=== PATIENT | female | born 1960 | race Caucasian/White ===

== ENCOUNTER → 2018-03-10 12:27 | Outpatient (CLI) | payer OTHER, SELFPAY ==
--- NOTE | 2018-03-10 13:00 | RAD_ITS ---
STUDY: X-RAY - UNILATERAL RIBS ( LEFT ) WITH CHEST REASON FOR EXAM: Female, 57 years old. Contusion following a fall. TECHNIQUE - RIBS: 4 view(s) of the ribs. TECHNIQUE - CHEST: Single PA view of the chest. COMPARISON: Comparison is made with prior chest radiograph dated March 09, 2017. FINDINGS - RIBS: Normal visualized ribs without a demonstrated fracture. FINDINGS - CHEST: Mild degree of increased linear markings at the lung bases suggestive of scarring. No acute infiltrate is seen. There is no demonstrated pleural abnormality. Normal size heart. Normal mediastinum and chitra. Normal visualized pulmonary arteries. There is atherosclerotic tortuosity of the aortic arch and descending thoracic aorta. Normal visualized thoracic spine. Normal visualized ribs, clavicles, and shoulders. There is no demonstrated abnormality of the visualized soft tissue structures of the upper abdomen. RAD/Ribs Uni Min 3V w/PA Chest IMPRESSION: RIBS: Normal x-ray examination of the ribs. CHEST: Stable mild degree of increased linear markings at the lung bases suggestive of scarring. Electronically Signed: Wojciech Washburn MD at 13:57 EDT Tel [phone], Service support ,
== END ==
PROVIDERS: Visit Provider Family Medicine
DX: S20.212A Contusion of left front wall of thorax, initial encounter (principal); W19.XXXA Unspecified fall, initial encounter
CPT/HCPCS: 71101

== ENCOUNTER 2022-02-20 22:27 | Emergency (ER) | payer MEDICAID, SELFPAY ==
[2022-02-20 22:28] VITALS: BP 167/89; PULSE 94; RESP 16; TEMP 35.9; O2SAT 100; BMI 29.2
--- NOTE | 2022-02-20 22:36 | EDS_ITS ---
HPI History of Present Illness Chief Complaint: Flank Pain Narrative Narrative: 61-year-old female here with chief complaint of flank pain. Patient states that she had 2 days of left flank pain that is constant, nonradiating worse at night. Does note some urinary frequency but notes also decreased urination. Denies any fever. Denies any abdominal pain, diarrhea, change in bowel or bladder habits, vaginal bleeding. Patient denies any chest pain or shortness of breath. The pain is not pleuritic. Prior similar symptoms: No Recent Illness/Hospitalization: No PFSH PFSH Medical History (Updated 02/21/22 @ 00:[address] Kamari Rodriguez, DO) Abdominal pain Mid back pain on left side Urinary frequency Home Medications albuterol sulfate 90 mcg/actuation aerosol inhaler 1 - 2 puff inhalation Q4H PRN PRN Wheezing ##1 03/10/17 [Rx Last Taken Unknown] ibuprofen 600 mg tablet 600 mg PO TID PRN pain #30 tabs 02/20/22 [Rx Last Taken Unknown] Allergy/AdvReac Type Severity Reaction Status Date / Time Penicillins Allergy Rash Verified 02/20/22 22:28 Social History (Updated 10/06/18 @ 13:58 by Hunter RIVAS, PA) Smoking Status: Current every day smoker tobacco type: cigarettes alcohol intake: current alcohol intake frequency: holidays/special occasions only ROS ROS ED Constitutional Constitutional ED: Denies chills or fever(s) Eyes Eyes: Denies other visual disturbances ENT ENT ED: Denies ear pain Cardiovascular Cardiovascular: Denies chest pain Respiratory/Chest Respiratory/Chest: Denies dyspnea Gastrointestinal Gastrointestinal: Denies abdominal pain Genitourinary Genitourinary ED: Reports urinary frequency Musculoskeletal Musculoskeletal: Denies joint pain Integumentary Denies rash Neurologic Neurologic: Denies dizziness, focal weakness, numbness, syncope or weakness Psychiatric Psychiatric: Denies homicidal ideation or suicidal ideation EXAM Physical Exam Narrative Exam Narrative: Nursing triage notes reviewed, Vital signs reviewed Constitutional: please see mdm HENT: MMM Eyes: Pupils equal round and reactive to light, Extraocular muscles intact Neck: No stridor, no JVD, full neck ROM Lungs: Clear to auscultation, No wheezing or rales. No increased work of breathing, no conversational dyspnea, no accessory muscle use, no nasal flaring. No respiratory distress noted Heart: Regular rate and rhythm, No murmurs, No rubs and No gallops, 2+ distal pulses (radial, femoral, posterior tibial) in all extremities Abdomen: Soft, there is no tenderness, rigidity, rebound or guarding, no obvious peritoneal signs, no palpable pulsatile abdominal masses, no auscultated abdominal bruit : No CVAT Extremities: No edema Neuro: No focal neurological deficits, cranial nerves II through XII intact, 5/5 strength in all extremities. Intact sensation to light touch in all extremities, 2+ reflexes bilateral patella dens. Normal gait. No ataxia. Skin: No rash or lesions noted Const Vital Signs: 02/20/22 22:28 Temperature 96.6 F L Temperature Source Temporal Pulse Rate 94 Respiratory Rate 16 Blood Pressure 167/89 H Blood Pressure Mean 115 Pulse Ox 100 Oxygen Delivery Method Room Air MDM MDM MDM Narrative Medical decision making narrative: 61-year-old female here with 2 days of left flank pain and urinary frequency. Patient was hemodynamically stable, afebrile and nontoxic-appearing. There is no CVA tenderness on my exam. Concerned about pyelonephritis, UTI, nephrolithiasis. Obtained a broad lab and imaging work-up to further elucidate etiology of his complaints. I obtained a noncontrast CT scan to rule out nephrolithiasis, obtained a urinalysis to rule out signs of UTI or pyelonephritis. Patient had no pulsatile abdominal masses, no pulse deficits, low suspicion for other pathology at this time gave morphine, fluids with improvement in pain labs images were remarkable for\no evidence of systemic in flammation, UTI or kidney dysfunction. CT scan shows no evidence of acute intra-abdominal pathology including nephrolithiasis, AAA patient symptoms remain unexplained however she is hemodynamically stable afebrile with a negative lab and imaging work-up. She is appropriate for discharge home with close PCP follow-up and strict return precautions. Patient expressed understanding and agreed to return if her symptoms change or worsen. Shared decision making: I had a long discussion with the patient and or visitors regarding risk/benefits of further testing or admission. They decided to forego any further testing or admission. They are aware of of the risk/benefits inherent in this decision and have voiced understanding. Lab Data Attestation: I reviewed the patient's lab results. Lab results narrative: CBC without leukocytosis, severe anemia, no thrombocytopenia. BMP without evidence of significant electrolyte abnormalities, no anion gap, no acute kidney injury. Urinalysis shows no evidence of urinary inflammation suggestive of UTI Labs: Laboratory Results - last 24 hr 02/20/22 02/20/22 02/20/22 23:15 23:15 23:30 WBC 7.0 RBC 4.19 L Hgb 14.5 Hct 41.6 MCV 99.3 H MCH 34.6 H MCHC 34.9 RDW Std Deviation 46.4 H RDW Coeff of Pema 12.7 Plt Count 230 MPV 9.9 Immature Gran % (Auto) 0.700 Neut % (Auto) 44.9 L Lymph % (Auto) 40.7 Young % (Auto) 9.5 Eos % (Auto) 3.5 Baso % (Auto) 0.7 Absolute Neuts (auto) 3.1 Absolute Lymphs (auto) 2.83 Nucleated RBC % 0 Sodium 135 L Potassium 3.4 L Chloride 101 Carbon Dioxide 28.0 Anion Gap 6 BUN 9 Creatinine 0.68 Estim Creat Clear Calc 71.87 Est GFR (MDRD) Af Amer 114 Est GFR (MDRD) Non-Af 94 BUN/Creatinine Ratio 13.3 Glucose 119 H Calcium 9.5 Urine Color Straw Urine Clarity Clear Urine pH 6.0 Ur Specific [place] 1.010 Urine Protein Negative Urine Glucose (UA) Normal Urine Ketones Negative Urine Occult Blood 10 H Urine Nitrite Negative Urine Bilirubin Negative Urine Urobilinogen Normal Ur Leukocyte Esterase Negative Urine RBC 0-5 SEEN Urine WBC 0 SEEN Ur Squamous Epith Cells 0-5 SEEN Urine Bacteria 0 SEEN Urine Mucus 0 SEEN Radiography Diagnostic Testing: Clinical Impression(s) from Imaging Studies Abdomen/Pelvis CT 02/20/22 22:45 IMPRESSION: No evidence of acute intra-abdominal abnormality. Other nonurgent findings within body of report. Electronically Signed: Raffaele Marie MD at 0:34 EDT , Discharge Plan Triage Chief Complaint: Flank Pain ED Provider: Kamari Rodriguez Dx/Rx/DC Orders Clinical Impression: Acute flank pain Instructions: ED Pain, Acute, Uncertain Cause Prescriptions: No Action ibuprofen 600 mg tablet 600 mg PO TID PRN (Reason: pain) Qty: 30 0RF albuterol sulfate 1 INHALER inhaler 1 - 2 puff inhalation Q4H PRN PRN (Reason: Wheezing) Qty: 1 0RF Primary Care Provider: Care Physician,No Primary Referrals: Care Physician,No Primary [Primary Care Provider] - Activity Restrictions/Additional Instructions: Please return if your symptoms change or worsen. Please continue to drink plenty of fluids. Please take [id number] Tylenol and/or ibuprofen as needed for further pain control. Disposition Disposition: Home, Self Care
--- NOTE | 2022-02-20 22:45 | CT_ITS ---
INDICATION: Kidney Stone. Left flank pain for 2 days, urinary frequency. EXAMINATION: CT ABDOMEN AND PELVIS WITHOUT CONTRAST TECHNIQUE: Helically acquired images were obtained of the abdomen and pelvis without IV contrast. 2-D reconstructions reviewed. A radiation dose optimization technique was used for this scan. IV Contrast dosage and agent: None. Oral contrast: None. COMPARISON: None. FINDINGS: LOWER CHEST: Slightly hyperexpanded lungs with minimal basilar atelectatic changes. Heart size within normal limits. LIVER: Homogeneous. No discrete mass. GALLBLADDER AND BILIARY TREE: No calcified gallstones identified. No gallbladder wall edema demonstrated. No significant biliary ductal dilation. PANCREAS: No discrete mass or peripancreatic edema. SPLEEN: Normal size without discrete mass. ADRENAL GLANDS: Unremarkable. KIDNEYS AND URETERS: Normal renal size and position. No hydronephrosis. No discrete mass. No tract stones identified. PERITONEUM: No peritoneal free air or significant free fluid. No other fluid collection. RETROPERITONEUM: No retroperitoneal mass or pathologic fluid collection. BOWEL: Normal appendix posterior to cecum within right lower quadrant. No abnormal stomach or bowel distension. No focal inflammatory change. LYMPH NODES: No enlarged mesenteric or retroperitoneal lymph nodes. VESSELS: Atherosclerotic calcifications with no abdominal aortic aneurysm. URINARY BLADDER: Unremarkable as visualized. REPRODUCTIVE ORGANS: No discrete pelvic mass. ABDOMINAL WALL: No acute findings or significant hernia defect. BONES: Multilevel degenerative changes and mild scoliotic curvature along spine. CT/Abdomen/Pelvis without Cont IMPRESSION: No evidence of acute intra-abdominal abnormality. Other nonurgent findings within body of report. Electronically Signed: Raffaele Marie MD at 0:34 EDT ,
[2022-02-20] MEDS: Ondansetron 4 MG/2 ML Vial IV (23:21)
[2022-02-20] MEDS: 0.9% Normal Saline 1,000 ML 999 ML IV (23:21)
[2022-02-20] MEDS: Ketorolac 15 MG/ML Vial IV (23:22)
[2022-02-20] MEDS: Morphine 4 MG/ML Syringe IV (23:25)
[2022-02-20 23:30] LABS: Absolute Lymphocyte Count 2.83 X10^3/uL (0.83-4.51); Absolute Neutrophil Count 3.1 X10^3/uL (2.0-7.7); Basophil# 0.05 X10^3/uL; Basophil% 0.7 % (0-1); Eosinophil# 0.24 X10^3/uL; Eosinophils% 3.5 % (0-5); Hematocrit 41.6 % (37-47); Hemoglobin 14.5 g/dL (12.0-15.0); Lymphocyte # 2.83 X10^3/ul (0.83-4.51); Lymphocyte % 40.7 % (19-41); Mean Corp Hgb Conc 34.9 g/dL (32-36); Mean Corpuscular Hgb 34.6 pg (27.0-32.0); Mean Corpuscular Volume 99.3 fL (81-99); Mean Platelet Vol. 9.9 fl (6.2-12.0); Monocyte# 0.66 X10^3/uL; Monocyte% 9.5 % (0-10); NRBC Flagged by Analyzer 0 % (0-5); Neutrophil # 3.12 X10^3/uL (2.7-7.7); Neutrophil % 44.9 % (47-70); Platelet Count 230 K/mm3 (150-450); RBC Distribution Width CV 12.7 % (11.6-14.6); RBC Distribution Width SD 46.4 fl (35.1-43.9); Red Blood Count 4.19 M/mm3 (4.2-5.4)
[2022-02-20 23:34] LABS: Bacteria 0 SEEN /hpf (None Seen); Mucous, Urine 0 SEEN /hpf (<or=2+); White Blood Cells 0 SEEN /hpf (0-5)
[2022-02-20 23:35] LABS: Color, Urine Straw (Yellow); Glucose, Dipstick Normal (Normal); Ketone-Dipstick Negative (Negative); Leukocyte Esterase-Dipstick Negative /ul (Negative); Nitrite-Dipstick Negative (Negative); Occult Blood-Urine 10 /ul (Negative); Protein-Dipstick Negative (Negative); Urine Bilirubin Dipstick Negative (Negative); Urine Clarity Clear (Clear); Urine Urobilinogen Normal (Normal)
[2022-02-20 23:39] LABS: Anion Gap 6 (5-15); BUN 9 mg/dL (7-18); BUN/Creat Ratio 13.3 RATIO (10-20); Calcium,Total 9.5 mg/dL (8.5-10.1); Chloride 101 mmol/L (98-107); Creatinine, Serum 0.68 mg/dL (0.55-1.02); EST Glomerular Filtration Rate 94 mL/min (>60); Est Glom Filt Rate - Afr Amer 114 mL/min (>60); Estimated Creatinine Clearance 71.87 ml/min; Glucose 119 mg/dL (74-106); Potassium 3.4 mmol/L (3.5-5.1); Sodium Level 135 mmol/L (136-145)
[2022-02-20 23:52] LABS: Red Blood Cells-Urine 0-5 SEEN /hpf (0-5); Squamous Epithelial Cells - UA 0-5 SEEN /hpf (5-10)
[2022-02-21 01:01] VITALS: PULSE 78; RESP 18; O2SAT 97
== END 2022-02-21 01:02 | disposition home or self-care (01) ==
PROVIDERS: Emergency Provider Emergency Medicine; Visit Provider Emergency Medicine
DX: R10.9 Unspecified abdominal pain (principal); F17.210 Nicotine dependence, cigarettes, uncomplicated
CPT/HCPCS: 74176; 80048; 81001; 85025; 87086; 87088; 96361; 96374; 96375; 99283; J7030; A4216; J2405

== ENCOUNTER → 2022-02-20 | Outpatient (CLI) | payer MEDICAID, SELFPAY ==
[2022-02-20 10:05] LABS: Bacteria 0 SEEN /hpf (None Seen); Red Blood Cells-Urine 0 SEEN /hpf (0-5); Squamous Epithelial Cells - UA 0 SEEN /hpf (5-10); White Blood Cells 0 SEEN /hpf (0-5)
[2022-02-20 10:12] LABS: Color, Urine Yellow (Yellow); Glucose, Dipstick Normal (Normal); Ketone-Dipstick 5 mg/dl (Negative); Leukocyte Esterase-Dipstick Negative /ul (Negative); Nitrite-Dipstick Negative (Negative); Occult Blood-Urine Negative /ul (Negative); Protein-Dipstick Negative (Negative); Specific Gravity, Urine 1.005 (1.002-1.030); Urine Bilirubin Dipstick Negative (Negative); Urine Clarity Clear (Clear); Urine Urobilinogen Normal (Normal); Urine pH 6.5 (5.0 - 8.0)
[2022-02-20 10:26] LABS: Mucous, Urine 0 SEEN /hpf (<or=2+)
== END | disposition home or self-care (01) ==
LOC: LABSPEC 09:58
PROVIDERS: Visit Provider Physician Assistant
DX: R35.0 Frequency of micturition (principal)
CPT/HCPCS: 81001; 87086

== ENCOUNTER 2024-11-22 09:00 | Emergency (ER) | payer MEDICAID, SELFPAY ==
[2024-11-22 09:01] VITALS: BP 147/82; PULSE 100; RESP 16; TEMP 36.7; O2SAT 99
[2024-11-22 09:04] VITALS: BMI 29.6
--- NOTE | 2024-11-22 09:16 | EDS_ITS ---
HPI History of Present Illness HPI Narrative: 63-year-old female no [facility] past medical history. Believes she has arthritis in her knees. Complaining of atraumatic right knee pain and swelling since Friday. Denies any fall injury or trauma. No fever or chills. No redness or warmth. She has had knee pain before but not like this. Can walk but says it is uncomfortable. Chief Complaint: Lower Extremity Injury Informant: patient Occured/Mechanism Mechanism/Context: No injury and No blunt trauma Onset/Context/Timing Onset: Days Context: Gradual Onset Timing: Continuous Quality of Pain: Sharp Current Severity: Moderate Maximum Severity: Moderate Associated Symptoms Associated Symptoms: Negative for Parasthesia, Weakness or Loss of Funtion Narrative Narrative: 63-year-old female atraumatic right knee pain and swelling. History of arthritis. No history of gout. No fever or chills. No prior history. No fall or trauma. Been going on since Friday. Prior similar symptoms: No Recent Illness/Hospitalization: No PFSH PFSH Medical History Mid back pain on left side Urinary frequency Abdominal pain Home Medications ?Medication ?Instructions ?Recorded ?Last Taken ?Type azithromycin 250 mg tablet 250 mg PO .COMPLEX #12 tabs 09/27/24 Unknown Rx Allergy/AdvReac Type Severity Reaction Status Date / Time Penicillins Allergy Rash Verified 11/22/24 09:01 Social History Smoking Status: Current every day smoker tobacco type: cigarettes alcohol intake: current alcohol intake frequency: holidays/special occasions only ROS ROS ED ROS Narrative Denies recent illness. Constitutional Constitutional ED: Denies chills or fever(s) Eyes Eyes: Denies blurry vision ENT ENT ED: Denies ear pain Cardiovascular Cardiovascular: Denies chest pain Respiratory/Chest Respiratory/Chest: Denies cough or dyspnea Gastrointestinal Gastrointestinal: Denies abdominal pain Genitourinary Genitourinary ED: Denies dysuria or hematuria Musculoskeletal Musculoskeletal: Denies arthralgias or back pain Integumentary Denies abscess or Abrasions Neurologic Neurologic: Denies headache(s) Psychiatric Psychiatric: Denies anxiety Endocrine Endocrinology: Denies polydipsia Hematologic/Lymphatic Hematologic/Lymphatic: Denies easy bleeding, easy bruising or lymphadenopathy Allergic/Immunologic Allergic/Immunologic ED: Denies mouth swelling, tongue swelling or urticaria EXAM Physical Exam Narrative Exam Narrative: 63-year-old female sitting upright in bed. Vital signs are stable afebrile. No acute distress. H EENT exam pupils round reactive light. Moist mucous membranes. Neck nontender no lymphadenopathy. Lungs clear to auscultation bilaterally. Heart regular rhythm rate about 95 no murmur. Chest wall ribs nontender. Abdomen soft nontender. Back nontender. Moving all 4 extremities. Neurovascularly intact. Normal range of motion and strength. Right knee tender to palpation. Swollen. Effusion. No cellulitis. Not hot to the touch. She is able to do flexion extension. There is obvious crepitance to both knees. Normal dorsi plantarflexion. Normal strength in her right foot and ankle. Normal sensation. There is no inguinal lymphadenopathy. Exam is consistent with an arthritic knee effusion. This does not look like a septic joint. Neurologically she is awake and alert. Answer questions following commands. Const Vital Signs: 11/22/24 09:01 11/22/24 10:22 Temperature 98.1 F 98 F Temperature Source Oral Pulse Rate 100 79 Respiratory Rate 16 19 H Blood Pressure 147/82 H 140/77 H Blood Pressure Mean 103 98 Pulse Ox 99 97 Oxygen Delivery Method Room Air Positive well nourished and well developed; Negative for obese, cachectic, contractures or unkempt General Appearance ED: well developed; Negative for unkempt, cachectic or contractures Nutritional Appearance: Negative for cachectic or obese HEENT Reports moist mucous membranes normocephalic and atraumatic Eyes PERRL Neck full ROM and supple Chest Wall inspection of chest normal and palpation of chest normal Resp normal respiratory effort, no retractions and clear to auscultation bilaterally Cardio regular rate, regular rhythm, S1 normal heart sound, S2 normal heart sound and no murmurs GI non-tender, non-distended and no masses Auscultation: normoactive bowel sounds Palpation: soft; Negative for tender, guarding or rebound tenderness present Back/Spine no CVA tenderness General Back: Negative for CVA tenderness Cervical Spine: Negative for cervical spine tenderness Thoracic Spine / Upper Back: Negative for thoracic spinal tenderness Lumbar Spine / Lower Back: Negative for lumbar spinal tenderness Extremity full ROM; Negative for normal to inspection Extremity Narrative: Right knee swollen. Effusion. Flexion section intact. Crepitance. No cellulitis. No septic joint. No inguinal lymphadenopathy. Normal strength and sensation. General Extremety ED: Yes weight-bearing difficulty; Negative for cyanosis or edema General Extremity: weight-bearing difficulty; Negative for cyanosis or edema Neuro oriented x3, CN's II-XII intact bilaterally, moves all extremities and no sensory deficits noted Sensorium / Orientation: alert, oriented to person, oriented to place and oriented to time; Negative for orientation impaired Motor Exam: strength 5/5 throughout Psych mental status grossly normal Appearance: Negative for unkempt Skin no wounds Rashes: no rashes MDM MDM MDM Narrative Medical decision making narrative: Swollen tender right [id number] female with no history of trauma. Suspect arthritic effusion. She has no history of gout. She has no recent illness or fever. There is no cellulitis. I do not think this is infectious. X-ray will be obtained. She and I have discussed interarticular injection with Kenalog and lidocaine. History & Record Review Discussion w/independent historian: Patient and Family Lab Data Attestation: I reviewed the patient's lab results. Lab results narrative: Sent the joint fluid to the lab for uric acid, Gram stain and culture. White blood cell count was 28,000. 81% neutrophils. Gram stain was negative. No organisms. I spoke to the lab, pathologist has not reviewed yet they do not know about the crystals as of yet. And the culture is pending. Labs: Laboratory Results - last 24 hr 11/22/24 Unknown Fluid Crystals MONOSODIUM URATE Fluid Crystal Source SYNOVIAL Fl Crystal Path Review Will follow Synovial Source RIGHT KNEE Synovial Color Yellow Synovial Appearance Cloudy Synovial WBC 28.5600 H Synovial RBC 160 H Synovial Tot Cell Ct 28.6100 H Synov Polynuclear WBCs 28.904 Synov Mononuclear WBCs 1.161 Synovial Neutrophils 81 H Synovial Lymphocytes 1 Synovial Monocytes 18 Synovial Polynuclear % 96.1 Synovial Mononuclear % 3.[address] Comment May follow Radiography Diagnostic Testing: Clinical Impression(s) from Imaging Studies Knee X-Ray 11/22/24 09:20 IMPRESSION: Mild degenerative arthritic change involving the patellofemoral joint. Reading Location: [place] [id number] Right knee x-ray, 4 views, interpreted by myself shows no acute fracture. Chronic arthritic changes. Good joint space. I went over the x-ray with the patient. Procedures Other Procedures Procedure(s): Right knee joint arthrocentesis. Knee was prepped with cleaning it multiple times with alcohol swab. Then used ChloraPrep soap swab. Using a medial approach I drained several cc of the knee fluid. It was straw-colored. Then injected the knee using 10 cc of lidocaine and 40 mg of Kenalog. Patient tolerated well. It was then cleaned again with alcohol and a Band-Aid was applied. She did receive some relief. Patient was warned on any signs of infection or to return. Orthopedic follow-up. Discharge Plan Triage Chief Complaint: Lower Extremity Injury ED Provider: Orion Bell Dx/Rx/DC Orders Clinical Impression: Osteoarthritis, Effusion of knee joint right Instructions: ED Knee Effusion, ED Osteoarthritis Prescriptions: No Action azithromycin 250 mg tablet 250 mg PO .COMPLEX Qty: 12 0RF Rx Instructions: 2 tablets (500 mg) on day 1, then 1 tablet daily on days 2 through 11 Primary Care Provider: Care Physician,No Primary Referrals: Sundeep Perez DO [Med Staff - Active Staff] - As soon as possible Care Physician,No Primary [Primary Care Provider] - Activity Restrictions/Additional Instructions: Ice your knee to decrease pain and swelling. Take it easy on the next few days to start feeling better. The pain and swelling should start coming down over the next several days to week. Watch for any signs of infection redness, fever or feeling worse return. Follow-up with orthopedics for further evaluation. I suspect this is arthritis in your knee with the development of the fluid which is called an effusion. Motrin for pain and swelling and Tylenol for pain. Print Language: Hungarian Disposition Disposition: Home, Self Care Discharge Date/Time: 11/22/24 10:39
[2024-11-22] MEDS: Triamcinolone Acetonide 40 MG/ML Vial INTRAARTIC (09:18)
[2024-11-22] MEDS: Lidocaine 1% (20 ml mdv) 20 ML Vial 10 ML INFILT (09:18)
--- NOTE | 2024-11-22 09:20 | RAD_ITS ---
PROCEDURE: KNEE 4 OR MORE VIEWS 11/22/2024 REASON FOR EXAM: ATRAUMATIC PAIN AND SWELLING TECHNIQUE: 4 view(s) of the right knee COMPARISON: No relevant prior FINDINGS: Bones: No acute osseous findings. Joints: Narrowing of the lateral aspect of the patellofemoral joint. Effusion: Unremarkable.. Soft tissues: Unremarkable. Other: No other significant findings. RAD/Knee 4 or More Views IMPRESSION: Mild degenerative arthritic change involving the patellofemoral joint. Reading Location: [place] [id number]
[2024-11-22 10:22] VITALS: BP 140/77; PULSE 79; RESP 19; TEMP 36.6; O2SAT 97
[2024-11-22 10:35] LABS: Pathologist Comment May follow
[2024-11-22 10:57] LABS: Synovial Fld Mononuclear WBC # 1.161 10^3/ul; Synovial Fld Mononuclear WBC % 3.9 %; Synovial Fld Polynuclear WBC # 28.904 10^3/uL; Synovial Fld Polynuclear WBC % 96.1 %
[2024-11-22 11:41] LABS: AUTO B FLUID DILUENT BKGD CT WBC <0.1 RBC <0.01 (W<.1,R<.01); Source / Synovial Fluid RIGHT KNEE; Source- Body Fluid SYNOVIAL
[2024-11-22 11:42] LABS: Appearance /Synovial Fluid Cloudy (CLEAR); Color / Synovial Fluid Yellow (Pale Yellow)
[2024-11-22 12:14] LABS: RBC /Synovial Fluid 160 /mm3 (0)
[2024-11-22 12:47] LABS: CRYSTALS, BODY FLUID MONOSODIUM URATE
[2024-11-22 13:06] LABS: Lymph 1 %; Monocyte /Synovial Fluid 18 %; Neutrophil 81 % (0-25)
[2024-11-24 09:37] LABS: Pathologist Review Reviewed
== END 2024-11-22 10:39 | disposition home or self-care (01) ==
PROVIDERS: Emergency Provider Emergency Medicine; Visit Provider Emergency Medicine
DX: M17.11 Unilateral primary osteoarthritis, right knee (principal); M25.461 Effusion, right knee; F17.210 Nicotine dependence, cigarettes, uncomplicated
CPT/HCPCS: 73564; 87070; 87075; 87205; 89050; 89051; 89060; 96374; 99282

== ENCOUNTER 2024-12-03 12:49 | Emergency (ER) | payer MEDICAID, SELFPAY ==
[2024-12-03 12:49] VITALS: BP 134/70; PULSE 90; RESP 18; TEMP 36.8; O2SAT 97; BMI 28.3
--- NOTE | 2024-12-03 13:33 | ED.RN ---
PT CAME TO THE ED APROX 11 DAYS AGO FOR RIGHT KNEE PAIN AND SWELLING. PT HAD HER KNEE ASPIRATED AND WAS ADVISED TO FOLLOW UP WITH SPECIALTY. PT WAS SEEN THIS PAST FRIDAY (11/30/24) FOR FOLLOW UP. EXAMINED PTS KNEE AND ORDERED A MRI TELLING PT HE THOUGHT IT WAS A TEAR. IN THE PAST 3 DAYS PT HAS BEEN HAVING MORE PAIN AND SWELLING AND UNABLE TO BEAR WEIGHT.
--- NOTE | 2024-12-03 14:02 | EDS_ITS ---
HPI <EVELYN Engel - Last Filed: 12/03/24 16:40> History of Present Illness Chief Complaint: Lower Extremity Injury Narrative Narrative: Patient presenting today with atraumatic swelling of the right knee that has been ongoing over the past 2 weeks. She was seen here on 11/22/2024 for this, she had an x-ray obtained of her knee that showed arthritis, she did have a arthrocentesis performed and a Kenalog injection. She then followed up with orthopedics on Friday, she saw Dr. Perez, she reports that they suspect she could have a meniscal tear and she is scheduled to have an MRI next week. On Friday her knee started to swell more. She reports having a hard time bearing weight due to the pain and swelling. She denies any fevers or chills. PFSH <EVELYN Engel - Last Filed: 12/03/24 16:40> PFSH Medical History Mid back pain on left side Urinary frequency Abdominal pain Home Medications ?Medication ?Instructions ?Recorded ?Last Taken ?Type azithromycin 250 mg tablet 250 mg PO .COMPLEX #12 tabs 09/27/24 Unknown Rx hydrocodone-acetaminophen 5-325mg 1 tab PO Q6H PRN PRN Pain 3 days 12/03/24 Unknown Rx 5mg-325mg #10 TABLETS prednisone 20 mg tablet 40 mg (2 x 20 mg) PO DAILY 7 days 12/03/24 Unknown Rx #14 tabs Allergy/AdvReac Type Severity Reaction Status Date / Time Penicillins Allergy Rash Verified 12/03/24 12:51 Social History Smoking Status: Current every day smoker tobacco type: cigarettes alcohol intake: current alcohol intake frequency: holidays/special occasions only ROS <EVELYN Engel - Last Filed: 12/03/24 16:40> ROS ED Constitutional Constitutional ED: Denies chills or fever(s) Cardiovascular Cardiovascular: Denies chest pain Respiratory/Chest Respiratory/Chest: Denies dyspnea Gastrointestinal Gastrointestinal: Denies abdominal pain, nausea or vomiting Musculoskeletal Musculoskeletal: Reports arthralgias; Denies myalgias Integumentary Denies rash Neurologic Neurologic: Denies paresthesias EXAM <EVELYN Engel - Last Filed: 12/03/24 16:40> Physical Exam Const Vital Signs: 12/03/24 12:49 12/03/24 14:49 12/03/24 16:03 Temperature 98.2 F 98.0 F Temperature Source Oral Pulse Rate 90 72 75 Respiratory Rate 18 18 18 Blood Pressure 134/70 H 119/73 119/73 Blood Pressure Mean 91 88 88 Pulse Ox 97 97 100 Oxygen Delivery Method Room Air Room Air Positive well nourished, well developed and no apparent distress General Appearance ED: well developed HEENT Reports normocephalic and head/scalp atraumatic Mouth ED: Yes moist mucous membranes normal Eyes PERRL and EOMs intact bilaterally Neck full ROM and supple Chest Wall inspection of chest normal Resp normal respiratory effort and clear to auscultation bilaterally Cardio regular rate and regular rhythm Back/Spine normal ROM and normal to inspection Extremity normal to inspection and full ROM Extremity Narrative: Effusion to the right knee, tenderness to the medial aspect of the knee, intact flexion and extension but limited movement limited by pain and swelling. No warmth, no erythema, no signs of infection. Right DP pulse 2+, good cap refill, sensation intact. Neuro oriented x3, CN's II-XII intact bilaterally, moves all extremities, no focal motor deficits and no sensory deficits noted Sensorium / Orientation: awake and alert Psych mental status grossly normal and thought process normal Skin no rashes or lesions noted and no wounds <Dr. Davin Cole DO - Last Filed: 12/03/24 23:04> Physical Exam Const Vital Signs: 12/03/24 12:49 12/03/24 14:49 12/03/24 16:03 Temperature 98.2 F 98.0 F Temperature Source Oral Pulse Rate 90 72 75 Respiratory Rate 18 18 18 Blood Pressure 134/70 H 119/73 119/73 Blood Pressure Mean 91 88 88 Pulse Ox 97 97 100 Oxygen Delivery Method Room Air Room Air MDM <EVELYN Engel - Last Filed: 12/03/24 16:40> MDM MDM Narrative Medical decision making narrative: Patient presenting today with an atraumatic effusion to her right knee that has been ongoing for about 2 weeks. She was seen here on 11/22/2024 with this, she did have an arthrocentesis performed, there were no signs of infection at that time. She followed up with orthopedics Friday and is scheduled to have an MRI next week. Her swelling became worse on Friday. She is able to ambulate but it does cause her discomfort to bear weight. She is using a walker at home to get around. She does not want crutches. On exam she does not have any evidence of infection, no septic joint. There is no warmth or erythema to the knee. Given she has had no injury to the knee I do not feel any repeat imaging is indicated at this time. We did consult Dr. Perez, he recommends starting her on p.o. prednisone, he has started her on an NSAID, I will also give her a prescription for [place] for breakthrough pain. We did offer aspirating the knee again here, she does not want to do this at this time. RICE instructions discussed with her. Recommended she follow-up closely with orthopedics and she will be discharged home in stable condition. <Dr. Davin Cole, DO - Last Filed: 12/03/24 23:04> MDM Treatment and Re-Evaluation Narrative: Attending note: I have personally performed a face to face assessment of the patient and have reviewed the JASMYNE note. I personally made/approved the management plan and take responsibility for the patient management. I performed a substantive portion of the visit including all aspects of the following. My mcelroy findings include: Nontraumatic knee pain nearly last couple weeks. Swelling was seen in the ED 11 days ago. She had x-ray and knee aspiration that was negative. She was also given a Kenalog injection states no significant improvement. She followed up with orthopedics Dr. Perez 3 days ago MRI scheduled concern for meniscus injury. Increasing swelling since then. No fevers. No diabetes history. Exam swelling with more suprapatellar no redness no warmth. Pain with movement. No deformities. Reviewed records cell count negative cultures negative of her knee. I sent pictures through backline to her orthopedist Dr. Perez. We discussed treatment options. Does not feel the diagnostic arthrocentesis is necessary however at patient request therapeutic arthrocentesis can try to perform however she did not improve the first time. This was discussed with the patient and she declines this. Decision was for steroid treatment orally she was sent in for Celebrex earlier by her orthopedist. Will write short course of [place]. 1 dose given in ED. Valeriy wrap provided she will continue her crutches. She states her MRI was moved up to the 20th of her knee for which she will keep plan image studies. She will follow-up with her orthopedist. Discharge Plan Triage Chief Complaint: Lower Extremity Injury ED Midlevel Provider: Opal Juan ED Provider: Davin Cole Dx/Rx/DC Orders Clinical Impression: Effusion, right knee Instructions: ED Knee Effusion Prescriptions: New prednisone 20 mg tablet 40 mg PO DAILY 7 Days Qty: 14 0RF hydrocodone-acetaminophen 5-325 mg tablet 1 tab PO Q6H PRN PRN (Reason: Pain) 3 Days Qty: 10 0RF No Action azithromycin 250 mg tablet 250 mg PO .COMPLEX Qty: 12 0RF Rx Instructions: 2 tablets (500 mg) on day 1, then 1 tablet daily on days 2 through 11 Primary Care Provider: Care Physician,No Primary Referrals: Sundeep Perez DO [Med Staff - Active Staff] - 3-5 Days Care Physician,No Primary [Primary Care Provider] - Activity Restrictions/Additional Instructions: Follow-up with orthopedics, ice your knee, elevate the area, take NSAIDs as well for pain and swelling. Print Language: French Disposition Disposition: Home, Self Care Discharge Date/Time: 12/03/24 16:09
[2024-12-03] MEDS: HYDROcodone Bitartrate/Apap 5/325 Tablet PO (14:13)
[2024-12-03 14:49] VITALS: BP 119/73; PULSE 72; RESP 18; O2SAT 97
[2024-12-03 16:03] VITALS: BP 119/73; PULSE 75; RESP 18; TEMP 36.7; O2SAT 100
--- NOTE | 2024-12-03 18:02 | CM.ED ---
Social Work Reason for visit: No PCP Patient confirmed that she does not currently have a PCP. Patient also states that she does not have good enough insurance for physician offices and she feels like she can wait until she is on Medicare to find a PCP. SW offered information to [facility], patient states she is familiar with them and declined resources. No other needs identified at this time. Yanelis Bo, CARE TRAINER, LOAN ORIGINATOR
== END 2024-12-03 16:09 | disposition home or self-care (01) ==
PROVIDERS: Emergency Provider Emergency Medicine; Visit Provider Emergency Medicine
DX: M25.461 Effusion, right knee (principal); F17.210 Nicotine dependence, cigarettes, uncomplicated
CPT/HCPCS: 99282

== ENCOUNTER → 2024-12-09 | Outpatient (CLI) | payer MEDICAID, SELFPAY ==
--- NOTE | 2024-12-09 15:04 | VDLE_ITS ---
Reason For Study Reason For Study: Swelling RIGHT LEFT GSV is normal. CFV is compressible, spontaneous, phasic, competent, CFV is compressible, spontaneous, phasic, competent and demonstrates normal augmentation. and demonstrates normal augmentation. FV is compressible, spontaneous, phasic, competent and demonstrates normal augmentation. POP V is compressible, spontaneous, phasic, competent and demonstrates normal augmentation. T/P Trunk is compressible. Nonvascularized structure noted in the popliteal fossa measuring 6.24 x 3.78 x 6.14 cm. PTV is compressible. RT PerV is compressible. Procedure This is a venous duplex using B-mode, color flow and spectral Doppler. Exam performed in department. A preliminary report was called and/or faxed to Sundeep Wesley DO. VL/Venous Duplex US, Unilateral Interpretation Summary Deep veins of the right lower extremity are patent and compressible segmentally . There is no evidence of right lower extremity deep vein thrombosis. Valvular competence appears intact within the p roximal deep venous system on the right . The right great saphenous vein appears patent and compressible segmentally. A n on-vascular structure is noted in the right popliteal space, measuring 6.24 cm x 3.78 cm x 6.14 cm. This probably rep resents a popliteal cyst. Clinical correlation is advised. The left common femoral vein is patent and compressible . Ordering Physician: Sundeep Perez Performed By: Anahy Cheney RVT
[2024-12-09 16:20] LABS: Pathologist Comment May follow; Source / Synovial Fluid RIGHT KNEE; Source- Body Fluid SYNOVIAL
[2024-12-09 16:28] LABS: RBC /Synovial Fluid 0.072 10^6/uL (0); Synovial Fld Mononuclear WBC % 6.4 %; Synovial Fld Polynuclear WBC % 93.6 %
[2024-12-09 18:16] LABS: Lymph 2 %; Monocyte /Synovial Fluid 4 %; Neutrophil 94 % (0-25)
[2024-12-09 18:17] LABS: AUTO B FLUID DILUENT BKGD CT WBC <0.1 RBC <0.01 (W<.1,R<.01)
[2024-12-09 18:18] LABS: Appearance /Synovial Fluid Cloudy (CLEAR); Color / Synovial Fluid Red (Pale Yellow)
[2024-12-09 18:34] LABS: Body Fluid QC Type(s) BF2Q,BF3Q; CRYSTALS, BODY FLUID See PATH REV
[2024-12-13 16:30] LABS: Pathologist Review Reviewed
== END | disposition home or self-care (01) ==
LOC: CVS 14:56
PROVIDERS: Referring Provider Student in an Organized Health Care Education/Training Program; Visit Provider Student in an Organized Health Care Education/Training Program
DX: R22.41 Localized swelling, mass and lump, right lower limb (principal); M79.604 Pain in right leg; M25.561 Pain in right knee; S83.8X1D Sprain of other specified parts of right knee, subsequent encounter; M17.11 Unilateral primary osteoarthritis, right knee
CPT/HCPCS: 87070; 87075; 87077; 87186; 87205; 89050; 89051; 89060; 93971

== ENCOUNTER 2024-12-10 14:56 | Inpatient (IN) | payer MEDICAID, SELFPAY ==
[2024-12-10] VITALS (16 sets, daily range): BP systolic 107–174; BP diastolic 74–111; PULSE 92–112; RESP 16–24; TEMP 36.3–36.8; O2SAT 4–99; BMI 28.3
--- NOTE | 2024-12-10 11:54 | EKG12_ITS ---
Test Reason : PRE OP Blood Pressure : */* mmHG Vent. Rate : 95 BPM Atrial Rate : 95 BPM P-R Int : 128 ms QRS Dur : 82 ms QT Int : 340 ms P-R-T Axes : 68 73 67 degrees QTcB Int : 427 ms Normal sinus rhythm Normal ECG When compared with ECG of 09-Mar-2017 21:13, No significant change was found Confirmed by LESLI ALARCON, EMILY ([id number]), publications editor KANDICE SALAS ([id number]) on 12/14/2024 11:52:40 AM Referred By: Sundeep Perez Confirmed By: EMILY BALLESTEROS MD
[2024-12-10] MEDS: Lactated Ringers 1,000 ML 15 ML IV (12:00)
[2024-12-10 12:33] LABS: Hematocrit 38.4 % (37-47); Hemoglobin 13.4 g/dL (12.0-15.0); Mean Corp Hgb Conc 34.9 g/dL (32-36); Mean Corpuscular Hgb 32.8 pg (27.0-32.0); Mean Corpuscular Volume 94.1 fL (81-99); Mean Platelet Vol. 9.5 fl (6.2-12.0); Platelet Count 400 K/mm3 (150-450); RBC Distribution Width CV 12.5 % (11.6-14.6); RBC Distribution Width SD 43.2 fl (35.1-43.9); Red Blood Count 4.08 M/mm3 (4.2-5.4); White Blood Count 9.2 K/mm3 (4.4-11.0)
[2024-12-10 12:53] LABS: Anion Gap 14 (5-15); BUN 7 mg/dL (4-19); BUN/Creat Ratio 14.7 RATIO (10-20); Carbon Dioxide 24.1 mmol/L (21.0-32.0); Chloride 98 mmol/L (98-108); Creatinine, Serum 0.51 mg/dL (0.70-1.20); EST Glomerular Filtration Rate 104 (>60); Estimated Creatinine Clearance 106.38 ml/min (50-250); Glucose 103 mg/dL (70-99); Potassium 3.9 mmol/L (3.3-5.1); Sodium Level 136 mmol/L (133-145)
--- NOTE | 2024-12-10 13:13 | PCM.PRE.AN2 ---
ASA Classification* ASA Classification ASA Classification: 2 Assessment & Plan Anesthesia* Anesthesia Assessment Anesthesia Assessment: Discussed sedation and/or anesthesia options, risks, benefits, and alternatives with patient/parents/legal guardian/POA. Questions invited. The patient/parents/legal guardian/POA seems to understand and agrees to proceed with anesthesia plan. Reviewed the physical assessment, medical history, allergy history and patient home medications list prior to surgery/procedure/anesthetic and documented any changes. Performed airway and anesthesia risk assessments. Anesthesia Type Anesthesia Type: General History Source History Obtained from:: Patient and Chart Anesthesia Focused Assessment* Temperature: 98.0 F Pulse Rate: 96 Blood Pressure: 124/77 Respiratory Rate: 16 Pulse Ox: 99 Oxygen Delivery Method: Room Air Airway Assessment Mouth opens: >3 cm Mallampati Score: IV Teeth Condition: Intact Neck Range of motion (ROM): Full ROM Labs Anesthesia Preop lab: CBC WBC 9.2 K/mm3 (4.4-11.0) 12/10/24 12:12/10/24 RBC 4.08 M/mm3 (4.2-5.4) L 12/10/24 12:17 12/10/24 Hgb 13.4 g/dL (12.0-15.0) 12/10/24 12:12/10/24 Hct 38.4 % (37-47) 12/10/24 12:12/10/24 Plt Count 400 K/mm3 (150-450) 12/10/24 12:17 12/10/24 CHEMISTRY Potassium 3.9 mmol/L (3.3-5.1) 12/10/24 12:12/10/24 Sodium 136 mmol/L (133-145) 12/10/24 12:12/10/24 BUN 7 mg/dL (4-19) 12/10/24 12:12/10/24 Creatinine 0.51 mg/dL (0.70-1.20) L 12/10/24 12:12/10/24 Glucose 103 mg/dL (70-99) H 12/10/24 12:17 12/10/24 COAG Pre-Assessment Diagnosis/Proposed Procedure Planned Operative Procedure(s): RIGHT KNEE ARTHROSCOPIC IRRIGATION AND DEBRIDEMENT Anesthesia History 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 When Was Last Pacemaker Check QUESTION #4 FULL TEXT: You/Your Family Experience fever (hyperthermia) with Anesthesia Last Oral Intake Last Oral intake: Last Oral Intake NPO since 00:00 12/10/24 12:36 Meds taken in AM with sips of No 12/10/24 12:36 water? 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 Female Yes 12/10/24 12:23 HX of Motion Sickness No 12/10/24 12:23 HX of N/V After Surgery No 12/10/24 12:23 Non-Smoker No 12/10/24 12:23 Duration of Surgery greater Yes 12/10/24 12:23 than 60 minutes Number of Risk Factors 2 12/10/24 12:23 PONV Score Moderate Risk 12/10/24 12:23 Height & Weight Height & Weight: Anesthesia: Height & Weight Height 5 ft 3 in 12/10/24 12:36 Weight: 72.575 kg 12/10/24 12:36 Body Mass Index (BMI) 28.3 12/10/24 12:36 Respiratory Assessment Respiratory Assessment - alarm field technician: Respiratory Tract Infection Hx - alarm field technician Hx Respiratory Tract Infection No 12/10/24 12:23 STOP Sleep Apnea STOP Sleep Apnea - alarm field technician: STOP Sleep Apnea - alarm field technician Hx Hypertension No 12/10/24 12:23 Hx Sleep Apnea No 12/10/24 12:23 CPAP BIPAP Do you snore loudly (louder Yes 12/10/24 12:23 than talking or can be heard Do you often feel tired/ No 12/10/24 12:23 fatigued/ sleepy during daytime? Has anyone observed you stop No 12/10/24 12:23 breathing during sleep? STOP Results Negative 12/10/24 12:23 QUESTION #5 FULL TEXT : Do you snore loudly (louder than talking or can be heard through closed doors)? 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 - alarm field technician: Tobacco Use History - alarm field technician Tobacco Use Cigarettes 09/27/24 10:39 Smoking Status Current every day smoker 12/10/24 12:23 Hx Tobacco Use Yes 12/10/24 12:23 Years Smoking 35 12/10/24 12:23 Packs Smoked per Day 1 12/10/24 12:23 Smoking Cessation Date was No - quit smoking greater 12/10/24 12:23 within the last 15 years than 15 years ago Hx Smoking Cessation Date Hx Smoking Cessation Counseling Any additional information?: Yes Smoking Status: Current every day smoker (Patient smoked today.) Hematologic Medial History Hematologic Hx - alarm field 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 Specify any problems Hx of Preganancy in last 3 No 12/10/24 12:23 Months Nurse Filling Out Transfusion [facility] 12/10/24 12:23 & Questions: Date: 12/10/24 12/10/24 12:23 Time: 12:27 12/10/24 12:23 Patient unable to answer at this time (ie. confused, unrespo /Reproduction History /Reproductive History - alarm field technician: /Reproductive Hx- alarm field technician Hx Now No 12/10/24 12:23 Gestational Age (in weeks): EDC: Hx Hx Para Hx Section SAB Active Medications Active Medications: Current Medications Generic Name Dose Route Start Last Admin Trade Name Freq PRN Reason Stop Dose Admin Lactated Ringer's 1,000 mls @ 15 mls/hr 12/10/24 12:00 12/10/24 12:00 IV 15 mls/hr .Q48H SOTO Administration PFSH Medical History (Updated 12/10/24 @ 12:33 by Bruno Bustillos) Wears glasses Alcohol use Redness of skin History of steroid therapy Walker as ambulation aid Arthritis Fatty liver Shortness of breath on exertion Hoarseness Chronic cough Mid back pain on left side Urinary frequency Abdominal pain Home Medications ?Medication ?Instructions ?Recorded ?Last Taken ?Type acetaminophen 650 mg 650 mg PO Q8H PRN pain 12/10/24 12/10/24 History tablet,extended release (Tylenol Arthritis Pain) celecoxib 200 mg capsule 200 mg PO BID 12/10/24 12/09/24 History Allergy/AdvReac Type Severity Reaction Status Date / Time Penicillins Allergy Rash Verified 12/10/24 12:20 Family History (Updated 12/10/24 @ 12:35 by Bruno Bustillos) Mother Hypertension Father Atrial fibrillation Surgical History (Updated 12/10/24 @ 12:33 by Bruno Bustillos) H/O foot surgery Social History (Updated 12/10/24 @ 12:36 by Bruno Bustillos) household members: children housing: apartment financial difficulty paying for basics: not very hard service: No current occupational status: retired Smoking Status: Current every day smoker tobacco type: cigarettes alcohol intake: current alcohol intake frequency: holidays/special occasions only Review of Systems (Anesthesia) ROS Narrative System reviewed and no additional complaints, except as documented.
[2024-12-10] MEDS: HYDROmorphone 1 MG/ML Syringe 0.5 MG IV (13:36)
[2024-12-10] MEDS: Cefazolin 2 GM in 0.9% Normal Saline (100mL Bag) 100 ML IV (14:03)
[2024-12-10] MEDS: Bupiv/Epi 0.25% 30 ML Vial (14:20)
[2024-12-10] MEDS: Epinephrine (1 mg/ml) 1 MG/ML VIAL (14:20)
--- NOTE | 2024-12-10 15:03 | PCM.OPRPT ---
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: No Type of Anesthesia: General RN Documented Start/Stop Times: Operation Date: 12/10/24 14:00 Case Time Into Pre-Op 12/10/24 11:56 Out of Pre-Op 12/10/24 13:58 Anesthesia Start 12/10/24 14:03 Into Room 12/10/24 14:03 Procedure Start 12/10/24 14:20 Procedure End 12/10/24 14:53 Anesthesia End 12/10/24 14:59 Out of Room 12/10/24 14:59 Procedure Start Time: 14:20 Procedure Stop Time: 14:53 Select all DRAINS/GRAFTS/IMPLANTS that apply: None Estimated Blood Loss: 25 cc Specimen collected: No Description of surgery: Patient was greeted in the same-day surgery holding area and identified by name, medical record number, and date of . The operative extremity is marked. All questions were answered to the patient satisfaction. At time for procedure, patient will show and was brought to the operative suite positioned in supine on a standard operating table. General anesthesia was induced and LMA placed. All bony prominences were well-padded. Right lower extremity was placed in a circumferential arthroscopic leg shah. The foot of bed was dropped 90 degrees after a well leg shah was placed on the patient's left thigh. We prepped and draped the right lower extremity in a normal, sterile orthopedic fashion. We then performed a timeout confirming the side, site, and operation be performed. No concerns were voiced and we elected to proceed with surgery. 2 g Ancef was administered prior to incision by anesthesia staff. I then established a standard anterolateral portal. Blunt tipped trocar was used to enter the knee joint. Effusion was noted with purulent material. Arthroscope was introduced. The knee was filled with normal saline with epinephrine. A total of 10 L normal saline was lavaged through the knee throughout the entirety of the case. Synovitis was noted diffusely. I then established a standard anterior medial portal under direct visualization. Shaver was introduced to debride the synovitis and irrigated through the knee. I was able to then visualize the patellofemoral joint which was completely denuded of cartilage. I entered the medial compartment with a valgus stress. Minimal degenerative changes were noted. The meniscus was intact. Intercondylar notch was examined. Synovitis was noted and debrided. ACL and PCL appeared normal otherwise. Lateral compartment was entered with a figure for varus stress. Lateral compartment was also minimally degenerative. Meniscus was intact. I then used the shaver to complete our synovectomy diffusely about the knee. Fluid was allowed to wash through the knee. I used the arthroscopic cautery to control any bleeders. After the completion of 10 L, arthroscope was withdrawn. The knee was anesthetized with 20 cc total quarter percent bupivacaine with epinephrine. Portal sites were closed in interrupted [id number] fashion with 4-0 nylon suture. Bulky sterile compression dressing was applied. Patient was awakened from anesthesia and safely explained the operative suite. She tolerated the procedure well without apparent complication. She was transferred to her hospital bed and subsequent to PACU in stable condition. Postoperative plan: Patient will be admitted to observation overnight. Anticipate a stay through the weekend to allow for close monitoring, IV antibiotics and pending cultures. Will follow cultures closely. Currently growing Staphylococcus aureus. We will continue Ancef postoperatively. ID consult was placed and is unlikely to be completed until Friday given the limitations of coverage. Determine final antibiotic recommendations once ID consult is complete PICC line versus p.o.. Xarelto ordered for DVT prophylaxis starting postoperative day #1. Ice to the knee. Multimodal pain management with Tylenol, oxycodone and Toradol prior to Xarelto starting. Mobilize with PT and OT. Surgical Findings: Purulent effusion consistent with septic arthritis, diffuse synovitis. Grade IV chondromalacia patellofemoral. Complications Complications: No Admit VTE Documentation VTE Present on Admission: No VTE Mechan Device Prophylaxis: SCD's VTE Pharm Prophylaxis ordered?: Yes
--- NOTE | 2024-12-10 15:05 | PCM.POST.ANE ---
Anesthesia: Postop Eval I Current Vital Signs Temperature: 97.3 F Pulse Rate: 112 Blood Pressure: 161/111 Respiratory Rate: 24 Pulse Ox: 94 Assessment Airway patent: Yes Spontaneous unlabored respirations: Yes nausea: No Vomiting: No Anesthesia Complication: No Fluid Hydration Crystalloid volume administer (ml): 1,000 Total IV fluid infused: 1,000 Progress Note Anesthesia document: Postop Eval 1 completed: Yes
--- NOTE | 2024-12-10 15:41 | POSTOPAN2_ITS ---
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 Spontaneous unlabored Yes 12/10/24 15:05 CAREER DISCOVERY TEACHER.CSIR respirations Mental status nausea No 12/10/24 15:05 CAREER DISCOVERY TEACHER.CSIR Vomiting No 12/10/24 15:05 CAREER DISCOVERY TEACHER.CSIR Anesthesia Postop Eval I: Fluid Summary Crystalloid volume administer 1,000 12/10/24 15:05 CAREER DISCOVERY TEACHER.CSIR (ml) Colloids volume administered ( ml) Blood Product volume administered (ml) Total IV fluid infused 1,000 12/10/24 15:05 CAREER DISCOVERY TEACHER.CSIR Anesthesia Postop Eval I: Summary Notes Anesthesia Complication No 12/10/24 15:05 CAREER DISCOVERY TEACHER.CSIR Anesthesia Complication Comment: Post-operative progress note Anesthesia: Postop Eval II Evaluation Mental status: Awake Pain Level: 3 nausea: No Vomiting: No
--- NOTE | 2024-12-10 15:41 | PCM.POSTANE2 ---
Anesthesia Postop Eval I Sum Postop Eval Completion status Anesthesia document: Postop Eval 1 completed: Yes Anesthesia Postop Eval I Summary Anesthesia Postop Eval I Summary: Anesthesia Postop Eval I: Assessment Summary Airway patent Yes 12/10/24 15:05 [employer] Spontaneous unlabored Yes 12/10/24 15:05 [employer] respirations Mental status nausea No 12/10/24 15:05 [employer] Vomiting No 12/10/24 15:05 [employer] Anesthesia Postop Eval I: Fluid Summary Crystalloid volume administer 1,000 12/10/24 15:05 [employer]CS[employer] (ml) Colloids volume administered ( ml) Blood Product volume administered (ml) Total IV fluid infused 1,000 12/10/24 15:05 [employer] Anesthesia Postop Eval I: Summary Notes Anesthesia Complication No 12/10/24 15:05 [employer] Anesthesia Complication Comment: Post-operative progress note Anesthesia: Postop Eval II Evaluation Mental status: Awake Pain Level: 3 nausea: No Vomiting: No
[2024-12-10] MEDS: Ketorolac 15 MG/ML Vial IV (17:43)
--- OUTSIDE RECORDS SUMMARY | 2024-12-10 19:27 | XMS RPT_ITS | CCD ---
Author Organization [facility] BONDING SUPERVISOR [facility] Care Team Providers Care Editor School Photograph Name Role Phone Care Physician, No Primary Primary Care Provider Unavailable Care Physician, No Primary Referring Provider Un available EVELYN Berger Attending Provider Care Physician, No Primary Primary Care Provider Unavailable Care Physician, No Primary Referring Provider Un available Vivek Berger Attending Provider Ray ALARCON, Dr. Sears Emergency Provider Ray ALARCON, Dr. Sears Attending Provider Dr. Davin Cole DO Emergency Provider Vivek Berger Attending Unavailable Care Physician, No Primary Referring Unava ilable Care Physician, No Primary Primary Care Unava ilable Care Physician, No Primary Primary Care Unava ilable Orion Bell Attending Unavailable Care Physician, No Primary Primary Care Unava ilable Davin Cole Attending Unavailable BALSELWYN [employer] MECHANIC-FLYNN CAMPBELL Primary Care Unavailabl e KENYATTA MCCORMICK DO Attending Unavailable Allergies Allergy Classification Reported Allergen(s) Allergy Type Date of Onset Reaction(s) Facility (4 sources) Penicillins Allergy to substance 02-20-2022 Rash [facility] (1 source) Penicillins Drug allergy (disorder) 12-03-2024 [facility] Repository Medications Current Medications Medication Drug Class(es) Dates Sig (Normalized) Sig (Original) acetaminophen 325 mg / HYDROcodone bitartrate 5 mg oral tablet (1 source) Opioid Agonist Start: 12-03-2024 take 1 tablet by mouth every six hours as needed for pain Hydrocodone-Acetam inophen 5-325 mg tablet Active 1 {tbl} PO EVERY 6 HOURS NEEDED as needed for Pain 10 3 December 03, 2024 azithromycin 250 mg oral tablet (6 sources) Macrolide Antimicrobial Start: 09-27-2024 Azithromycin 250 mg tablet Active 250 mg PO .COMPLEX September 27, 2024 12:00am 2 tablets (500 mg) on day 1, then 1 tablet daily on days 2 through 11 Start: 03-10-2017 End: 07-03-2018 take 2 tablets by mouth once daily, then take 1 tablet by mouth once daily Azithromycin 250 MG tablet Discontinued 250 mg PO DIRECTED March 10, 2017 12:00am July 03, 2018 9:35am TAKE 2 TABLETS 1ST DAY THEN 1 TABLET DAILY FOR NEXT 4 DAYS. predniSONE 20 mg oral tablet (5 sources) Start: 12-03-2024 take 2 tablets by mouth once daily Prednisone 20 mg tablet Active 40 mg PO DAILY 14 December 03, 2024 12:00am Start: 03-10-2017 End: 07-03-2018 take 2 tablets by mouth once daily Prednisone 20 MG tablet Discontinued 40 mg PO DAILY@0800 March 10, 2017 12:00am July 03, 2018 9:35am Start: 03-10-2017 End: 07-03-2018 take 40 mg by mouth once daily Prednisone Discontinued 40 MG PO DAILY@0800 March 10, 2017 12:00am July 03, 2018 9:35am Completed/Discontinued Medications Medication Drug Class(es) Dates Sig (Normalized) Sig (Original) [id number] actuat albuterol 0.09 mg/actuat metered dose inhaler (4 sources) beta2-Adrenergic Agonist Start: 03-10-2017 End: 09-27-2024 Albuterol Sulfate 1 INHALER inhaler Discontinued 1 - 2 NMA INHALATION EVERY 4 HOURS NEEDED as needed for Wheezing March 10, 2017 12:00am September 27, 2024 11:38am Start: 03-10-2017 take 1 puff(s) by in halation every four hours as needed Albuterol Sulfate Active 1 - 2 PUFF INHALATION EVERY 4 HOURS NEEDED March 10, 2017 12:00am ibuprofen 600 mg oral tablet (4 sources) Nonsteroidal Anti-inflammatory Drug Start: 02-20-2022 End: 09-27-2024 take 1 tablet by mouth three times daily as needed for pain Ibuprofen 600 mg tablet Discontinued 600 mg PO THREE TIMES A DAY as needed for pain February 20, 2022 12:00am September 27, 2024 11:38am sulfamethoxazole 800 mg / trimethoprim 160 mg oral tablet (8 sources) Dihydrofolate Reductase Inhibitor Antibacterial, Sulfonamide Antimicrobial Start: 10-06-2018 End: 10-13-2018 Sulfamethoxazole -Trimethoprim (Bactrim Ds) 800-160 mg tablet Discontinued 1 {tbl} PO Q12H 14 7 October 06, 2018 12:00am October 12, 2018 12:00am October 13, 2018 12:11am Start: 07-03-2018 End: 07-10-2018 Sulfamethoxazole-Trimethopri m (Bactrim Ds) 800-160 mg tablet Discontinued 1 {tbl} PO Q12H 14 7 July 03, 2018 1:00am July 09, 2018 1:00am July 10, 2018 1:08am Problems Problem Classification Problem Date Documented Da te Episodic/Chronic Abdominal pain (10 sources) Flank pain; Translations: [Unspecified abdominal pain] Episodic Genitourinary symptoms and ill-defined conditions (6 sources) Increased frequency of urination; Translations: [Frequency of micturition] Episodic Osteoarthritis (2 sources) Osteoarthritis; Translations: [Unspecified osteoarthritis, unspecified site] 11-22-2024 Chronic Other non-traumatic joint disorders (3 sources) Effusion of right knee joint; Translations: [Effusion, right knee] 11-22-2024 Episodic Other non-traumatic joint disorders (1 source) Pain in right knee; Translations: [Pain in right knee] Onset: 11-25-2024 Episodic Other upper respiratory infections (4 sources) Acute sinusitis; Translations: [Acute sinusitis, unspecified] 07-03-2018 Episodic Residual codes; unclassified (1 source) Pain, unspecified; Translations: [Pain, unspecified] Onset: 12-03-2024 Episodic Spondylosis; intervertebral disc disorders; other back problems (6 sources) Thoracic back pain; Translations: [Dorsalgia, unspecified] Episodic Substance-related disorders (4 sources) Tobacco dependence syndrome; Translations: [Nicotine dependence, unspecified, uncomplicated] 07-12-2013 Chronic Results Test Name Value Interpretation Reference Range Facility Emergency Department Summary on 12-03-2024 Emergency Department Summary [facility] Medical Records Department [address] [place] [address] Emergency Department Summary 12/03/24 MR#: [id number] Acct: [id number] Name: SHARLENE DEVLIN I Rep #: [id number] : 1960 64 From: Opal RIVAS PCP: Care Physician,No Primary Status:DEP ER Location: ED HPI History of Present Illness Chief Complaint: Lower Extremity Injury Narrative Narrative: Patient presenting today with atraumatic swelling of the right knee that has been ongoing over the past 2 weeks. She was seen here on 11/22/2024 for this, she had an x-ray obtained of her knee that showed arthritis, she did have a arthrocentesis performed and a Kenalog injection. She then followed up with orthopedics on Friday, she saw Dr. Mccormick, she reports that they suspect she could have a meniscal tear and she is scheduled to have an MRI next week. On Friday her knee started to swell more. She reports having a hard time bearing weight due to the pain and swelling. She denies any fevers or chills. PFSH PFSH Medical History Mid back pain on left side Urinary frequency Abdominal pain Home Medications ???Medication ???Instructions ???Recorded ???Last Taken ???Type azithromycin 250 mg tablet 250 mg PO .COMPLEX #12 tabs Unknown Rx hydrocodone-acetamin ophen 5-325mg 1 tab PO Q6H PRN PRN Pain 3 days 12/03/24 Unknown Rx 5mg-325mg #10 TABLETS prednisone 20 mg tablet 40 mg (2 x 20 mg) PO DAILY 7 days 12/03/24 Unknown Rx #14 tabs Allergy/AdvReac Type Severity Reaction Status Date / Time Penicillins Allergy Rash Verified 12/03/24 12:51 Social History Smoking Status: Current every day smoker tobacco type: cigarettes alcohol intake: current alcohol intake frequency: holidays/special occasions only ROS ROS ED Constitutional Constitutional ED: Denies chills or fever(s) Cardiovascular Cardiovascular: Denies chest pain Respiratory/Chest Respiratory/Chest: Denies dyspnea Gastrointestinal Gastrointestinal: Denies abdominal pain, nausea or vomiting Musculoskeletal Musculoskeletal: Reports arthralgias; Denies myalgias Integumentary Denies rash Neurologic Neurologic: Denies paresthesias EXAM Physical Exam Const Vital Signs: 12/03/24 12:49 12/03/24 14:49 12/03/24 16:03 Temperature 98.2 F 98.0 F Temperature Source Oral Pulse Rate 90 72 75 Respiratory Rate 18 18 18 Blood Pressure 134/70 H 119/73 119/73 Blood Pressure Mean 91 88 88 Pulse Ox 97 97 100 Oxygen Delivery Method Room Air Room Air Positive well nourished, well developed and no apparent distress General Appearance ED: well developed HEENT Reports normocephalic and head/scalp atraumatic Mouth ED: Yes moist mucous membranes normal Eyes PERRL and EOMs intact bilaterally Neck full ROM and supple Chest Wall inspection of chest normal Resp normal respiratory effort and clear to auscultation bilaterally Cardio regular rate and regular rhythm Back/Spine normal ROM and normal to inspection Extremity normal to inspection and full ROM Extremity Narrative: Effusion to the right knee, tenderness to the medial aspect of the knee, intact flexion and extension but limited movement limited by pain and swelling. No warmth, no erythema, no signs of infection. Right DP pulse 2+, good cap refill, sensation intact. Neuro oriented x3, CN's II-XII intact bilaterally, moves all extremities, no focal motor deficits and no sensory deficits noted Sensorium / Orientation: awake and alert Psych mental status grossly normal and thought process normal Skin no rashes or lesions noted and no wounds Physical Exam Const Vital Signs: 12/03/24 12:49 12/03/24 14:49 12/03/24 16:03 Temperature 98.2 F 98.0 F Temperature Source Oral Pulse Rate 90 72 75 Respiratory Rate 18 18 18 Blood Pressure 134/70 H 119/73 119/73 Blood Pressure Mean 91 88 88 Pulse Ox 97 97 100 Oxygen Delivery Method Room Air Room Air MDM MDM MDM Narrative Medical decision making narrative: Patient presenting today with an atraumatic effusion to her right knee that has been ongoing for about 2 weeks. She was seen here on 11/22/2024 with this, she did have an arthrocentesis performed, there were no signs of infection at that time. She followed up with orthopedics Friday and is scheduled to have an MRI next week. Her swelling became worse on Friday. She is able to ambulate but it does cause her discomfort to bear weight. She is using a walker at home to get around. She does not want crutches. On exam she does not have any evidence of infection, no septic joint. There is no warmth or erythema to the knee. Given she (more content not included)... Normal [facility] Culture, Anaerobic Any Sourc rolo 11-28-2024 CUAN Rt Knee No growth in 5 days. Normal [facility] Comment on above: Performed By: #### M 100.2900, M100.2000, L200.0400, L200.4175, M100.4001 #### [facility] [address] [place], [address] Body Fluid Culton 11-27-2024 BFC Rt Knee No growth in 5 days. Normal [facility] Comment on above: Performed By: #### M 100.2900, M100.2000, L200.0400, L200.4175, M100.4001 #### [facility] [address] [place], [address] Crystals, Body Fluidon 11-24 PATH REV Reviewed Normal [facility] Comment on above: Order Comment: Comme nts: Rt Knee Result Comment: ACUT E INFLAMMATION. NON-URATE CRYSTALS PRESENT. Clarissa Ace MD 11/23/2024 AMENDED REPORT 11/24/24 0937 PATH REV previously reported as: Will follow Performed By: #### M 100.2900, M100.2000, L200.0400, L200.4175, M100.4001 #### [facility] [address] [place], [address] Anaerobic cultureOrdered By: Orion Bell on 11-22-2024 Bacteria identified Anaer cx Nom (Unsp spec) No growth in 5 days. [facility] Automated synovial fluid gilberto kocytes count (number/volume)Ordered By: Orion Bell on 11-22-2024 WBC Auto (Syn fld) [#/Vol] 28.5600 10^3/uL High 0.000-0.002 [facility] Automated synovial fluid mon onuclear cell count (number/volume)Ordered By: Orion Bell on 11-22-2024 Mononuclear cells Auto (Syn fld) [#/Vol] 1.161 10^3/ul [facility] Automated synovial fluid vini ymorphonuclear cell count (number/volume)Ordered By: Oiron Bell on 11-22-2024 Polymorphonuclear cells Auto (Syn fld) [#/Vol] 28.904 10^3/uL [facility] Automated synovial fluid vini ymorphonuclear cells as percentage of leukocytesOrdered By: Orion Bell on 11-22-2024 Polymorphonuclear cells/100 WBC Auto (Syn fld) 96.1 % [facility] Blood lymphocytes/100 leukoc ytesOrdered By: Orion Bell on 11-22-2024 Lymphocytes/100 WBC (Bld) 1 % [facility] Body fluid crystal identific ation by light microscopyOrdered By: Orion Bell on 11-22-2024 Crystals LM Nom (Body fld) MONOSODIUM URATE [facility] Comment on above: CRYSTAL RESULT IS PRELIMINARY. SEE PATH REVIEW FOR FINAL REPORT. Determination of appearance of synovial fluid (nominal result)Ordered By: Orion Bell on 11-22-2024 Appearance (Syn fld) Cloudy CLEAR [facility] Emergency Department Summary on 11-22-2024 Emergency Department Summary [facility] Medical Records Department [address] [place] [address] Emergency Department Summary 11/22/24 MR#: [id number] Acct: [id number] Name: SHARLENE DEVLIN I Rep #: [id number] : 1960 63 From: Orion Bell MD PCP: Care Physician,No Primary Status:DEP ER Location: ED HPI History of Present Illness HPI Narrative: 63-year-old female no CeeNU past medical history. Believes she has arthritis in her knees. Complaining of atraumatic right knee pain and swelling since Friday. Denies any fall injury or trauma. No fever or chills. No redness or warmth. She has had knee pain before but not like this. Can walk but says it is uncomfortable. Chief Complaint: Lower Extremity Injury Informant: patient Occured/Mechanism Mechanism/Context: No injury and No blunt trauma Onset/Context/Timing Onset: Days Context: Gradual Onset Timing: Continuous Quality of Pain: Sharp Current Severity: Moderate Maximum Severity: Moderate Associated Symptoms Associated Symptoms: Negative for Parasthesia, Weakness or Loss of Funtion Narrative Narrative: 63-year-old female atraumatic right knee pain and swelling. History of arthritis. No history of gout. No fever or chills. No prior history. No fall or trauma. Been going on since Friday. Prior similar symptoms: No Recent Illness/Hospitalizat ion: No PFSH PFS Medical History Mid back pain on left side Urinary frequency Abdominal pain Home Medications ???Medication ???Instructions ???Recorded ???Last Taken ???Type azithromycin 250 mg tablet 250 mg PO .COMPLEX #12 tabs Unknown Rx Allergy/AdvReac Type Severity Reaction Status Date / Time Penicillins Allergy Rash Verified 11/22/24 09:01 Social History Smoking Status: Current every day smoker tobacco type: cigarettes alcohol intake: current alcohol intake frequency: holidays/special occasions only ROS ROS ED ROS Narrative Denies recent illness. Constitutional Constitutional ED: Denies chills or fever(s) Eyes Eyes: Denies blurry vision ENT ENT ED: Denies ear pain Cardiovascular Cardiovascular: Denies chest pain Respiratory/Chest Respiratory/Chest: Denies cough or dyspnea Gastrointestinal Gastrointestinal: Denies abdominal pain Genitourinary Genitourinary ED: Denies dysuria or hematuria Musculoskeletal Musculoskeletal: Denies arthralgias or back pain Integumentary Denies abscess or Abrasions Neurologic Neurologic: Denies headache(s) Psychiatric Psychiatric: Denies anxiety Endocrine Endocrinology: Denies polydipsia Hematologic/Lymphati c Hematologic/Lymphati c: Denies easy bleeding, easy bruising or lymphadenopathy Allergic/Immunologic Allergic/Immunologic ED: Denies mouth swelling, tongue swelling or urticaria EXAM Physical Exam Narrative Exam Narrative: 63-year-old female sitting upright in bed. Vital signs are stable afebrile. No acute distress. H EENT exam pupils round reactive light. Moist mucous membranes. Neck nontender no lymphadenopathy. Lungs clear to auscultation bilaterally. Heart regular rhythm rate about 95 no murmur. Chest wall ribs nontender. Abdomen soft nontender. Back nontender. Moving all 4 extremities. Neurovascularly intact. Normal range of motion and strength. Right knee tender to palpation. Swollen. Effusion. No cellulitis. Not hot to the touch. She is able to do flexion extension. There is obvious crepitance to both knees. Normal dorsi plantarflexion. Normal strength in her right foot and ankle. Normal sensation. There is no inguinal lymphadenopathy. Exam is consistent with an arthritic knee effusion. This does not look like a septic joint. Neurologically she is awake and alert. Answer questions following commands. Const Vital Signs: 11/22/24 09:01 11/22/24 10:22 Temperature 98.1 F 98 F Temperature Source Oral Pulse Rate 100 79 Respiratory Rate 16 19 H Blood Pressure 147/82 H 140/77 H Blood Pressure Mean 103 98 Pulse Ox 99 97 Oxygen Delivery Method Room Air Positive well nourished and well developed; Negative for obese, cachectic, contractures or unkempt General Appearance ED: well developed; Negative for unkempt, cachectic or contractures Nutritional Appearance: Negative for cachectic or obese HEENT Reports moist mucous membranes normocephalic and atraumatic Eyes PERRL Neck full ROM and supple Chest Wall inspection of chest normal and palpation of chest normal Resp normal respiratory effort, no retractions and clear to auscultation bilaterally Cardio regular rate, regular rhythm, S1 normal heart sound, S2 normal heart sound and no murmurs GI non-tender, non-distended and no masses Auscultation: normoactive bowel sounds Palpation: soft (more content not included)... Normal [facility] Gram Stainon 11-22-2024 GS Rt Knee Centrifuged Specimen? Culture performed on centrifuged specimen Gram Stain No organisms seen No cells seen Normal [facility] Comment on above: Performed By: #### M 100.2900, M100.2000, L200.0400, L200.4175, M100.4001 #### [facility] [address] [place], [address] Gram stainOrdered By: Orion huynh on 11-22-2024 Microscopic observation Gram stain Nom (Unsp spec) [facility] Knee 4 or More Viewson 11-22 Knee 4 or More Views [facility] Imaging Services [address] [place], [place] [id number] Knee 4 or More Views MR#: [id number] Acct: [id number] Name: SHARLENE DEVLIN I Rep #: [id number] : 1960 F 63 From: Amaury Sanchez MD PCP: Care Physician,No Primary Status: REG ER Study: Knee 4 or More Views Date of Exam: 11/22/24 Exam# [id number] Ordering Dr: Orion Bell MD PROCEDURE: KNEE 4 OR MORE VIEWS 11/22/2024 REASON FOR EXAM: ATRAUMATIC PAIN AND SWELLING TECHNIQUE: 4 view(s) of the right knee COMPARISON: No relevant prior FINDINGS: Bones: No acute osseous findings. Joints: Narrowing of the lateral aspect of the patellofemoral joint. Effusion: Unremarkable.. Soft tissues: Unremarkable. Other: No other significant findings. RAD/Knee 4 or More Views IMPRESSION: Mild degenerative arthritic change involving the patellofemoral joint. Reading Location: [place] [address] CC: Dr. Orion Bell MD; No Primary Care Physician Manager Electrical: Signed Normal [facility] Pathologist review of result s (narrative result)Ordered By: Orion Bell on 11-22-2024 Pathologist review Sam (Unsp spec) [Interp] May follow [facility] Review by pathologistOrdered By: Orion Bell on 11-22-2024 Pathologist review Sam (Unsp spec) [Interp] Reviewed [facility] Comment on above: Previous reported re sult: Will follow Edited by: MAIK on 11/24/24:0937ACUTE INFLAMMATION.NON-URATE CRYSTALS PRESENT.Clarissa Ace MD 11/23/2024 AMENDED REPORT 11/24/24 0937 PATH REV previously reported as: Will follow Specimen source identificati on of body fluidOrdered By: Orion Bell on 11-22-2024 Specimen source Nom (Body fld) SYNOVIAL [facility] Specimen source Nom (Body fld) RIGHT KNEE [facility] Synovial Fluid RBC, WBC AND Diffon 11-22-2024 Lymphocytes (Bld) [#/Vol] 1 10*3/uL Normal [facility] Comment on above: Order Comment: Comme nts: Rt Knee Performed By: #### M 100.2900, M100.2000, L200.0400, L200.4175, M100.4001 #### [facility] [address] [place], [address] Monocytes (Bld) [#/Vol] 18 10*3/uL Normal [facility] Comment on above: Order Comment: Comme nts: Rt Knee Performed By: #### M 100.2900, M100.2000, L200.0400, L200.4175, M100.4001 #### [facility] [address] [place], [address] NEUTROPHIL 81 High 0-25 [facility] Comment on above: Order Comment: Comme nts: Rt Knee Performed By: #### M 100.2900, M100.2000, L200.0400, L200.4175, M100.4001 #### [facility] [address] [place], [address] Synovial fluid color determi nation (nominal result)Ordered By: Orion Bell on 11-22-2024 Color (Syn fld) Yellow Pale Yellow [facility] Synovial fluid erythrocytes count (number/volume)Ordered By: Orion Bell on 11-22-2024 RBC (Syn fld) [#/Vol] 160 /mm3 High 0-0 [facility] Synovial fluid monocyte perc entageOrdered By: Orion Bell on 11-22-2024 Monocytes/100 WBC (Syn fld) 18 % [facility] Synovial fluid mononuclear c ells/100 leukocytesOrdered By: Orion Bell on 11-22-2024 Mononuclear cells/100 WBC (Syn fld) 3.9 % [facility] Synovial fluid neutrophil pe rcentageOrdered By: Orion Bell on 11-22-2024 Neutrophils/100 WBC (Syn fld) 81 % High 0-25 [facility] Synovial fluid total cell co untOrdered By: Orion Bell on 11-22-2024 Cells Counted Total (Syn fld) [#] 28.6100 10^3/uL High 0.000-0.000 [facility] Comment on above: This is the Total Nu mber of Nucleated Cell Types in the Body Fluid. Urgent Care Visit Reporton 0 09-27-2024 Urgent Care Visit Report [facility] [address], [address] [place], [place] [address] OFFICE VISIT Date of Service: 09/27/24 MR#: [id number] Acct: [id number] Name: SHARLENE DEVLIN I Rep #: [id number] : 1960 Provider: EVELYN Parker Age/Sex: 63/F Location: [facility] Status: Signed Intake Vital Signs 02/20/22 22:28 09/27/24 10:39 09/27/24 11:38 Height 5 ft 3 in 5 ft 3 in BP 122/80 H Position Sitting Pulse 104 H Temp 98.4 F Temp Source Oral Pulse Oximetry (%) 96 Oxygen Delivery Method room air Intake Visit Reasons: SINUS COMPLAINTS Accompanied by: Self Allergies Penicillins Allergy (Verified 02/20/22 22:28) Rash Medications ???Medication ???Instructions ???Recorded ???Confirmed ???Type azithromycin 250 mg tablet 250 mg PO .COMPLEX #12 tabs 09/27/24 Rx Nurse's Note: Patient has sinus COOPER, and drainage. Patient states she has Nayan ear pressure and she has cough. Patient states she can't lay down. Patient states this has been going on for 8 days. [facility] Medical History (Updated 03/01/22 @ 00:01 by Mahin Daugherty) Mid back pain on left side Urinary frequency Abdominal pain Social History (Updated 10/06/18 @ 13:58 by Hunter RIVAS, PA) Smoking Status: Current every day smoker tobacco type: cigarettes alcohol intake: current alcohol intake frequency: holidays/special occasions only HPI HPI Details: SHARLENE DEVLIN, is a 63 F who presents to the office today for [facility] evaluation at the [facility] for approximately 8-day history of progressively worsening forehead pressure/congestion with purulent postnasal drip and intermittently moist productive purulent cough. No complaints of fever, chills, myalgias, fatigue, runny nose, or nausea/vomiting/diar franklin. No complaints of chest pain/shortness of breath/dyspnea on exertion. No close contacts with similar complaints. Admits to being a tobacco smoker. Declining all POC screening upon offering. No other associated symptoms and no other alleviating/aggravat ing factors. ROS Const Constitutional: No other (as above) Exam Const General: cooperative, healthy appearing and no acute distress Nutritional Appearance: average body habitus Orientation: alert, awake and oriented x3 [facility] Head: normal to inspection Ears: hearing grossly normal bilaterally, external ears normal, TM's normal bilaterally and EAC's normal Nose: external nose normal, nares normal, septum normal and no nasal discharge Face and sinus: normal facial exam, sinuses tender (bilateral frontal) and face symmetric Mouth: oral mucosae normal, lip normal, tongue normal and oropharynx normal Throat: posterior oropharynx normal, tonsils normal, uvula midline and postnasal drainage (Purulent) Eyes General: appearance normal, both eyes and all related structures Neck Neck: normal visual inspection, full ROM, no meningeal signs, supple and lymphadenopathy (Bilateral anterior cervical lymph node swelling/tender to palpation) Neck mass: No Thyroid: thyroid normal Chest Chest palpation inspection: normal inspection of the chest Resp Effort Inspection: normal respiratory effort and able to speak in complete sentences with moist nonproductive cough in office today Auscultation: Bilateral: Clear to Auscultation Cardio Palpation: normal PMI Rate: Tachycardic Rhythm: regular rhythm Heart Sounds: S1 normal, S2 normal, no gallops, no murmurs and no rubs Pulses: radial pulses present GI Inspection: normal to inspection Skin General: no rashes or lesions noted Neuro General: patient alert, patient awake and patient oriented x3 Cognition: normal cognition Speech: speech normal Psych Appearance: grossly normal Mental Status: mental status grossly normal Mood: congruent mood Affect: normal affect Speech and Movement: speech and movement normal Attitude: cooperative Diagnoses Acute frontal sinusitis, unspecified J01.10 Acute bronchitis, unspecified J20.9 Assessment and Plan Assessment and Plan (1) Acute frontal sinusitis, unspecified: Status: Acute (2) Acute bronchitis, unspecified: Status: Acute Plan: 11-day course of azithromycin as prescribed today. Supportive measures as instructed today. Work excuse offered. Stop smoking. Follow-up with PCP in 3 to 5 days should symptoms not improve, sooner should symptoms worsen or any other concerns develop. Patient states acknowledging understanding all the above. Coding Level of Care Code Off vis,est,level 3 Assessment and Plan Assessment and Plan Medications: New azithromycin 2 tablets (500 mg) on day 1, then 1 tablet daily on days 2 through 11 12 tabs 0RF 09/27/24 1217 Date Vivek RIVAS Cosigner Signature: Date (more content not included)... Normal [facility] Absolute lymphocyte counton 02-20-2022 Lymphocytes Auto (Unsp spec) [#/Vol] 2.83 10*3/uL 0.83-4.51 [facility] Work Phone: Basophil percentageon 2021 Basophil percentage 0 SEEN /hpf 0-5 [facility] Work Phone: Basophils/100 WBC (Bld) 0.7 % 0-1 [facility] Work Phone: Chloride [Moles/Vol] 101 mmol/L 98-107 [facility] Work Phone: Eosinophils/100 WBC (Bld) 3.5 % 0-5 [facility] Work Phone: Glucose [Mass/Vol] 119 mg/dL 74-106 [facility] Work Phone: Comment on above: Fasting Glucose resu lt from 100 to 125 mg/dL suggests IMPAIRED HOMEOSTASIS per A.D.A. criteria. Neutrophils (Bld) [#/Vol] 3.1 10*3/uL 2.0-7.7 [facility] Work Phone: Neutrophils/100 WBC (Bld) 44.9 % 47-70 [facility] Work Phone: Potassium [Moles/Vol] 3.4 mmol/L 3.5-5.1 [facility] Work Phone: [phone] Sodium [Moles/Vol] 135 mmol/L 136-145 [facility] Work Phone: WBC (Bld) [#/Vol] 7.0 10*3/uL 4.4-11.0 [facility] Work Phone: Basophil percentage 0 SEEN /hpf 0-5 [facility] Work Phone: Bilirubin Test strip Ql (U)o n 02-20-2022 Bilirubin Ql (U) Negative Negative [facility] Work Phone: Bilirubin Ql (U) Negative Negative [facility] Work Phone: Blood erythrocytes count (nu mber/volume)on 02-20-2022 RBC (Bld) [#/Vol] 4.19 10*6/uL 4.2-5.4 [facility] Work Phone: Blood hemoglobin measurement (mass/volume)on 02-20-2022 Hemoglobin (Bld) [Mass/Vol] 14.5 g/dL 12.0-15.0 [facility] Work Phone: Blood lymphocytes/100 leukoc yteson 02-20-2022 Lymphocytes/100 WBC (Bld) 40.7 % 19-41 [facility] Work Phone: Blood monocytes/100 leukocyt eson 02-20-2022 Monocytes/100 WBC (Bld) 9.5 % 0-10 [facility] Work Phone: Blood platelet mean volumeon 02-20-2022 Platelet mean volume (Bld) [Entitic vol] 9.9 fL 6.2-12.0 [facility] Work Phone: Determination of erythrocyte mean corpuscular volume (MCV)on 02-20-2022 MCV (RBC) [Entitic vol] 99.3 fL 81-99 [facility] Work Phone: Hematocrit Auto (Bld) [Volum e fraction]on 02-20-2022 Hematocrit (Bld) [Volume fraction] 41.6 % 37-47 [facility] Work Phone: Ketones Test strip Ql (U)on 02-20-2022 Ketones Ql (U) Negative Negative [facility] Work Phone: Ketones Ql (U) 5 mg/dl Negative [facility] Work Phone: Laboratory - Chemistry and C hemistry - challengeon 02-20-2022 CO2 [Moles/Vol] 28.0 mmol/L 21.0-32.0 [facility] Work Phone: Urea nitrogen/Creatinine [Mass ratio] 13.3 mg/mg 10-20 [facility] Work Phone: Bilirubin Ql (U) Negative [facility] Work Phone: [phone] Glucose Ql (U) Negative [facility] Work Phone: [phone] Ketones Ql (U) Small (15+) [facility] Work Phone: pH (U) 6.0 [pH] [facility] Work Phone: Specific gravity (U) [Rel density] 1.005 [facility] Work Phone: [phone] Urobilinogen (U) [Mass/Vol] Negative [facility] Work Phone: [phone] Laboratory - Hematology and Cell countson 02-20-2022 Erythrocyte distribution width (RBC) [Entitic vol] 46.4 fL 35.1-43.9 [facility] Work Phone: Erythrocyte distribution width (RBC) [Ratio] 12.7 % 11.6-14.6 [facility] Work Phone: [phone] Immature granulocytes/100 WBC (Bld) 0.700 % 0.0-0.9 [facility] Work Phone: [phone] Comment on above: IG% - Immature Granu locytes (promyelocytes, myelocytes and metamyelocytes) > 1% indicates that a LEFT SHIFT is Present. MCH (RBC) [Entitic mass] 34.6 pg 27.0-32.0 [facility] Work Phone: [phone] Nucleated RBC/100 WBC (Bld) [Ratio] 0 % 0-5 [facility] Work Phone: Hemoglobin Ql (U) Negative [facility] Work Phone: Laboratory - Specimen inform ationon 02-20-2022 Clarity (U) Clear [facility] Work Phone: Color (U) STRAW [facility] Work Phone: Laboratory - Urinalysison Nitrite Ql (U) Negative [facility] Work Phone: Protein Ql (U) Negative [facility] Work Phone: MCHC Auto (RBC) [Mass/Vol]on 02-20-2022 MCHC (RBC) [Mass/Vol] 34.9 g/dL [facility] Work Phone: Mucus LM Ql (Urine sed)on Mucus Ql (Urine sed) 0 SEEN /hpf [facility] Work Phone: Mucus Ql (Urine sed) 0 SEEN /hpf [facility] Work Phone: Nitrite Test strip Ql (U)on 02-20-2022 Nitrite Ql (U) Negative Negative [facility] Work Phone: Nitrite Ql (U) Negative Negative [facility] Work Phone: No Panel Informationon 02-20 Estimated Creatinine Clearance Calc 71.87 ml/min [facility] Work Phone: Estimated GFR (MDRD) Amer 114 mL/min >60 [facility] Work Phone: Comment on above: GFR Calc Estimated GFR (MDRD) Non-Af Amer 94 mL/min >60 [facility] Work Phone: Comment on above: Non- GFR Calc Urine Leukocytes Negatve [facility] Work Phone: Urine Non-Hemolyzed Blood Negative [facility] Work Phone: Platelets bldon 02-20-2022 Platelets (Bld) [#/Vol] 230 10*3/uL 150-450 [facility] Work Phone: Protein Test strip Ql (U)on 02-20-2022 Protein Ql (U) Negative Negative [facility] Work Phone: Protein Ql (U) Negative Negative [facility] Work Phone: Serum or plasma calcium anayeli urement (mass/volume)on 02-20-2022 Calcium [Mass/Vol] 9.5 mg/dL 8.5-10.1 [facility] Work Phone: Serum or plasma creatinine m easurement (mass/volume)on 02-20-2022 Creatinine [Mass/Vol] 0.68 mg/dL 0.55-1.02 [facility] Work Phone: Comment on above: The validity of the calculated GFR & GFRAA in patients over 70 years has not been determined. Clinical correlation is essential. Serum or plasma urea nitroge n measurement (mass/volume)on 02-20-2022 Urea nitrogen [Mass/Vol] 9 mg/dL 7-18 [facility] Work Phone: Squamous epithelial cells de tection in urine sediment by light microscopyon 02-20-2022 Epithelial cells.squamous LM Ql (Urine sed) 0-5 SEEN /hpf 5-10 [facility] Work Phone: Epithelial cells.squamous LM Ql (Urine sed) 0 SEEN /hpf 5-10 [facility] Work Phone: Thin prep Papanicolaou smear with manual screeningon 02-20-2022 Thin prep Papanicolaou smear with manual screening 6 5-15 [facility] Work Phone: Urine blood detectionon 01-23 RBC Ql (U) 10 /ul Negative [facility] Work Phone: RBC Ql (U) 0-5 SEEN /hpf 0-5 [facility] Work Phone: RBC Ql (U) Negative Negative [facility] Work Phone: RBC Ql (U) 0 SEEN /hpf 0-5 [facility] Work Phone: Urine clarityon 02-20-2022 Clarity (U) Clear Clear [facility] Work Phone: Clarity (U) Clear Clear [facility] Work Phone: Urine color determinationon 02-20-2022 Color (U) Straw Yellow [facility] Work Phone: Color (U) Yellow Yellow [facility] Work Phone: Urine glucose detectionon Glucose Ql (U) Normal mg/dl Normal [facility] Work Phone: Glucose Ql (U) Normal mg/dl Normal [facility] Work Phone: Urine leukocyte esterase det ection by dipstickon 02-20-2022 Leukocyte esterase Test strip Ql (U) Negative Negative [facility] Work Phone: Leukocyte esterase Test strip Ql (U) Negative Negative [facility] Work Phone: Urine pHon 02-20-2022 pH (U) 6.0 [pH] 5.0 - 8.0 [facility] Work Phone: pH (U) 6.5 [pH] 5.0 - 8.0 [facility] Work Phone: Urine sediment bacteria coun t by microscopy (number/high power field)on 02-20-2022 Bacteria LM.HPF (Urine sed) [#/Area] 0 /[HPF] None Seen [facility] Work Phone: Bacteria LM.HPF (Urine sed) [#/Area] 0 /[HPF] None Seen [facility] Work Phone: Urine specific gravity measu rementon 02-20-2022 Specific gravity (U) [Rel density] 1.010 1.002-1.030 [facility] Work Phone: Specific gravity (U) [Rel density] 1.005 1.002-1.030 [facility] Work Phone: Urobilinogen Auto test strip Ql (U)on 02-20-2022 Urobilinogen Ql (U) Normal mg/dl Normal [facility] Work Phone: Urobilinogen Ql (U) Normal mg/dl Normal [facility] Work Phone: CNCOon 09-01-2020 CNCO Letter Text Normal [facility] Culture, urine Bacteria identified Cx Nom (U) Positive [facility] Work Phone: Vital Signs Date Time Vital Sign Value Performing Clinician Nik ann 12-03-2024 16:03-0400 Body temperature 98 [degF] No Primary Care Physician [facility] 12-03-2024 16:03-0400 Diastolic blood pressure 73 mm[Hg] No Primary Care Physician [facility] 12-03-2024 16:03-0400 Heart rate 75 /min No Primary Care Physician [facility] 12-03-2024 16:03-0400 Respiratory rate 18 /min No Primary Care Physician [facility] 12-03-2024 16:03-0400 SaO2% (BldA) [Mass fraction] 100 % No Primary Care Physician [facility] 12-03-2024 16:03-0400 Systolic blood pressure 119 mm[Hg] No Primary Care Physician [facility] 12-03-2024 12:49-0400 Body height 160.02 cm No Primary Care Physician [facility] 12-03-2024 12:49-0400 Body mass index (BMI) [Ratio] 28.3 kg/m2 No Primary Care Physician [facility] 12-03-2024 12:49-0400 Body weight 72.57 kg No Primary Care Physician [facility] 11-22-2024 10:22-0400 Body temperature 98 [degF] No Primary Care Physician [facility] 11-22-2024 10:22-0400 Diastolic blood pressure 77 mm[Hg] No Primary Care Physician [facility] 11-22-2024 10:22-0400 Heart rate 79 /min No Primary Care Physician [facility] 11-22-2024 10:22-0400 Respiratory rate 19 /min No Primary Care Physician [facility] 11-22-2024 10:22-0400 SaO2% (BldA) [Mass fraction] 97 % No Primary Care Physician [facility] 11-22-2024 10:22-0400 Systolic blood pressure 140 mm[Hg] No Primary Care Physician [facility] 11-22-2024 09:04-0400 Body mass index (BMI) [Ratio] 29.6 kg/m2 No Primary Care Physician [facility] 11-22-2024 09:04-0400 Body weight 75.8 kg No Primary Care Physician [facility] 11-22-2024 09:01-0400 Body height 160.02 cm No Primary Care Physician [facility] 09-27-2024 11:38-0400 Body temperature 98.4 [degF] No Primary Care Physician [facility] 09-27-2024 11:38-0400 Diastolic blood pressure 80 mm[Hg] No Primary Care Physician [facility] 09-27-2024 11:38-0400 Heart rate 104 /min No Primary Care Physician [facility] 09-27-2024 11:38-0400 SaO2% (BldA) [Mass fraction] 96 % No Primary Care Physician [facility] 09-27-2024 11:38-0400 Systolic blood pressure 122 mm[Hg] No Primary Care Physician [facility] 02-21-2022 01:01-0400 Heart rate 78 /min No Primary Care Physician [facility] Work Phone: 02-21-2022 01:01-0400 Respiratory rate 18 /min No Primary Care Physician [facility] Work Phone: 02-21-2022 01:01-0400 SaO2% (BldA) [Mass fraction] 97 % No Primary Care Physician [facility] Work Phone: 02-20-2022 22:28-0400 Body height 160.02 cm No Primary Care Physician [facility] Work Phone: 02-20-2022 22:28-0400 Body mass index (BMI) [Ratio] 29.2 kg/m2 No Primary Care Physician [facility] Work Phone: 02-20-2022 22:28-0400 Body temperature 96.6 [degF] No Primary Care Physician [facility] Work Phone: 02-20-2022 22:28-0400 Body weight 74.9 kg No Primary Care Physician [facility] Work Phone: 02-20-2022 22:28-0400 Diastolic blood pressure 89 mm[Hg] No Primary Care Physician [facility] Work Phone: 02-20-2022 22:28-0400 Systolic blood pressure 167 mm[Hg] No Primary Care Physician [facility] Work Phone: 02-20-2022 08:48-0400 Body temperature 98.4 [degF] No Primary Care Physician [facility] Work Phone: 02-20-2022 08:48-0400 Diastolic blood pressure 74 mm[Hg] No Primary Care Physician [facility] Work Phone: 02-20-2022 08:48-0400 Heart rate 98 /min No Primary Care Physician [facility] Work Phone: 02-20-2022 08:48-0400 Respiratory rate 14 /min No Primary Care Physician [facility] Work Phone: 02-20-2022 08:48-0400 SaO2% (BldA) [Mass fraction] 98 % No Primary Care Physician [facility] Work Phone: 02-20-2022 08:48-0400 Systolic blood pressure 122 mm[Hg] No Primary Care Physician [facility] Work Phone: Encounters Encounter Date Encounter Type Care Provider Facility Start: 12-07-2024 ambulatory FLYNN NOGUERA APRN-SHANNAN Fa cility:[facility] Start: 12-03-2024 End: 12-03-2024 Emergency department patient visit No Primary Care Physician -Emergency Department Work Phone: Start: 11-22-2024 End: 11-22-2024 Emergency department patient visit No Primary Care Physician -Emergency Department Work Phone: Start: 09-27-2024 End: 09-27-2024 Patient encounter procedure Vivek RIVAS [facility] Work Phone: Start: 09-27-2024 End: 09-27-2024 ambulatory Vivek RIVAS Facility:[facility] [place] Start: 02-20-2022 End: 02-21-2022 Emergency department patient visit No Primary Care Physician [facility]-Emergency Department Start: 02-20-2022 End: 02-20-2022 ambulatory No Primary Care Physician [facility] Work Phone: Start: 02-20-2022 End: 02-20-2022 Patient encounter procedure No Primary Care Physician [facility]-Laboratory, Specimen Start: 02-20-2022 End: 02-20-2022 Patient encounter procedure No Primary Care Physician [facility] Procedures Date Procedure Procedure Detail Performing Clinician Start: 11-22-2024 Anaerobic microbial culture No Primary Care Physician Start: 11-22-2024 Gram stain microscopy N o Primary Care Physician Start: 11-22-2024 End: 11-22-2024 Microbial culture, body fluid No Primary Care Physician Start: 11-22-2024 X-ray of knee, four or more views No Primary Care Physician Start: 02-20-2022 CT of abdomen and pe lvis without contrast No Primary Care Physician Urine culture No Primary Car e Physician Plan of Treatment Date Care Activity Detail Author Start: 12-03-2024 [facility] Start: 11-22-2024 Anaerobic Culture Anaerobic Culture [facility] Start: 11-22-2024 Body Fluid Culture Body Fluid Cultur e [facility] Start: 11-22-2024 Microscopic observat ion [Identifier] in Unspecified specimen by Gram stain Gram Stain [facility] Start: 11-22-2024 [facility] Start: 11-22-2024 Microbial culture, b miguelito fluid [facility] Start: 02-20-2022 Culture bacterial quanttative colony count urine URINE CULTURE/COLONY COUNT [facility] Work Phone: Start: 02-20-2022 Urnls dip stick/tabl et reagent auto microscopy URINALYSIS AUTO W/SCOPE [facility] Work Phone: Start: 02-20-2022 [facility] Work Phone: Bacteria identified in Body fluid by Culture [facility] Bacteria identified in Unspecified specimen by Anaerobe culture [facility] Bacteria identified in Urine by Culture Urine Culture [facility] Work Phone: Cell count of synovi al fluid [facility] Crystals [type] in B miguelito fluid by Light microscopy [facility] Microscopic observat ion [Identifier] in Unspecified specimen by Gram stain [facility] Pathologist review o f results [facility] Patient Education [facility] Work Phone: Patient referral [facility] Work Phone: Red blood cell count [facility] Specimen processing [facility] Synovial fluid examination [facility] White blood cell count [facility] Payers Date Payer Category Payer Self-pay [id number] 2007 Unknown [id number] 1960 Unknown [id number] Self-pay SELF PAY INSURANCE [id number] Unknown [facility] [id number] Unknown [id number] Unknown [id number] Social History Date Type Detail Facility [facility]: [facility] Work Phone: Start: 02-20-2022 Occasional [facility] Start: 02-20-2022 None [facility] Start: 02-20-2022 Cigarettes [facility] Start: 1960 Sex Assigned At Female [facility] Start: 11-22-2024 End: 12-03-2024 Tobacco smoking status NHIS Smokes tobacco daily (finding) [facility] Clinical Notes 08-15-2020 to 11-22-2024 Note Date & Type Note Facility 11-22-2024 Radiology Diagnostic study note [facility] Imaging Services [address] [place] [address] Knee 4 or More Views MR#: [id number] Acct: [id number] Name: SHARLENE DEVLIN I Rep #: [id number] : 1960 F 63 From: Shirley Sanchez MD PCP: Care Physician,No Primary Status: REG ER Study:Knee 4 or More Views Date of Exam: 11/22/24 Exam# [id number] Ordering Dr: Ed Bell MD PROCEDURE: KNEE 4 OR MORE VIEWS 11/22/2024 REASON FOR EXAM: ATRAUMATIC PAIN AND SWELLING TECHNIQUE: 4 view(s) of the right knee COMPARISON: No relevant prior FINDINGS: Bones: No acute osseous findings. Joints: Narrowing of the lateral aspect of the patellofemoral joint. Effusion: Unremarkable.. Soft tissues: Unremarkable. Other: No other significant findings. RAD/Knee 4 or More Views IMPRESSION: Mild degenerative arthritic change involving the patellofemoral joint. Reading Location: [place] [address] CC: Dr. Orion Bell MD; No Primary Care Physician ~ Manager Electrical: Signed [facility] 07-25-2021 Note Patient Outreach (IN TMMN) SHARLENE DEVLIN I ([id number]) 1960 F Date Time Provider Department 07/25/21 ANDRE CLARK During your visit today, we recorded the following information about you: Allergies As of Date: 07/25/2021 Noted Allergy Reaction PENICILLINS 02/25/2019 4 - Hives Date Reviewed: 02/25/2019 Reviewed by: Andre Clark - Fully Assessed Visit Diagnosis:Encounter for screening mammogram for breast cancer [Z12.31] Order(s):APARNA SCREENING [7459173] Order #: [id number] FUTURE Problem List As Of Date 07/25/2021 Noted Resolved Ganglion cyst of left foot [M67.472] 02/25/2019 Tobacco use disorder [F17.200] 02/25/2019 Encounter Status:Closed by [employer] on 07/30/21 [facility] 02-22-2021 Note HNO ID: [id number] Author: Vivien Faith LPN Service: ? Author Type: ? Type: Progress Notes Filed: 02/22/2021 9:26 AM Note Text: LEFT MESSAGE FOR PATIENT TO CALL OFFICE. [facility] 01-18-2021 Note HNO ID: [id number] Author: Sarah Oviedo RN Service: ? Author Type: Registered Nurse Type: Progress Notes Filed: 02/19/2021 3:00 AM Note Text: Pt overdue for screening colonoscopy. Pt needs office visit prior due to patient has not been seen in office since 2018. Please call pt and schedule with Imani Martinez or Charles Kendrick. Sarah Oviedo, [place] [facility] 01-18-2021 Note Patient Outreach (IN TMWS) SHARLENE DEVLIN I ([id number]) 1960 F Date Time Provider Department 01/18/21 SARAH OVIEDO During your visit today, we recorded the following information about you: Sarah Oviedo RN 02/19/2021 3:00 AM Signed Pt overdue for screening colonoscopy. Pt needs office visit prior due to patient has not been seen in office since 2019. Please call pt and schedule with Imani Martinez or Charles Kendrick. LOUIS Pinto LPN 02/22/2021 9:26 AM Signed LEFT MESSAGE FOR PATIENT TO CALL OFFICE. Allergies As of Date: 01/18/2021 Noted Allergy Reaction PENICILLINS 02/25/2019 4 - Hives Date Reviewed: 02/25/2019 Reviewed by: Andre Clark - Fully Assessed Reason for Visit: Outpatient Colonoscopy [482] Problem List As Of Date 01/18/2021 Noted Resolved Ganglion cyst of left foot [M67.472] 02/25/2019 Tobacco use disorder [F17.200] 02/25/2019 Encounter Status:Closed by [employer] on 02/19/21 [facility] 08-27-2020 Note HNO ID: [id number] Author: Jewell Bell Pss Service: ? Author Type: ? Type: Progress Notes Filed: 09/05/2020 4:22 PM Note Text: 3 rd attempt left message for patient to return call.please arrange appt with pcp and mammogram. Unable to reach letter also mailed. [facility] 08-24-2020 Note HNO ID: [id number] Author: Gloria Mehta Pss Service: ? Author Type: ? Type: Progress Notes Filed: 08/24/2020 1:31 PM Note Text: 1st attempt lm for patient to call the office to schedule her mammogram and Annual exam. Gloria Mehta Pss [facility] 08-17-2020 Note HNO ID: [id number] Author: Lilly Brown LPN Service: ? Author Type: ? Type: Progress Notes Filed: 09/05/2020 4:22 PM Note Text: please call pt to arrange for appt with pcp and mammogram. [facility] 08-16-2020 Note HNO ID: [id number] Author: Andre Clark Service: ? Author Type: Physician Type: Progress Notes Filed: 09/05/2020 4:22 PM Note Text: Ordered. [facility] 08-15-2020 Note Patient Outreach (IN TMWS) SHARLENE DEVLIN I ([id number]) 1960 F Date Time Provider Department 08/15/20 ANDRE CLARK INTWS During your visit today, we recorded the following information about you: Tyshawn Jack LPN 09/05/2020 4:22 PM Signed Message left for pt to contact the office to schedule her yearly exam and mammogram. Please see pended order below. Tyshawn Clark MD 09/05/2020 4:22 PM Signed Ordered. Lilly Brown FAMILY RESOURCE SPECIALIST 09/05/2020 4:22 PM Signed please call pt to arrange for appt with pcp and mammogram. Gloria Mehta Pss 08/24/2020 1:31 PM Signed 1st attempt lm for patient to call the office to schedule her mammogram and Annual exam. Gloria Mehta Pss Jewell Bell Pss 09/05/2020 4:22 PM Signed 3 rd attempt left message for patient to return call.please arrange appt with pcp and mammogram. Unable to reach letter also mailed. Allergies As of Date: 08/15/2020 Noted Allergy Reaction PENICILLINS 02/25/2019 4 - Hives Date Reviewed: 02/25/2019 Reviewed by: Andre Clark - Fully Assessed Reason for Visit: Yearly Exam With Mammogram [188] Primary Visit Diagnosis:Screening breast examination [Z12.39] Order(s):APARNA SCREENING [8685745] Order #: [id number] FUTURE Problem List As Of Date 08/15/2020 Noted Resolved Ganglion cyst of left foot [M67.472] 02/25/2019 More... Tobacco use disorder [F17.200] 02/25/2019 Encounter Status:Closed by TYSHAWN JACK LPN on 09/05/20 [facility] 08-15-2020 Note HNO ID: [id number] Author: Tyshawn Jack LPN Service: ? Author Type: ? Type: Progress Notes Filed: 09/05/2020 4:22 PM Note Text: Message left for pt to contact the office to schedule her yearly exam and mammogram. Please see pended order below. Tyshawn Jack LPN [facility] Evaluation note Diagnosis Onset Date Abdominal pain acute Mid back pain on left side a cute Urinary frequency acute [facility] Work Phone: Evaluation noteNo assessment information available [facility] Work Phone: Hospital Discharge instructions Additional Instructions Please return if your symptoms change or worsen. Please continue to drink plenty of fluids. Please take [id number] Tylenol and/or ibuprofen as needed for further pain control.[facility] Work Phone: Hospital Discharge instructions Additional Instructions Ice your knee to decrease pain and swelling. Take it easy on the next few days to start feeling better. The pain and swelling should start coming down over the next several days to week. Watch for any signs of infection redness, fever or feeling worse return. Follow-up with orthopedics for further evaluation. I suspect this is arthritis in your knee with the development of the fluid which is called an effusion. Motrin for pain and swelling and Tylenol for pain.[facility] Work Phone: Hospital Discharge instructions Additional Instructions Follow-up with orthopedics, ice your knee, elevate the area, take NSAIDs as well for pain and swelling.[facility] Work Phone: Reason for referral (narrative)No reason for referral [facility] Work Phone: Summary Purpose Family History No Family History Records FoundNo Family History Records FoundNo Family History Records Found Advance Directives No Advanced Directives Records Found Advance Directive Response Recorded Date/ Time Living Will No February 20 2 10:43pm Power of Mold Repair Technician No February 20 022 10:43pm Advance Directive Response Recorded Date/ Time Do you have a Healthcare Power of Mold Repair Technician? No November 22, 2024 9:07am Advance Directive Response Recorded Date/ Time Do you have a Healthcare Power of Mold Repair Technician? No November 22, 2024 9:07am Do you have a Healthcare Power of Mold Repair Technician? No December 03, 2024 1:29pm Chief Complaint and Reason for Visit Chief Complaint CONCERN FOR UTI flank pain Reason for Visit Abdominal pain Mid back pain on left side Urinary frequency Chief Complaint Admit Date SINUS COMPLAINTS September 27, 2024 10:4 2am right knee pain November 22, 2024 9:00a m Chief Complaint Admit Date SINUS COMPLAINTS September 27, 2024 10:4 2am right knee pain November 22, 2024 9:00a m Knee pain December 03, 2024 12:4 9pm Additional Source Comments INFORMATION SOURCE (unrecogn ized section and content) DATE CREATED AUTHOR 08/02/2021 [facility] DATE CREATED AUTHOR AUTHOR'S ORGANIZ ATION 12/06/2024 [facility] DATE CREATED AUTHOR AUTHOR'S ORGANIZ ATION 12/09/2024 [facility] Goals (unrecognized section and content) Goals may be documented in a n alternate sectionGoals may be documented in an alternate sectionGoals may be documented in an alternate sectionGoals may be documented in an alternate section Care Teams (unrecognized sec tion and content) Team Status: Active Member Role Status Dates No Primary Care Physician Primary Care Provider Active Team Status: Inactive Member Role Status Dates No Primary Care Physician Primary Care Provider Active Start: September 27, 2024 End: September 27, 2024 No Primary Care Physician Referring Provider Active Start: September 27, 2024 End: September 27, 2024 Vivek RIVAS, PA Attending Provider Active Start: September 27, 2024 End: September 27, 2024 Team Status: Inactive Member Role Status Dates No Primary Care Physician Primary Care Provider Active Start: November 22, 2024 End: November 22, 2024 Dr. Orion Bell MD Emergency Provider Active S tart: November 22, 2024 End: November 22, 2024 Team Status: Inactive Member Role Status Dates No Primary Care Physician Primary Care Provider Active Start: November 22, 2024 End: November 22, 2024 Dr. Orion Bell MD Attending Provider Active S tart: November 22, 2024 End: November 22, 2024 Dr. Orion Bell MD Emergency Provider Active S tart: November 22, 2024 End: November 22, 2024 Team Status: Inactive Member Role Status Dates No Primary Care Physician Primary Care Provider Active Start: December 03, 2024 End: December 03, 2024 Dr. Davin Cole DO Emergency Provider Active Start : December 03, 2024 End: December 03, 2024 FOR RECORDS PERTAINING TO PATIENTS WHO ARE OR HAVE BEEN ENROLLED IN A CHEMICAL DEPENDENCY/SUBSTANCEABUSE PROGRAM, SOME INFORMATION MAY BE OMITTED. This clinical summary was aggregated from multiple sources. Caution should be exercised in using it in the provision of clinical care. This summary normalizes information from multiple sources, and as a consequence, information in this document may materially change the coding, format and clinical context of patient data. In addition, data may be omitted in some cases. CLINICAL DECISIONS SHOULD BE BASED ON THE PRIMARY CLINICAL RECORDS. [facility]. provides no warranty or guarantee of the accuracy or completeness of information in this document.
[2024-12-10] MEDS: Cefazolin 1 GM/50 ML BAG IV (21:00)
[2024-12-10] MEDS: Acetaminophen 500 MG Tablet 1000 MG PO (21:01)
[2024-12-10] MEDS: Lactated Ringers 1,000 ML 75 ML IV (21:01)
[2024-12-10] MEDS: Senna/Docusate Sodium 1 Tablet PO (21:01)
[2024-12-11 01:04] VITALS: BP 139/85; PULSE 81; RESP 16; TEMP 36.5; O2SAT 100
[2024-12-11] MEDS: Ketorolac 15 MG/ML Vial IV (01:12)
[2024-12-11 04:57] VITALS: BP 120/71; PULSE 76; RESP 16; TEMP 36.4; O2SAT 96
[2024-12-11] MEDS: Rivaroxaban 10 MG Tablet PO (05:02)
[2024-12-11] MEDS: Acetaminophen 500 MG Tablet 1000 MG PO ×3 (05:02→20:59)
[2024-12-11] MEDS: Cefazolin 1 GM/50 ML BAG IV ×3 (05:02→21:00)
[2024-12-11 06:06] VITALS: O2SAT 94
[2024-12-11 06:56] LABS: Hematocrit 33.2 % (37-47); Hemoglobin 11.2 g/dL (12.0-15.0); Mean Corp Hgb Conc 33.7 g/dL (32-36); Mean Corpuscular Hgb 33.1 pg (27.0-32.0); Mean Corpuscular Volume 98.2 fL (81-99); Mean Platelet Vol. 9.6 fl (6.2-12.0); Platelet Count 332 K/mm3 (150-450); RBC Distribution Width CV 12.5 % (11.6-14.6); RBC Distribution Width SD 45.2 fl (35.1-43.9); Red Blood Count 3.38 M/mm3 (4.2-5.4); White Blood Count 7.8 K/mm3 (4.4-11.0)
[2024-12-11 07:45] LABS: Anion Gap 9 (5-15); BUN 7 mg/dL (4-19); BUN/Creat Ratio 12.9 RATIO (10-20); Calcium,Total 8.7 mg/dL (7.6-11.0); Carbon Dioxide 27.9 mmol/L (21.0-32.0); Chloride 96 mmol/L (98-108); Creatinine, Serum 0.54 mg/dL (0.70-1.20); EST Glomerular Filtration Rate 103 (>60); Estimated Creatinine Clearance 100.47 ml/min (50-250); Glucose 146 mg/dL (70-99); Potassium 3.9 mmol/L (3.3-5.1); Sodium Level 133 mmol/L (133-145)
[2024-12-11 08:08] VITALS: BP 121/74; PULSE 74; RESP 16; TEMP 36.6; O2SAT 97
[2024-12-11] MEDS: Senna/Docusate Sodium 1 Tablet PO ×2 (08:14→20:59)
--- NOTE | 2024-12-11 11:13 | PCM.PN.ORT ---
Subjective Subjective Patient seen and examined. Reports pain is better than it has been in the last few weeks. Still reporting some muscle spasm in her lower leg as well as hamstring area. Up to chair this morning. Denies fevers, chills, nausea vomiting, chest pain or shortness of breath. Objective Data Objective Data Vital Signs: Vital Signs Temp Pulse Resp BP Pulse Ox O2 Del Method O2 Flow Rate 97.8 F 74 16 121/74 H 97 Room Air 2 12/11/24 08:08 12/11/24 08:08 12/11/24 08:08 12/11/24 08:08 12/11/24 08:08 12/11/24 08:08 12/11/24 04:57 Oxygen Flow Rate (L/min) 2 Oxygen Delivery Method Room Air Weight: 160 lb Body Mass Index (BMI) 28.3 Intake & Output: Intake and Output for Last 24 Hours 12/09/24 12/10/24 12/11/24 23:59 23:59 23:59 Intake Total 1727.25 / 1727.25 1128.75 / 1128.75 Output Total Balance 1702.25 / 1702.25 1128.75 / 1128.75 Lab / Micro Data 12/11/24 06:32 12/11/24 06:32 Labs: Laboratory Results - last 24 hr 12/10/24 12:17: WBC 9.2, RBC 4.08 L, Hgb 13.4, Hct 38.4, MCV 94.1, MCH 32.8 H, MCHC 34.9, RDW Std Deviation 43.2, RDW Coeff of Pema 12.5, Plt Count 400, MPV 9.5, Sodium 136, Potassium 3.9, Chloride 98, Carbon Dioxide 24.1, Anion Gap 14, BUN 7, Creatinine 0.51 L, Estim Creat Clear Calc 106.38, Est GFR (MDRD) Non-Af 104, BUN/Creatinine Ratio 14.7, Glucose 103 H, Calcium 9.0 12/11/24 06:32: WBC 7.8, RBC 3.38 L, Hgb 11.2 L, Hct 33.2 L, MCV 98.2, MCH 33.1 H, MCHC 33.7, RDW Std Deviation 45.2 H, RDW Coeff of Pema 12.5, Plt Count 332, MPV 9.6, Sodium 133, Potassium 3.9, Chloride 96 L, Carbon Dioxide 27.9, Anion Gap 9, BUN 7, Creatinine 0.54 L, Estim Creat Clear Calc 100.47, Est GFR (MDRD) Non-Af 103, BUN/Creatinine Ratio 12.9, Glucose 146 H, Calcium 8.7 Physical Exam Narrative General - A&Ox3, NAD. VSS/AF Right lower extremity -incisional dressing C/D/I. Expected postoperative effusion. SILT Sural, Saphenous, SPN, DPN, Tibial N. distributions. DP, PT 2+. BCR. DF, PF, EHL 5/5. No calf TTP. Assessment & Plan Assessment/Plan (1) Septic arthritis of knee, right: QUALIFIERS: Septic arthritis organism: staphylococcal Qualified Code(s): M00.061 - Staphylococcal arthritis, right knee PLAN: POD# 1 s/p right knee arthroscopic I&D -Patient doing well this morning. Pain controlled minus occasional muscle spasm. Growing MSSA from synovial cultures. Will continue with scheduled Ancef. ID consult pending. Home-going antibiotic recommendations pending ID. Possible PICC line versus p.o.. Anticipate keeping the patient at least till 12/13/2024 to allow for ID recommendations and continued pain control in the inpatient setting. - Pain control -tizanidine added for muscle spasm. Continue scheduled Tylenol and as needed oxycodone. - PT/OT-range of motion, weightbearing as tolerated right lower extremity. I encouraged the patient to perform some quadriceps activation in bed. - DVT PPX -Xarelto, SCDs, early mobilization - Case management -consult placed. May need assistance with PICC line if ordered by ID.
[2024-12-11] MEDS: tiZANidine HCl 2 MG Tablet 4 MG PO ×2 (11:29→20:37)
--- NOTE | 2024-12-11 11:35 | CASEMGMT ---
LOUIS CONNOLLY Assessment: Face to Face with pt for initial transition planning/care coordination assessment. LOUIS CONNOLLY introduced self and role at [facility], pt voices understanding and consents to assessment. Pt is A&O x4 and answers all questions appropriately at this time. Pt sitting up in chair in no distress. Pt states she has not yet worked with therapy today. Care providers, pharmacy, and demographics verified/updated. Admitting Dx: septic arthritis PCP:None, pt denies needing a list of local healthcare providers. Pt wants to wait until she switches insurances to obtain one. Discussed importance of this. Specialists:vivi Perez Pharmacy: [facility] Retail Insurance: [employer] Prescription Benefit: yes LNOK: Billie Yousif, dtr Living Arrangements: Pt lives with 26 y/o dtr who is autstic in a single story home with 1 step to enter. Pt reports typically she is I in ADL/IADLs and denies concerns at home. Transportation: Pt drives self and denies concerns with transportation. Pt dtr Billie can transport pt until she can drive again. DME:[facility] HHC/SNF:Denies hx of Pt states no concerns with going home at time of dc. ID to consult. Briefly discussed potential IV's at dc. Pt does not have PCP therefore HH may not be an option should she need home IV's. Discussed the infusion center and how this may be a possibility. Pt still denies need for healthcare provider directory. Pt states no further concerns/needs. CM to follow. Advised pt to ask CM if any further questions/concerns/needs arise, voices understanding. Pt Goal: Home Plan: Home, pending ID c/s and therapy evals. Follow for anticoag. Kyung MYERS CM
[2024-12-11] MEDS: oxyCODONE 5 MG Tablet 10 MG PO ×3 (12:48→22:18)
[2024-12-11 14:17] VITALS: BP 114/65; PULSE 81; RESP 16; TEMP 36.3; O2SAT 98
[2024-12-11] MEDS: HYDROmorphone 1 MG/ML Syringe IV (14:20)
[2024-12-11] MEDS: 0.9% Saline Lock 10 ML Syringe IV ×2 (14:20→15:20)
[2024-12-11] MEDS: 0.9% Normal Saline (250mL Bag) 250 ML IV (14:20)
--- OUTSIDE RECORDS SUMMARY | 2024-12-11 15:36 | XMS RPT_ITS | CCD ---
Author Organization [facility] Care Team Providers Care Supervisor Scrap Preparation Name Role Phone Care Physician, No Primary Primary Care Provider Unavailable Care Physician, No Primary Referring Provider Un available EVELNY Berger Attending Provider Care Physician, No Primary [...] Unava ilable Davin Cole Attending Unavailable [facility]-FLYNN CAMPBELL Primary Care Unavailabl e KENYATTA MCCORMICK DO Attending Unavailable Allergies Allergy Classification Reported Allergen(s) Allergy Type Date of Onset Reaction(s) Facility (4 sources) Penicillins Allergy to substance 02-20-2022 Rash [facility] (1 source) Penicillins Drug allergy (disorder) 12-03-2024 [facility] Repository Medications Current Medications Medication Drug Class(es) [...] Drug Class(es) Dates Sig (Normalized) Sig (Original) [id number] actuat albuterol 0.09 mg/actuat metered dose [...] Department Summary on 12-03-2024 Emergency Department Summary [facility] Medical Records Department [address] [place] [address] Emergency Department Summary 12/03/24 MR#: [id number] Acct: [id number] Name: SHARLENE DEVLIN I Rep #: [id number] : 1960 64 From: Opal RIVAS PCP: [...] Given she (more content not included)... Normal [facility] Culture, Anaerobic Any Sourc rolo 11-28-2024 CUAN Rt Knee No growth in 5 days. Normal [facility] Comment on above: Performed By: #### M 100.2900, M100.2000, L200.0400, L200.4175, M100.4001 #### [facility] Laboratory [address] [place], [address] Body Fluid Culton 11-27-2024 BFC Rt Knee No growth in 5 days. Normal [facility] Comment on above: Performed By: #### M 100.2900, M100.2000, L200.0400, L200.4175, M100.4001 #### [facility] [address] [place], [address] Crystals, Body Fluidon 11-24 PATH REV Reviewed Normal [facility] Comment on above: Order Comment: Comme nts: Rt Knee Result Comment: ACUT E INFLAMMATION. NON-URATE CRYSTALS PRESENT. Clarissa Ace MD 11/23/2024 AMENDED REPORT 11/24/24 0937 PATH REV previously reported as: Will follow Performed By: #### M 100.2900, M100.2000, L200.0400, L200.4175, M100.4001 #### [facility] [address] [place], [address] Anaerobic cultureOrdered By: Orion Bell on 11-22-2024 Bacteria identified Anaer cx Nom (Unsp spec) No growth in 5 days. [facility] Automated synovial fluid gilberto kocytes count (number/volume)Ordered By: Orion Bell on 11-22-2024 WBC Auto (Syn fld) [#/Vol] 28.5600 10^3/uL High 0.000-0.002 [facility] Automated synovial fluid mon onuclear cell count (number/volume)Ordered By: Orion Bell on 11-22-2024 Mononuclear cells Auto (Syn fld) [#/Vol] 1.161 10^3/ul [facility] Automated synovial fluid vini ymorphonuclear cell count (number/volume)Ordered By: Orion Bell on 11-22-2024 Polymorphonuclear cells Auto (Syn fld) [#/Vol] 28.904 10^3/uL [facility] Automated synovial fluid vini ymorphonuclear cells as percentage of leukocytesOrdered By: Orion Bell on 11-22-2024 Polymorphonuclear cells/100 WBC Auto (Syn fld) 96.1 % [facility] Blood lymphocytes/100 leukoc ytesOrdered By: Orion Bell on 11-22-2024 Lymphocytes/100 WBC (Bld) 1 % [facility] Body fluid crystal identific ation by light microscopyOrdered By: Orion Bell on 11-22-2024 Crystals LM Nom (Body fld) MONOSODIUM URATE [facility] Comment on above: CRYSTAL RESULT IS PRELIMINARY. SEE PATH REVIEW FOR FINAL REPORT. Determination of appearance of synovial fluid (nominal result)Ordered By: Orion Bell on 11-22-2024 Appearance (Syn fld) Cloudy CLEAR [facility] Emergency Department Summary on 11-22-2024 Emergency Department Summary [facility] Medical Records Department [address] [place] [address] Emergency Department Summary 11/22/24 MR#: [id number] Acct: [id number] Name: SHARLENE DEVLIN I Rep #: [id number] : 1960 63 From: Orion Bell MD [...] Palpation: soft (more content not included)... Normal [facility] Gram Stainon 11-22-2024 GS Rt Knee Centrifuged Specimen? Culture performed on centrifuged specimen Gram Stain No organisms seen No cells seen Normal [facility] Comment on above: Performed By: #### M 100.2900, M100.2000, L200.0400, L200.4175, M100.4001 #### [facility] [address] [place], [address] Gram stainOrdered By: Orion huynh on 11-22-2024 Microscopic observation Gram stain Nom (Unsp spec) [facility] Knee 4 or More Viewson 11-22 Knee 4 or More Views [facility] [address] [place], [place] [id number] Knee 4 or More Views MR#: [id number] Acct: [id number] Name: SHARLENE DEVLIN I Rep #: [id number] : 1960 F 63 From: Amaury Sanchez MD PCP: Care Physician,No Primary Status: REG ER Study: Knee 4 or More Views Date of Exam: 11/22/24 Exam# [id number] Ordering Dr: Orion Bell MD PROCEDURE: KNEE [...] change involving the patellofemoral joint. Reading Location: [place] [address] CC: Dr. Orion Bell MD; No Primary Care Physician Intensive Care Medicine Specialist: Signed Normal [facility] Pathologist review of result s (narrative result)Ordered By: Orion Bell on 11-22-2024 Pathologist review Sam (Unsp spec) [Interp] May follow [facility] Review by pathologistOrdered By: Orion Bell on 11-22-2024 Pathologist review Sam (Unsp spec) [Interp] Reviewed [facility] Comment on above: Previous reported re sult: Will follow Edited by: MAIK on 11/24/24:0937ACUTE INFLAMMATION.NON-URATE CRYSTALS PRESENT.Clarissa Ace MD 11/23/2024 AMENDED REPORT 11/24/24 0937 PATH REV previously reported as: Will follow Specimen source identificati on of body fluidOrdered By: Orion Bell on 11-22-2024 Specimen source Nom (Body fld) SYNOVIAL [facility] Specimen source Nom (Body fld) RIGHT KNEE [facility] Synovial Fluid RBC, WBC AND Diffon 11-22-2024 Lymphocytes (Bld) [#/Vol] 1 10*3/uL Normal [facility] Comment on above: Order Comment: Comme nts: Rt Knee Performed By: #### M 100.2900, M100.2000, L200.0400, L200.4175, M100.4001 #### [facility] [address] [place], [address] Monocytes (Bld) [#/Vol] 18 10*3/uL Normal [facility] Comment on above: Order Comment: Comme nts: Rt Knee Performed By: #### M 100.2900, M100.2000, L200.0400, L200.4175, M100.4001 #### [facility] [address] [place], [address] NEUTROPHIL 81 High 0-25 [facility] Comment on above: Order Comment: Comme nts: Rt Knee Performed By: #### M 100.2900, M100.2000, L200.0400, L200.4175, M100.4001 #### [facility] [address] [place], [address] Synovial fluid color determi nation (nominal result)Ordered By: Orion Bell on 11-22-2024 Color (Syn fld) Yellow Pale Yellow [facility] Synovial fluid erythrocytes count (number/volume)Ordered By: Orion Bell on 11-22-2024 RBC (Syn fld) [#/Vol] 160 /mm3 High 0-0 [facility] Synovial fluid monocyte perc entageOrdered By: Orion Bell on 11-22-2024 Monocytes/100 WBC (Syn fld) 18 % [facility] Synovial fluid mononuclear c ells/100 leukocytesOrdered By: Orion Bell on 11-22-2024 Mononuclear cells/100 WBC (Syn fld) 3.9 % [facility] Synovial fluid neutrophil pe rcentageOrdered By: Orion Bell on 11-22-2024 Neutrophils/100 WBC (Syn fld) 81 % High 0-25 [facility] Synovial fluid total cell co untOrdered By: Orion Bell on 11-22-2024 Cells Counted Total (Syn fld) [#] 28.6100 10^3/uL High 0.000-0.000 [facility] Comment on above: This is the Total Nu mber of Nucleated Cell Types in the Body Fluid. Urgent Care Visit Reporton 0 09-27-2024 Urgent Care Visit Report [facility] [address], [address] [place], [place] [address] OFFICE VISIT Date of Service: 09/27/24 MR#: [id number] Acct: [id number] Name: SHARLENE DEVLIN I Rep #: [id number] : 1960 Provider: EVELYN Parker Age/Sex: 63/F Location: [facility] Status: Signed Intake Vital Signs 02/20/22 22:28 [...] going on for 8 days. [facility] Medical History (Updated 03/01/22 @ 00:01 by [...] habitus Orientation: alert, awake and oriented x3 [facility] Head: normal to inspection Ears: hearing [...] Signature: Date (more content not included)... Normal [facility] Absolute lymphocyte counton 02-20-2022 Lymphocytes Auto (Unsp spec) [#/Vol] 2.83 10*3/uL 0.83-4.51 [facility] Work Phone: Basophil percentageon 2021 Basophil percentage 0 SEEN /hpf 0-5 [facility] Work Phone: Basophils/100 WBC (Bld) 0.7 % 0-1 [facility] Work Phone: Chloride [Moles/Vol] 101 mmol/L 98-107 [facility] Work Phone: Eosinophils/100 WBC (Bld) 3.5 % 0-5 [facility] Work Phone: Glucose [Mass/Vol] 119 mg/dL 74-106 [facility] Work Phone: Comment on above: Fasting Glucose resu lt from 100 to 125 mg/dL suggests IMPAIRED HOMEOSTASIS per A.D.A. criteria. Neutrophils (Bld) [#/Vol] 3.1 10*3/uL 2.0-7.7 [facility] Work Phone: Neutrophils/100 WBC (Bld) 44.9 % 47-70 [facility] Work Phone: Potassium [Moles/Vol] 3.4 mmol/L 3.5-5.1 [facility] Work Phone: [phone] Sodium [Moles/Vol] 135 mmol/L 136-145 [facility] Work Phone: WBC (Bld) [#/Vol] 7.0 10*3/uL 4.4-11.0 [facility] Work Phone: Basophil percentage 0 SEEN /hpf 0-5 [facility] Work Phone: Bilirubin Test strip Ql (U)o n 02-20-2022 Bilirubin Ql (U) Negative Negative [facility] Work Phone: Bilirubin Ql (U) Negative Negative [facility] Work Phone: Blood erythrocytes count (nu mber/volume)on 02-20-2022 RBC (Bld) [#/Vol] 4.19 10*6/uL 4.2-5.4 [facility] Work Phone: Blood hemoglobin measurement (mass/volume)on 02-20-2022 Hemoglobin (Bld) [Mass/Vol] 14.5 g/dL 12.0-15.0 [facility] Work Phone: Blood lymphocytes/100 leukoc yteson 02-20-2022 Lymphocytes/100 WBC (Bld) 40.7 % 19-41 [facility] Work Phone: Blood monocytes/100 leukocyt eson 02-20-2022 Monocytes/100 WBC (Bld) 9.5 % 0-10 [facility] Work Phone: Blood platelet mean volumeon 02-20-2022 Platelet mean volume (Bld) [Entitic vol] 9.9 fL 6.2-12.0 [facility] Work Phone: Determination of erythrocyte mean corpuscular volume (MCV)on 02-20-2022 MCV (RBC) [Entitic vol] 99.3 fL 81-99 [facility] Work Phone: Hematocrit Auto (Bld) [Volum e fraction]on 02-20-2022 Hematocrit (Bld) [Volume fraction] 41.6 % 37-47 [facility] Work Phone: Ketones Test strip Ql (U)on 02-20-2022 Ketones Ql (U) Negative Negative [facility] Work Phone: Ketones Ql (U) 5 mg/dl Negative [facility] Work Phone: Laboratory - Chemistry and C hemistry - challengeon 02-20-2022 CO2 [Moles/Vol] 28.0 mmol/L 21.0-32.0 [facility] Work Phone: Urea nitrogen/Creatinine [Mass ratio] 13.3 mg/mg 10-20 [facility] Work Phone: Bilirubin Ql (U) Negative [facility] Work Phone: [phone] Glucose Ql (U) Negative [facility] Work Phone: [phone] Ketones Ql (U) Small (15+) [facility] Work Phone: pH (U) 6.0 [pH] [facility] Work Phone: Specific gravity (U) [Rel density] 1.005 [facility] Work Phone: [phone] Urobilinogen (U) [Mass/Vol] Negative [facility] Work Phone: [phone] Laboratory - Hematology and Cell countson 02-20-2022 Erythrocyte distribution width (RBC) [Entitic vol] 46.4 fL 35.1-43.9 [facility] Work Phone: Erythrocyte distribution width (RBC) [Ratio] 12.7 % 11.6-14.6 [facility] Work Phone: [phone] Immature granulocytes/100 WBC (Bld) 0.700 % 0.0-0.9 [facility] Work Phone: [phone] Comment on above: IG% - Immature Granu locytes (promyelocytes, myelocytes and metamyelocytes) > 1% indicates that a LEFT SHIFT is Present. MCH (RBC) [Entitic mass] 34.6 pg 27.0-32.0 [facility] Work Phone: [phone] Nucleated RBC/100 WBC (Bld) [Ratio] 0 % 0-5 [facility] Work Phone: Hemoglobin Ql (U) Negative [facility] Work Phone: Laboratory - Specimen inform ationon 02-20-2022 Clarity (U) Clear [facility] Work Phone: Color (U) STRAW [facility] Work Phone: Laboratory - Urinalysison Nitrite Ql (U) Negative [facility] Work Phone: Protein Ql (U) Negative [facility] Work Phone: MCHC Auto (RBC) [Mass/Vol]on 02-20-2022 MCHC (RBC) [Mass/Vol] 34.9 g/dL [facility] Work Phone: Mucus LM Ql (Urine sed)on Mucus Ql (Urine sed) 0 SEEN /hpf [facility] Work Phone: Mucus Ql (Urine sed) 0 SEEN /hpf [facility] Work Phone: Nitrite Test strip Ql (U)on 02-20-2022 Nitrite Ql (U) Negative Negative [facility] Work Phone: Nitrite Ql (U) Negative Negative [facility] Work Phone: No Panel Informationon 02-20 Estimated Creatinine Clearance Calc 71.87 ml/min [facility] Work Phone: Estimated GFR (MDRD) Amer 114 mL/min >60 [facility] Work Phone: Comment on above: GFR Calc Estimated GFR (MDRD) Non-Af Amer 94 mL/min >60 [facility] Work Phone: Comment on above: Non- GFR Calc Urine Leukocytes Negatve [facility] Work Phone: Urine Non-Hemolyzed Blood Negative [facility] Work Phone: Platelets bldon 02-20-2022 Platelets (Bld) [#/Vol] 230 10*3/uL 150-450 [facility] Work Phone: Protein Test strip Ql (U)on 02-20-2022 Protein Ql (U) Negative Negative [facility] Work Phone: Protein Ql (U) Negative Negative [facility] Work Phone: Serum or plasma calcium anayeli urement (mass/volume)on 02-20-2022 Calcium [Mass/Vol] 9.5 mg/dL 8.5-10.1 [facility] Work Phone: Serum or plasma creatinine m easurement (mass/volume)on 02-20-2022 Creatinine [Mass/Vol] 0.68 mg/dL 0.55-1.02 [facility] Work Phone: Comment on above: The validity of the calculated GFR & GFRAA in patients over 70 years has not been determined. Clinical correlation is essential. Serum or plasma urea nitroge n measurement (mass/volume)on 02-20-2022 Urea nitrogen [Mass/Vol] 9 mg/dL 7-18 [facility] Work Phone: Squamous epithelial cells de tection in urine sediment by light microscopyon 02-20-2022 Epithelial cells.squamous LM Ql (Urine sed) 0-5 SEEN /hpf 5-10 [facility] Work Phone: Epithelial cells.squamous LM Ql (Urine sed) 0 SEEN /hpf 5-10 [facility] Work Phone: Thin prep Papanicolaou smear with manual screeningon 02-20-2022 Thin prep Papanicolaou smear with manual screening 6 5-15 [facility] Work Phone: Urine blood detectionon 01-23 RBC Ql (U) 10 /ul Negative [facility] Work Phone: RBC Ql (U) 0-5 SEEN /hpf 0-5 [facility] Work Phone: RBC Ql (U) Negative Negative [facility] Work Phone: RBC Ql (U) 0 SEEN /hpf 0-5 [facility] Work Phone: Urine clarityon 02-20-2022 Clarity (U) Clear Clear [facility] Work Phone: Clarity (U) Clear Clear [facility] Work Phone: Urine color determinationon 02-20-2022 Color (U) Straw Yellow [facility] Work Phone: Color (U) Yellow Yellow [facility] Work Phone: Urine glucose detectionon Glucose Ql (U) Normal mg/dl Normal [facility] Work Phone: Glucose Ql (U) Normal mg/dl Normal [facility] Work Phone: Urine leukocyte esterase det ection by dipstickon 02-20-2022 Leukocyte esterase Test strip Ql (U) Negative Negative [facility] Work Phone: Leukocyte esterase Test strip Ql (U) Negative Negative [facility] Work Phone: Urine pHon 02-20-2022 pH (U) 6.0 [pH] 5.0 - 8.0 [facility] Work Phone: pH (U) 6.5 [pH] 5.0 - 8.0 [facility] Work Phone: Urine sediment bacteria coun t by microscopy (number/high power field)on 02-20-2022 Bacteria LM.HPF (Urine sed) [#/Area] 0 /[HPF] None Seen [facility] Work Phone: Bacteria LM.HPF (Urine sed) [#/Area] 0 /[HPF] None Seen [facility] Work Phone: Urine specific gravity measu rementon 02-20-2022 Specific gravity (U) [Rel density] 1.010 1.002-1.030 [facility] Work Phone: Specific gravity (U) [Rel density] 1.005 1.002-1.030 [facility] Work Phone: Urobilinogen Auto test strip Ql (U)on 02-20-2022 Urobilinogen Ql (U) Normal mg/dl Normal [facility] Work Phone: Urobilinogen Ql (U) Normal mg/dl Normal [facility] Work Phone: CNCOon 09-01-2020 CNCO Letter Text Normal [facility] Culture, urine Bacteria identified Cx Nom (U) Positive [facility] Work Phone: Vital Signs Date Time Vital Sign Value Performing Clinician Nik ann 12-03-2024 16:03-0400 Body temperature 98 [degF] No Primary Care Physician [facility] 12-03-2024 16:03-0400 Diastolic blood pressure 73 mm[Hg] No Primary Care Physician [facility] 12-03-2024 16:03-0400 Heart rate 75 /min No Primary Care Physician [facility] 12-03-2024 16:03-0400 Respiratory rate 18 /min No Primary Care Physician [facility] 12-03-2024 16:03-0400 SaO2% (BldA) [Mass fraction] 100 % No Primary Care Physician [facility] 12-03-2024 16:03-0400 Systolic blood pressure 119 mm[Hg] No Primary Care Physician [facility] 12-03-2024 12:49-0400 Body height 160.02 cm No Primary Care Physician [facility] 12-03-2024 12:49-0400 Body mass index (BMI) [Ratio] 28.3 kg/m2 No Primary Care Physician [facility] 12-03-2024 12:49-0400 Body weight 72.57 kg No Primary Care Physician [facility] 11-22-2024 10:22-0400 Body temperature 98 [degF] No Primary Care Physician [facility] 11-22-2024 10:22-0400 Diastolic blood pressure 77 mm[Hg] No Primary Care Physician [facility] 11-22-2024 10:22-0400 Heart rate 79 /min No Primary Care Physician [facility] 11-22-2024 10:22-0400 Respiratory rate 19 /min No Primary Care Physician [facility] 11-22-2024 10:22-0400 SaO2% (BldA) [Mass fraction] 97 % No Primary Care Physician [facility] 11-22-2024 10:22-0400 Systolic blood pressure 140 mm[Hg] No Primary Care Physician [facility] 11-22-2024 09:04-0400 Body mass index (BMI) [Ratio] 29.6 kg/m2 No Primary Care Physician [facility] 11-22-2024 09:04-0400 Body weight 75.8 kg No Primary Care Physician [facility] 11-22-2024 09:01-0400 Body height 160.02 cm No Primary Care Physician [facility] 09-27-2024 11:38-0400 Body temperature 98.4 [degF] No Primary Care Physician [facility] 09-27-2024 11:38-0400 Diastolic blood pressure 80 mm[Hg] No Primary Care Physician [facility] 09-27-2024 11:38-0400 Heart rate 104 /min No Primary Care Physician [facility] 09-27-2024 11:38-0400 SaO2% (BldA) [Mass fraction] 96 % No Primary Care Physician [facility] 09-27-2024 11:38-0400 Systolic blood pressure 122 mm[Hg] No Primary Care Physician [facility] 02-21-2022 01:01-0400 Heart rate 78 /min No Primary Care Physician [facility] Work Phone: 02-21-2022 01:01-0400 Respiratory rate 18 /min No Primary Care Physician [facility] Work Phone: 02-21-2022 01:01-0400 SaO2% (BldA) [Mass fraction] 97 % No Primary Care Physician [facility] Work Phone: 02-20-2022 22:28-0400 Body height 160.02 cm No Primary Care Physician [facility] Work Phone: 02-20-2022 22:28-0400 Body mass index (BMI) [Ratio] 29.2 kg/m2 No Primary Care Physician [facility] Work Phone: 02-20-2022 22:28-0400 Body temperature 96.6 [degF] No Primary Care Physician [facility] Work Phone: 02-20-2022 22:28-0400 Body weight 74.9 kg No Primary Care Physician [facility] Work Phone: 02-20-2022 22:28-0400 Diastolic blood pressure 89 mm[Hg] No Primary Care Physician [facility] Work Phone: 02-20-2022 22:28-0400 Systolic blood pressure 167 mm[Hg] No Primary Care Physician [facility] Work Phone: 02-20-2022 08:48-0400 Body temperature 98.4 [degF] No Primary Care Physician [facility] Work Phone: 02-20-2022 08:48-0400 Diastolic blood pressure 74 mm[Hg] No Primary Care Physician [facility] Work Phone: 02-20-2022 08:48-0400 Heart rate 98 /min No Primary Care Physician [facility] Work Phone: 02-20-2022 08:48-0400 Respiratory rate 14 /min No Primary Care Physician [facility] Work Phone: 02-20-2022 08:48-0400 SaO2% (BldA) [Mass fraction] 98 % No Primary Care Physician [facility] Work Phone: 02-20-2022 08:48-0400 Systolic blood pressure 122 mm[Hg] No Primary Care Physician [facility] Work Phone: Encounters Encounter Date Encounter Type [...] Start: 09-27-2024 End: 09-27-2024 ambulatory Vivek RIVAS Facility:[facility] Start: 02-20-2022 End: 02-21-2022 Emergency department patient visit No Primary Care Physician [facility] Start: 02-20-2022 End: 02-20-2022 ambulatory No Primary Care Physician [facility] Work Phone: Start: 02-20-2022 End: 02-20-2022 Patient encounter procedure No Primary Care Physician [facility]Laboratory, Specimen Start: 02-20-2022 End: 02-20-2022 Patient encounter procedure No Primary Care Physician [facility] Procedures Date Procedure Procedure Detail Performing [...] Date Care Activity Detail Author Start: 12-03-2024 [facility] Start: 11-22-2024 Anaerobic Culture Anaerobic Culture [facility] Start: 11-22-2024 Body Fluid Culture Body Fluid Cultur e [facility] Start: 11-22-2024 Microscopic observat ion [Identifier] in Unspecified specimen by Gram stain Gram Stain [facility] Start: 11-22-2024 [facility] Start: 11-22-2024 Microbial culture, b miguelito fluid [facility] Start: 02-20-2022 Culture bacterial quanttative colony count urine URINE CULTURE/COLONY COUNT [facility] Work Phone: Start: 02-20-2022 Urnls dip stick/tabl et reagent auto microscopy URINALYSIS AUTO W/SCOPE [facility] Work Phone: Start: 02-20-2022 [facility] Work Phone: Bacteria identified in Body fluid by Culture [facility] Bacteria identified in Unspecified specimen by Anaerobe culture [facility] Bacteria identified in Urine by Culture Urine Culture [facility] Work Phone: Cell count of synovi al fluid [facility] [facility] Crystals [type] in B mgiuelito fluid by Light microscopy [facility] Microscopic observat ion [Identifier] in Unspecified specimen by Gram stain [facility] Pathologist review o f results [facility] Patient Education [facility] Work Phone: Patient referral [facility] Work Phone: Red blood cell count [facility] Specimen processing [facility] Synovial fluid examination [facility] White blood cell count [facility] Payers Date Payer Category Payer Self-pay [id number] 2007 Unknown [id number] 1960 Unknown [id number] Self-pay SELF PAY INSURANCE [id number] Unknown [facility] [id number] Unknown [id number] Unknown [id number] Unknown [id number] Social History Date Type Detail Facility [facility]: [facility] Work Phone: Start: 02-20-2022 Occasional [facility] Start: 02-20-2022 None [facility] Start: 02-20-2022 Cigarettes [facility] Start: 1960 Sex Assigned At Female [facility] Start: 11-22-2024 End: 12-03-2024 Tobacco smoking status NHIS Smokes tobacco daily (finding) [facility] Clinical Notes 08-15-2020 to 11-22-2024 Note Date & Type Note Facility 11-22-2024 Radiology Diagnostic study note [facility] Services [address] [place] [address] Knee 4 or More Views MR#: [id number] Acct: [id number] Name: SHARLENE DEVLIN I Rep #: [id number] : 1960 F 63 From: Shirley Sanchez MD PCP: Care Physician,No Primary Status: REG ER Study:Knee 4 or More Views Date of Exam: 11/22/24 Exam# [id number] Ordering Dr: Ed Bell MD PROCEDURE: KNEE [...] change involving the patellofemoral joint. Reading Location: [place] [address] CC: Dr. Orion Bell MD; No Primary Care Physician ~ Intensive Care Medicine Specialist: Signed [facility] 07-25-2021 Note Patient Outreach (IN TMMN) SHARLENE DEVLIN I ([id number]) 1960 F Date Time Provider Department 07/25/21 ANDRE CLARK During your visit today, we recorded the following information about you: Allergies As of Date: 07/25/2021 Noted Allergy Reaction PENICILLINS 02/25/2019 4 - Hives Date Reviewed: 02/25/2019 Reviewed by: Andre Clark - Fully Assessed Visit Diagnosis:Encounter for screening mammogram for breast cancer [Z12.31] Order(s):APARNA SCREENING [[id number]] Order #: [id number] FUTURE Problem List As Of Date 07/25/2021 Noted Resolved Ganglion cyst of left foot [M67.472] 02/25/2019 Tobacco use disorder [F17.200] 02/25/2019 Encounter Status:Closed by Signiant on 07/30/21 [facility] 02-22-2021 Note HNO ID: [id number] Author: Vivien Faith LPN Service: ? Author Type: ? Type: Progress Notes Filed: 02/22/2021 9:26 AM Note Text: LEFT MESSAGE FOR PATIENT TO CALL OFFICE. [facility] 01-18-2021 Note HNO ID: [id number] Author: Sarah Oviedo RN Service: ? Author Type: Registered Nurse Type: Progress Notes Filed: 02/19/2021 3:00 AM Note Text: Pt overdue for screening colonoscopy. Pt needs office visit prior due to patient has not been seen in office since 2018. Please call pt and schedule with Imani Martinez or Charles Kendrick. Sarah Oviedo, LOUIS [facility] 01-18-2021 Note Patient Outreach (IN TMWS) SHARLENE DEVLIN I ([id number]) 1960 F Date Time Provider Department 01/18/21 [...] use disorder [F17.200] 02/25/2019 Encounter Status:Closed by Kalyan [employer] Book[employer]IN on 02/19/21 [facility] 08-27-2020 Note HNO ID: [id number] Author: Jewell Bell Pss Service: ? Author Type: ? Type: Progress Notes Filed: 09/05/2020 4:22 PM Note Text: 3 rd attempt left message for patient to return call.please arrange appt with pcp and mammogram. Unable to reach letter also mailed. [facility] 08-24-2020 Note HNO ID: [id number] Author: Gloria Mehta Pss Service: ? Author Type: ? Type: Progress Notes Filed: 08/24/2020 1:31 PM Note Text: 1st attempt lm for patient to call the office to schedule her mammogram and Annual exam. Gloria Mehta Pss [facility] 08-17-2020 Note HNO ID: [id number] Author: Lilly Brown LPN Service: ? Author Type: ? Type: Progress Notes Filed: 09/05/2020 4:22 PM Note Text: please call pt to arrange for appt with pcp and mammogram. [facility] 08-16-2020 Note HNO ID: [id number] Author: Andre Clark Service: ? Author Type: Physician Type: Progress Notes Filed: 09/05/2020 4:22 PM Note Text: Ordered. [facility] 08-15-2020 Note Patient Outreach (IN TMWS) SHARLENE DEVLIN I ([id number]) 1960 F Date Time Provider Department 08/15/20 ANDRE CLARK INTWS During your visit today, we recorded the following information about you: Tyshawn Jack LPN 09/05/2020 4:22 PM Signed Message left for pt to contact the office to schedule her yearly exam and mammogram. Please see pended order below. Tyshawn Clark MD 09/05/2020 4:22 PM Signed Ordered. Lilly Brown ELECTRICAL ENGINEER 09/05/2020 4:22 PM Signed please call pt [...] Visit Diagnosis:Screening breast examination [Z12.39] Order(s):APARNA SCREENING [[id number]] Order #: [id number] FUTURE Problem List As Of Date 08/15/2020 Noted Resolved Ganglion cyst of left foot [M67.472] 02/25/2019 More... Tobacco use disorder [F17.200] 02/25/2019 Encounter Status:Closed by TYSHAWN JACK LPN on 09/05/20 [facility] 08-15-2020 Note HNO ID: [id number] Author: Tyshawn Jack LPN Service: ? Author Type: ? Type: Progress Notes Filed: 09/05/2020 4:22 PM Note Text: Message left for pt to contact the office to schedule her yearly exam and mammogram. Please see pended order below. Tyshawn Jack LPN [facility] Evaluation note Diagnosis Onset Date Abdominal pain acute Mid back pain on left side a cute Urinary frequency acute [facility] Work Phone: Evaluation noteNo assessment information available [facility] Work Phone: Hospital Discharge instructions Additional Instructions Please return if your symptoms change or worsen. Please continue to drink plenty of fluids. Please take [id number] Tylenol and/or ibuprofen as needed for further pain control.[facility] Work Phone: Hospital Discharge instructions Additional Instructions [...] for pain and swelling and Tylenol for pain.[facility] Work Phone: Hospital Discharge instructions Additional Instructions Follow-up with orthopedics, ice your knee, elevate the area, take NSAIDs as well for pain and swelling.[facility] Work Phone: Reason for referral (narrative)No reason for [facility] Work Phone: Summary Purpose Family History No Family History Records FoundNo Family History Records FoundNo Family History Records Found Advance Directives No Advanced Directives Records Found Advance Directive Response Recorded Date/ Time Living Will No February 20 2 10:43pm Power of Machine Tool Rebuilder No February 20 022 10:43pm Advance Directive Response Recorded Date/ Time Do you have a Healthcare Power of Machine Tool Rebuilder? No November 22, 2024 9:07am Advance Directive Response Recorded Date/ Time Do you have a Healthcare Power of Machine Tool Rebuilder? No November 22, 2024 9:07am Do you have a Healthcare Power of Machine Tool Rebuilder? No December 03, 2024 1:29pm Chief Complaint [...] and content) DATE CREATED AUTHOR 08/02/2021 [facility] DATE CREATED AUTHOR AUTHOR'S ORGANIZ ATION 12/06/2024 [facility] DATE CREATED AUTHOR AUTHOR'S ORGANIZ ATION 12/09/2024 [facility] Goals (unrecognized section and content) [...] BE BASED ON THE PRIMARY CLINICAL RECORDS. [facility] [employer] [facility]. provides no warranty or guarantee of the accuracy or completeness of information in this document.
[2024-12-11] MEDS: Gabapentin 300 MG Capsule PO (18:03)
[2024-12-11 20:39] VITALS: BP 118/70; PULSE 86; RESP 16; TEMP 36.5; O2SAT 93
[2024-12-11] MEDS: MELATONIN 3 MG TABLET PO (21:07)
--- NOTE | 2024-12-11 22:10 | CPS ---
Patient does not wear home CPAP
[2024-12-12] MEDS: oxyCODONE 5 MG Tablet 10 MG PO ×4 (02:20→20:00)
[2024-12-12 02:24] VITALS: BP 122/70; PULSE 89; RESP 16; TEMP 36.6; O2SAT 92
[2024-12-12] MEDS: tiZANidine HCl 2 MG Tablet 4 MG PO ×2 (05:02→21:35)
[2024-12-12] MEDS: Rivaroxaban 10 MG Tablet PO (05:02)
[2024-12-12] MEDS: Acetaminophen 500 MG Tablet 1000 MG PO ×3 (05:02→21:35)
[2024-12-12] MEDS: Cefazolin 1 GM/50 ML BAG IV ×3 (05:04→21:36)
[2024-12-12] MEDS: Gabapentin 300 MG Capsule PO ×3 (05:09→16:31)
[2024-12-12 06:07] LABS: Hematocrit 34.6 % (37-47); Hemoglobin 11.6 g/dL (12.0-15.0); Mean Corp Hgb Conc 33.5 g/dL (32-36); Mean Corpuscular Hgb 32.7 pg (27.0-32.0); Mean Corpuscular Volume 97.5 fL (81-99); Mean Platelet Vol. 9.4 fl (6.2-12.0); Platelet Count 347 K/mm3 (150-450); RBC Distribution Width CV 12.5 % (11.6-14.6); RBC Distribution Width SD 45.1 fl (35.1-43.9); Red Blood Count 3.55 M/mm3 (4.2-5.4); White Blood Count 7.2 K/mm3 (4.4-11.0)
[2024-12-12 07:26] LABS: Anion Gap 11 (5-15); BUN 6 mg/dL (4-19); BUN/Creat Ratio 10.9 RATIO (10-20); Calcium,Total 8.7 mg/dL (7.6-11.0); Chloride 99 mmol/L (98-108); Creatinine, Serum 0.56 mg/dL (0.70-1.20); EST Glomerular Filtration Rate 102 (>60); Estimated Creatinine Clearance 96.88 ml/min (50-250); Glucose 98 mg/dL (70-99); Potassium 3.6 mmol/L (3.3-5.1); Sodium Level 137 mmol/L (133-145)
[2024-12-12 09:02] VITALS: BP 124/74; PULSE 103; RESP 18; TEMP 36.5; O2SAT 95
[2024-12-12 09:04] VITALS: PULSE 120
[2024-12-12] MEDS: Senna/Docusate Sodium 1 Tablet PO ×2 (09:13→21:35)
--- NOTE | 2024-12-12 12:09 | PN.ORTHO_ITS ---
Subjective Subjective Patient seen and examined. Pain slightly better controlled but still experiencing some paresthesias throughout the posterior right thigh and muscle spasm. Denies fevers, chills, nausea vomiting, chest pain or shortness of breath. Objective Data Objective Data Vital Signs: Vital Signs Temp Pulse Resp BP Pulse Ox O2 Del Method O2 Flow Rate 97.7 F L 120 H 18 124/74 H 95 Room Air 2 12/12/24 09:02 12/12/24 09:04 12/12/24 09:02 12/12/24 09:02 12/12/24 09:02 12/12/24 09:02 12/11/24 04:57 Oxygen Flow Rate (L/min) 2 Oxygen Delivery Method Room Air Weight: 160 lb Body Mass Index (BMI) 28.3 Intake & Output: Intake and Output for Last 24 Hours 12/10/24 12/11/24 12/12/24 23:59 23:59 23:59 Intake Total 1727.25 / 1727.25 1236.50 / 1236.50 850 / 850 Output Total Balance 1702.25 / 1702.25 1236.50 / 1236.50 850 / 850 Lab / Micro Data 12/12/24 05:28 12/12/24 05:28 Labs: Laboratory Results - last 24 hr 12/12/24 05:28: WBC 7.2, RBC 3.55 L, Hgb 11.6 L, Hct 34.6 L, MCV 97.5, MCH 32.7 H, MCHC 33.5, RDW Std Deviation 45.1 H, RDW Coeff of Pema 12.5, Plt Count 347, MPV 9.4, Sodium 137, Potassium 3.6, Chloride 99, Carbon Dioxide 27.0, Anion Gap 11, BUN 6, Creatinine 0.56 L, Estim Creat Clear Calc 96.88, Est GFR (MDRD) Non- Af 102, BUN/Creatinine Ratio 10.9, Glucose 98, Calcium 8.7 Physical Exam Narrative General - A&Ox3, NAD. VSS/AF Right lower extremity -incisional dressing C/D/I. Expected postoperative effusion. SILT Sural, Saphenous, SPN, DPN, Tibial N. distributions. DP, PT 2+. BCR. DF, PF, EHL 5/5. No calf TTP. Assessment & Plan Assessment/Plan (1) Septic arthritis of knee, right: QUALIFIERS: Septic arthritis organism: staphylococcal Qualified Code(s): M00.061 - Staphylococcal arthritis, right knee PLAN: POD# 1 s/p right knee arthroscopic I&D - Patient doing fine. I will add Celebrex to assist with pain control. Growing MSSA from synovial cultures. Will continue with scheduled Ancef. ID consult pending. Home-going antibiotic recommendations pending ID. Possible PICC line versus p.o.. Anticipate keeping the patient at least till 12/13/2024 to allow for ID recommendations and continued pain control in the inpatient setting. - PT/OT-range of motion, weightbearing as tolerated right lower extremity. I encouraged the patient to perform some quadriceps activation in bed. Also encouraged her to walk as tolerated due to suspected sciatica. - DVT PPX -Xarelto, SCDs, early mobilization - Case management -consult placed. May need assistance with PICC line if ordered by ID.
[2024-12-12] MEDS: 0.9% Saline Lock 10 ML Syringe IV ×2 (13:03→21:38)
[2024-12-12] MEDS: Celecoxib 100 MG Capsule PO ×2 (14:59→21:35)
[2024-12-12 16:24] VITALS: BP 124/68; PULSE 87; RESP 18; TEMP 36.5; O2SAT 95
[2024-12-12 16:26] VITALS: PULSE 90
[2024-12-12 20:00] VITALS: BP 130/80; PULSE 92; RESP 16; TEMP 36.7; O2SAT 96
[2024-12-12] MEDS: MELATONIN 3 MG TABLET PO (21:35)
[2024-12-13 02:26] VITALS: BP 134/72; PULSE 80; RESP 16; TEMP 36.7; O2SAT 96
[2024-12-13 04:21] LABS: Hematocrit 32.5 % (37-47); Mean Corp Hgb Conc 33.8 g/dL (32-36); Mean Corpuscular Volume 97.6 fL (81-99); Mean Platelet Vol. 9.4 fl (6.2-12.0); Platelet Count 306 K/mm3 (150-450); RBC Distribution Width CV 12.7 % (11.6-14.6); RBC Distribution Width SD 45.4 fl (35.1-43.9); Red Blood Count 3.33 M/mm3 (4.2-5.4); White Blood Count 5.5 K/mm3 (4.4-11.0)
[2024-12-13 04:40] LABS: Anion Gap 9 (5-15); BUN 4 mg/dL (4-19); BUN/Creat Ratio 8.8 RATIO (10-20); Calcium,Total 9.1 mg/dL (7.6-11.0); Carbon Dioxide 29.9 mmol/L (21.0-32.0); Chloride 99 mmol/L (98-108); Creatinine, Serum 0.49 mg/dL (0.70-1.20); EST Glomerular Filtration Rate 105 (>60); Estimated Creatinine Clearance 110.72 ml/min (50-250); Glucose 112 mg/dL (70-99); Potassium 3.5 mmol/L (3.3-5.1); Sodium Level 138 mmol/L (133-145)
[2024-12-13] MEDS: Cefazolin 1 GM/50 ML BAG IV (06:44)
[2024-12-13] MEDS: Rivaroxaban 10 MG Tablet PO (06:45)
[2024-12-13] MEDS: Acetaminophen 500 MG Tablet 1000 MG PO ×3 (06:46→22:37)
[2024-12-13] MEDS: oxyCODONE 5 MG Tablet 10 MG PO ×2 (06:48→20:12)
[2024-12-13 07:27] VITALS: BP 117/79; PULSE 85; RESP 16; TEMP 36.4; O2SAT 94
[2024-12-13] MEDS: Gabapentin 300 MG Capsule PO ×3 (07:40→17:01)
[2024-12-13] MEDS: Celecoxib 100 MG Capsule PO ×2 (10:17→22:38)
[2024-12-13] MEDS: Senna/Docusate Sodium 1 Tablet PO ×2 (10:17→22:36)
--- NOTE | 2024-12-13 11:54 | PN.ORTHO_ITS ---
Subjective Subjective Patient appears to be comfortable in bed upon examination. Patient states that she has worked with physical therapy and is going well. Patient states that she feels best when she is walking. Patient states that she has been working on range of motion and has been weightbearing as tolerated with the right leg. Patient states that she is ready to go home. Patient states that her pain is adequately controlled. Patient denies any new numbness or tingling. Patient denies any nausea, vomiting, dizziness, lightheadedness today. Patient denies any shortness of breath, chest pain, calf pain. Objective Data Objective Data Vital Signs: Vital Signs Temp Pulse Resp BP Pulse Ox O2 Del Method O2 Flow Rate 97.5 F L 85 16 117/79 94 Room Air 2 12/13/24 07:27 12/13/24 07:27 12/13/24 07:27 12/13/24 07:27 12/13/24 07:27 12/13/24 07:27 12/11/24 04:57 Oxygen Flow Rate (L/min) 2 Oxygen Delivery Method Room Air Weight: 72.575 kg Body Mass Index (BMI) 28.3 Intake & Output: Intake and Output for Last 24 Hours 12/11/24 12/12/24 12/13/24 23:59 23:59 23:59 Intake Total 1236.50 / 1236.50 950 / 1350 450 / 450 Balance 1236.50 / 1236.50 950 / 1350 450 / 450 Lab / Micro Data 12/13/24 03:42 12/13/24 03:42 Labs: Laboratory Results - last 24 hr 12/13/24 03:42: WBC 5.5, RBC 3.33 L, Hgb 11.0 L, Hct 32.5 L, MCV 97.6, MCH 33.0 H, MCHC 33.8, RDW Std Deviation 45.4 H, RDW Coeff of Pema 12.7, Plt Count 306, MPV 9.4, Sodium 138, Potassium 3.5, Chloride 99, Carbon Dioxide 29.9, Anion Gap 9, BUN 4, Creatinine 0.49 L, Estim Creat Clear Calc 110.72, Est GFR (MDRD) Non- Af 105, BUN/Creatinine Ratio 8.8 L, Glucose 112 H, Calcium 9.1 Physical Exam Narrative Vital signs stable and afebrile SCDs in place bilaterally Incisions are clean, dry, intact Dorsiflexion and plantarflexion are performed actively without pain or restriction. Sensation intact to light touch. Neurovascularly intact overall. Negative Homans bilaterally. Const alert, oriented x3 and no apparent distress Assessment & Plan Assessment/Plan (1) Septic arthritis of knee, right: QUALIFIERS: Septic arthritis organism: staphylococcal Qualified Code(s): M00.061 - Staphylococcal arthritis, right knee PLAN: Status post right knee arthroscopic I&D day 3. Pain medications: Patient is on Tylenol 1000 mg every 8 hours, Celebrex, oxycodone as needed. Patient was educated not to take any other anti- inflammatory medications while taking Celebrex. DVT prophylaxis: Patient will be on Xarelto, GUILLERMINA hose, SCDs, early mobilization. Patient was educated to wear GUILLERMINA hose for 2 weeks postoperatively being able to remove at night. PT/OT: Patient will be working on range of motion and being weightbearing as tolerated with her right leg. Patient will have outpatient physical therapy scheduled upon discharge. Infectious disease consult: Still waiting on infectious disease consult. Currently growing MSSA from cultures. Does look like order has been placed for PICC line but patient has not yet been seen by infectious disease. Allow for infectious disease recommendation and note prior to discharge. Appreciate recommendations from case management for safe and proper discharge. Appreciate recommendations from infectious disease for safe and proper discharge. Constipation: Patient was instructed to take senna as instructed until her first bowel movement to decrease risk of impaction following surgery. Patient was instructed if they have not had a bowel movement in 3 days to call our office for reevaluation. H&H: 11.0/32.5. Vital signs stable and patient is afebrile. Hemoglobin is above the threshold of 10.0. Incentive spirometry: Patient was encouraged to use incentive spirometer every hour they are awake for the first week to decrease risk of postoperative lung infection. Dressings: Patient should be able to remove dressings tomorrow. Due to patient's edema is recommended by Dr. Perez that patient continue to wrap leg with Valeriy bandage. Patient can change dressings as needed under Valeriy wrap. Patient can remove Valeriy bandage for showering. Patient will follow-up per postoperative instructions. Patient does have outpatient appointment in 2 weeks postoperatively to remove sutures. Appreciate recommendations from hospitalist. Disposition: Currently still awaiting recommendations from infectious disease prior to discharge. Patient states at this time she is ready to go home. Patient is aware that there is an order placed for a PICC line so that may affect her plans of going home. Patient states that she still wants to go home due to her autistic daughter being at home however she is not sure how a PICC line will go at home. Patient is currently doing well. Patient states that her pain is adequately controlled at this point. Patient states that physical therapy has gone well and that she really enjoys moving and getting to walk. Patient will continue to be weightbearing as tolerated on right leg. Appreciate recommendations from case management, medicine, infectious disease for safe and proper discharge planning.
--- NOTE | 2024-12-13 12:17 | CASEMGMT ---
Discharge Planning A list of?SNF providers including quality and resource use data and consistent with the patient's preferred geographic region, medical needs, and insurance network was created in [employer] Guide.? This list was provided to the RN CATHLEEN. Gloria Whitt, Discharge Planning Asst.
--- NOTE | 2024-12-13 12:45 | CASEMGMT ---
Addendum entered by Elvira Toledo 12/13/24 16:18: Received tc back from Davin at [facility], Alfred the nurse educator will be at the hospital in the morning to provide education to pt. RN CM into pt room, pt made aware with dtr present. (Different dtr than earlier). Pt made aware that she was not accepted by [facility] and that the nurse educator can provide education tomorrow if she would like to do on her own. Pt states she would like to do on her own. Discussed therapy and the hospital having transportation, pt does not think she can get into the van. Pt would like to go to [facility] and prefers a 10oclock appt. Pt dtr would be able to take her. [facility] for Friday at 10:45. Added to DC instructions. Addendum entered by Elvira Toledo 12/13/24 14:34: [facility] has declined pt. All [employer] have declined pt. Message sent to [facility] to see if nurse educator can provide teaching to pt to administer on her own with weekly lab draws and picc dressing change at the infusion center. Addendum entered by Elvira Toledo 12/13/24 14:29: [facility] has also declined pt. Addendum entered by Elvira Toledo 12/13/24 14:28: [facility] is not able to accept pt for care. [facility] have also declined pt. Addendum entered by Elvira Toledo 12/13/24 13:28: TC to [facility], referral made, will await decision to accept. TC from Davin at [facility], he will check with nurse educator to see availability for teaching prior to dc. Original Note: Received IV atb from [place]. Dr. Gabriel is agreeable to following the [facility] for pt as she does not have a PCP. 1245- RN CM into pt room, pt sitting up in bed with dtr present. Provided pt with a HH list created by dc medical office assistant instructor. Pt reviewed list and states she has no preference of HHC. She is aware RN CM can send to all agencies and notify her of who accepts. Pt would like this option. Pt wants to dc this date. Pt is aware of the need for picc, HH to be set up as well as the IV med getting delivered to her home this date. Provided pt with a local in network list of infusion companies, pt chose [facility]. Referral sent to [facility] via [facility] as well as all [employer] listed in network. [place] CM to follow.
--- NOTE | 2024-12-13 12:53 | PCM.CONS.GEN ---
Assessment & Plan Assessment/Plan (1) Septic arthritis of knee, right: QUALIFIERS: Septic arthritis organism: staphylococcal Qualified Code(s): M00.061 - Staphylococcal arthritis, right knee PLAN: Initial aspiration showed (+) crystals on 11/22/24. Repeat 12/09/24 with MSSA. On cefazolin. Taken to OR 12/10/[address] Perez for washout. Will order picc and 3 weeks iv cefazolin with weekly labs, ID followup in 2 weeks. Will follow, thank you, d/w ortho team HPI Consult Data Date of Consult: 12/13/24 HPI Narrative Reason for Consultation: septic arthritis HPI Narrative: SHARLENE DEVLIN, is a 64 F who presented with 3-4 weeks R knee progressive pain, swelling, warmth. No fever or chills. No known inciting event. Had tap done 11/22/24 which showed crystals. Characteristics of pain did not improve, repeat tap 12/09 was worse and cx (+) MSSA. Admitted here 12/10 and taken to OR by Dr. Perez for washout. Feeling better, pain improved, no n/v/d. Full ROS performed and neg except as noted above. [facility] Medical History Wears glasses Alcohol use Redness of skin History of steroid therapy Walker as ambulation aid Arthritis Fatty liver Shortness of breath on exertion Hoarseness Chronic cough Mid back pain on left side Urinary frequency Abdominal pain Home Medications ?Medication ?Instructions ?Recorded ?Last Taken ?Type acetaminophen 650 mg 650 mg PO Q8H PRN pain 12/10/24 12/10/24 History tablet,extended release (Tylenol Arthritis Pain) celecoxib 200 mg capsule 200 mg PO BID 12/10/24 12/09/24 History cefazolin 2 gram intravenous 2 g IV Q8H 21 days 12/13/24 Unknown Rx solution Allergy/AdvReac Type Severity Reaction Status Date / Time Penicillins Allergy Rash Verified 12/10/24 12:20 Family History (Updated 12/10/24 @ 12:35 by Bruno Bustillos) Mother Hypertension Father Atrial fibrillation Surgical History (Updated 12/10/24 @ 12:33 by Bruno Bustillos) H/O foot surgery Social History (Updated 12/10/24 @ 12:36 by Bruno R Bustillos) household members: children housing: apartment financial difficulty paying for basics: not very hard service: No current occupational status: retired Smoking Status: Current every day smoker tobacco type: cigarettes alcohol intake: current alcohol intake frequency: holidays/special occasions only Physical Exam Const alert, oriented x3 and no apparent distress General Appearance: cooperative HEENT normocephalic and head/scalp atraumatic Eyes PERRL and EOMs intact bilaterally Neck supple and No nodes Resp normal air movement and clear to auscultation bilaterally Cardio regular rate and regular rhythm GI soft to palpation, non-tender and non-distended Extremity General Extremity: Negative for edema Skin no rashes or lesions noted Skin Narrative: RLE wrapped Neuro CN's II-XII intact bilaterally Lab / Micro Data Attestation: I reviewed the patient's lab results. 12/13/24 03:42 12/13/24 03:42 Labs: Laboratory Results - last 24 hr 12/13/24 03:42: WBC 5.5, RBC 3.33 L, Hgb 11.0 L, Hct 32.5 L, MCV 97.6, MCH 33.0 H, MCHC 33.8, RDW Std Deviation 45.4 H, RDW Coeff of Pema 12.7, Plt Count 306, MPV 9.4, Sodium 138, Potassium 3.5, Chloride 99, Carbon Dioxide 29.9, Anion Gap 9, BUN 4, Creatinine 0.49 L, Estim Creat Clear Calc 110.72, Est GFR (MDRD) Non-Af 105, BUN/Creatinine Ratio 8.8 L, Glucose 112 H, Calcium 9.1
[2024-12-13 13:32] VITALS: BP 142/68; PULSE 100; RESP 16; TEMP 36.8; O2SAT 94
[2024-12-13] MEDS: Cefazolin 2 GM in 0.9% Normal Saline (100mL Bag) 100 ML IV ×2 (13:38→22:36)
[2024-12-13 20:09] VITALS: BP 129/77; PULSE 92; RESP 16; TEMP 36.9; O2SAT 96
[2024-12-13] MEDS: MELATONIN 3 MG TABLET PO (22:38)
[2024-12-13] MEDS: tiZANidine HCl 2 MG Tablet 4 MG PO (22:40)
[2024-12-14 02:41] VITALS: BP 122/72; PULSE 90; RESP 16; TEMP 36.9; O2SAT 98
[2024-12-14] MEDS: Cefazolin 2 GM in 0.9% Normal Saline (100mL Bag) 100 ML IV ×2 (06:41→12:52)
[2024-12-14] MEDS: Acetaminophen 500 MG Tablet 1000 MG PO ×2 (06:43→13:28)
[2024-12-14] MEDS: Rivaroxaban 10 MG Tablet PO (06:44)
[2024-12-14] MEDS: oxyCODONE 5 MG Tablet 10 MG PO ×2 (06:45→13:28)
[2024-12-14] MEDS: Gabapentin 300 MG Capsule PO ×2 (08:00→12:53)
[2024-12-14] MEDS: Celecoxib 100 MG Capsule PO (08:01)
[2024-12-14] MEDS: Senna/Docusate Sodium 1 Tablet PO (08:01)
[2024-12-14 08:31] VITALS: BP 125/80; PULSE 83; RESP 16; TEMP 37.2; O2SAT 96
[2024-12-14 08:34] VITALS: O2SAT 96
--- NOTE | 2024-12-14 08:49 | CASEMGMT ---
Addendum entered by Elvira Toledo 12/14/24 08:57: LOUIS CONNOLLY into pt room, pt aware of her infusion center appt. Pt states the nurse educator called her and will be in this morning. Reviewed all of the information regarding IV, pt denies any questions and is anxious to dc. Original Note: TC to [facility] Infusion, spoke with Nieves, pt is set up for 12/20/24 at 1145 for picc dressing change and lab draw. Added to dc flowsheet. Faxed order to [facility] infusion.
--- NOTE | 2024-12-14 11:54 | PCM.DC.SUM ---
Providers Date of Admission: 12/10/24 Date of Discharge: 12/14/24 Primary Care Physician: Prachi Primary Care Phys Consultations 12/10/24 15:01 Consult: Infectious Disease Routine Consulting Provider: Raghav Gabriel Reason for Consult: Right knee septic arthritis EMERGENT Consult: No MD Notified: Yes Date Notified: 12/10/24 Time Notified: 15:01 Method of Notification: Text Diagnosis Discharge Diagnosis (1) Septic arthritis of knee, right: Status: Acute Code(s): M00.9 - Pyogenic arthritis, unspecified Qualifiers: Septic arthritis organism: staphylococcal Qualified Code(s): M00.061 - Staphylococcal arthritis, right knee Plan Status post irrigation debridement with right knee arthroscopy for concern for septic knee with Dr. Perez 12/10/2024 1. Will continue PT today range of motion weightbearing as tolerated 2. plan for discharge this afternoon following PT 3. Patient will follow up in 2 weeks with post orthopedics. This will need to be arranged. 4. Patient will need to schedule for outpatient PT upon discharge to begin in the next few days. 5. WBC 5.5 6. H/H 11.0/32.5: Stable from yesterday's labs. 7. DVT prophylaxis : Xarelto 10 mg once daily x 2 weeks followed by aspirin 81 mg twice daily x 2 weeks 8. Pain control: patient instructed to take tylenol 500mg 2 tablets TID. and oxycodone 1-2 tablets every 4-6 hours only as needed for pain control. Patient also given a prescription 1 month of gabapentin 300 mg 3 times a day as well as tizanidine every 8 hours on as-needed basis. Patient has Celebrex at home. She is to continue this as needed after xarelto is completed. 9. Patient also given a prescription of senna for constipation 10. ok to remove post op dressing. post op day 5 11. PICC line was placed . Infectious disease consulted. Per recommendations : initial aspiration showed (+) crystals on 11/22/24. Repeat 12/09/24 with [facility]. Will order picc and 3 weeks iv cefazolin with weekly labs, ID followup in 2 weeks. 12. Patient currently has a follow-up with the infusion center as well as she will follow-up with infectious disease as recommended. 13. Patient cleared from infectious disease standpoint for discharge home. Patient is stable orthopedically cleared for discharge home. Medications at Discharge Home Medications celecoxib 200 mg capsule 200 mg PO BID 12/10/24 cefazolin 2 gram intravenous solution 2 g IV Q8H 21 days 12/13/24 acetaminophen 500 mg tablet 1,000 mg (2 x 500 mg) PO Q8 #180 tabs 12/14/24 gabapentin 300 mg capsule 300 mg PO TIDCM #90 caps 12/14/24 oxycodone 5 mg tablet 10 mg (2 x 5 mg) PO .q4-6hrs prn PRN Pain Score 6-10 7 days #30 tabs 12/14/24 rivaroxaban 10 mg tablet (Xarelto) 10 mg PO DAILY@0600 #14 tabs 12/14/24 sennosides 8.6 mg-docusate sodium 50 mg tablet (Stimulant Laxative Plus) 1 tab PO BID #30 tabs 12/14/24 tizanidine 2 mg tablet 4 mg (2 x 2 mg) PO Q8H PRN PRN spasm #20 tabs 12/14/24 Hospital Course Operations - (Irrigation debridement right knee arthroscopy for concern for septic arthritis.) Summary of Care Provided Hospital Course: Patient is 4 days s/p right knee arthroscopic irrigation debridement with Dr. Perez 12/10/2024. Concern for septic knee. Initial aspiration was concern for crystals and then had a positive staph culture which prompted irrigation debridement. Patient is being followed by infectious disease who is recommending a PICC line and cefazolin x 3 weeks. Patient resting comfortable in bed has been up with physical therapy working on range of motion. She is currently weightbearing as tolerated. She did get a PICC line placed 12/13/2024. Patient will follow-up with infusion center as well as infectious disease. Orthopedically stable for today. Pain has been well-controlled. Physical Exam Narrative Patient resting comfortably in bed No signs of acute distress Satting well on room air Limb is warm to touch, moderate edema. valeriy wrap in place. Sensation intact throughout entire lower extremity, including saphenous, sural, superficial and deep peroneal, and tibial distribution. DP/PT pulses bounding. Dorsiflexion plantarflexion strength 5/[address] Incision clear dry intact. Calf nontender to palpation, no erythema, no edema. Negative Homans Weight / BMI Weight Weight: 72.575 kg Body Mass Index (BMI) 28.3 ABG / Lab / Microbiology Data 12/13/24 03:42 12/13/24 03:42 D/C Instructions Discharge Diet: No restrictions Discharge Activity: May Shower (only in 2 days) Weight Bearing Status: Weight bearing as tolerated and Full weight bearing Call your doctor if your incision/area has: Continuous Slow Oozing, Sudden Increased Bleeding, Increased Pain/ Swelling, Increased Redness, Foul Smelling Discharge and Swelling at the incision site Call your doctor if you observe: Fever of 101 or Higher, Inability to urinate, Inability to have a bowel movement, Using more than 1 pad per hour, Shortness of breath, Dizziness, Swelling in the ankles, Chest pain, Increased palpitations (irregular heartbeat), Calf discomfort and Uncontrolled pain Remove Dressing in: 5 days Cleanse incision/area with: Soap & Water and Keep Dressing Clean & Dry DC O2, CPAP, BIPAP Needs Home O2 Discharge instructions: No DC home with Oxygen: No When: [facility] in 2 weeks. this will need to be arranged. Meaningful Use Info Meaningful Use Meaningful Use Diagnoses (Choose all that apply): None applicable Ischemic Stroke Statin Dosing Therapy Reference: STATIN DOSE THERAPY REFERENCE: * Patients > 75 years receive moderate or high dose statin therapy. * Patients 75 years or YOUNGER should receive HIGH intensity statin dose unless contraindicated. You will be required to document reason for non-treatment if statin daily dose does not meet guidelines. HIGH DOSE STATIN THERAPY DAILY Atorvastatin > than or = to 40 mg Rosuvastatin > than or = to 20 mg Amlodipine + Atorvastatin > than or = to 2.5/40 mg Ezetimibe + Simvastatin 10/80 mg Simvastatin 80mg Discharge Plan Admission Admit Date/Time: 12/10/24 14:56 Attending Provider: Sundeep Perez Primary Care Provider: Care Physician,No Primary Consulting Providers: Raghav Gabriel Discharge Orders/Prescriptions Prescriptions: New cefazolin 2 gram recon soln 2 g IV Q8H 21 Days Rx Instructions: stop date 01/03/25. Dx: mSSA septic arthritis. Weekly bmp, cbc, and esr. Fax to [phone]. Routine picc care per protocol. acetaminophen 500 mg Tablet 1,000 mg PO Q8 Qty: 180 0RF gabapentin 300 mg Capsule 300 mg PO TIDCM Qty: 90 0RF Xarelto 10 mg Tablet 10 mg PO DAILY@0600 Qty: 14 0RF sennosides-docusate sodium [Stimulant Laxative Plus] 8.6-50 mg Tablet 1 tab PO BID Qty: 30 0RF tizanidine 2 mg Tablet 4 mg PO Q8H PRN PRN (Reason: spasm) Qty: 20 0RF oxycodone 5 mg Tablet 10 mg PO .q4-6hrs prn PRN (Reason: Pain Score 6-10) 7 Days Qty: 30 0RF Continued celecoxib 200 mg capsule 200 mg PO BID Discontinued acetaminophen [Tylenol Arthritis Pain] 650 mg tablet extended release 650 mg PO Q8H PRN (Reason: pain) Referrals / Follow Up: Care Physician,No Primary [Primary Care Provider] - Disposition Disposition (needs filled in before D/C Order can be placed): Home, Self Care
[2024-12-14 12:22] VITALS: BP 129/78; PULSE 83; RESP 18; TEMP 36.7; O2SAT 96
--- NOTE | 2024-12-14 12:45 | CASEMGMT ---
TC to [facility] at this time. [facility] states that the pt has a 0$ copay and that they are preparing the meds for [facility] and that they will call the pt once the medications are ready today. [facility] Care Management team notified.
--- NOTE | 2024-12-14 15:20 | PHA.DC.MR.R ---
Pharmacy [place] Med Reconciliation Pharmacy Service has performed discharge medication reconciliation for this patient. Medication education papers prepared, patient discharged when counseling was attempted. Medications reviewed. The patient's discharge medication list was reviewed for discrepancies and discrepancies were resolved. Medications at Discharge Home Medications celecoxib 200 mg capsule 200 mg PO BID 12/10/24 cefazolin 2 gram intravenous solution 2 g IV Q8H 21 days 12/13/24 acetaminophen 500 mg tablet 1,000 mg (2 x 500 mg) PO Q8 #180 tabs 12/14/24 gabapentin 300 mg capsule 300 mg PO TIDCM #90 caps 12/14/24 oxycodone 5 mg tablet 10 mg (2 x 5 mg) PO .q4-6hrs prn PRN Pain Score 6-10 7 days #30 tabs 12/14/24 rivaroxaban 10 mg tablet (Xarelto) 10 mg PO DAILY@0600 #14 tabs 12/14/24 sennosides 8.6 mg-docusate sodium 50 mg tablet (Stimulant Laxative Plus) 1 tab PO BID #30 tabs 12/14/24 tizanidine 2 mg tablet 4 mg (2 x 2 mg) PO Q8H PRN PRN spasm #20 tabs 12/14/24
== END 2024-12-14 14:04 | disposition home or self-care (01) | DRG 313 ==
LOC: SDC 15:11 → MS3 12-11 15:33
PROVIDERS: Admitting Provider Student in an Organized Health Care Education/Training Program; Referring Provider Student in an Organized Health Care Education/Training Program; Visit Provider Student in an Organized Health Care Education/Training Program
PROC: 0S9C0ZZ Drainage of Right Knee Joint, Open Approach (ICD-10-PCS; CPT 29870; principal; 2024-12-10 13:40)
DX: M00.061 Staphylococcal arthritis, right knee (principal); F17.210 Nicotine dependence, cigarettes, uncomplicated; M65.969 Unspecified synovitis and tenosynovitis, unspecified lower leg; M00.861 Arthritis due to other bacteria, right knee; Z79.2 Long term (current) use of antibiotics; Z79.1 Long term (current) use of non-steroidal anti-inflammatories (NSAID)
CPT/HCPCS: 36415; 36569; 80048; 85027; 87040; 87070; 87075; 87077; 87186; 87205; 89050; 89051; 89060; 93005; 93971; 94668; 97110; 97116; 97162; 97165; 97530; 97535; A4216; J2405

== ENCOUNTER 2024-12-20 11:27 | Outpatient (CLI) | payer MEDICAID, SELFPAY ==
[2024-12-20 12:24] LABS: Erythrocyte Sedimentation Rate 60 mm/hr (0-30)
[2024-12-20 12:27] LABS: Absolute Lymphocyte Count 1.57 X10^3/uL (0.83-4.51); Basophil# 0.03 X10^3/uL; Basophil% 0.3 % (0-1); Eosinophils% 1.2 % (0-5); Hematocrit 31.8 % (37-47); Hemoglobin 10.7 g/dL (12.0-15.0); Lymphocyte # 1.57 X10^3/ul (0.83-4.51); Lymphocyte % 18.2 % (19-41); Mean Corp Hgb Conc 33.6 g/dL (32-36); Mean Corpuscular Hgb 32.4 pg (27.0-32.0); Mean Corpuscular Volume 96.4 fL (81-99); Mean Platelet Vol. 9.9 fl (6.2-12.0); Monocyte# 0.83 X10^3/uL; Monocyte% 9.6 % (0-10); NRBC Flagged by Analyzer 0 % (0-5); Neutrophil # 6.02 X10^3/uL (2.7-7.7); Neutrophil % 69.8 % (47-70); Platelet Count 371 K/mm3 (150-450); RBC Distribution Width CV 12.5 % (11.6-14.6); RBC Distribution Width SD 44.5 fl (35.1-43.9); White Blood Count 8.6 K/mm3 (4.4-11.0)
[2024-12-20 12:40] LABS: Anion Gap 11 (5-15); BUN 5 mg/dL (4-19); Calcium,Total 8.7 mg/dL (7.6-11.0); Carbon Dioxide 24.8 mmol/L (21.0-32.0); Chloride 98 mmol/L (98-108); Creatinine, Serum 0.46 mg/dL (0.70-1.20); EST Glomerular Filtration Rate 107 (>60); Glucose 104 mg/dL (70-99); Potassium 3.6 mmol/L (3.3-5.1); Sodium Level 134 mmol/L (133-145)
[2024-12-20 20:01] LABS: Xtra Tube EP Lab EXTRA TUBE
--- OUTSIDE RECORDS SUMMARY | 2024-12-20 23:07 | XMS RPT_ITS | CCD ---
Author Organization [facility] Care Team Providers Care Machinist Wood Name Role Phone Care Physician, No Primary Primary Care Provider Unavailable Care Physician, No Primary Referring Provider Un available EVELYN Berger Attending Provider Care Physician, No Primary Primary Care Provider Unavailable Care Physician, No Primary Referring Provider Un available Vivek Berger Attending Provider Ray ALARCON, Dr. Sears Emergency Provider Dr. Orion Bell MD Attending Provider Dr. Davin Manrique DO Emergency Provider BALSELWYN CLINICAL STAFF PHARMACIST-PIPE FITTER GAS PIPE, FLYNN Primary Care Unavailabl e SUNDEEP MCCORMICK DO Attending Unavailable SPITTSUNDEEP MANRQIUE DO Admitting Unavailable SUNDEEP MCCORMICK DO Attending Unavailable BALTES CLINICAL STAFF PHARMACISTHarshilPIPE FITTER GAS PIPE, FLYNN Primary Care Unavailabl e Dr. Davin Manrique DO Attending Provider [phone] Chris LOPEZ, Dr. Urbano Attending Provider Dr. Sundeep Mccormick DO Referring Provider [phone] Dr. Sundeep Mccormick DO Admit Provider [phone] Dr. Raghav Gabriel MD Other Provider Vivek Berger Attending Unavailable Care Physician, No Primary Primary Care Unava ilable Care Physician, No Primary Referring Unava ilable Sundeep Mccormick Admitting Unavailable Sundeep Mccormick Attending Unavailable Sundeep Mccormick Referring Unavailable Care Physician, No Primary Primary Care Unava ilable Raghav Gabriel Consulting Unavailable Sundeep Mccormick Attending Unavailable Sundeep Mccormick Referring Unavailable Care Physician, No Primary Primary Care Unava ilable Orion Bell Attending Unavailable Care Physician, No Primary Primary Care Unava ilable Davin Manrique Attending Unavailable Care Physician, No Primary Primary Care Unava ilable Care Physician, No Primary Primary Care Unava ilable Raghav Gabriel Attending Unavailable Raghav Gabriel Referring Unavailable Allergies Allergy Classification Reported Allergen(s) Allergy Type Date of Onset Reaction(s) Facility (6 sources) Penicillins Allergy to substance 02-20-2022 Rash [facility] (1 source) Penicillins Drug allergy (disorder) 12-10-2024 [facility] Repository Medications Current Medications Medication Drug Class(es) Dates Sig (Normalized) Sig (Original) acetaminophen 500 mg oral tablet (3 sources) Start: 12-14-2024 take 2 tablets by mouth every eight hours Acetaminophen 500 mg Tablet Active 1000 mg PO EVERY 8 HOURS 180 December 14, 2024 12:00am Start: 12-10-2024 End: 12-14-2024 take 1 tablet by mouth every eight hours as needed for pain Acetaminophen (Tylenol Arthritis Pain) 650 mg tablet extended release Discontinued 650 mg PO Q8H as needed for pain December 10, 2024 12:00am December 14, 2024 12:02pm Cefazolin 2 gram recon soln (2 sources) Start: 12-13-2024 Cefazolin 2 gram recon soln Active 2 g IV Q8H December 13, 2024 12:00am stop date 01/03/25. Dx: mSSA septic arthritis. Weekly bmp, cbc, and esr. Fax to [phone]. Routine picc care per protocol. celecoxib 200 mg oral capsule (2 sources) Nonsteroidal Anti-inflammatory Drug Start: 12-10-2024 take 1 capsule by mouth twice daily Celecoxib 200 mg capsule Active 200 mg PO TWICE A DAY December 10, 2024 12:00am docusate sodium 50 mg / sennosides, custodial 8.6 mg oral tablet (1 source) Start: 12-14-2024 Sennosides-Docusat e Sodium (Stimulant Laxative Plus) 8.6-50 mg Tablet Active 1 {tbl} PO TWICE A DAY December 14, 2024 12:00am gabapentin 300 mg oral capsule (1 source) Anti-epileptic Agent Start: 12-14-2024 take 1 capsule by mouth three times daily at mealtime Gabapentin 300 mg Capsule Active 300 mg PO 3 TIMES DAILY WITH MEALS 90 December 14, 2024 12:00am oxyCODONE hydrochloride 5 mg oral tablet (1 source) Opioid Agonist Start: 12-14-2024 take 2 tablets by mouth every four to six hours as needed for pain Oxycodone 5 mg Tablet Active 10 mg PO .q4-6hrs prn as needed for Pain Score 6-10 30 7 December 14, 2024 rivaroxaban 10 mg oral tablet (1 source) Factor Xa Inhibitor Start: 12-14-2024 take 1 tablet by mouth once daily Rivaroxaban (Xarelto) 10 mg Tablet Active 10 mg PO DAILY@0600 14 December 14, 2024 12:00am tiZANidine 2 mg oral tablet (1 source) Central alpha-2 Adrenergic Agonist Start: 12-14-2024 take 2 tablets by mouth every eight hours as needed for muscle spasms Tizanidine 2 mg Tablet Active 4 mg PO EVERY 8 HOURS NEEDED as needed for spasm December 14, 2024 12:00am Completed/Discontinued Medications Medication Drug Class(es) Dates Sig (Normalized) Sig (Original) acetaminophen 325 mg / HYDROcodone bitartrate 5 mg oral tablet (3 sources) Opioid Agonist Start: 12-03-2024 End: 12-10-2024 Hydrocodone-Acetami nophen 5-325 mg tablet Discontinued 1 {tbl} PO EVERY 6 HOURS NEEDED as needed for Pain 10 3 December 03, 2024 December 10, 2024 12:21pm [id number] actuat albuterol 0.09 mg/actuat metered dose inhaler (6 sources) beta2-Adrenergic Agonist Start: 03-10-2017 End: 09-27-2024 Albuterol Sulfate 1 INHALER inhaler Discontinued 1 - 2 NMA INHALATION EVERY 4 HOURS NEEDED as needed for Wheezing March 10, 2017 12:00am September 27, 2024 11:38am Start: 03-10-2017 take 1 puff(s) by in halation every four hours as needed Albuterol Sulfate Active 1 - 2 PUFF INHALATION EVERY 4 HOURS NEEDED March 10, 2017 12:00am azithromycin 250 mg oral tablet (10 sources) Macrolide Antimicrobial Start: 09-27-2024 End: 12-10-2024 Azithromycin 250 mg tablet Discontinued 250 mg PO .COMPLEX September 27, 2024 12:00am December 10, 2024 12:21pm 2 tablets (500 mg) on day 1, [...] 1 TABLET DAILY FOR NEXT 4 DAYS. ibuprofen 600 mg oral tablet (6 sources) Nonsteroidal Anti-inflammatory Drug Start: 02-20-2022 End: 09-27-2024 take 1 tablet by mouth three times daily as needed for pain Ibuprofen 600 mg tablet Discontinued 600 mg PO THREE TIMES A DAY as needed for pain February 20, 2022 12:00am September 27, 2024 11:38am predniSONE 20 mg oral tablet (9 sources) Start: 12-03-2024 End: 12-10-2024 take 2 tablets by mouth once daily Prednisone 20 mg tablet Discontinued 40 mg PO DAILY 14 December 03, 2024 12:00am December 10, 2024 12:21pm Start: 03-10-2017 End: 07-03-2018 take 2 tablets by mouth once daily Prednisone 20 MG tablet Discontinued 40 mg PO DAILY@0800 March 10, 2017 12:00am July 03, 2018 9:35am Start: 03-10-2017 End: 07-03-2018 take 40 mg by mouth once daily Prednisone Discontinued 40 MG PO DAILY@0800 7 March 10, 2017 12:00am July 03, 2018 9:35am sulfamethoxazole 800 mg / trimethoprim 160 mg oral tablet (12 sources) Dihydrofolate Reductase Inhibitor Antibacterial, Sulfonamide Antimicrobial Start: 10-06-2018 End: 10-13-2018 Sulfamethoxazole-Trimethopri m (Bactrim Ds) 800-160 mg tablet Discontinued 1 {tbl} PO Q12H 14 October 06, 2018 12:00am October 12, 2018 12:00am October 13, 2018 12:11am Start: 07-03-2018 End: 07-10-2018 Sulfamethoxazole-Trimethopri m (Bactrim Ds) 800-160 mg tablet Discontinued 1 {tbl} PO Q12H 14 July 03, 2018 1:00am July 09, 2018 1:00am July 10, 2018 1:08am Problems Problem Classification Problem Date Documented Da te Episodic/Chronic Abdominal pain (14 sources) Flank pain; Translations: [Unspecified abdominal pain] Episodic Genitourinary symptoms and ill-defined conditions (8 sources) Increased frequency of urination; Translations: [Frequency of micturition] Episodic Infective arthritis and osteomyelitis (except that caused by tuberculosis or sexually transmitted disease) (5 sources) Knee pyogenic arthritis; Translations: [Pyogenic arthritis, unspecified] Onset: 12-14-2024 12-11-2024 Episodic Osteoarthritis (4 sources) Osteoarthritis; Translations: [Unspecified osteoarthritis, unspecified site] 11-22-2024 Chronic Other non-traumatic joint disorders (7 sources) Effusion of right knee joint; Translations: [Effusion, right knee] 11-22-2024 Episodic Other non-traumatic joint disorders (1 source) Effusion, right knee; Translations: [Effusion, right knee] Onset: 12-09-2024 Episodic Other non-traumatic joint disorders (1 source) Pain in right knee; Translations: [Pain in right knee] Onset: 11-25-2024 Episodic Other skin disorders (1 source) Localized swelling, mass and lump, right lower limb; Translations: [Localized swelling, mass and lump, right lower limb] Onset: 12-13-2024 Episodic Other upper respiratory infections (6 sources) Acute sinusitis; Translations: [Acute sinusitis, unspecified] 07-03-2018 Episodic Spondylosis; intervertebral disc disorders; other back problems (8 sources) Thoracic back pain; Translations: [Dorsalgia, unspecified] Episodic Substance-related disorders (6 sources) Tobacco dependence syndrome; Translations: [Nicotine dependence, unspecified, uncomplicated] 07-12-2013 Chronic Results Test Name Value Interpretation Reference Range Facility Culture, Blood (WB)on 2024 CUB No growth in 5 days. Normal [facility] Comment on above: Performed By: #### M 200.1000 #### [facility] [address] [place], [place], [address] Performed By: #### M 200.1000 ####[facility] [address] [place], [address] Synovial Fluid RBC, WBC AND Diffon 12-17-2024 PATH COM/SYFL Reviewed Normal [facility] Comment on above: Result Comment: AMENDED REPORT 12/17/24 1049 PATH COM/SYFL previously reported as: May follow Performed By: #### M 100.2000, M100.4001, L200.4175, L200.0400, M100.2900 ####[facility] [address] [place], [address] Electrocardiogram reportOrde red By: Edward Quezada on 12-14-2024 EKG study [facility] [address] [place] [address] 12 Lead EKG 12/10/24 1206 MR#: [id number] Acct: [id number] Name: SHARLENE DEVLIN Rep #:[id number] : 1960 64 From: Edward Quezada MD Attending Dr: Dr. Sundeep Mccormick DO Status: ADM IN Ordering Dr: Gregory Sparks MD Date: 12/10/24 Location: [facility] Sex: F C Admitted: 12/10/24 Test Reason : PRE OP Blood Pressure : */* mmHG Vent. Rate : 95 BPM Atrial Rate : 95 BPM P-R Int : 128 ms QRS Dur : 82 ms QT Int : 340 ms P-R-T Axes : 68 73 67 degrees QTcB Int : 427 ms Normal sinus rhythm Normal ECG When compared with ECG of 09-Mar-2017 21:13, No significant change was found Confirmed by EDWARD QUEZADA MD ([id number]), legal editor KANDICE SALAS ([id number]) on 511:52:40 AM Referred By: Sundeep Mccormick Confirmed By: EDWARD QUEZADA MD 12/14/24 1152 Date _ Edward Quezada MD CC: Dr. Gregory Sparks MD; Dr. Sundeep Mccormick DO; No Primary Care Physician ~ Signed [facility] Other Anion gap in Serum or Plasma Ordered By: Sundeep Mccormick on 12-13-2024 Anion gap [Moles/Vol] 9 mmol/L 5-15 [facility] BUN/creatinine ratioOrdered By: Sundeep Mccormick on 12-13-2024 Urea nitrogen/Creatinine [Mass ratio] 8.8 mg/mg Low 10-20 [facility] Basic Metabolic Profile (BMP )on 12-13-2024 BUN/CRE 8.8 RATIO Low 10-20 [facility] Comment on above: Performed By: #### L 100.0500, L500.2500 ####[facility] [address] [place], [address] Calcium [Mass/Vol] 9.1 mg/dL Normal 7.6-11.0 [facility] Comment on above: Performed By: #### L 100.0500, L500.2500 ####[facility] [address] [place], [address] Chloride [Moles/Vol] 99 mmol/L Normal 98-108 [facility] Comment on above: Performed By: #### L 100.0500, L500.2500 ####[facility] [address] [place], [address] CO2 [Moles/Vol] 29.9 mmol/L Normal 21.0-32.0 [facility] Comment on above: Performed By: #### L 100.0500, L500.2500 ####[facility] [address] [place], [address] Creatinine [Mass/Vol] 0.49 mg/dL Low 0.70-1.20 [facility] Comment on above: Performed By: #### L 100.0500, L500.2500 ####[facility] [address] [place], [address] ECRCL 110.72 ml/min Normal 50-250 [facility] Comment on above: Performed By: #### L 100.0500, L500.2500 ####[facility] [address] [place], [address] GAP 9 Normal 5-15 [facility] Comment on above: Performed By: #### L 100.0500, L500.2500 ####[facility] [address] [place], [address] GFR/1.73 sq M.predicted among non-blacks MDRD (S/P/Bld) [Vol rate/Area] 105 mL/min/{1.73_m2} Normal >60 [facility] Comment on above: Result Comment: mL/m in/1.73m2 CKD-EPI Creatinine Equation (2020) Performed By: #### L 100.0500, L500.2500 ####[facility] [address] [place], [address] Glucose [Mass/Vol] 112 mg/dL High 70-99 [facility] Comment on above: Performed By: #### L 100.0500, L500.2500 ####[facility] [address] [place], [address] Potassium [Moles/Vol] 3.5 mmol/L Normal 3.3-5.1 [facility] Comment on above: Performed By: #### L 100.0500, L500.2500 ####[facility] [address] [place], [address] Sodium [Moles/Vol] 138 mmol/L Normal 133-145 [facility] Comment on above: Performed By: #### L 100.0500, L500.2500 ####[facility] [address] [place], [address] Urea nitrogen [Mass/Vol] 4 mg/dL Normal 4-19 [facility] Comment on above: Performed By: #### L 100.0500, L500.2500 ####[facility] [address] [place], [address] CBC-Complete Blood Cnt No Di ffon 12-13-2024 Erythrocyte distribution width (RBC) [Ratio] 12.7 % Normal 11.6-14.6 [facility] Comment on above: Performed By: #### L 100.0500, L500.2500 ####[facility] [address] [place], [address] Hematocrit (Bld) [Volume fraction] 32.5 % Low 37-47 [facility] Comment on above: Performed By: #### L 100.0500, L500.2500 ####[facility] [address] [place], [address] Hemoglobin (Bld) [Mass/Vol] 11.0 g/dL Low 12.0-15.0 [facility] Comment on above: Performed By: #### L 100.0500, L500.2500 ####[facility] [address] [place], [address] MCH (RBC) [Entitic mass] 33.0 pg High 27.0-32.0 [facility] Comment on above: Performed By: #### L 100.0500, L500.2500 ####[facility] [address] [place], [address] MCHC (RBC) [Mass/Vol] 33.8 g/dL Normal 32-36 [facility] Comment on above: Performed By: #### L 100.0500, L500.2500 ####[facility] [address] [place], [address] MCV (RBC) [Entitic vol] 97.6 fL Normal 81-99 [facility] Comment on above: Performed By: #### L 100.0500, L500.2500 ####[facility] [address] [place], [address] Platelet mean volume (Bld) [Entitic vol] 9.4 fL Normal 6.2-12.0 [facility] Comment on above: Performed By: #### L 100.0500, L500.2500 ####[facility] [address] [place], [address] Platelets (Bld) [#/Vol] 306 10*3/uL Normal 150-450 [facility] Comment on above: Performed By: #### L 100.0500, L500.2500 ####[facility] [address] [place], [address] RBC (Bld) [#/Vol] 3.33 10*6/uL Low 4.2-5.4 [facility] Comment on above: Performed By: #### L 100.0500, L500.2500 ####[facility] [address] [place], [address] RDW SD 45.4 fl High 35.1-43.9 [facility] Comment on above: Performed By: #### L 100.0500, L500.2500 ####[facility] [address] [place], [address] WBC (Bld) [#/Vol] 5.5 10*3/uL Normal 4.4-11.0 [facility] Comment on above: Performed By: #### L 100.0500, L500.2500 ####[facility] [address] [place], [address] Carbon dioxide, total [Moles /volume] in Central venous bloodOrdered By: Sundeep Mccormick on 12-13-2024 CO2 [Moles/Vol] 29.9 mmol/L 21.0-32.0 [facility] Chloride assayOrdered By: Ashtyn Mccormick on 12-13-2024 Chloride [Moles/Vol] 99 mmol/L 98-108 [facility] Consultation - Infectious Dx on 06-23-2025 Consultation - Infectious Dx [facility] Medical Records Department [address] [place] [address] Consultation - Infectious Dx 12/13/24 1253 MR#: [id number] Acct: [id number] Name: SHARLENE DEVLIN Rep #: [id number] : 1960 64 From: Raghav Gabriel MD PCP: Care Physician,No Primary Status:ADM IN Location: [place] [address]-1 Assessment Plan Assessment/Plan (1) Septic arthritis of knee, right: QUALIFIERS: Septic arthritis organism: staphylococcal Qualified Code(s): M00.061 - Staphylococcal arthritis, right knee PLAN: Initial aspiration showed (+) crystals on 11/22/24. Repeat 12/09/24 with MSSA. On cefazolin. Taken to OR 12/10/[address] Mccormick for washout. Will order picc and 3 weeks iv cefazolin with weekly labs, ID followup in 2 weeks. Will follow, thank you, d/w ortho team HPI Consult Data Date of Consult: 12/13/24 HPI Narrative Reason for Consultation: septic arthritis HPI Narrative: SHARLENE DEVLIN, is a 64 F who presented with 3-4 weeks R knee progressive pain, swelling, warmth. No fever or chills. No known inciting event. Had tap done 11/22/24 which showed crystals. Characteristics of pain did not improve, repeat tap 12/09 was worse and cx (+) MSSA. Admitted here 12/10 and taken to OR by Dr. Mccormick for washout. Feeling better, pain improved, no n/v/d. Full ROS performed and neg except as noted above. COUNTS INCLUDE 234 BEDS AT THE [facility] Medical History Wears glasses Alcohol use Redness of skin History of steroid therapy Walker as ambulation aid Arthritis Fatty liver Shortness of breath on exertion Hoarseness Chronic cough Mid back pain on left side Urinary frequency Abdominal pain Home Medications ???Medication ???Instructions ???Recorded ???Last Taken ???Type acetaminophen 650 mg 650 mg PO Q8H PRN pain 12/10/24 History tablet,extended release (Tylenol Arthritis Pain) celecoxib 200 mg capsule 200 mg PO BID 12/10/24 12/09/24 Hi story cefazolin 2 gram intravenous 2 g IV Q8H 21 days 12/13/24 Unknow n Rx solution Allergy/AdvReac Type Severity Reaction Status Date / Time Penicillins Allergy Rash Verified 12/10/24 12:20 Family History (Updated 12/10/24 @ 12:35 by Bruno Bustillos) Mother Hypertension Father Atrial fibrillation Surgical History (Updated 12/10/24 @ 12:33 by Bruno Bustillos) H/O foot surgery Social History (Updated 12/10/24 @ 12:36 by Bruno Bustillos) household members: children housing: apartment financial difficulty paying for basics: not very hard service: No current occupational status: retired Smoking Status: Current every day smoker tobacco type: cigarettes alcohol intake: current alcohol intake frequency: holidays/special occasions only Physical Exam Const alert, oriented x3 and no apparent distress General Appearance: cooperative HEENT normocephalic and head/scalp atraumatic Eyes PERRL and EOMs intact bilaterally Neck supple and No nodes Resp normal air movement and clear to auscultation bilaterally Cardio regular rate and regular rhythm GI soft to palpation, non-tender and non-distended Extremity General Extremity: Negative for edema Skin no rashes or lesions noted Skin Narrative: RLE wrapped Neuro CN's II-XII intact bilaterally Lab / Micro Data Attestation: I reviewed the patient's lab results. 12/13/24 03:42 12/13/24 03:42 Labs: Laboratory Results - last 24 hr 12/13/24 03:42: WBC 5.5, RBC 3.33 L, Hgb 11.0 L, Hct 32.5 L, MCV 97.6, MCH 33.0 H, MCHC 33.8, RDW Std Deviation 45.4 H, RDW Coeff of Pema 12.7, Plt Count 306, MPV 9.4, Sodium 138, Potassium 3.5, Chloride 99, Carbon Dioxide 29.9, Anion Gap 9, BUN 4, Creatinine 0.49 L, Estim Creat Clear Calc 110.72, Est GFR (MDRD) Non-Af 105, BUN/Creatinine Ratio 8.8 L, Glucose 112 H, Calcium 9.1 12/13/24 1257 Cosigner Signature (if applicable): CC: Dr. Sundeep Mccormick, DO; No Primary Care Physician Signed Normal [facility] Crystals, Body Fluidon 12-13 PATH REV Reviewed Normal [facility] Comment on above: Result Comment: ACUT E INFLAMMATION, BLOODY FLUID. RARE NON-URATE CRYSTALS. Clarissa Ace MD 12/13/2024 AMENDED REPORT 12/13/24 4939 PATH REV previously reported as: Will follow Performed By: #### M 100.2000, M100.4001, L200.4175, L200.0400, M100.2900 ####[facility] [address] [place], [address] Culture, Anaerobic Any Sourc rolo 12-13-2024 CUAN UNK UNK RIGHT KNEE NEED GRAM STAIN No anaerobic bacteria isolated. Normal [facility] Comment on above: Performed By: #### M 100.2000, M100.4001, L200.4175, L200.0400, M100.2900 ####[facility] [address] [place], [address] Erythrocyte distribution wid th ratioOrdered By: Sundeep Mccormick on 12-13-2024 Erythrocyte distribution width (RBC) [Ratio] 12.7 % 11.6-14.6 [facility] Erythrocyte distribution wid th standard deviationOrdered By: Sundeep Mccormick on 12-13-2024 Erythrocyte distribution width (RBC) [Ratio] 45.4 fl High 35.1-43.9 [facility] Glomerular filtration rate ( GFR) estimation/1.73 sq m using serum, plasma, or whole bOrdered By: Sundeep Mccormick on 12-13-2024 GFR/1.73 sq M.predicted among non-blacks MDRD (S/P/Bld) [Vol rate/Area] 105 mL/min/{1.73_m2} >60 [facility] Comment on above: mL/min/1.73m2 CKD-EP I Creatinine Equation (2020) Hematocrit Auto (Bld) [Volum e fraction]Ordered By: Sundeep Mccormick on 12-13-2024 Hematocrit (Bld) [Volume fraction] 32.5 % Low 37-47 [facility] Hemoglobin measurementOrdere d By: Sundeep Mccormick on 12-13-2024 Hemoglobin (Bld) [Mass/Vol] 11.0 g/dL Low 12.0-15.0 [facility] MCV (mean corpuscular volume ) determinationOrdered By: Sundeep Mccormick on 12-13-2024 MCV (RBC) [Entitic vol] 97.6 fL 81-99 [facility] Mean corpuscular hemoglobin (MCH) determinationOrdered By: Sundeep Mccormick on 12-13-2024 MCH (RBC) [Entitic mass] 33.0 pg High 27.0-32.0 [facility] Mean corpuscular hemoglobin concentration (MCHC) determinationOrdered By: Sundeep Mccormick on 12-13-2024 MCHC (RBC) [Mass/Vol] 33.8 g/dL 32-36 [facility] Mean platelet volume determi nationOrdered By: Sundeep Mccormick on 12-13-2024 Platelet mean volume (Bld) [Entitic vol] 9.4 fL 6.2-12.0 [facility] Platelet countOrdered By: Ashtyn Mccormick on 12-13-2024 Platelets (Bld) [#/Vol] 306 10*3/uL 150-450 [facility] Potassium measurement (mass/ volume)Ordered By: Sundeep Mccormick on 12-13-2024 Potassium (Unsp spec) [Mass/Vol] 3.5 mmol/L 3.3-5.1 [facility] RBC Auto (Bld) [#/Vol]Ordere d By: Sundeep Mccormick on 12-13-2024 RBC (Bld) [#/Vol] 3.33 10*6/uL Low 4.2-5.4 [facility] Serum creatinine measurement (mass/volume)Ordered By: Sundeep Mccormick on 12-13-2024 Creatinine [Mass/Vol] 0.49 mg/dL Low 0.70-1.20 [facility] Serum glucose measurement (m ass/volume)Ordered By: Sundeep Mccormick on 12-13-2024 Glucose [Mass/Vol] 112 mg/dL High 70-99 [facility] Serum or plasma calcium anayeli urement (mass/volume)Ordered By: Sundeep Mccormick on 12-13-2024 Calcium [Mass/Vol] 9.1 mg/dL 7.6-11.0 [facility] Serum or plasma urea nitroge n measurement (mass/volume)Ordered By: Sundeep Mccormick on 12-13-2024 Urea nitrogen [Mass/Vol] 4 mg/dL 4-19 [facility] Sodium levelOrdered By: Nilesh Mccormick on 12-13-2024 Sodium [Moles/Vol] 138 mmol/L 133-145 [facility] White blood cell (WBC) count Ordered By: Sundeep Mccormick on 12-13-2024 WBC (Bld) [#/Vol] 5.5 10*3/uL 4.4-11.0 [facility] Basic Metabolic Profile (BMP )on 12-12-2024 BUN/CRE 10.9 RATIO Normal 10-20 [facility] Comment on above: Performed By: #### L 100.0500, L500.2500 ####[facility] [address] [place], [address] Calcium [Mass/Vol] 8.7 mg/dL Normal 7.6-11.0 [facility] Comment on above: Performed By: #### L 100.0500, L500.2500 ####[facility] [address] [place], [address] Chloride [Moles/Vol] 99 mmol/L Normal 98-108 [facility] Comment on above: Performed By: #### L 100.0500, L500.2500 ####[facility] [facility] [address] [place], [address] CO2 [Moles/Vol] 27.0 mmol/L Normal 21.0-32.0 [facility] Comment on above: Performed By: #### L 100.0500, L500.2500 ####[facility] [address] [place], [address] Creatinine [Mass/Vol] 0.56 mg/dL Low 0.70-1.20 [facility] Comment on above: Performed By: #### L 100.0500, L500.2500 ####[facility] [address] [place], [address] ECRCL 96.88 ml/min Normal 50-250 [facility] Comment on above: Performed By: #### L 100.0500, L500.2500 ####[facility] [address] [place], [address] GAP 11 Normal 5-15 [facility] Comment on above: Performed By: #### L 100.0500, L500.2500 ####[facility] [address] [place], [address] GFR/1.73 sq M.predicted among non-blacks MDRD (S/P/Bld) [Vol rate/Area] 102 mL/min/{1.73_m2} Normal >60 [facility] Comment on above: Result Comment: mL/m in/1.73m2 CKD-EPI Creatinine Equation (2020) Performed By: #### L 100.0500, L500.2500 ####[facility] [address] [place], [address] Glucose [Mass/Vol] 98 mg/dL Normal 70-99 [facility] Comment on above: Performed By: #### L 100.0500, L500.2500 ####[facility] [address] [place], [address] Potassium [Moles/Vol] 3.6 mmol/L Normal 3.3-5.1 [facility] Comment on above: Performed By: #### L 100.0500, L500.2500 ####[facility] [address] [place], [address] Sodium [Moles/Vol] 137 mmol/L Normal 133-145 [facility] Comment on above: Performed By: #### L 100.0500, L500.2500 ####[facility] [address] [place], [address] Urea nitrogen [Mass/Vol] 6 mg/dL Normal 4-19 [facility] Comment on above: Performed By: #### L 100.0500, L500.2500 ####[facility] [address] [place], [address] CBC-Complete Blood Cnt No Di ffon 12-12-2024 Erythrocyte distribution width (RBC) [Ratio] 12.5 % Normal 11.6-14.6 [facility] Comment on above: Performed By: #### L 100.0500, L500.2500 ####[facility] [address] [place], [address] Hematocrit (Bld) [Volume fraction] 34.6 % Low 37-47 [facility] Comment on above: Performed By: #### L 100.0500, L500.2500 ####[facility] [address] [place], [address] Hemoglobin (Bld) [Mass/Vol] 11.6 g/dL Low 12.0-15.0 [facility] Comment on above: Performed By: #### L 100.0500, L500.2500 ####[facility] [address] [place], [address] MCH (RBC) [Entitic mass] 32.7 pg High 27.0-32.0 [facility] Comment on above: Performed By: #### L 100.0500, L500.2500 ####[facility] [address] [place], [address] MCHC (RBC) [Mass/Vol] 33.5 g/dL Normal 32-36 [facility] Comment on above: Performed By: #### L 100.0500, L500.2500 ####[facility] [address] [place], [address] MCV (RBC) [Entitic vol] 97.5 fL Normal 81-99 [facility] Comment on above: Performed By: #### L 100.0500, L500.2500 ####[facility] [address] [place], [address] Platelet mean volume (Bld) [Entitic vol] 9.4 fL Normal 6.2-12.0 [facility] Comment on above: Performed By: #### L 100.0500, L500.2500 ####[facility] [address] [place], [address] Platelets (Bld) [#/Vol] 347 10*3/uL Normal 150-450 [facility] Comment on above: Performed By: #### L 100.0500, L500.2500 ####[facility] [address] [place], [address] RBC (Bld) [#/Vol] 3.55 10*6/uL Low 4.2-5.4 [facility] Comment on above: Performed By: #### L 100.0500, L500.2500 ####[facility] [address] [place], [address] RDW SD 45.1 fl High 35.1-43.9 [facility] Comment on above: Performed By: #### L 100.0500, L500.2500 ####[facility] [address] [place], [address] WBC (Bld) [#/Vol] 7.2 10*3/uL Normal 4.4-11.0 [facility] Comment on above: Performed By: #### L 100.0500, L500.2500 ####[facility] [address] [place], [address] Basic Metabolic Profile (BMP )on 12-11-2024 BUN/CRE 12.9 RATIO Normal 10-20 [facility] Comment on above: Performed By: #### L 500.2500, L100.0500 ####[facility] [address] [place], [address] Calcium [Mass/Vol] 8.7 mg/dL Normal 7.6-11.0 [facility] Comment on above: Performed By: #### L 500.2500, L100.0500 ####[facility] [address] [place], [address] Chloride [Moles/Vol] 96 mmol/L Low 98-108 [facility] Comment on above: Performed By: #### L 500.2500, L100.0500 ####[facility] [address] [place], [address] CO2 [Moles/Vol] 27.9 mmol/L Normal 21.0-32.0 [facility] Comment on above: Performed By: #### L 500.2500, L100.0500 ####[facility] [address] [place], [address] Creatinine [Mass/Vol] 0.54 mg/dL Low 0.70-1.20 [facility] Comment on above: Performed By: #### L 500.2500, L100.0500 ####[facility] [address] [place], [address] ECRCL 100.47 ml/min Normal 50-250 [facility] Comment on above: Performed By: #### L 500.2500, L100.0500 ####[facility] [address] [place], [address] GAP 9 Normal 5-15 [facility] Comment on above: Performed By: #### L 500.2500, L100.0500 ####[facility] [address] [place], [address] GFR/1.73 sq M.predicted among non-blacks MDRD (S/P/Bld) [Vol rate/Area] 103 mL/min/{1.73_m2} Normal >60 [facility] Comment on above: Result Comment: mL/m in/1.73m2 CKD-EPI Creatinine Equation (2020) Performed By: #### L 500.2500, L100.0500 ####[facility] [address] [place], [address] Glucose [Mass/Vol] 146 mg/dL High 70-99 [facility] Comment on above: Performed By: #### L 500.2500, L100.0500 ####[facility] [address] [place], [address] Potassium [Moles/Vol] 3.9 mmol/L Normal 3.3-5.1 [facility] Comment on above: Performed By: #### L 500.2500, L100.0500 ####[facility] [address] [place], [address] Sodium [Moles/Vol] 133 mmol/L Normal 133-145 [facility] Comment on above: Performed By: #### L 500.2500, L100.0500 ####[facility] [address] [place], [address] Urea nitrogen [Mass/Vol] 7 mg/dL Normal 4-19 [facility] Comment on above: Performed By: #### L 500.2500, L100.0500 ####[facility] [address] [place], [address] Body Fluid Culton 12-11-2024 BFC UNK UNK RIGHT KNEE NEED GRAM STAIN Body Fluid Cult Body Fluid Cult RESULTS CALLED LEFT MESSAGE TO RETURN CALL 12/10/24 Flynn Jyotidontae Bishop. Staphylococcus aureus Amount Growth 3+ Staphylococcus aureus: REACTION cefOXitin Susc Islt Doxycycline Islt PRASHANT <=0.5 S Clindamycin Islt PRASHANT R Clindamycin.induced Susc Islt POS Erythromycin Islt PRASHANT R Gentamicin Islt PRASHANT <=0.5 S Linezolid Islt PRASHANT 2 S Moxifloxacin Islt PRASHANT <=0.25 S Oxacillin Susc Islt <=0.25 S Tetracycline Islt PRASHANT <=1 S TMP SMX Islt PRASHANT <=10 S Vancomycin Islt PRASHANT <=0.5 S Normal [facility] Comment on above: Performed By: #### M 100.2000, M100.4001, L200.4175, L200.0400, M100.2900 ####[facility] [address] [place], [address] CBC-Complete Blood Cnt No Di ffon 12-11-2024 Erythrocyte distribution width (RBC) [Ratio] 12.5 % Normal 11.6-14.6 [facility] Comment on above: Performed By: #### L 500.2500, L100.0500 ####[facility] [address] [place], [address] Hematocrit (Bld) [Volume fraction] 33.2 % Low 37-47 [facility] Comment on above: Performed By: #### L 500.2500, L100.0500 ####[facility] [address] [place], [address] Hemoglobin (Bld) [Mass/Vol] 11.2 g/dL Low 12.0-15.0 [facility] Comment on above: Performed By: #### L 500.2500, L100.0500 ####[facility] [address] [place], [address] MCH (RBC) [Entitic mass] 33.1 pg High 27.0-32.0 [facility] Comment on above: Performed By: #### L 500.2500, L100.0500 ####[facility] [address] [place], [address] MCHC (RBC) [Mass/Vol] 33.7 g/dL Normal 32-36 [facility] Comment on above: Performed By: #### L 500.2500, L100.0500 ####[facility] [address] [place], [address] MCV (RBC) [Entitic vol] 98.2 fL Normal 81-99 [facility] Comment on above: Performed By: #### L 500.2500, L100.0500 ####[facility] [address] [place], [address] Platelet mean volume (Bld) [Entitic vol] 9.6 fL Normal 6.2-12.0 [facility] Comment on above: Performed By: #### L 500.2500, L100.0500 ####[facility] [address] [place], [address] Platelets (Bld) [#/Vol] 332 10*3/uL Normal 150-450 [facility] Comment on above: Performed By: #### L 500.2500, L100.0500 ####[facility] [address] [place], [address] RBC (Bld) [#/Vol] 3.38 10*6/uL Low 4.2-5.4 [facility] Comment on above: Performed By: #### L 500.2500, L100.0500 ####[facility] [address] [place], [address] RDW SD 45.2 fl High 35.1-43.9 [facility] Comment on above: Performed By: #### L 500.2500, L100.0500 ####[facility] [address] [place], [address] WBC (Bld) [#/Vol] 7.8 10*3/uL Normal 4.4-11.0 [facility] Comment on above: Performed By: #### L 500.2500, L100.0500 ####[facility] [address] [place], [place], [address] 12 Lead EKGon 12-10-2024 12 Lead EKG [facility] Cardiovascular Services [address] [place] [address] 12 Lead EKG 12/10/24 1206 MR#: [id number] Acct: [id number] Name: SHARLENE DEVLIN Rep #: [id number] : 1960 64 From: Edward Quezada MD Attending Dr: Dr. Sundeep Mccormick, Status: ADM IN Ordering Dr: Gregory Sparks MD Date: 12/10/24 Location: [facility] Sex: F C Admitted: 12/10/24 Test Reason : PRE OP Blood Pressure : */* mmHG Vent. Rate : 95 BPM Atrial Rate : 95 BPM P-R Int : 128 ms QRS Dur : 82 ms QT Int : 340 ms P-R-T Axes : 68 73 67 degrees QTcB Int : 427 ms Normal sinus rhythm Normal ECG When compared with ECG of 09-Mar-2017 21:13, No significant change was found Confirmed by LESLI ALARCON, EDWARD ([id number]), legal editor KANDICE SALAS ([id number]) on 12/14/2024 11:52:40 AM Referred By: Sundeep Mccormick Confirmed By: EDWARD QUEZADA MD 12/14/24 1152 Date Edward Quezada MD CC: Dr. Gregory Sparks MD; Dr. Sundeep Mccormick DO; No Primary Care Physician Signed Normal [facility] Basic Metabolic Profile (BMP )on 12-10-2024 BUN/CRE 14.7 RATIO Normal 04-11 [facility] Comment on above: Performed By: #### L 500.2500, L100.0500 ####[facility] [address] [place], [place], [address] Calcium [Mass/Vol] 9.0 mg/dL Normal 7.6-11.0 [facility] Comment on above: Performed By: #### L 500.2500, L100.0500 ####[facility] [address] [place], [address] Chloride [Moles/Vol] 98 mmol/L Normal 98-108 [facility] Comment on above: Performed By: #### L 500.2500, L100.0500 ####[facility] [address] [place], [address] CO2 [Moles/Vol] 24.1 mmol/L Normal 21.0-32.0 [facility] Comment on above: Performed By: #### L 500.2500, L100.0500 ####[facility] [address] [place], [address] Creatinine [Mass/Vol] 0.51 mg/dL Low 0.70-1.20 [facility] Comment on above: Performed By: #### L 500.2500, L100.0500 ####[facility] [address] [place], [address] ECRCL 106.38 ml/min Normal 50-250 [facility] Comment on above: Performed By: #### L 500.2500, L100.0500 ####[facility] [address] [place], [address] GAP 14 Normal 5-15 [facility] Comment on above: Performed By: #### L 500.2500, L100.0500 ####[facility] [address] [place], [address] GFR/1.73 sq M.predicted among non-blacks MDRD (S/P/Bld) [Vol rate/Area] 104 mL/min/{1.73_m2} Normal >60 [facility] Comment on above: Result Comment: mL/m in/1.73m2 CKD-EPI Creatinine Equation (2020) Performed By: #### L 500.2500, L100.0500 ####[facility] [address] [place], [address] Glucose [Mass/Vol] 103 mg/dL High 70-99 [facility] Comment on above: Performed By: #### L 500.2500, L100.0500 ####[facility] [address] [place], [address] Potassium [Moles/Vol] 3.9 mmol/L Normal 3.3-5.1 [facility] Comment on above: Performed By: #### L 500.2500, L100.0500 ####[facility] [address] [place], [address] Sodium [Moles/Vol] 136 mmol/L Normal 133-145 [facility] Comment on above: Performed By: #### L 500.2500, L100.0500 ####[facility] [address] [place], [address] Urea nitrogen [Mass/Vol] 7 mg/dL Normal 4-19 [facility] Comment on above: Performed By: #### L 500.2500, L100.0500 ####[facility] [address] [place], [address] CBC-Complete Blood Cnt No Di ffon 12-10-2024 Erythrocyte distribution width (RBC) [Ratio] 12.5 % Normal 11.6-14.6 [facility] Comment on above: Performed By: #### L 500.2500, L100.0500 ####[facility] [address] [place], [address] Hematocrit (Bld) [Volume fraction] 38.4 % Normal 37-47 [facility] Comment on above: Performed By: #### L 500.2500, L100.0500 ####[facility] [address] [place], [address] Hemoglobin (Bld) [Mass/Vol] 13.4 g/dL Normal 12.0-15.0 [facility] Comment on above: Performed By: #### L 500.2500, L100.0500 ####[facility] [address] [place], [address] MCH (RBC) [Entitic mass] 32.8 pg High 27.0-32.0 [facility] Comment on above: Performed By: #### L 500.2500, L100.0500 ####[facility] [address] [place], [address] MCHC (RBC) [Mass/Vol] 34.9 g/dL Normal 32-36 [facility] Comment on above: Performed By: #### L 500.2500, L100.0500 ####[facility] [address] [place], [address] MCV (RBC) [Entitic vol] 94.1 fL Normal 81-99 [facility] Comment on above: Performed By: #### L 500.2500, L100.0500 ####[facility] [address] [place], [address] Platelet mean volume (Bld) [Entitic vol] 9.5 fL Normal 6.2-12.0 [facility] Comment on above: Performed By: #### L 500.2500, L100.0500 ####[facility] [address] [place], [address] Platelets (Bld) [#/Vol] 400 10*3/uL Normal 150-450 [facility] Comment on above: Performed By: #### L 500.2500, L100.0500 ####[facility] [address] [place], [address] RBC (Bld) [#/Vol] 4.08 10*6/uL Low 4.2-5.4 [facility] Comment on above: Performed By: #### L 500.2500, L100.0500 ####[facility] [address] [place], [address] RDW SD 43.2 fl Normal 35.1-43.9 [facility] Comment on above: Performed By: #### L 500.2500, L100.0500 ####[facility] [address] [place], [address] WBC (Bld) [#/Vol] 9.2 10*3/uL Normal 4.4-11.0 [facility] Comment on above: Performed By: #### L 500.2500, L100.0500 ####[facility] [address] [place], [address] Gram Stainon 12-10-2024 GS UNK UNK RIGHT KNEE NEED GRAM STAIN Centrifuged Specimen? Culture performed on centrifuged specimen Gram Stain No organisms seen Rare White Blood Cells Normal [facility] Comment on above: Performed By: #### M 100.2000, M100.4001, L200.4175, L200.0400, M100.2900 ####[facility] [address] [place], [address] MR/POSTOP.ANEon 12-10-2024 MR/POSTOP.[facility] Medical Records Department [address] [place] [address] Anesthesia Postop Eval I 12/10/24 1505 MR#: [id number] Acct: [id number] Name: SHARLENE DEVLIN Rep #: [id number] : 1960 64 From: Sarita Key CRNA PCP: Care Physician,No Primary Status:REG SDC Y Race: C Location: [place] [address] Anesthesia: Postop Eval I Current Vital Signs Temperature: 97.3 F Pulse Rate: 112 Blood Pressure: 161/111 Respiratory Rate: 24 Pulse Ox: 94 Assessment Airway patent: Yes Spontaneous unlabored respirations: Yes nausea: No Vomiting: No Anesthesia Complication: No Fluid Hydration Crystalloid volume administer (ml): 1,000 Total IV fluid infused: 1,000 Progress Note Anesthesia document: Postop Eval 1 completed: Yes 12/10/24 1506 Date Sarita Key CRNA Cosigner Signature: Date CC: Signed Normal [facility] MR/WXMOGFIT4ow 12-10-2024 MR/POSTOPAN2 [facility] Medical Records Department [address] [place] [address] Anesthesia Postop Eval II 12/10/24 1541 MR#: [id number] Acct: [id number] Name: SHARLENE DEVLIN Rep #: [id number] : 1960 64 From: Sarita Key CRNA PCP: Care Physician,No Primary Status:ADM JEANCARLOS Y Race: C [facility] Postop Eval I Sum Postop Eval Completion status Anesthesia document: Postop Eval 1 completed: Yes Anesthesia Postop Eval I Summary Anesthesia Postop Eval I Summary: Anesthesia Postop Eval I: Assessment Summary Airway patent Yes 12/10/24 15:05 DIE ATTACHER.CSIR Spontaneous unlabored Yes 12/10/24 15:05 DIE ATTACHER.CSIR respirations Mental status nausea No 12/10/24 15:05 DIE ATTACHER.CSIR Vomiting No 12/10/24 15:05 DIE ATTACHER.CSIR Anesthesia Postop Eval I: Fluid Summary Crystalloid volume administer 1,000 12/10/24 15:05 DIE ATTACHER.CSIR (ml) Colloids volume administered ( ml) Blood Product volume administered (ml) Total IV fluid infused 1,000 12/10/24 15:05 DIE ATTACHER.CSIR Anesthesia Postop Eval I: Summary Notes Anesthesia Complication No 12/10/24 15:05 DIE ATTACHER.CSIR Anesthesia Complication Comment: Post-operative progress note Anesthesia: Postop Eval II Evaluation Mental status: Awake Pain Level: 3 nausea: No Vomiting: No 12/10/24 1541 Date Sarita Alcantaraigner Signature: Date CC: Signed Normal [facility] Operative Reporton 5 Operative Report [facility] Medical Records Department [address] [place] [address] Operative Report 12/10/24 1503 MR#: [id number] Acct: [id number] Name: SHARLENE DEVLIN Rep #: [id number] : 1960 64 From: Sundeep Mccormick DO PCP: Care Physician,No Primary Status:[facility] Location: [place] [address] Operative Report (Standard) Operative Information Date of Procedure: 12/10/24 Pre-Operative Diagnosis: Right knee septic arthritis Post-Operative Diagnosis: Right knee septic arthritis Surgery/Procedure Performed: Right knee arthroscopic irrigation and debridement dry janitor: No Type of Anesthesia: General RN Documented Start/Stop Times: Operation Date: 12/10/24 14:00 Case Time Into Pre-Op 12/10/24 11:56 Out of Pre-Op 12/10/24 13:58 Anesthesia Start 12/10/24 14:03 Into Room 12/10/24 14:03 Procedure Start 12/10/24 14:20 Procedure End 12/10/24 14:53 Anesthesia End 12/10/24 14:59 Out of Room 12/10/24 14:59 Procedure Start Time: 14:20 Procedure Stop Time: 14:53 Select all DRAINS/GRAFTS/IMPLA NTS that apply: None Estimated Blood Loss: 25 cc Specimen collected: No Description of surgery: Patient was greeted in the same-day surgery holding area and identified by name, medical record number, and date of . The operative extremity is marked. All questions were answered to the patient satisfaction. At time for procedure, patient will show and was brought to the operative suite positioned in supine on a standard operating table. General anesthesia was induced and LMA placed. All bony prominences were well-padded. Right lower extremity was placed in a circumferential arthroscopic leg shah. The foot of bed was dropped 90 degrees after a well leg shah was placed on the patient's left thigh. We prepped and draped the right lower extremity in a normal, sterile orthopedic fashion. We then performed a timeout confirming the side, site, and operation be performed. No concerns were voiced and we elected to proceed with surgery. 2 g Ancef was administered prior to incision by anesthesia staff. I then established a standard anterolateral portal. Blunt tipped trocar was used to enter the knee joint. Effusion was noted with purulent material. Arthroscope was introduced. The knee was filled with normal saline with epinephrine. A total of 10 L normal saline was lavaged through the knee throughout the entirety of the case. Synovitis was noted diffusely. I then established a standard anterior medial portal under direct visualization. Shaver was introduced to debride the synovitis and irrigated through the knee. I was able to then visualize the patellofemoral joint which was completely denuded of cartilage. I entered the medial compartment with a valgus stress. Minimal degenerative changes were noted. The meniscus was intact. Intercondylar notch was examined. Synovitis was noted and debrided. ACL and PCL appeared normal otherwise. Lateral compartment was entered with a figure for varus stress. Lateral compartment was also minimally degenerative. Meniscus was intact. I then used the shaver to complete our synovectomy diffusely about the knee. Fluid was allowed to wash through the knee. I used the arthroscopic cautery to control any bleeders. After the completion of 10 L, arthroscope was withdrawn. The knee was anesthetized with 20 cc total quarter percent bupivacaine with epinephrine. Portal sites were closed in interrupted lcvjjg-zv-rxafe fashion with 4-0 nylon suture. Bulky sterile compression dressing was applied. Patient was awakened from anesthesia and safely explained the operative suite. She tolerated the procedure well without apparent complication. She was transferred to her hospital bed and subsequent to PACU in stable condition. Postoperative plan: Patient will be admitted to observation overnight. Anticipate a stay through the weekend to allow for close monitoring, IV antibiotics and pending cultures. Will follow cultures closely. Currently growing Staphylococcus aureus. We will continue Ancef postoperatively. ID consult was placed and is unlikely to be completed until Friday given the limitations of coverage. Determine final antibiotic recommendations once ID consult is complete PICC line versus p.o.. Xarelto ordered for DVT prophylaxis starting postoperative day #1. Ice to the knee. Multimodal pain management with Tylenol, oxycodone and Toradol prior to Xarelto starting. Mobilize with PT and OT. Surgical Findings: Purulent effusion consistent with septic arthritis, diffuse synovitis. Grade IV chondromalacia patellofemoral. Complications Complications: No Admit VTE Documentation VTE Present on Admission: No VTE Mechan Device Prophylaxis: SCD's VTE Pharm Prophylaxis ordered?: Yes 12/10/24 1508 Cosigner Signature (if applicable): CC: Dr. Sundeep Mccormick, DO; No Primary Car (more content not included)... Normal [facility] Anaerobic cultureOrdered By: Sundeep Mccormick on 12-09-2024 Bacteria identified Anaer cx Nom (Unsp spec) No anaerobic bacteria isolated. [facility] Automated synovial fluid gilberto kocytes count (number/volume)Ordered By: Sundeep Mccormick on 12-09-2024 WBC Auto (Syn fld) [#/Vol] 75.6250 10^3/uL High 0.000-0.002 [facility] Automated synovial fluid mon onuclear cell count (number/volume)Ordered By: Sundeep Mccormick on 12-09-2024 Mononuclear cells Auto (Syn fld) [#/Vol] 5.100 10^3/ul [facility] Automated synovial fluid vini ymorphonuclear cell count (number/volume)Ordered By: Sundeep Mccormick on 12-09-2024 Polymorphonuclear cells Auto (Syn fld) [#/Vol] 73.980 10^3/uL [facility] Automated synovial fluid vini ymorphonuclear cells as percentage of leukocytesOrdered By: Sundeep Mccormick on 12-09-2024 Polymorphonuclear cells/100 WBC Auto (Syn fld) 93.6 % [facility] Blood lymphocytes/100 leukoc ytesOrdered By: Sundeep Mccormick on 12-09-2024 Lymphocytes/100 WBC (Bld) 2 % [facility] Body fluid crystal identific ation by light microscopyOrdered By: Sundeep Mccormick on 12-09-2024 Crystals LM Nom (Body fld) See PATH REV [facility] Comment on above: CRYSTAL RESULT IS PRELIMINARY. SEE PATH REVIEW FOR FINAL REPORT. Determination of appearance of synovial fluid (nominal result)Ordered By: Sundeep Mccormick on 12-09-2024 Appearance (Syn fld) Cloudy CLEAR [facility] Gram stainOrdered By: Jackie Mccormick on 12-09-2024 Microscopic observation Gram stain Nom (Unsp spec) [facility] Pathologist review of result s (narrative result)Ordered By: Sundeep Mccormick on 12-09-2024 Pathologist review Sam (Unsp spec) [Interp] May follow [facility] Review by pathologistOrdered By: Sundeep Mccormick on 12-09-2024 Pathologist review Sam (Unsp spec) [Interp] Will follow [facility] Pathologist review Sam (Unsp spec) [Interp] Reviewed [facility] Comment on above: Previous reported re sult: Will follow Edited by: MAIK on 12/13/24:1629ACUTE INFLAMMATION, BLOODY FLUID.RARE NON-URATE CRYSTALS.Clarissa Ace MD 12/13/2024 AMENDED REPORT 12/13/24 1629 PATH REV previously reported as: Will follow Specimen source identificati on of body fluidOrdered By: Sundeep Mccormick on 12-09-2024 Specimen source Nom (Body fld) SYNOVIAL [facility] Specimen source Nom (Body fld) RIGHT KNEE [facility] Synovial fluid color determi nation (nominal result)Ordered By: Sundeep Mccormick on 12-09-2024 Color (Syn fld) Red Pale Yellow [facility] Synovial fluid erythrocytes count (number/volume)Ordered By: Sundeep Mccormick on 12-09-2024 RBC (Syn fld) [#/Vol] 0.072 10^6/uL High 0-0 [facility] Synovial fluid monocyte perc entageOrdered By: Sundeep Mccormick on 12-09-2024 Monocytes/100 WBC (Syn fld) 4 % [facility] Synovial fluid mononuclear c ells/100 leukocytesOrdered By: Sundeep Mccormick on 12-09-2024 Mononuclear cells/100 WBC (Syn fld) 6.4 % [facility] Synovial fluid neutrophil pe rcentageOrdered By: Sundeep Mccormick on 12-09-2024 Neutrophils/100 WBC (Syn fld) 94 % High 0-25 [facility] Synovial fluid total cell co untOrdered By: Sundeep Mccormick on 12-09-2024 Cells Counted Total (Syn fld) [#] 76.0250 10^3/uL High 0.000-0.000 [facility] Comment on above: This is the Total Nu mber of Nucleated Cell Types in the Body Fluid. Venous Duplex US, Unilateral on 12-09-2024 Venous Duplex US, Unilateral [facility] [address] [place] [address] Venous Duplex US, Unilateral 12/09/24 1516 MR#: [id number] Acct: [id number] Name: SHARLENE DEVLIN I Rep #: [id number] : 1960 64 From: Kamran Pate MD Attending Dr: Dr. Sundeep Mccormick DO Status: REG CLI Ordering Dr: Sundeep Mccormick DO Date: 12/09/24 Location: [facility]S Sex: F C Admitted: Reason For Study Reason For Study: Swelling RIGHT LEFT GSV is normal. CFV is compressible, spontaneous, phasic, competent, CFV is compressible, spontaneous, phasic, competent and demonstrates normal augmentation. and demonstrates normal augmentation. FV is compressible, spontaneous, phasic, competent and demonstrates normal augmentation. POP V is compressible, spontaneous, phasic, competent and demonstrates normal augmentation. T/P Trunk is compressible. Nonvascularized structure noted in the popliteal fossa measuring 6.24 x 3.78 x 6.14 cm. PTV is compressible. RT PerV is compressible. Procedure This is a venous duplex using B-mode, color flow and spectral Doppler. Exam performed in department. A preliminary report was called and/or faxed to Sundeep Wesley DO. VL/Venous Duplex US, Unilateral Interpretation Summary Deep veins of the right lower extremity are patent and compressible segmentally. There is no evidence of right lower extremity deep vein thrombosis. Valvular competence appears intact within the proximal deep venous system on the right . The right great saphenous vein appears patent and compressible segmentally. A non-vascular structure is noted in the right popliteal space, measuring 6.24 cm x 3.78 cm x 6.14 cm. This probably represents a popliteal cyst. Clinical correlation is advised. The left common femoral vein is patent and compressible . __ Ordering Physician: Sundeep Mccormick Performed By: Anahy Cheney RVLizbet 12/09/242056 Date Kamran Pate MD CC: Dr. Sundeep Mccormick DO; No Primary Care Physician Date Dictated: 12/09/241515 Date Transcribed: 12/09/242056 Supervisor Malted Milk: Signed Normal [facility] Venous duplex ultrasound rep ortOrdered By: Kamran Pate on 12-09-2024 US Vein [facility] [address] [place] [address] Venous Duplex US, Unilateral 12/09/241515 MR#: [id number] Acct: [id number] Name: SHARLENE DEVLIN I Rep #:[id number] : 1960 64 From: Kamran Pate MD Attending Dr: Dr. Sundeep Mccormick DO Status: REG CLI Ordering Dr: Sundeep Mccormick DO Date: 12/09/24 Location: CVS Sex: F C Admitted: Reason For Study Reason For Study: Swelling RIGHT LEFT GSV is normal. CFV is compressible, spontaneous, phasic, competent, CFV is compressible, spontaneous, phasic, competent and demonstrates normal augmentation. and demonstrates normal augmentation. FV is compressible, spontaneous, phasic, competent and demonstrates normal augmentation. POP V is compressible, spontaneous, phasic, competent and demonstrates normal augmentation. T/P Trunk is compressible. Nonvascularized structure noted in the popliteal fossa measuring 6.24 x 3.78 x 6.14 cm. PTV is compressible. RT PerV is compressible. Procedure This is a venous duplex using B-mode, color flow and spectral Doppler. Exam performed in department. A preliminary report was called and/or faxed to Sundeep Wesley DO. VL/Venous Duplex US, Unilateral Interpretation Summary Deep veins of the right lower extremity are patent and compressible segmentally.There is no evidence of right lower extremity deep vein thrombosis. Valvular competence appears intact within the proximal deep venous system on the right . The right great saphenous vein appears patent and compressible segmentally. A non-vascular structure is noted in the right popliteal space, measuring 6.24 cm x 3.78 cm x 6.14 cm. This probably represents a popliteal cyst. Clinical correlation is advised. The left common femoral vein is patent and compressible . __ Ordering Physician: Sundeep Mccormick Performed By: Anahy Cheney, RVLizbet 12/09/242056 Date _ Kamran Pate MD CC: Dr. Sundeep Mccormick DO; No Primary Care Physician ~ Date Dictated: 12/09/24 1516 Date Transcribed: 12/09/242056 Supervisor Malted Milk: Signed [facility] Other Emergency Department Summary on 12-03-2024 Emergency Department Summary [facility] Medical Records Department [address] [place] [address] Emergency Department Summary 12/03/24 MR#: [id number] Acct: [id number] Name: SHARLENE DEVLIN I Rep #: [id number] : 1960 64 From: Opal RIVAS PCP: [...] mg PO .COMPLEX #12 tabs Unknown Rx hydrocodone-acetami nophen 5-325mg 1 tab PO Q6H PRN PRN [...] Given she (more content not included)... Normal [facility] Culture, Anaerobic Any Sourc rolo 11-28-2024 CUAN Rt Knee No growth in 5 days. Normal [facility] Comment on above: Performed By: #### M 100.2000, L200.0400, L200.4175, M100.4001, M100.2900 #### [facility] [address] [place], [address] Body Fluid Culton 11-27-2024 BFC Rt Knee No growth in 5 days. Normal [facility] Comment on above: Performed By: #### M 100.2000, L200.0400, L200.4175, M100.4001, M100.2900 #### [facility] [address] [place], [address] Crystals, Body Fluidon 11-24 PATH REV Reviewed Normal [facility] Comment on above: Order Comment: Comme nts: Rt Knee Result Comment: ACUT E INFLAMMATION. NON-URATE CRYSTALS PRESENT. Clarissa Ace MD 11/23/2024 AMENDED REPORT 11/24/24 0937 PATH REV previously reported as: Will follow Performed By: #### M 100.2000, L200.0400, L200.4175, M100.4001, M100.2900 #### [facility] [address] [place], [address] Anaerobic cultureOrdered By: Orion Bell on 11-22-2024 Bacteria identified Anaer cx Nom (Unsp spec) No growth in 5 days. [facility] Automated synovial fluid gilberto kocytes count (number/volume)Ordered By: Orion Bell on 11-22-2024 WBC Auto (Syn fld) [#/Vol] 28.5600 10^3/uL High 0.000-0.002 [facility] Automated synovial fluid mon onuclear cell count (number/volume)Ordered By: Orion Bell on 11-22-2024 Mononuclear cells Auto (Syn fld) [#/Vol] 1.161 10^3/ul [facility] Automated synovial fluid vini ymorphonuclear cell count (number/volume)Ordered By: Orion Bell on 11-22-2024 Polymorphonuclear cells Auto (Syn fld) [#/Vol] 28.904 10^3/uL [facility] Automated synovial fluid vnii ymorphonuclear cells as percentage of leukocytesOrdered By: Orion Bell on 11-22-2024 Polymorphonuclear cells/100 WBC Auto (Syn fld) 96.1 % [facility] Blood lymphocytes/100 leukoc ytesOrdered By: Orion Bell on 11-22-2024 Lymphocytes/100 WBC (Bld) 1 % [facility] Body fluid crystal identific ation by light microscopyOrdered By: Orion Bell on 11-22-2024 Crystals LM Nom (Body fld) MONOSODIUM URATE [facility] Comment on above: CRYSTAL RESULT IS PRELIMINARY. SEE PATH REVIEW FOR FINAL REPORT. Determination of appearance of synovial fluid (nominal result)Ordered By: Orion Bell on 11-22-2024 Appearance (Syn fld) Cloudy CLEAR [facility] Emergency Department Summary on 11-22-2024 Emergency Department Summary [facility] Medical Records Department [address] [place] [address] Emergency Department Summary 11/22/24 MR#: [id number] Acct: [id number] Name: SHARLENE DEVLIN I Rep #: [id number] : 1960 63 From: Orion Bell MD [...] Mechanism/Context: No injury and No blunt trauma Onset/Context/Timin g Onset: Days Context: Gradual Onset Timing: Continuous [...] since Friday. Prior similar symptoms: No Recent Illness/Hospitaliza tion: No PFSH PFSH Medical History Mid back pain [...] Psychiatric: Denies anxiety Endocrine Endocrinology: Denies polydipsia Hematologic/Lymphat ic Hematologic/Lymphat ic: Denies easy bleeding, easy bruising or lymphadenopathy Allergic/Immunologi c Allergic/Immunologi c ED: Denies mouth swelling, tongue swelling or [...] Palpation: soft (more content not included)... Normal [facility] Gram Stainon 11-22-2024 GS Rt Knee Centrifuged Specimen? Culture performed on centrifuged specimen Gram Stain No organisms seen No cells seen Normal [facility] Comment on above: Performed By: #### M 100.2000, L200.0400, L200.4175, M100.4001, M100.2900 #### [facility] [address] [place], [address] Gram stainOrdered By: Orion huynh on 11-22-2024 Microscopic observation Gram stain Nom (Unsp spec) [facility] Knee 4 or More Viewson 11-22 Knee 4 or More Views [facility] Imaging Services [address] [place] [address] Knee 4 or More Views MR#: [id number] Acct: [id number] Name: SHARLENE DEVLIN I Rep #: [id number] : 1960 F 63 From: Amaury Sanchez MD PCP: Care Physician,No Primary Status: REG ER Study: Knee 4 or More Views Date of Exam: 11/22/24 Exam# [id number] Ordering Dr: Orion Bell MD PROCEDURE: KNEE [...] change involving the patellofemoral joint. Reading Location: [place] [address] CC: Dr. Orion Bell MD; No Primary Care Physician Supervisor Malted Milk: Signed Normal [facility] Pathologist review of result s (narrative result)Ordered By: Orion Bell on 11-22-2024 Pathologist review Sam (Unsp spec) [Interp] May follow [facility] Review by pathologistOrdered By: Orion Bell on 11-22-2024 Pathologist review Sam (Unsp spec) [Interp] Reviewed [facility] Comment on above: Previous reported re sult: Will follow Edited by: MAIK on 11/24/24:0937ACUTE INFLAMMATION.NON-URATE CRYSTALS PRESENT.Clarissa Ace MD 11/23/2024 AMENDED REPORT 11/24/24 0937 PATH REV previously reported as: Will follow Specimen source identificati on of body fluidOrdered By: Orion Bell on 11-22-2024 Specimen source Nom (Body fld) SYNOVIAL [facility] Specimen source Nom (Body fld) RIGHT KNEE [facility] Synovial Fluid RBC, WBC AND Diffon 11-22-2024 Lymphocytes (Bld) [#/Vol] 1 10*3/uL Normal [facility] Comment on above: Order Comment: Comme nts: Rt Knee Performed By: #### M 100.1999, L200.0400, L200.4175, M100.4001, M100.2900 #### [facility] [address] [place], [address] Monocytes (Bld) [#/Vol] 18 10*3/uL Normal [facility] Comment on above: Order Comment: Comme nts: Rt Knee Performed By: #### M 100.1999, L200.0400, L200.4175, M100.4001, M100.2900 #### [facility] [address] [place], [address] NEUTROPHIL 81 High 0-25 [facility] Comment on above: Order Comment: Comme nts: Rt Knee Performed By: #### M 100.1999, L200.0400, L200.4175, M100.4001, M100.2900 #### [facility] [address] [place], [address] Synovial fluid color determi nation (nominal result)Ordered By: Orion Bell on 11-22-2024 Color (Syn fld) Yellow Pale Yellow [facility] Synovial fluid erythrocytes count (number/volume)Ordered By: Orion Bell on 11-22-2024 RBC (Syn fld) [#/Vol] 160 /mm3 High 0-0 [facility] Synovial fluid monocyte perc entageOrdered By: Orion Bell on 11-22-2024 Monocytes/100 WBC (Syn fld) 18 % [facility] Synovial fluid mononuclear c ells/100 leukocytesOrdered By: Orion Bell on 11-22-2024 Mononuclear cells/100 WBC (Syn fld) 3.9 % [facility] Synovial fluid neutrophil pe rcentageOrdered By: Orion Bell on 11-22-2024 Neutrophils/100 WBC (Syn fld) 81 % High 0-25 [facility] Synovial fluid total cell co untOrdered By: Orion Bell on 11-22-2024 Cells Counted Total (Syn fld) [#] 28.6100 10^3/uL High 0.000-0.000 [facility] Comment on above: This is the Total Nu mber of Nucleated Cell Types in the Body Fluid. Urgent Care Visit Reporton 0 09-27-2024 Urgent Care Visit Report [facility] [address], [address] [place] [address] OFFICE VISIT Date of Service: 09/27/24 MR#: [id number] Acct: [id number] Name: SHARLENE DEVLIN I Rep #: [id number] : 1960 Provider: EVELYN Parker Age/Sex: 63/F Location: [facility] Status: Signed Intake Vital Signs 02/20/22 22:28 [...] has been going on for 8 days. COUNTS INCLUDE 234 BEDS AT THE [facility] Medical History (Updated 03/01/22 @ 00:01 by Mahin Daugherty) Mid back pain on left side Urinary frequency Abdominal pain Social History (Updated 10/06/18 @ 13:58 by EVELYN Abbott) Smoking Status: Current every day smoker tobacco [...] fever, chills, myalgias, fatigue, runny nose, or nausea/vomiting/elida rrhea. No complaints of chest pain/shortness of breath/dyspnea on exertion. No close contacts with similar complaints. Admits to being a tobacco smoker. Declining all POC screening upon offering. No other associated symptoms and no other alleviating/aggrava ting factors. ROS Const Constitutional: No other (as above) Exam Const General: cooperative, healthy appearing and no acute distress Nutritional Appearance: average body habitus Orientation: alert, awake and oriented x3 HENMT Head: normal to inspection Ears: hearing grossly [...] 12 tabs 0RF 09/27/24 1217 Date Vivek Molina Signature: Date (more content not included)... Normal [facility] Absolute lymphocyte counton 02-20-2022 Lymphocytes Auto (Unsp spec) [#/Vol] 2.83 10*3/uL 0.83-4.51 [facility] Work Phone: Basophil percentageon 2021 Basophil percentage 0 SEEN /hpf 0-5 [facility] Work Phone: [phone] Basophils/100 WBC (Bld) 0.7 % 0-1 [facility] Work Phone: Chloride [Moles/Vol] 101 mmol/L 98-107 [facility] Work Phone: Eosinophils/100 WBC (Bld) 3.5 % 0-5 [facility] Work Phone: Glucose [Mass/Vol] 119 mg/dL 74-106 [facility] Work Phone: Comment on above: Fasting Glucose resu lt from 100 to 125 mg/dL suggests IMPAIRED HOMEOSTASIS per A.D.A. criteria. Neutrophils (Bld) [#/Vol] 3.1 10*3/uL 2.0-7.7 [facility] Work Phone: Neutrophils/100 WBC (Bld) 44.9 % 47-70 [facility] Work Phone: Potassium [Moles/Vol] 3.4 mmol/L 3.5-5.1 [facility] Work Phone: [phone] Sodium [Moles/Vol] 135 mmol/L 136-145 [facility] Work Phone: WBC (Bld) [#/Vol] 7.0 10*3/uL 4.4-11.0 [facility] Work Phone: Basophil percentage 0 SEEN /hpf 0-5 [facility] Work Phone: Bilirubin Test strip Ql (U)o n 02-20-2022 Bilirubin Ql (U) Negative Negative [facility] Work Phone: Bilirubin Ql (U) Negative Negative [facility] Work Phone: Blood erythrocytes count (nu mber/volume)on 02-20-2022 RBC (Bld) [#/Vol] 4.19 10*6/uL 4.2-5.4 [facility] Work Phone: Blood hemoglobin measurement (mass/volume)on 02-20-2022 Hemoglobin (Bld) [Mass/Vol] 14.5 g/dL 12.0-15.0 [facility] Work Phone: Blood lymphocytes/100 leukoc yteson 02-20-2022 Lymphocytes/100 WBC (Bld) 40.7 % 19-41 [facility] Work Phone: Blood monocytes/100 leukocyt eson 02-20-2022 Monocytes/100 WBC (Bld) 9.5 % 0-10 [facility] Work Phone: Blood platelet mean volumeon 02-20-2022 Platelet mean volume (Bld) [Entitic vol] 9.9 fL 6.2-12.0 [facility] Work Phone: Determination of erythrocyte mean corpuscular volume (MCV)on 02-20-2022 MCV (RBC) [Entitic vol] 99.3 fL 81-99 [facility] Work Phone: Hematocrit Auto (Bld) [Volum e fraction]on 02-20-2022 Hematocrit (Bld) [Volume fraction] 41.6 % 37-47 [facility] Work Phone: Ketones Test strip Ql (U)on 02-20-2022 Ketones Ql (U) Negative Negative [facility] Work Phone: Ketones Ql (U) 5 mg/dl Negative [facility] Work Phone: Laboratory - Chemistry and C hemistry - challengeon 02-20-2022 CO2 [Moles/Vol] 28.0 mmol/L 21.0-32.0 [facility] Work Phone: Urea nitrogen/Creatinine [Mass ratio] 13.3 mg/mg 10-20 [facility] Work Phone: Bilirubin Ql (U) Negative [facility] Work Phone: Glucose Ql (U) Negative [facility] Work Phone: [phone] Ketones Ql (U) Small (15+) [facility] Work Phone: pH (U) 6.0 [pH] [facility] Work Phone: Specific gravity (U) [Rel density] 1.005 [facility] Work Phone: Urobilinogen (U) [Mass/Vol] Negative [facility] Work Phone: Laboratory - Hematology and Cell countson 02-20-2022 Erythrocyte distribution width (RBC) [Entitic vol] 46.4 fL 35.1-43.9 [facility] Work Phone: Erythrocyte distribution width (RBC) [Ratio] 12.7 % 11.6-14.6 [facility] Work Phone: Immature granulocytes/100 WBC (Bld) 0.700 % 0.0-0.9 [facility] Work Phone: [phone] Comment on above: IG% - Immature Granu locytes (promyelocytes, myelocytes and metamyelocytes) > 1% indicates that a LEFT SHIFT is Present. MCH (RBC) [Entitic mass] 34.6 pg 27.0-32.0 [facility] Work Phone: Nucleated RBC/100 WBC (Bld) [Ratio] 0 % 0-5 [facility] Work Phone: Hemoglobin Ql (U) Negative [facility] Work Phone: Laboratory - Specimen inform ationon 02-20-2022 Clarity (U) Clear [facility] Work Phone: Color (U) STRAW [facility] Work Phone: Laboratory - Urinalysison Nitrite Ql (U) Negative [facility] Work Phone: Protein Ql (U) Negative [facility] Work Phone: MCHC Auto (RBC) [Mass/Vol]on 02-20-2022 MCHC (RBC) [Mass/Vol] 34.9 g/dL 32-36 [facility] Work Phone: Mucus LM Ql (Urine sed)on Mucus Ql (Urine sed) 0 SEEN /hpf [facility] Work Phone: Mucus Ql (Urine sed) 0 SEEN /hpf [facility] Work Phone: Nitrite Test strip Ql (U)on 02-20-2022 Nitrite Ql (U) Negative Negative [facility] Work Phone: Nitrite Ql (U) Negative Negative [facility] Work Phone: No Panel Informationon 02-20 Estimated Creatinine Clearance Calc 71.87 ml/min [facility] Work Phone: Estimated GFR (MDRD) Amer 114 mL/min >60 [facility] Work Phone: Comment on above: GFR Calc Estimated GFR (MDRD) Non-Af Amer 94 mL/min >60 [facility] Work Phone: Comment on above: Non- GFR Calc Urine Leukocytes Negatve [facility] Work Phone: Urine Non-Hemolyzed Blood Negative [facility] Work Phone: Platelets bldon 02-20-2022 Platelets (Bld) [#/Vol] 230 10*3/uL 150-450 [facility] Work Phone: Protein Test strip Ql (U)on 02-20-2022 Protein Ql (U) Negative Negative [facility] Work Phone: Protein Ql (U) Negative Negative [facility] Work Phone: Serum or plasma calcium anayeli urement (mass/volume)on 02-20-2022 Calcium [Mass/Vol] 9.5 mg/dL 8.5-10.1 [facility] Work Phone: Serum or plasma creatinine m easurement (mass/volume)on 02-20-2022 Creatinine [Mass/Vol] 0.68 mg/dL 0.55-1.02 [facility] Work Phone: Comment on above: The validity of the calculated GFR & GFRAA in patients over 70 years has not been determined. Clinical correlation is essential. Serum or plasma urea nitroge n measurement (mass/volume)on 02-20-2022 Urea nitrogen [Mass/Vol] 9 mg/dL 7-18 [facility] Work Phone: Squamous epithelial cells de tection in urine sediment by light microscopyon 02-20-2022 Epithelial cells.squamous LM Ql (Urine sed) 0-5 SEEN /hpf 5-10 [facility] Work Phone: Epithelial cells.squamous LM Ql (Urine sed) 0 SEEN /hpf 5-10 [facility] Work Phone: Thin prep Papanicolaou smear with manual screeningon 02-20-2022 Thin prep Papanicolaou smear with manual screening 6 5-15 [facility] Work Phone: Urine blood detectionon 01-23 RBC Ql (U) 10 /ul Negative [facility] Work Phone: RBC Ql (U) 0-5 SEEN /hpf 0-5 [facility] Work Phone: RBC Ql (U) Negative Negative [facility] Work Phone: RBC Ql (U) 0 SEEN /hpf 0-5 [facility] Work Phone: Urine clarityon 02-20-2022 Clarity (U) Clear Clear [facility] Work Phone: Clarity (U) Clear Clear [facility] Work Phone: Urine color determinationon 02-20-2022 Color (U) Straw Yellow [facility] Work Phone: Color (U) Yellow Yellow [facility] Work Phone: Urine glucose detectionon Glucose Ql (U) Normal mg/dl Normal [facility] Work Phone: Glucose Ql (U) Normal mg/dl Normal [facility] Work Phone: Urine leukocyte esterase det ection by dipstickon 02-20-2022 Leukocyte esterase Test strip Ql (U) Negative Negative [facility] Work Phone: Leukocyte esterase Test strip Ql (U) Negative Negative [facility] Work Phone: Urine pHon 02-20-2022 pH (U) 6.0 [pH] 5.0 - 8.0 [facility] Work Phone: pH (U) 6.5 [pH] 5.0 - 8.0 [facility] Work Phone: Urine sediment bacteria coun t by microscopy (number/high power field)on 02-20-2022 Bacteria LM.HPF (Urine sed) [#/Area] 0 /[HPF] None Seen [facility] Work Phone: Bacteria LM.HPF (Urine sed) [#/Area] 0 /[HPF] None Seen [facility] Work Phone: Urine specific gravity measu rementon 02-20-2022 Specific gravity (U) [Rel density] 1.010 1.002-1.030 [facility] Work Phone: Specific gravity (U) [Rel density] 1.005 1.002-1.030 [facility] [facility] Work Phone: Urobilinogen Auto test strip Ql (U)on 02-20-2022 Urobilinogen Ql (U) Normal mg/dl Normal [facility] Work Phone: Urobilinogen Ql (U) Normal mg/dl Normal [facility] Work Phone: CNCOon 09-01-2020 CNCO Letter Text Normal [facility] Culture, urine Bacteria identified Cx Nom (U) Positive [facility] Work Phone: Vital Signs Date Time Vital Sign Value Performing Clinician Nik ann 12-14-2024 12:22-0400 Body temperature 98.1 [degF] No Primary Care Physician [facility] 12-14-2024 12:22-0400 Diastolic blood pressure 78 mm[Hg] No Primary Care Physician [facility] 12-14-2024 12:22-0400 Heart rate 83 /min No Primary Care Physician [facility] 12-14-2024 12:22-0400 Respiratory rate 18 /min No Primary Care Physician [facility] 12-14-2024 12:22-0400 SaO2% (BldA) [Mass fraction] 96 % No Primary Care Physician [facility] 12-14-2024 12:22-0400 Systolic blood pressure 129 mm[Hg] No Primary Care Physician [facility] 12-13-2024 07:27-0400 Body temperature 97.5 [degF] No Primary Care Physician [facility] 12-13-2024 07:27-0400 Diastolic blood pressure 79 mm[Hg] No Primary Care Physician [facility] 12-13-2024 07:27-0400 Heart rate 85 /min No Primary Care Physician [facility] 12-13-2024 07:27-0400 Respiratory rate 16 /min No Primary Care Physician [facility] 12-13-2024 07:27-0400 SaO2% (BldA) [Mass fraction] 94 % No Primary Care Physician [facility] 12-13-2024 07:27-0400 Systolic blood pressure 117 mm[Hg] No Primary Care Physician [facility] 12-11-2024 04:57-0400 Inhaled oxygen flow rate 2 L/min No Primary Care Physician [facility] 12-10-2024 16:49-0400 Body height 160.02 cm No Primary Care Physician [facility] 12-10-2024 16:49-0400 Body mass index (BMI) [Ratio] 28.3 kg/m2 No Primary Care Physician [facility] 12-10-2024 16:49-0400 Body weight 72.57 kg No Primary Care Physician [facility] 12-03-2024 16:03-0400 Body temperature 98 [degF] No Primary Care Physician [facility] 12-03-2024 16:03-0400 Diastolic blood pressure 73 mm[Hg] No Primary Care Physician [facility] 12-03-2024 16:03-0400 Heart rate 75 /min No Primary Care Physician [facility] 12-03-2024 16:03-0400 Respiratory rate 18 /min No Primary Care Physician [facility] 12-03-2024 16:03-0400 SaO2% (BldA) [Mass fraction] 100 % No Primary Care Physician [facility] 12-03-2024 16:03-0400 Systolic blood pressure 119 mm[Hg] No Primary Care Physician [facility] 12-03-2024 12:49-0400 Body height 160.02 cm No Primary Care Physician [facility] 12-03-2024 12:49-0400 Body mass index (BMI) [Ratio] 28.3 kg/m2 No Primary Care Physician [facility] 12-03-2024 12:49-0400 Body weight 72.57 kg No Primary Care Physician [facility] 11-22-2024 10:22-0400 Body temperature 98 [degF] No Primary Care Physician [facility] 11-22-2024 10:22-0400 Diastolic blood pressure 77 mm[Hg] No Primary Care Physician [facility] 11-22-2024 10:22-0400 Heart rate 79 /min No Primary Care Physician [facility] 11-22-2024 10:22-0400 Respiratory rate 19 /min No Primary Care Physician [facility] 11-22-2024 10:22-0400 SaO2% (BldA) [Mass fraction] 97 % No Primary Care Physician [facility] 11-22-2024 10:22-0400 Systolic blood pressure 140 mm[Hg] No Primary Care Physician [facility] 11-22-2024 09:04-0400 Body mass index (BMI) [Ratio] 29.6 kg/m2 No Primary Care Physician [facility] 11-22-2024 09:04-0400 Body weight 75.8 kg No Primary Care Physician [facility] 11-22-2024 09:01-0400 Body height 160.02 cm No Primary Care Physician [facility] 09-27-2024 11:38-0400 Body temperature 98.4 [degF] No Primary Care Physician [facility] 09-27-2024 11:38-0400 Diastolic blood pressure 80 mm[Hg] No Primary Care Physician [facility] 09-27-2024 11:38-0400 Heart rate 104 /min No Primary Care Physician [facility] 09-27-2024 11:38-0400 SaO2% (BldA) [Mass fraction] 96 % No Primary Care Physician [facility] 09-27-2024 11:38-0400 Systolic blood pressure 122 mm[Hg] No Primary Care Physician [facility] 02-21-2022 01:01-0400 Heart rate 78 /min No Primary Care Physician [facility] Work Phone: 02-21-2022 01:01-0400 Respiratory rate 18 /min No Primary Care Physician [facility] Work Phone: 02-21-2022 01:01-0400 SaO2% (BldA) [Mass fraction] 97 % No Primary Care Physician [facility] Work Phone: 02-20-2022 22:28-0400 Body height 160.02 cm No Primary Care Physician [facility] Work Phone: 02-20-2022 22:28-0400 Body mass index (BMI) [Ratio] 29.2 kg/m2 No Primary Care Physician [facility] Work Phone: 02-20-2022 22:28-0400 Body temperature 96.6 [degF] No Primary Care Physician [facility] Work Phone: 02-20-2022 22:28-0400 Body weight 74.9 kg No Primary Care Physician [facility] Work Phone: 02-20-2022 22:28-0400 Diastolic blood pressure 89 mm[Hg] No Primary Care Physician [facility] Work Phone: 02-20-2022 22:28-0400 Systolic blood pressure 167 mm[Hg] No Primary Care Physician [facility] Work Phone: 02-20-2022 08:48-0400 Body temperature 98.4 [degF] No Primary Care Physician [facility] Work Phone: 02-20-2022 08:48-0400 Diastolic blood pressure 74 mm[Hg] No Primary Care Physician [facility] Work Phone: 02-20-2022 08:48-0400 Heart rate 98 /min No Primary Care Physician [facility] Work Phone: 02-20-2022 08:48-0400 Respiratory rate 14 /min No Primary Care Physician [facility] Work Phone: 02-20-2022 08:48-0400 SaO2% (BldA) [Mass fraction] 98 % No Primary Care Physician [facility] Work Phone: 02-20-2022 08:48-0400 Systolic blood pressure 122 mm[Hg] No Primary Care Physician [facility] Work Phone: Encounters Encounter Date Encounter Type Care Provider Facility Start: 12-20-2024 ambulatory No Primary Car e Physician Facility:[facility] Start: 12-10-2024 End: 12-14-2024 Evaluation and management of inpatient Dr. Sundeep Mccormick DO -Medical Surgical 3 Work Phone: Start: 12-10-2024 ambulatory SUNDEEP MCCORMICK DO Fac ility:[facility] Start: 12-09-2024 End: 12-09-2024 ambulatory No Primary Care Physician [facility] Work Phone: Start: 12-09-2024 End: 12-09-[address] 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 [employer] Fa cility:[facility] Start: 12-03-2024 End: 12-03-2024 Emergency department patient visit No Primary Care Physician -Emergency Department Work Phone: Start: 11-22-2024 End: 11-22-2024 Emergency department patient visit No Primary Care Physician -Emergency Department Work Phone: Start: 09-27-2024 End: 09-27-2024 Patient encounter procedure Vivek RIVAS [facility] Work Phone: Start: 09-27-2024 End: 09-27-2024 ambulatory Vivek RIVAS Facility:[facility] Start: 02-20-2022 End: 02-21-2022 Emergency department patient visit No Primary Care Physician [facility]-Emergency Department Start: 02-20-2022 End: 02-20-2022 ambulatory No Primary Care Physician [facility] Work Phone: Start: 02-20-2022 End: 02-20-2022 Patient encounter procedure No Primary Care Physician [facility]-Laboratory, Specimen Start: 02-20-2022 End: 02-20-2022 Patient encounter procedure No Primary Care Physician [facility] Procedures Date Procedure Procedure Detail Performing Clinician Start: 12-13-2024 Estimated creatinine clearance No Primary Care Physician Start: 12-10-2024 Arthroscopy of knee No Primary Care Physician Start: 12-09-2024 Anaerobic microbial culture No Primary Care Physician Start: 12-09-2024 Gram stain microscopy N o Primary Care Physician Start: 12-09-2024 End: 12-09-2024 Microbial culture, body fluid No Primary Care Physician Start: 11-22-2024 Anaerobic microbial culture No Primary [...] Treatment Date Care Activity Detail Author Start: 12-14-2024 Patient discharge [facility] Start: 12-13-2024 Bacteria identified in Blood by Culture Blood Culture [facility] Start: 12-13-2024 [facility] Start: 12-13-2024 End: 12-13-2024 [facility] Start: 12-12-2024 [facility] Start: 12-10-2024 Oxygen therapy [facility] Start: 12-10-2024 Application of intermittent pneumatic compression device [facility] Start: 12-10-2024 Following clinical pathway protocol [facility] Start: 12-10-2024 Consultation [facility] Start: 12-10-2024 Referral to occupational therapist [facility] Start: 12-10-2024 [facility] Start: 12-10-2024 Admission procedure [facility] Start: 12-10-2024 Application of ice collar, cap or bag [facility] Start: 12-10-2024 Assessment of risk of venous thromboembolism [facility] Start: 12-10-2024 Catheterization of vein [facility] Start: 12-10-2024 Elevation of affected extremity [facility] Start: 12-10-2024 Following clinical pathway protocol [facility] Start: 12-10-2024 Introduction of urinary catheter [facility] Start: 12-10-2024 Provision of activity privileges [facility] Start: 12-10-2024 Vital signs measurements [facility] Start: 12-10-2024 [facility] Start: 12-10-2024 Verification routine [facility] Start: 12-09-2024 Cell count misc body fluids w/differential count BODY FLUID CELL COUNT [facility] Start: 12-09-2024 Cell count miscellaneous body fluids BODY FLUID CELL COUNT [facility] Start: 12-09-2024 Crystal id light microscopy michelle tiss/any fluid EXAM SYNOVIAL FLUID CRYSTALS [facility] Start: 12-09-2024 Cul bact aerobic addl meths definitive ea isol CULTURE AEROBIC IDENTIFY [facility] Start: 12-09-2024 Cul bact xcpt urine blood/stool aerobic isol CULTURE OTHR SPECIMN AEROBIC [facility] Start: 12-09-2024 Culture bacterial any source anaerobic iso&id CULTR BACTERIA EXCEPT BLOOD [facility] Start: 12-09-2024 Dup-scan xtr veins unilateral/limited study EXTREMITY STUDY [facility] Start: 12-09-2024 Smr prim src gram/giemsa stain bct fungi/cell SMEAR GRAM STAIN [facility] Start: 12-09-2024 Susceptiblty stdy antimicrbial micro/agar dilutj MICROBE SUSCEPTIBLE PRASHANT [facility] Start: 12-03-2024 [facility] Start: 11-22-2024 Anaerobic Culture Anaerobic Culture [facility] Start: 11-22-2024 Body Fluid Culture Body Fluid Culture [facility] Start: 11-22-2024 Microscopic observation [Identifier] in Unspecified specimen by Gram stain Gram Stain [facility] Start: 11-22-2024 [facility] Start: 11-22-2024 Microbial culture, body fluid [facility] Start: 02-20-2022 Culture bacterial quanttative colony count urine URINE CULTURE/COLONY COUNT [facility] Work Phone: Start: 02-20-2022 Urnls dip stick/tablet reagent auto microscopy URINALYSIS AUTO W/SCOPE [facility] Work Phone: Start: 02-20-2022 [facility] Work Phone: Bacteria identified in Body fluid by Culture [facility] Bacteria identified in Unspecified specimen by Anaerobe culture [facility] Bacteria identified in Urine by Culture Urine Culture [facility] Work Phone: Cell count of synovi al fluid [facility] Crystals [type] in B miguelito fluid by Light microscopy [facility] Microscopic observat ion [Identifier] in Unspecified specimen by Gram stain [facility] Pathologist review o f results [facility] Patient Education [facility] Work Phone: Patient referral [facility] Work Phone: Red blood cell count [facility] Specimen processing [facility] Synovial fluid examination [facility] White blood cell count [facility] Payers Date Payer Category Payer Self-pay [id number] 2007 Unknown [id number] 1960 Unknown [id number] [id number] 1960 Unknown [id number] 2.16. [id number] Self-pay SELF PAY INSURANCE [id number] Unknown [facility] [id number] Unknown [id number] 2.16.8 [id number] Unknown [id number] 2.16.8 [id number] Unknown [id number] 2.16.8 [id number] Unknown [id number] 2.16.8 [id number] Unknown [id number] 2.16.8 [id number] Unknown [id number] 2.16.8 [id number] Social History Date Type Detail Facility Start: 02-20-2022 Tobacco smoking status NHIS Unknown if ever smoked [facility] Work Phone: Start: 02-20-2022 Occasional [facility] Start: 02-20-2022 None [facility] Start: 02-20-2022 Cigarettes [facility] Start: 1960 Sex Assigned At Female [facility] Start: 11-22-2024 End: 12-10-2024 Tobacco smoking status NHIS Smokes tobacco daily (finding) [facility] NEGATED: Highlighted row Not [facility] Goals Date Patient Goal Desired Activity /State Functional Status Date Assessment Result Facility 12-14-2024 Functional status Ambulates;Stephen r;Bathroom Privilege [facility] Work Phone: 12-13-2024 Functional status Ambulates [facility] Work Phone: Mental Status Date Assessment Result Facility 12-14-2024 Cognitive function Voice/Name [facility] Work Phone: 12-13-2024 Cognitive function Voice/Name [facility] Work Phone: 12-12-2024 Cognitive function Appropriate;Cooperativ e [facility] Work Phone: Clinical Notes 08-15-2020 to 12-14-2024 Note Date & Type Note Facility 12-14-2024 Hospital Discharg e instructions Additional Instructions Date of Discharge: 12/14/24 [facility] Work Phone: 12-14-2024 Discharge summary Note Date/Time December 14, 2024 12:23pm [facility] Medical Records Department [address] [place] [address] Discharge Summary 12/14/24 1154 MR#: [id number] Acct: [id number] Name: SHARLENE DEVLIN Rep #:[id number] : 1960 64 From: Sandhya RIVAS PCP: Care Physician,No Primary Status :[id number] Prov[facility] Date of Admission: 12/10/24 Date of Discharge: 12/14/24 Primary Care Physician: No Primary Care Phys Consultations 12/10/24 15:01 Consult: Infectious Disease Routine Consulting Provider: Raghav Gabriel Reason for Consult: Right knee septic arthritis EMERGENT Consult: No MD Notified: Yes Date Notified: 12/10/24 Time Notified: 15:01 Method of Notification: Text Diagnosis Discharge Diagnosis (1) Septic arthritis of knee, right: Status: Acute Code(s): M00.9 - Pyogenic arthritis, unspecified Qualifiers: Septic arthritis organism: staphylococcal Qualified Code(s): M00.061 - Staphylococcal arthritis, right knee Plan Status post irrigation debridement with right knee arthroscopy for concern for septic knee with Dr. Mccormick 12/10/2024 1. Will continue PT today range of motion weightbearing as tolerated 2. plan for discharge this afternoon following PT 3. Patient will follow up in 2 weeks with post orthopedics. This will need to be arranged. 4. Patient will need to schedule for outpatient PT upon discharge to begin in the next few days. 5. WBC 5.5 6. H/H 11.0/32.5: Stable from yesterday's labs. 7. DVT prophylaxis : Xarelto 10 mg once daily x 2 weeks followed by aspirin 81 mg twice daily x 2 weeks 8. Pain control: patient instructed to take tylenol 500mg 2 tablets TID. and oxycodone 1-2 tablets every 4-6 hours only as needed for pain control. Patient also given a prescription 1 month of gabapentin 300 mg 3 times a day as well as tizanidine every 8 hours on as-needed basis. Patient has Celebrex at home. Sheis to continue this as needed after xarelto is completed. 9. Patient also given a prescription of senna for constipation 10. ok to remove post op dressing. post op day 5 11. PICC line was placed . Infectious disease consulted. Per recommendations : initial aspiration showed (+) crystals on 11/22/24. Repeat 12/09/24 with MSSA. Will order picc and 3 weeks iv cefazolin with weekly labs, ID followup in 2 weeks. 12. Patient currently has a follow-up with the infusion center as well as she will follow-up with infectious disease as recommended. 13. Patient cleared from infectious disease standpoint for discharge home. Patient is stable orthopedically cleared for discharge home. Medications at Discharge Home Medications celecoxib 200 mg capsule 200 mg PO BID 12/10/24 cefazolin 2 gram intravenous solution 2 g IV Q8H 21 days 12/13/24 acetaminophen 500 mg tablet 1,000 mg (2 x 500 mg) PO Q8 #180 tabs 12/14/24 gabapentin 300 mg capsule 300 mg PO TIDCM #90 caps 12/14/24 oxycodone 5 mg tablet 10 mg (2 x 5 mg) PO .q4-6hrs prn PRN Pain Score 6-10 7 days #30 tabs 12/14/24 rivaroxaban 10 mg tablet (Xarelto) 10 mg PO DAILY@0600 #14 tabs 12/14/24 sennosides 8.6 mg-docusate sodium 50 mg tablet (Stimulant Laxative Plus) 1 tab PO BID #30 tabs 12/14/24 tizanidine 2 mg tablet 4 mg (2 x 2 mg) PO Q8H PRN PRN spasm #20 tabs 12/14/24 Hospital Course Operations - (Irrigation debridement right knee arthroscopy for concern for septic arthritis.) Summary of Care Provided Hospital Course: Patient is 4 days s/p right knee arthroscopic irrigation debridement with Dr. Mccormick 12/10/2024. Concern for septic knee. Initial aspiration was concern forcrystals and then had a positive staph culture which prompted irrigation debridement. Patient is being followed by infectious disease who is recommending a PICC line and cefazolin x 3 weeks. Patient resting comfortable in bed has been up with physical therapy working on range of motion. She is currently weightbearing as tolerated. She did get a PICC line placed 12/13/2024. Patient will follow-up with infusion center as well as infectious disease. Orthopedically stable for today. Pain has been well-controlled. Physical Exam Narrative Patient resting comfortably in bed No signs of acute distress Satting well on room air Limb is warm to touch, moderate edema. mnoico wrap in place. Sensation intact throughout entire lower extremity, including saphenous, sural, superficial and deep peroneal, and tibial distribution. DP/PT pulses bounding. Dorsiflexion plantarflexion strength 5/[address]. Incision clear dry intact. Calf nontender to palpation, no erythema, no edema. Negative Homans Weight / BMI Weight Weight: 72.575 kg Body Mass Index (BMI) 28.3 ABG / Lab / Microbiology Data 12/13/24 03:42 12/13/24 03:42 D/C Instructions Discharge Diet: No restrictions Discharge Activity: May Shower (only in 2 days) Weight Bearing Status: Weight bearing as tolerated and Full weight bearing Call your doctor if your incision/area has: Continuous Slow Oozing, Sudden Increased Bleeding, Increased Pain/ Swelling, Increased Redness, Foul Smelling Discharge and Swelling at the incision site Call your doctor if you observe: Fever of 101 or Higher, Inability to urinate, Inability to have a bowel movement, Using more than 1 pad per hour, Shortness ofbreath, Dizziness, Swelling in the ankles, Chest pain, Increased palpitations (irregular heartbeat), Calf discomfort and Uncontrolled pain Remove Dressing in: 5 days Cleanse incision/area with: Soap & Water and Keep Dressing Clean & Dry DC O2, CPAP, BIPAP Needs Home O2 Discharge instructions: No DC home with Oxygen: No When: [facility] in 2 weeks. this will need to be arranged. Meaningful Use Info Meaningful Use Meaningful Use Diagnoses (Choose all that apply): None applicable Ischemic Stroke Statin Dosing Therapy Reference: STATIN DOSE THERAPY REFERENCE: * Patients > 75 years receive moderate or high dose statin therapy. * Patients 75 years or YOUNGER should receive HIGH intensity statin dose unless contraindicated. You will be required to document reason for non-treatment if statin daily dose does not meet guidelines. HIGH DOSE STATIN THERAPY DAILY Atorvastatin > than or = to 40 mg Rosuvastatin > than or = to 20 mg Amlodipine + Atorvastatin > than or = to 2.5/40 mg Ezetimibe + Simvastatin 10/80 mg Simvastatin 80mg Discharge Plan Admission Admit Date/Time: 12/10/24 14:56 Attending Provider: Sundeep Mccormick Primary Care Provider: Care Physician,No Primary Consulting Providers: Raghav Gabriel Discharge Orders/Prescriptions Prescriptions: New cefazolin 2 gram recon soln 2 g IV Q8H 21 Days Rx Instructions: stop date 01/03/25. Dx: mSSA septic arthritis. Weekly bmp, cbc, and esr. Fax to [phone]. Routine picc care per protocol. acetaminophen 500 mg Tablet 1,000 mg PO Q8 Qty: 180 0RF gabapentin 300 mg Capsule 300 mg PO TIDCM Qty: 90 0RF Xarelto 10 mg Tablet 10 mg PO DAILY@0600 Qty: 14 0RF sennosides-docusate sodium [Stimulant Laxative Plus] 8.6-50 mg Tablet 1 tab PO BID Qty: 30 0RF tizanidine 2 mg Tablet 4 mg PO Q8H PRN PRN (Reason: spasm) Qty: 20 0RF oxycodone 5 mg Tablet 10 mg PO .q4-6hrs prn PRN (Reason: Pain Score 6-10) 7 Days Qty: 30 0RF Continued celecoxib 200 mg capsule 200 mg PO BID Discontinued acetaminophen [Tylenol Arthritis Pain] 650 mg tablet extended release 650 mg PO Q8H PRN (Reason: pain) Referrals / Follow Up: Care Physician,No Primary [Primary Care Provider] - Disposition Disposition (needs filled in before D/C Order can be placed): Home, Self Care 12/14/24 1223 <Electronically signed by Sandhya RIVAS> Cosigner Signature (if applicable): CC: EVELYN Jefferson; No Primary Care Physician~ Signed [facility] Work Phone: [phone]) 474-188506-24-2025 Discharge summary [facility] Medical Records Department [address] [place] [address] Discharge Summary 12/14/24 1154 MR#: [id number] Acct: [id number] Name: SHARLENE DEVLIN Rep #:[id number] : 1960 64 From: Sandhya RIVAS PCP: Care Physician,No Primary Status :ADM IN [id number] Prov[facility] Date of Admission: 12/10/24 Date of Discharge: 12/14/24 Primary Care Physician: No Primary Care Phys Consultations 12/10/24 15:01 Consult: Infectious Disease Routine Consulting Provider: Raghav Gabriel Reason for Consult: Right knee septic arthritis EMERGENT Consult: No MD Notified: Yes Date Notified: 12/10/24 Time Notified: 15:01 Method of Notification: Text Diagnosis Discharge Diagnosis (1) Septic arthritis of knee, right: Status: Acute Code(s): M00.9 - Pyogenic arthritis, unspecified Qualifiers: Septic arthritis organism: staphylococcal Qualified Code(s): M00.061 - Staphylococcal arthritis, right knee Plan Status post irrigation debridement with right knee arthroscopy for concern for septic knee with 12/10/2024 1. Will continue PT today range of motion weightbearing as tolerated 2. plan for discharge this afternoon following PT 3. Patient will follow up in 2 weeks with post orthopedics. This will need to be arranged. 4. Patient will need to schedule for outpatient PT upon discharge to begin in the next few days. 5. WBC 5.5 6. H/H 11.0/32.5: Stable from yesterday's labs. 7. DVT prophylaxis : Xarelto 10 mg once daily x 2 weeks followed by aspirin 81 mg twice daily x 2 weeks 8. Pain control: patient instructed to take tylenol 500mg 2 tablets TID. and oxycodone 1-2 tablets every 4-6 hours only as needed for pain control. Patient also given a prescription 1 month of gabapentin 300 mg 3 times a day as well as tizanidine every 8 hours on as-needed basis. Patient has Celebrex at home. Sheis to continue this as needed after xarelto is completed. 9. Patient also given a prescription of senna for constipation 10. ok to remove post op dressing. post op day 5 11. PICC line was placed . Infectious disease consulted. Per recommendations : initial aspiration showed (+) crystals on 11/22/24. Repeat 12/09/24 with MSSA. Will order picc and 3 weeks iv cefazolin with weekly labs, ID followup in 2 weeks. 12. Patient currently has a follow-up with the infusion center as well as she will follow-up with infectious disease as recommended. 13. Patient cleared from infectious disease standpoint for discharge home. Patient is stable orthopedically cleared for discharge home. Medications at Discharge Home Medications celecoxib 200 mg capsule 200 mg PO BID 12/10/24 cefazolin 2 gram intravenous solution 2 g IV Q8H 21 days 12/13/24 acetaminophen 500 mg tablet 1,000 mg (2 x 500 mg) PO Q8 #180 tabs 12/14/24 gabapentin 300 mg capsule 300 mg PO TIDCM #90 caps 12/14/24 oxycodone 5 mg tablet 10 mg (2 x 5 mg) PO .q4-6hrs prn PRN Pain Score 6-10 7 days #30 tabs 12/14/24 rivaroxaban 10 mg tablet (Xarelto) 10 mg PO DAILY@0600 #14 tabs 12/14/24 sennosides 8.6 mg-docusate sodium 50 mg tablet (Stimulant Laxative Plus) 1 tab PO BID #30 tabs 12/14/24 tizanidine 2 mg tablet 4 mg (2 x 2 mg) PO Q8H PRN PRN spasm #20 tabs 12/14/24 Hospital Course Operations - (Irrigation debridement right knee arthroscopy for concern for septic arthritis.) Summary of Care Provided Hospital Course: Patient is 4 days s/p right knee arthroscopic irrigation debridement with Dr. Mccormick 12/10/2024. Concern for septic knee. Initial aspiration was concern forcrystals and then had a positive staph culture which prompted irrigation debridement. Patient is being followed by infectious disease who is recommending a PICC line and cefazolin x 3 weeks. Patient resting comfortable in bed has been up with physical therapy working on range of motion. She is currently weightbearing as tolerated. She did get a PICC line placed 12/13/2024. Patient will follow-up with infusion center as well as infectious disease. Orthopedically stable for today. Pain has been well-controlled. Physical Exam Narrative Patient resting comfortably in bed No signs of acute distress Satting well on room air Limb is warm to touch, moderate edema. monico wrap in place. Sensation intact throughout entire lower extremity, including saphenous, sural, superficial and deep peroneal, and tibial distribution. DP/PT pulses bounding. Dorsiflexion plantarflexion strength 5/[address] Incision clear dry intact. Calf nontender to palpation, no erythema, no edema. Negative Homans Weight / BMI Weight Weight: 72.575 kg Body Mass Index (BMI) 28.3 ABG / Lab / Microbiology Data 12/13/24 03:42 12/13/24 03:42 D/C Instructions Discharge Diet: No restrictions Discharge Activity: May Shower (only in 2 days) Weight Bearing Status: Weight bearing as tolerated and Full weight bearing Call your doctor if your incision/area has: Continuous Slow Oozing, Sudden Increased Bleeding, Increased Pain/ Swelling, Increased Redness, Foul Smelling Discharge and Swelling at the incision site Call your doctor if you observe: Fever of 101 or Higher, Inability to urinate, Inability to have a bowel movement, Using more than 1 pad per hour, Shortness ofbreath, Dizziness, Swelling in the ankles, Chest pain, Increased palpitations (irregular heartbeat), Calf discomfort and Uncontrolled pain Remove Dressing in: 5 days Cleanse incision/area with: Soap & Water and Keep Dressing Clean & Dry DC O2, CPAP, BIPAP Needs Home O2 Discharge instructions: No DC home with Oxygen: No When: [facility] in 2 weeks. this will need to be arranged. Meaningful Use Info Meaningful Use Meaningful Use Diagnoses (Choose all that apply): None applicable Ischemic Stroke Statin Dosing Therapy Reference: STATIN DOSE THERAPY REFERENCE: * Patients > 75 years receive moderate or high dose statin therapy. * Patients 75 years or YOUNGER should receive HIGH intensity statin dose unless contraindicated. You will be required to document reason for non-treatment if statin daily dose does not meet guidelines. HIGH DOSE STATIN THERAPY DAILY Atorvastatin > than or = to 40 mg Rosuvastatin > than or = to 20 mg Amlodipine + Atorvastatin > than or = to 2.5/40 mg Ezetimibe + Simvastatin 10/80 mg Simvastatin 80mg Discharge Plan Admission Admit Date/Time: 12/10/24 14:56 Attending Provider: Sundeep Mccormick Primary Care Provider: Care Physician,No Primary Consulting Providers: Raghav Gabriel Discharge Orders/Prescriptions Prescriptions: New cefazolin 2 gram recon soln 2 g IV Q8H 21 Days Rx Instructions: stop date 01/03/25. Dx: mSSA septic arthritis. Weekly bmp, cbc, and esr. Fax to [phone]. Routine picc care per protocol. acetaminophen 500 mg Tablet 1,000 mg PO Q8 Qty: 180 0RF gabapentin 300 mg Capsule 300 mg PO TIDCM Qty: 90 0RF Xarelto 10 mg Tablet 10 mg PO DAILY@0600 Qty: 14 0RF sennosides-docusate sodium [Stimulant Laxative Plus] 8.6-50 mg Tablet 1 tab PO BID Qty: 30 0RF tizanidine 2 mg Tablet 4 mg PO Q8H PRN PRN (Reason: spasm) Qty: 20 0RF oxycodone 5 mg Tablet 10 mg PO .q4-6hrs prn PRN (Reason: Pain Score 6-10) 7 Days Qty: 30 0RF Continued celecoxib 200 mg capsule 200 mg PO BID Discontinued acetaminophen [Tylenol Arthritis Pain] 650 mg tablet extended release 650 mg PO Q8H PRN (Reason: pain) Referrals / Follow Up: Care Physician,No Primary [Primary Care Provider] - Disposition Disposition (needs filled in before D/C Order can be placed): Home, Self Care 12/14/24 1223 Cosigner Signature (if applicable): CC: EVELYN Jefferson; No Primary Care Physician~ Signed [facility]06-24-2025 [facility] Medical Records Department [address] [place] [id number] Discharge Summary 12/14/24 1154 MR#: [id number] Acct: [id number] Name: SHARLENE DEVLIN Rep #: [id number] : 1960 64 From: Sandhya RIVAS PCP: Care Physician,No Primary Status:ADM IN Location: [place] [address] Providers Date of Admission: 12/10/24 Date of Discharge: 12/14/24 Primary Care Physician: No Primary Care Phys Consultations 12/10/24 15:01 Consult: Infectious Disease Routine Consulting Provider: Raghav Gabriel Reason for Consult: Right knee septic arthritis EMERGENT Consult: No MD Notified: Yes Date Notified: 12/10/24 Time Notified: 15:01 Method of Notification: Text Diagnosis Discharge Diagnosis (1) Septic arthritis of knee, right: Status: Acute Code(s): M00.9 - Pyogenic arthritis, unspecified Qualifiers: Septic arthritis organism: staphylococcal Qualified Code(s): M00.061 - Staphylococcal arthritis, right knee Plan Status post irrigation debridement with right knee arthroscopy for concern for septic knee with Dr. Mccormick 12/10/2024 1. Will continue PT today range of motion weightbearing as tolerated 2. plan for discharge this afternoon following PT 3. Patient will follow up in 2 weeks with post orthopedics. This will need to be arranged. 4. Patient will need to schedule for outpatient PT upon discharge to begin in the next few days. 5. WBC 5.5 6. H/H 11.0/32.5: Stable from yesterday's labs. 7. DVT prophylaxis : Xarelto 10 mg once daily x 2 weeks followed by aspirin 81 mg twice daily x 2 weeks 8. Pain control: patient instructed to take tylenol 500mg 2 tablets TID. and oxycodone 1-2 tablets every 4-6 hours only as needed for pain control. Patient also given a prescription 1 month of gabapentin 300 mg 3 times a day as well as tizanidine every 8 hours on as-needed basis. Patient has Celebrex at home. She is to continue this as needed after xarelto is completed. 9. Patient also given a prescription of senna for constipation 10. ok to remove post op dressing. post op day 5 11. PICC line was placed . Infectious disease consulted. Per recommendations : initial aspiration showed (+) crystals on 11/22/24. Repeat 12/09/24 with MSSA. Will order picc and 3 weeks iv cefazolin with weekly labs, ID followup in 2 weeks. 12. Patient currently has a follow-up with the infusion center as well as she will follow-up with infectious disease as recommended. 13. Patient cleared from infectious disease standpoint for discharge home. Patient is stable orthopedically cleared for discharge home. Medications at Discharge Home Medications celecoxib 200 mg capsule 200 mg PO BID 12/10/24 cefazolin 2 gram intravenous solution 2 g IV Q8H 21 days 12/13/24 acetaminophen 500 mg tablet 1,000 mg (2 x 500 mg) PO Q8 #180 tabs 12/14/24 gabapentin 300 mg capsule 300 mg PO TIDCM #90 caps 12/14/24 oxycodone 5 mg tablet 10 mg (2 x 5 mg) PO .q4-6hrs prn PRN Pain Score 6-10 7 days #30 tabs 12/14/24 rivaroxaban 10 mg tablet (Xarelto) 10 mg PO DAILY@0600 #14 tabs 12/14/24 sennosides 8.6 mg-docusate sodium 50 mg tablet (Stimulant Laxative Plus) 1 tab PO BID #30 tabs 12/14/24 tizanidine 2 mg tablet 4 mg (2 x 2 mg) PO Q8H PRN PRN spasm #20 tabs 12/14/24 Hospital Course Operations - (Irrigation debridement right knee arthroscopy for concern for septic arthritis.) Summary of Care Provided Hospital Course: Patient is 4 days s/p right knee arthroscopic irrigation debridement with Dr. Mccormick 12/10/2024. Concern for septic knee. Initial aspiration was concern for crystals and then had a positive staph culture which prompted irrigation debridement. Patient is being followed by infectious disease who is recommending a PICC line and cefazolin x 3 weeks. Patient resting comfortable in bed has been up with physical therapy working on range of motion. She is currently weightbearing as tolerated. She did get a PICC line placed 12/13/2024. Patient will follow-up with infusion center as well as infectious disease. Orthopedically stable for today. Pain has been well-controlled. Physical Exam Narrative Patient resting comfortably in bed No signs of acute distress Satting well on room air Limb is warm to touch, moderate edema. monico wrap in place. Sensation intact throughout entire lower extremity, including saphenous, sural, superficial and deep peroneal, and tibial distribution. DP/PT pulses bounding. Dorsiflexion plantarflexion strength 5/[address] Incision clear dry intact. Calf nontender to palpation, no erythema, no edema. Negative Homans Weight / BMI Weight Weight: 72.575 kg Body Mass Index (BMI) 28.3 ABG / Lab / Microbiology Data 12/13/24 03:42 12/13/24 03:42 D/C Instructions Discharge Diet: No restrictions Discharge Activity: May Shower (only in 2 days) Weight B (more content not included)...[facility]06-23-2025 Consult note Author Raghav Gabriel [facility] Note Date/Time December 13, 2024 12:5 7pm [facility] Medical Records Department [address] [place] [address] Consultation - Infectious Dx 12/13/24 1253 MR#: [id number] Acct: [id number] Name: SHARLENE DEVLIN Rep #:[id number] : 1960 64 From: Raghav medina MD PCP: Care Physician,No Primary Status :ADM IN Location: [address] Assessment & Plan Assessment/Plan (1) Septic arthritis of knee, right: QUALIFIERS: Septic arthritis organism: staphylococcal Qualified Code(s): M00.061 - Staphylococcal arthritis, right knee PLAN: Initial aspiration showed (+) crystals on 11/22/24. Repeat 12/09/24 with MSSA. On cefazolin. Taken to OR 12/10/[address] Mccormick for washout. Will orderpicc and 3 weeks iv cefazolin with weekly labs, ID followup in 2 weeks. Will follow, thank you, d/w ortho team HPI Consult Data Date of Consult: 12/13/24 HPI Narrative Reason for Consultation: septic arthritis HPI Narrative: SHARLENE DEVLIN, is a 64 F who presented with 3-4 weeks R knee progressive pain, swelling, warmth. No fever or chills. No known inciting event. Had tap done 11/22/24 which showed crystals. Characteristics of pain did not improve, repeat tap 12/09 was worse and cx (+) MSSA. Admitted here 12/10 and taken to OR by Dr. Mccormick for washout. Feeling better, pain improved, no n/v/d. Full ROS performed and neg except as noted above. COUNTS INCLUDE 234 BEDS AT THE [facility] Medical History Wears glasses Alcohol use Redness of skin History of steroid therapy Walker as ambulation aid Arthritis Fatty liver Shortness of breath on exertion Hoarseness Chronic cough Mid back pain on left side Urinary frequency Abdominal pain Home Medications ?Medication ?Instructions ?Recorded ?Last Taken ?Type acetaminophen 650 mg 650 mg PO Q8H PRN pain 12/1012/10/24 History tablet,extended release (Tylenol Arthritis Pain) celecoxib 200 mg capsule 200 mg PO BID 12/10/2412/09 History cefazolin 2 gram intravenous 2 g IV Q8H 21 days Unknown Rx solution Allergy/AdvReac Type Severity Reaction Status Date / Time Penicillins Allergy Rash Verified 12/10/24 12:20 Family History (Updated 12/10/24 @ 12:35 by Bruno Bustillos) Mother Hypertension Father Atrial fibrillation Surgical History (Updated 12/10/24 @ 12:33 by Bruno Bustillos) H/O foot surgery Social History (Updated 12/10/24 @ 12:36 by Bruno Bustillos) household members: children housing: apartment financial difficulty paying for basics: not very hard service: No current occupational status: retired Smoking Status: Current every day smoker tobacco type: cigarettes alcohol intake: current alcohol intake frequency: holidays/special occasions only Physical Exam Const alert, oriented x3 and no apparent distress General Appearance: cooperative HEENT normocephalic and head/scalp atraumatic Eyes PERRL and EOMs intact bilaterally Neck supple and No nodes Resp normal air movement and clear to auscultation bilaterally Cardio regular rate and regular rhythm GI soft to palpation, non-tender and non-distended Extremity General Extremity: Negative for edema Skin no rashes or lesions noted Skin Narrative: RLE wrapped Neuro CN's II-XII intact bilaterally Lab / Micro Data Attestation: I reviewed the patient's lab results. 12/13/24 03:42 12/13/24 03:42 Labs: Laboratory Results - last 24 hr 12/13/24 03:42: WBC 5.5, RBC 3.33 L, Hgb 11.0 L, Hct 32.5 L, MCV 97.6, MCH 33.0 H, MCHC 33.8, RDW Std Deviation 45.4 H, RDW Coeff of Pema 12.7, Plt Count 306, MPV 9.4, Sodium 138, Potassium 3.5, Chloride 99, Carbon Dioxide 29.9, Anion Gap 9, BUN 4, Creatinine 0.49 L, Estim Creat Clear Calc 110.72, Est GFR (MDRD) Non-Af 105, BUN/Creatinine Ratio 8.8 L, Glucose 112 H, Calcium 9.1 12/13/24 1257 <Electronically signed by Raghav Gabriel MD> Cosigner Signature (if applicable): CC: Dr. Sundeep Mccormick, DO; No Primary Care Physician~ Signed [facility] Work Phone: 1(451) 740-127606-23-2025 Progress note Author Terese Levy [facility] Note Date/Time December 13, 2024 12:1 0pm [facility] Medical Records Department [address] [place] [address] Progress Note - Orthopedic 12/13/24 1154 MR#: [id number] Acct: [id number] Name: SHARLENE DEVLIN Rep #:[id number] : 1960 64 From: Terese RIVAS PCP: Care Physician,No Primary Status :ADM IN Location: [place] [address] Subjective Subjective Patient appears to be comfortable in bed upon examination. Patient states that she has worked with physical therapy and is going well. Patient states that shefeels best when she is walking. Patient states that she has been working on range of motion and has been weightbearing as tolerated with the right leg. Patient states that she is ready to go home. Patient states that her pain is adequately controlled. Patient denies any new numbness or tingling. Patient denies any nausea, vomiting, dizziness, lightheadedness today. Patient denies any shortness of breath, chest pain, calf pain. Objective Data Objective Data Vital Signs: Vital Signs Temp Pulse Resp BP Pulse Ox O2 Del Method O2 Flow Rate 97.5 F L 85 16 117/79 94 Room Air 2 12/13/24 07:27 12/13/24 07:27 12/13/24 07:27 12/13/24 07:27 12/13/24 07:27 12/13/24 07:27 12/11/24 04:57 Oxygen Flow Rate (L/min) 2 Oxygen Delivery Method Room Air Weight: 72.575 kg Body Mass Index (BMI) 28.3 Intake & Output: Intake and Output for Last 24 Hours 12/11/24 12/12/24 12/13/24 23:59 23:59 23:59 Intake Total 1236.50 / 1236.50 950 / 1350 450 / 450 Balance 1236.50 / 1236.50 950 / 1350 450 / 450 Lab / Micro Data 12/13/24 03:42 12/13/24 03:42 Labs: Laboratory Results - last 24 hr 12/13/24 03:42: WBC 5.5, RBC 3.33 L, Hgb 11.0 L, Hct 32.5 L, MCV 97.6, MCH 33.0 H, MCHC 33.8, RDW Std Deviation 45.4 H, RDW Coeff of Pema 12.7, Plt Count 306, MPV 9.4, Sodium 138, Potassium 3.5, Chloride 99, Carbon Dioxide 29.9, Anion Gap 9, BUN 4, Creatinine 0.49 L, Estim Creat Clear Calc 110.72, Est GFR (MDRD) Non-Af 105, BUN/Creatinine Ratio 8.8 L, Glucose 112 H, Calcium 9.1 Physical Exam Narrative Vital signs stable and afebrile SCDs in place bilaterally Incisions are clean, dry, intact Dorsiflexion and plantarflexion are performed actively without pain or restriction. Sensation intact to light touch. Neurovascularly intact overall. Negative Homans bilaterally. Const alert, oriented x3 and no apparent distress Assessment & Plan Assessment/Plan (1) Septic arthritis of knee, right: QUALIFIERS: Septic arthritis organism: staphylococcal Qualified Code(s): M00.061 - Staphylococcal arthritis, right knee PLAN: Status post right knee arthroscopic I&D day 3. Pain medications: Patient is on Tylenol 1000 mg every 8 hours, Celebrex, oxycodone as needed. Patient was educated not to take any other anti-inflammatory medications while taking Celebrex. DVT prophylaxis: Patient will be on Xarelto, GUILLERMINA hose, SCDs, early mobilization. Patient was educated to wear GUILLERMINA hose for 2 weeks postoperatively being able toremove at night. PT/OT: Patient will be working on range of motion and being weightbearing as tolerated with her right leg. Patient will have outpatient physical therapy scheduled upon discharge. Infectious disease consult: Still waiting on infectious disease consult. Currently growing MSSA from cultures. Does look like order has been placed for PICC line but patient has not yet been seen by infectious disease. Allow for infectious disease recommendation and note prior to discharge. Appreciate recommendations from case management for safe and proper discharge. Appreciate recommendations from infectious disease for safe and proper discharge. Constipation: Patient was instructed to take senna as instructed until her firstbowel movement to decrease risk of impaction following surgery. Patient was instructed if they have not had a bowel movement in 3 days to call our office for reevaluation. H&H: 11.0/32.5. Vital signs stable and patient is afebrile. Hemoglobin is above the threshold of 10.0. Incentive spirometry: Patient was encouraged to use incentive spirometer every hour they are awake for the first week to decrease risk of postoperative lung infection. Dressings: Patient should be able to remove dressings tomorrow. Due to patient's edema is recommended by Dr. Mccormick that patient continue to wrap leg with Monico bandage. Patient can change dressings as needed under Monico wrap. Patient can remove Monico bandage for showering. Patient will follow-up per postoperative instructions. Patient does have outpatient appointment in 2 weeks postoperatively to remove sutures. Appreciate recommendations from hospitalist. Disposition: Currently still awaiting recommendations from infectious disease prior to discharge. Patient states at this time she is ready to go home. Patient is aware that there is an order placed for a PICC line so that may affect her plans of going home. Patient states that she still wants to go home due to her autistic daughter being at home however she is not sure how a PICC line will go at home. Patient is currently doing well. Patient states that herpain is adequately controlled at this point. Patient states that physical therapy has gone well and that she really enjoys moving and getting to walk. Patient will continue to be weightbearing as tolerated on right leg. Appreciaterecommendations from case management, medicine, infectious disease for safe and proper discharge planning. 12/13/24 1210 <Electronically signed by Terese RIVAS> Cosigner Signature (if applicable): CC: ~ Signed [facility] Work Phone: [phone]) 984-331506-23-2025 Consult note [facility] Medical Records Department [address] [place] [address] Consultation - Infectious Dx 12/13/24 1253 MR#: [id number] Acct: [id number] Name: SHARLENE DEVLIN Rep #:[id number] : 1960 64 From: Raghav medina MD PCP: Care Physician,No Primary Status :ADM IN Location: [place] [address] Assessment & Plan Assessment/Plan (1) Septic arthritis of knee, right: QUALIFIERS: Septic arthritis organism: staphylococcal Qualified Code(s): M00.061 - Staphylococcal arthritis, right knee PLAN: Initial aspiration showed (+) crystals on 11/22/24. Repeat 12/09/24 with MSSA. On cefazolin. Taken to OR 12/10/[address] Mccormick for washout. Will orderpicc and 3 weeks iv cefazolin with weekly labs, ID followup in 2 weeks. Will follow, thank you, d/w ortho team HPI Consult Data Date of Consult: 12/13/24 HPI Narrative Reason for Consultation: septic arthritis HPI Narrative: SHARLENE DEVLIN, is a 64 F who presented with 3-4 weeks R knee progressive pain, swelling, warmth. No fever or chills. No known inciting event. Had tap done 11/22/24 which showed crystals. Characteristicsof pain did not improve, repeat tap 12/09 was worse and cx (+) MSSA. Admitted here 12/10 and taken Master by Dr. Mccormick for washout. Feeling better, pain improved, no n/v/d. Full ROS performed and neg except as noted above. COUNTS INCLUDE 234 BEDS AT THE [facility] Medical History Wears glasses Alcohol use Redness of skin History of steroid therapy Walker as ambulation aid Arthritis Fatty liver Shortness of breath on exertion Hoarseness Chronic cough Mid back pain on left side Urinary frequency Abdominal pain Home Medications ?Medication ?Instructions ?Recorded ?Last Taken ?Type acetaminophen 650 mg 650 mg PO Q8H PRN pain 12/1012/10/24 History tablet,extended release (Tylenol Arthritis Pain) celecoxib 200 mg capsule 200 mg PO BID 12/10/2412/09 History cefazolin 2 gram intravenous 2 g IV Q8H 21 days Unknown Rx solution Allergy/AdvReac Type Severity Reaction Status Date / Time Penicillins Allergy Rash Verified 12/10/24 12:20 Family History (Updated 12/10/24 @ 12:35 by Bruno Bustillos) Mother Hypertension Father Atrial fibrillation Surgical History (Updated 12/10/24 @ 12:33 by Bruno Bustillos) H/O foot surgery Social History (Updated 12/10/24 @ 12:36 by Bruno Bustillos) household members: children housing: apartment financial difficulty paying for basics: not very hard service: No current occupational status: retired Smoking Status: Current every day smoker tobacco type: cigarettes alcohol intake: current alcohol intake frequency: holidays/special occasions only Physical Exam Const alert, oriented x3 and no apparent distress General Appearance: cooperative HEENT normocephalic and head/scalp atraumatic Eyes PERRL and EOMs intact bilaterally Neck supple and No nodes Resp normal air movement and clear to auscultation bilaterally Cardio regular rate and regular rhythm GI soft to palpation, non-tender and non-distended Extremity General Extremity: Negative for edema Skin no rashes or lesions noted Skin Narrative: RLE wrapped Neuro CN's II-XII intact bilaterally Lab / Micro Data Attestation: I reviewed the patient's lab results. 12/13/24 03:42 12/13/24 03:42 Labs: Laboratory Results - last 24 hr 12/13/24 03:42: WBC 5.5, RBC 3.33 L, Hgb 11.0 L, Hct 32.5 L, MCV 97.6, MCH 33.0 H, MCHC 33.8, RDW Std Deviation 45.4 H, RDW Coeff of Pema 12.7, Plt Count 306, MPV 9.4, Sodium 138, Potassium 3.5, Chloride 99, Carbon Dioxide 29.9, Anion Gap 9, BUN 4, Creatinine 0.49 L, Estim Creat Clear Calc 110.72, Est GFR (MDRD) Non- Af 105, BUN/Creatinine Ratio 8.8 L, Glucose 112 H, Calcium 9.1 12/13/24 1257 Cosigner Signature (if applicable): CC: Dr. Sundeep Mccormick, DO; No Primary Care Physician~ Signed [facility]06-23-2025 Progress note [facility] Medical Records Department [address] [place] [address] Progress Note - Orthopedic 12/13/24 1154 MR#: [id number] Acct: [id number] Name: SHARLENE DEVLIN Rep #:[id number] : 1960 64 From: Terese RIVAS PCP: Care Physician,No Primary Status :ADM IN Location: MS3 GS182-9 Subjective Subjective Patient appears to be comfortable in bed upon examination. Patient states that she has worked with physical therapy and is going well. Patient states that shefeels best when she is walking. Patient states that she has been working on range of motion and has been weightbearing as tolerated with the right leg. Patient states that she is ready to go home. Patient states that her pain is adequately controlled. Patient denies any new numbness or tingling. Patient denies any nausea, vomiting, dizziness, lightheadedness today. Patient denies any shortness of breath, chest pain, calf pain. Objective Data Objective Data Vital Signs: Vital Signs Temp Pulse Resp BP Pulse Ox O2 Del Method O2 Flow Rate 97.5 F L 85 16 117/79 94 Room Air 2 12/13/24 07:27 12/13/24 07:27 12/13/24 07:27 12/13/24 07:27 12/13/24 07:27 12/13/24 07:27 12/11/24 04:57 Oxygen Flow Rate (L/min) 2 Oxygen Delivery Method Room Air Weight: 72.575 kg Body Mass Index (BMI) 28.3 Intake & Output: Intake and Output for Last 24 Hours 12/11/24 12/12/24 12/13/24 23:59 23:59 23:59 Intake Total 1236.50 / 1236.50 950 / 1350 450 / 450 Balance 1236.50 / 1236.50 950 / 1350 450 / 450 Lab / Micro Data 12/13/24 03:42 12/13/24 03:42 Labs: Laboratory Results - last 24 hr 12/13/24 03:42: WBC 5.5, RBC 3.33 L, Hgb 11.0 L, Hct 32.5 L, MCV 97.6, MCH 33.0 H, MCHC 33.8, RDW Std Deviation 45.4 H, RDW Coeff of Pema 12.7, Plt Count 306, MPV 9.4, Sodium 138, Potassium 3.5, Chloride 99, Carbon Dioxide 29.9, Anion Gap 9, BUN 4, Creatinine 0.49 L, Estim Creat Clear Calc 110.72, Est GFR (MDRD) Non- Af 105, BUN/Creatinine Ratio 8.8 L, Glucose 112 H, Calcium 9.1 Physical Exam Narrative Vital signs stable and afebrile SCDs in place bilaterally Incisions are clean, dry, intact Dorsiflexion and plantarflexion are performed actively without pain or restriction. Sensation intact to light touch. Neurovascularly intact overall. Negative Homans bilaterally. Const alert, oriented x3 and no apparent distress Assessment & Plan Assessment/Plan (1) Septic arthritis of knee, right: QUALIFIERS: Septic arthritis organism: staphylococcal Qualified Code(s): M00.061 - Staphylococcal arthritis, right knee PLAN: Status post right knee arthroscopic I&D day 3. Pain medications: Patient is on Tylenol 1000 mg every 8 hours, Celebrex, oxycodone as needed. Patient was educated not to take any other anti- inflammatory medications while taking Celebrex. DVT prophylaxis: Patient will be on Xarelto, GUILLERMINA hose, SCDs, early mobilization. Patient was educated to wear GUILLERMINA hose for 2 weeks postoperatively being able toremove at night. PT/OT: Patient will be working on range of motion and being weightbearing as tolerated with her right leg. Patient will have outpatient physical therapy scheduled upon discharge. Infectious disease consult: Still waiting on infectious disease consult. Currently growing MSSA from cultures. Does look like order has been placed for PICC line but patient has not yet been seen by infectious disease. Allow for infectious disease recommendation and note prior to discharge. Appreciate recommendations from case management for safe and proper discharge. Appreciate recommendations from infectious disease for safe and proper discharge. Constipation: Patient was instructed to take senna as instructed until her firstbowel movement to decrease risk of impaction following surgery. Patient was instructed if they have not had a bowel movement in 3 days to call our office for reevaluation. H&H: 11.0/32.5. Vital signs stable and patient is afebrile. Hemoglobin is above the threshold of 10.0. Incentive spirometry: Patient was encouraged to use incentive spirometer every hour they are awake for the first week to decrease risk of postoperative lung infection. Dressings: Patient should be able to remove dressings tomorrow. Due to patient's edema is recommended by Dr. Mccormick that patient continue to wrap leg with Monico bandage. Patient can change dressings as needed under Monico wrap. Patient can remove Monico bandage for showering. Patient will follow-up per postoperative instructions. Patient does have outpatient appointment in 2 weeks postoperatively to remove sutures. Appreciate recommendations from hospitalist. Disposition: Currently still awaiting recommendations from infectious disease prior to discharge. Patient states at this time she is ready to go home. Patient is aware that there is an order placed for a PICC line so that may affect her plans of going home. Patient states that she still wants to gohome due to her autistic daughter being at home however she is not sure how a PICC line will go at home. Patient is currently doing well. Patient states that herpain is adequately controlled at this point. Patient states that physical therapy has gone well and that she really enjoys moving and getting to walk. Patient will continue to be weightbearing as tolerated on right leg. Appreciaterecommend ations from case management, medicine, infectious disease for safe and proper discharge planning. 12/13/24 1210 Cosigner Signature (if applicable): CC: ~ Signed [facility]06-22-2025 Progress note Author Sundeep Mccormick [facility] Note Date/Time December 12, 2024 12:1 1pm [facility] Medical Records Department [address] [place] [address] Progress Note - Orthopedic 12/12/24 1209 MR#: [id number] Acct: [id number] Name: SHARLENE DEVLIN Rep #:[id number] : 1960 64 From: Sundeep khoury DO PCP: Care Physician,No Primary Status :ADM IN Location: PA3 PT228-9 Subjective Subjective Patient seen and examined. Pain slightly better controlled but still experiencing some paresthesias throughout the posterior right thigh and muscle spasm. Denies fevers, chills, nausea vomiting, chest pain or shortness of breath. Objective Data Objective Data Vital Signs: Vital Signs Temp Pulse Resp BP Pulse Ox O2 Del Method O2 Flow Rate 97.7 F L 120 H 18 124/74 H 95 Room Air 2 12/12/24 09:02 12/12/24 09:04 12/12/24 09:02 12/12/24 09:02 12/12/24 09:02 12/12/24 09:02 12/11/24 04:57 Oxygen Flow Rate (L/min) 2 Oxygen Delivery Method Room Air Weight: 160 lb Body Mass Index (BMI) 28.3 Intake & Output: Intake and Output for Last 24 Hours 12/10/24 12/11/24 12/12/24 23:59 23:59 23:59 Intake Total 1727.25 / 1727.25 1236.50 / 1236.50 850 / 850 Output Total Balance 1702.25 / 1702.25 1236.50 / 1236.50 850 / 850 Lab / Micro Data 12/12/24 05:28 12/12/24 05:28 Labs: Laboratory Results - last 24 hr 12/12/24 05:28: WBC 7.2, RBC 3.55 L, Hgb 11.6 L, Hct 34.6 L, MCV 97.5, MCH 32.7 H, MCHC 33.5, RDW Std Deviation 45.1 H, RDW Coeff of Pema 12.5, Plt Count 347, MPV 9.4, Sodium 137, Potassium 3.6, Chloride 99, Carbon Dioxide 27.0, Anion Gap 11, BUN 6, Creatinine 0.56 L, Estim Creat Clear Calc 96.88, Est GFR (MDRD) Non-Af 102, BUN/Creatinine Ratio 10.9, Glucose 98, Calcium 8.7 Physical Exam Narrative General - A&Ox3, NAD. VSS/AF Right lower extremity -incisional dressing C/D/I. Expected postoperative effusion. SILT Sural, Saphenous, SPN, DPN, Tibial N. distributions. DP, PT 2+. BCR. DF, PF, EHL 5/5. No calf TTP. Assessment & Plan Assessment/Plan (1) Septic arthritis of knee, right: QUALIFIERS: Septic arthritis organism: staphylococcal Qualified Code(s): M00.061 - Staphylococcal arthritis, right knee PLAN: POD# 1 s/p right knee arthroscopic I&D - Patient doing fine. I will add Celebrex to assist with pain control. GrowingMSSA from synovial cultures. Will continue with scheduled Ancef. ID consult pending. Home-going antibiotic recommendations pending ID. Possible PICC line versus p.o.. Anticipate keeping the patient at least till 12/13/2024 to allow for ID recommendations and continued pain control in the inpatient setting. - PT/OT-range of motion, weightbearing as tolerated right lower extremity. I encouraged the patient to perform some quadriceps activation in bed. Also encouraged her to walk as tolerated due to suspected sciatica. - DVT PPX -Xarelto, SCDs, early mobilization - Case management -consult placed. May need assistance with PICC line if ordered by ID. 12/12/24 1211 <Electronically signed by Sundeep Mccormick DO> Cosigner Signature (if applicable): CC: ~ Signed ADDENDUM by Dr. Sundeep Mccormick DO on 12/12/24 at 1211 Addendum Addendum: Correction from above patient is postoperative day #2 status post right knee arthroscopic I&D. 12/12/24 1211<Electronically signed by Sundeep Mccormick DO> Cosigner Signature (if applicable): cc: ~* Signed [facility] Work Phone: [phone]) 314-390806-22-2025 Progress note [facility] Medical Records Department [address] [place] [address] Progress Note - Orthopedic 12/12/24 1209 MR#: [id number] Acct: [id number] Name: SHARLENE DEVLIN Rep #:[id number] : 1960 64 From: Sundeep khoury DO PCP: Care Physician,No Primary Status :ADM IN Location: PA3 EI520-0 Subjective Subjective Patient seen and examined. Pain slightly better controlled but still experiencing some paresthesiasthroughout the posterior right thigh and muscle spasm. Denies fevers, chills, nausea vomiting, chest pain or shortness of breath. Objective Data Objective Data Vital Signs: Vital Signs Temp Pulse Resp BP Pulse Ox O2 Del Method O2 Flow Rate 97.7 F L 120 H 18 124/74 H 95 Room Air 2 12/12/24 09:02 12/12/24 09:04 12/12/24 09:02 12/12/24 09:02 12/12/24 09:02 12/12/24 09:02 12/11/24 04:57 Oxygen Flow Rate (L/min) 2 Oxygen Delivery Method Room Air Weight: 160 lb Body Mass Index (BMI) 28.3 Intake & Output: Intake and Output for Last 24 Hours 12/10/24 12/11/24 12/12/24 23:59 23:59 23:59 Intake Total 1727.25 / 1727.25 1236.50 / 1236.50 850 / 850 Output Total Balance 1702.25 / 1702.25 1236.50 / 1236.50 850 / 850 Lab / Micro Data 12/12/24 05:28 12/12/24 05:28 Labs: Laboratory Results - last 24 hr 12/12/24 05:28: WBC 7.2, RBC 3.55 L, Hgb 11.6 L, Hct 34.6 L, MCV 97.5, MCH 32.7 H, MCHC 33.5, RDW Std Deviation 45.1 H, RDW Coeff of Pema 12.5, Plt Count 347, MPV 9.4, Sodium 137, Potassium 3.6, Chloride 99, Carbon Dioxide 27.0, Anion Gap 11, BUN 6, Creatinine 0.56 L, Estim Creat Clear Calc 96.88, Est GFR (MDRD) Non- Af 102, BUN/Creatinine Ratio 10.9, Glucose 98, Calcium 8.7 Physical Exam Narrative General - A&Ox3, NAD. VSS/AF Right lower extremity -incisional dressing C/D/I. Expected postoperative effusion. SILT Sural, Saphenous, SPN, DPN, Tibial N. distributions. DP, PT 2+. BCR. DF, PF, EHL 5/5. No calf TTP. Assessment & Plan Assessment/Plan (1) Septic arthritis of knee, right: QUALIFIERS: Septic arthritis organism: staphylococcal Qualified Code(s): M00.061 - Staphylococcal arthritis, right knee PLAN: POD# 1 s/p right knee arthroscopic I&D - Patient doing fine. I will add Celebrex to assist with pain control. GrowingMSSA from synovial cultures. Will continue with scheduled Ancef. ID consult pending. Home-going antibiotic recommendations pending ID. Possible PICC line versus p.o.. Anticipate keeping the patient at least till 12/13/2024to allow for ID recommendations and continued pain control in the inpatient setting. - PT/OT-range of motion, weightbearing as tolerated right lower extremity. I encouraged the patientto perform some quadriceps activation in bed. Also encouraged her to walk as tolerated due to suspected sciatica. - DVT PPX -Xarelto, SCDs, early mobilization - Case management -consult placed. May need assistance with PICC line if ordered by ID. 12/12/24 1211 Cosigner Signature (if applicable): CC: ~ Signed ADDENDUM by Dr. Sundeep Mccormick DO on 12/12/24 at 1211 Addendum Addendum: Correction from above patient is postoperative day #2 status post right knee arthroscopicI&D. 12/12/24 1211 Cosigner Signature (if applicable): cc: ~* Signed [facility]06-21-2025 Progress note Author Sundeep Mccormick [facility] Note Date/Time December 11, 2024 11:1 8am [facility] Medical Records Department [address] [place] [address] Progress Note - Orthopedic 12/11/24 1113 MR#: [id number] Acct: [id number] Name: SHARLENE DEVLIN Rep #:[id number] : 1960 64 From: Sundeep khoury DO PCP: Care Physician,No Primary Status :ADM JEANCARLOS Location: MS3 UT078-2 Subjective Subjective Patient seen and examined. Reports pain is better than it has been in the last few weeks. Still reporting some muscle spasm in her lower leg as well as hamstring area. Up to chair this morning. Denies fevers, chills, nausea vomiting, chest pain or shortness of breath. Objective Data Objective Data Vital Signs: Vital Signs Temp Pulse Resp BP Pulse Ox O2 Del Method O2 Flow Rate 97.8 F 74 16 121/74 H 97 Room Air 2 12/11/24 08:08 12/11/24 08:08 12/11/24 08:08 12/11/24 08:08 12/11/24 08:08 12/11/24 08:08 12/11/24 04:57 Oxygen Flow Rate (L/min) 2 Oxygen Delivery Method Room Air Weight: 160 lb Body Mass Index (BMI) 28.3 Intake & Output: Intake and Output for Last 24 Hours 12/09/24 12/10/24 12/11/24 23:59 23:59 23:59 Intake Total 1727.25 / 1727.25 1128.75 / 1128.75 Output Total Balance 1702.25 / 1702.25 1128.75 / 1128.75 Lab / Micro Data 12/11/24 06:32 12/11/24 06:32 Labs: Laboratory Results - last 24 hr 12/10/24 12:17: WBC 9.2, RBC 4.08 L, Hgb 13.4, Hct 38.4, MCV 94.1, MCH 32.8 H, MCHC 34.9, RDW Std Deviation 43.2, RDW Coeff of Pema 12.5, Plt Count 400, MPV 9.5, Sodium 136, Potassium 3.9, Chloride 98, Carbon Dioxide 24.1, Anion Gap 14, BUN 7, Creatinine 0.51 L, Estim Creat Clear Calc 106.38, Est GFR (MDRD) Non-Af 104, BUN/Creatinine Ratio 14.7, Glucose 103 H, Calcium 9.0 12/11/24 06:32: WBC 7.8, RBC 3.38 L, Hgb 11.2 L, Hct 33.2 L, MCV 98.2, MCH 33.1 H, MCHC 33.7, RDW Std Deviation 45.2 H, RDW Coeff of Pema 12.5, Plt Count 332, MPV 9.6, Sodium 133, Potassium 3.9, Chloride 96 L, Carbon Dioxide 27.9, Anion Gap 9, BUN 7, Creatinine 0.54 L, Estim Creat Clear Calc 100.47, Est GFR (MDRD) Non-Af 103, BUN/Creatinine Ratio 12.9, Glucose 146 H, Calcium 8.7 Physical Exam Narrative General - A&Ox3, NAD. VSS/AF Right lower extremity -incisional dressing C/D/I. Expected postoperative effusion. SILT Sural, Saphenous, SPN, DPN, Tibial N. distributions. DP, PT 2+. BCR. DF, PF, EHL 5/5. No calf TTP. Assessment & Plan Assessment/Plan (1) Septic arthritis of knee, right: QUALIFIERS: Septic arthritis organism: staphylococcal Qualified Code(s): M00.061 - Staphylococcal arthritis, right knee PLAN: POD# 1 s/p right knee arthroscopic I&D -Patient doing well this morning. Pain controlled minus occasional muscle spasm. Growing MSSA from synovial cultures. Will continue with scheduled Ancef. ID consult pending. Home-going antibiotic recommendations pending ID. Possible PICC line versus p.o.. Anticipate keeping the patient at least till 12/13/2024 to allow for ID recommendations and continued pain control in the inpatient setting. - Pain control -tizanidine added for muscle spasm. Continue scheduled Tylenol and as needed oxycodone. - PT/OT-range of motion, weightbearing as tolerated right lower extremity. I encouraged the patient to perform some quadriceps activation in bed. - DVT PPX -Xarelto, SCDs, early mobilization - Case management -consult placed. May need assistance with PICC line if ordered by ID. 12/11/24 1118 <Electronically signed by Sundeep Mccormick DO> Cosigner Signature (if applicable): CC: ~ Signed [facility] Work Phone: 1(465) 133-875806-21-2025 Progress note [facility] Medical Records Department [address] [place] [address] Progress Note - Orthopedic 12/11/24 1113 MR#: [id number] Acct: [id number] Name: SHARLENE DEVLIN Rep #:[id number] : 1960 64 From: Sundeep khoury DO PCP: Care Physician,No Primary Status :ADM JEANCARLOS Location: MS3 MI324-9 Subjective Subjective Patient seen and examined. Reports pain is better than it has been in the last few weeks. Still reporting some muscle spasm in her lower leg as well as hamstring area. Up to chair this morning. Denies fevers, chills, nausea vomiting, chest pain or shortness of breath. Objective Data Objective Data Vital Signs: Vital Signs Temp Pulse Resp BP Pulse Ox O2 Del Method O2 Flow Rate 97.8 F 74 16 121/74 H 97 Room Air 2 12/11/24 08:08 12/11/24 08:08 12/11/24 08:08 12/11/24 08:08 12/11/24 08:08 12/11/24 08:08 12/11/24 04:57 Oxygen Flow Rate (L/min) 2 Oxygen Delivery Method Room Air Weight: 160 lb Body Mass Index (BMI) 28.3 Intake & Output: Intake and Output for Last 24 Hours 12/09/24 12/10/24 12/11/24 23:59 23:59 23:59 Intake Total 1727.25 / 1727.25 1128.75 / 1128.75 Output Total Balance 1702.25 / 1702.25 1128.75 / 1128.75 Lab / Micro Data 12/11/24 06:32 12/11/24 06:32 Labs: Laboratory Results - last 24 hr 12/10/24 12:17: WBC 9.2, RBC 4.08 L, Hgb 13.4, Hct 38.4, MCV 94.1, MCH 32.8 H, MCHC 34.9, RDW Std Deviation 43.2, RDW Coeff of Pema 12.5, Plt Count 400, MPV 9.5, Sodium 136, Potassium 3.9, Chloride 98, Carbon Dioxide 24.1, Anion Gap 14, BUN 7, Creatinine 0.51 L, Estim Creat Clear Calc 106.38, Est GFR (MDRD) Non-Af 104, BUN/Creatinine Ratio 14.7, Glucose 103 H, Calcium 9.0 12/11/24 06:32: WBC 7.8, RBC 3.38 L, Hgb 11.2 L, Hct 33.2 L, MCV 98.2, MCH 33.1 H, MCHC 33.7, RDW Std Deviation 45.2 H, RDW Coeff of Pema 12.5, Plt Count 332, MPV 9.6, Sodium 133, Potassium 3.9, Chloride 96 L, Carbon Dioxide 27.9, Anion Gap 9, BUN 7, Creatinine 0.54 L, Estim Creat Clear Calc 100.47,Est GFR (MDRD) Non-Af 103, BUN/Creatinine Ratio 12.9, Glucose 146 H, Calcium 8.7 Physical Exam Narrative General - A&Ox3, NAD. VSS/AF Right lower extremity -incisional dressing C/D/I. Expected postoperative effusion. SILT Sural, Saphenous, SPN, DPN, Tibial N. distributions. DP, PT 2+. BCR. DF, PF, EHL /5. No calf TTP. Assessment & Plan Assessment/Plan (1) Septic arthritis of knee, right: QUALIFIERS: Septic arthritis organism: staphylococcal Qualified Code(s): M00.061 - Staphylococcal arthritis, right knee PLAN: POD# 1 s/p right knee arthroscopic I&D -Patient doing well this morning. Pain controlled minus occasional muscle spasm. Growing MSSA from synovial cultures. Will continue with scheduled Ancef. ID consult pending. Home-going antibiotic recommendations pending ID. Possible PICC line versus p.o.. Anticipate keeping the patient at least till 12/13/2024 to allow for ID recommendations and continued pain control in the inpatient setting. - Pain control -tizanidine added for muscle spasm. Continue scheduled Tylenol and as needed oxycodone. - PT/OT-range of motion, weightbearing as tolerated right lower extremity. I encouraged the patientto perform some quadriceps activation in bed. - DVT PPX -Xarelto, SCDs, early mobilization - Case management -consult placed. May need assistance with PICC line if ordered by ID. 12/11/24 1118 Cosigner Signature (if applicable): CC: ~ Signed [facility]06-20-2025 Consult note Author Sarita Key [facility] Note Date/Time December 10, 2024 3:41 pm [facility] Medical Records Department [address] [place] [address] Anesthesia Postop Eval II 12/10/24 1541 MR#: [id number] Acct: [id number] Name: SHARLENE DEVLIN Rep #:[id number] : 1960 64 From: Sarita Key CRNA PCP: Care Physician,No Primary Status :ADM JEANCARLOS Y Race: C Location: PA3 MS311 -1 Anesthesia Postop Eval I Sum Postop Eval Completion status Anesthesia document: Postop Eval 1 completed: Yes Anesthesia Postop Eval I Summary Anesthesia Postop Eval I Summary: Anesthesia Postop Eval I: Assessment Summary Airway patent Yes 12/10/24 15:05 DIE [email or web address] Spontaneous unlabored Yes 12/10/24 15:05 DIE ATTACHER.CSIR respirations Mental status nausea No 12/10/24 15:05 DIE ATTACHER.CSIR Vomiting No 12/10/24 15:05 DIE ATTACHER.CSIR Anesthesia Postop Eval I: Fluid Summary Crystalloid volume administer 1,000 12/10/24 15:05 DIE ATTACHER.CSIR (ml) Colloids volume administered ( ml) Blood Product volume administered (ml) Total IV fluid infused 1,000 12/10/24 15:05 DIE ATTACHER.CSIR Anesthesia Postop Eval I: Summary Notes Anesthesia Complication No 12/10/24 15:05 DIE ATTACHER.CSIR Anesthesia Complication Comment: Post-operative progress note Anesthesia: Postop Eval II Evaluation Mental status: Awake Pain Level: 3 nausea: No Vomiting: No 12/10/24 1541 <Electronically signed by Sarita richards CRNA> Date _ Sarita Key CRNA Cosigner Signature: Date CC: ~ Signed [facility] Work Phone: 1(397) 740-958706-20-2025 Consult note Author [facility]ita [facility] Note Date/Time December 10, 2024 3:06 pm [facility] Medical Records Department [address] [place] [address] Anesthesia Postop Eval I 12/10/24 1505 MR#: [id number] Acct: [id number] Name: SHARLENE DEVLIN Rep #:[id number] : 1960 64 From: Sarita Key CRNA PCP: Care Physician,No Primary Status :REG SDC Y Race: C Location: [place] [address] Anesthesia: Postop Eval I Current Vital Signs Temperature: 97.3 F Pulse Rate: 112 Blood Pressure: 161/111 Respiratory Rate: 24 Pulse Ox: 94 Assessment Airway patent: Yes Spontaneous unlabored respirations: Yes nausea: No Vomiting: No Anesthesia Complication: No Fluid Hydration Crystalloid volume administer (ml): 1,000 Total IV fluid infused: 1,000 Progress Note Anesthesia document: Postop Eval 1 completed: Yes 12/10/24 1506 <Electronically signed by Sarita richards CRNA> Date _ Sarita Key CRNA Cosigner Signature: Date CC: ~ Signed [facility] Work Phone: 1(379) 667-202006-20-2025 Evaluation note* Diagnosis Onset Date Resolution Status Admit Date Septic arthritis of knee, right acut e December 10, 2024 2:56pm [facility] Work Phone: 1(730) 444-766906-20-2025 Consult note [facility] Medical Records Department [address] [place] [address] Anesthesia Postop Eval II 12/10/24 1541 MR#: [id number] Acct: [id number] Name: SAHRLENE DEVLIN Rep #:[id number] : 1960 64 From: Sarita Key CRNA PCP: Care Physician,No Primary Status :ADM JEANCARLOS Y Race: C Location: [place] [address] Anesthesia Postop Eval I Sum Postop Eval Completion status Anesthesia document: Postop Eval 1 completed: Yes Anesthesia Postop Eval I Summary Anesthesia Postop Eval I Summary: Anesthesia Postop Eval I: Assessment Summary Airway patent Yes 12/10/24 15:05 DIE [email or web address].CSIR Spontaneous unlabored Yes 12/10/24 15:05 DIE ATTACHER.CSIR respirations Mental status nausea No 12/10/24 15:05 DIE ATTACHER.CSIR Vomiting No 12/10/24 15:05 DIE ATTACHER.CSIR Anesthesia Postop Eval I: Fluid Summary Crystalloid volume administer 1,000 12/10/24 15:05 DIE ATTACHER.CSIR (ml) Colloids volume administered ( ml) Blood Product volume administered (ml) Total IV fluid infused 1,000 12/10/24 15:05 DIE ATTACHER.CSIR Anesthesia Postop Eval I: Summary Notes Anesthesia Complication No 12/10/24 15:05 DIE ATTACHER.CSIR Anesthesia Complication Comment: Post-operative progress note Anesthesia: Postop Eval II Evaluation Mental status: Awake Pain Level: 3 nausea: No Vomiting: No 12/10/24 1541 a DIE ATTACHER> Date _ Sarita ca DIE ATTACHER Cosigner Signature: Date CC: ~ Signed [facility]06-20-2025 Consult note Author Gregory Sparks [facility] Note Date/Time December 10, 2024 1:33 pm [facility] Medical Records Department [address] [place] [address] Pre-Anesthesia Evaluation 12/10/24 1313 MR#: [id number] Acct: [id number] Name: SHARLENE DEVLIN Rep #:[id number] : 1960 64 From: Gregory Sparks MD PCP: Care Physician,No Primary Status :[facility] Y Race: C Location: [place] [address] ASA Classification* ASA Classification ASA Classification: 2 Assessment & Plan Anesthesia* Anesthesia Assessment Anesthesia Assessment: Discussed sedation and/or anesthesia options, risks, benefits, and alternatives with patient/parents/legal guardian/POA. Questions invited. The patient/parents/legal guardian/POA seems to understand and agrees to proceedwith anesthesia plan. Reviewed the physical assessment, medical history, allergy history and patient home medications list prior to surgery/procedure/anesthetic and documented any changes. Performed airway and anesthesia risk assessments. Anesthesia Type Anesthesia Type: General History Source History Obtained from:: Patient and Chart Anesthesia Focused Assessment* Temperature: 98.0 F Pulse Rate: 96 Blood Pressure: 124/77 Respiratory Rate: 16 Pulse Ox: 99 Oxygen Delivery Method: Room Air Airway Assessment Mouth opens: >3 cm Mallampati Score: IV Teeth Condition: Intact Neck Range of motion (ROM): Full ROM Labs Anesthesia Preop lab: CBC WBC 9.2 K/mm3 (4.4-11.0) 12/10/24 12:17 12/10/24 RBC 4.08 M/mm3 (4.2-5.4) L 12/10/24 12:17 12/10/24 Hgb 13.4 g/dL (12.0-15.0) 12/10/24 12:17 12/10/24 Hct 38.4 % (37-47) 12/10/24 12:17 12/10/24 Plt Count 400 K/mm3 (150-450) 12/10/24 12:17 12/10/24 CHEMISTRY Potassium 3.9 mmol/L (3.3-5.1) 12/10/24 12:17 12/10/24 Sodium 136 mmol/L (133-145) 12/10/24 12:17 12/10/24 BUN 7 mg/dL (4-19) 12/10/24 12:17 12/10/24 Creatinine 0.51 mg/dL (0.70-1.20) L 12/10/24 12:17 Glucose 103 mg/dL (70-99) H 12/10/24 12:17 12/10/24 COAG Pre-Assessment Diagnosis/Proposed Procedure Planned Operative Procedure(s): RIGHT KNEE ARTHROSCOPIC IRRIGATION AND DEBRIDEMENT Anesthesia History Anesthesia History - manager van: Anesthesia History - manager van Hx Hospitalization No 12/10/24 12:23 Any Problems With Anesthesia Yes 12/10/24 12:23 Cholinesterase deficiency No 12/10/24 12:23 You/Your Family Experience No 12/10/24 12:23 fever (hyperthermia) with Relationship Recent Exposure to Contagious No 12/10/24 12:36 Disease Does patient have nerve No 12/10/24 12:23 stimulator Patient instructed to have device shut off --Does patient have Pacemaker No 12/10/24 12:36 or ICD? When Was Last Pacemaker Check QUESTION #4 FULL TEXT: You/Your Family Experience fever (hyperthermia) with Anesthesia Last Oral Intake Last Oral intake: Last Oral Intake NPO since 00:00 12/10/24 12:36 Meds taken in AM with sips of No 12/10/24 12:36 water? Meds patient instructed to take am of surgery Any additional information?: Yes NPO since: 05:00 Meds taken in AM with sips of water?: Yes Meds patient instructed to take am of surgery: Tylenol PONV PONV - manager van: PONV - manager van Female Yes 12/10/24 12:23 HX of Motion Sickness No 12/10/24 12:23 HX of N/V After Surgery No 12/10/24 12:23 Non-Smoker No 12/10/24 12:23 Duration of Surgery greater Yes 12/10/24 12:23 than 60 minutes Number of Risk Factors 2 12/10/24 12:23 PONV Score Moderate Risk 12/10/24 12:23 Height & Weight Height & Weight: Anesthesia: Height & Weight Height 5 ft 3 in 12/10/24 12:36 Weight: 72.575 kg 12/10/24 12:36 Body Mass Index (BMI) 28.3 12/10/24 12:36 Respiratory Assessment Respiratory Assessment - manager van: Respiratory Tract Infection Hx - manager van Hx Respiratory Tract Infection No 12/10/24 12:23 STOP Sleep Apnea STOP Sleep Apnea - manager van: STOP Sleep Apnea - manager van Hx Hypertension No 12/10/24 12:23 Hx Sleep Apnea No 12/10/24 12:23 CPAP BIPAP Do you snore loudly (louder Yes 12/10/24 12:23 than talking or can be heard Do you often feel tired/ No 12/10/24 12:23 fatigued/ sleepy during daytime? Has anyone observed you stop No 12/10/24 12:23 breathing during sleep? STOP Results Negative 12/10/24 12:23 QUESTION #5 FULL TEXT : Do you snore loudly (louder than talking or can be heard through closed doors)? 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 - manager van: Tobacco Use History - manager van Tobacco Use Cigarettes 09/27/24 10:39 Smoking Status Current every day smoker 12/10/24 12:23 Hx Tobacco Use Yes 12/10/24 12:23 Years Smoking 35 12/10/24 12:23 Packs Smoked per Day 1 12/10/24 12:23 Smoking Cessation Date was No - quit smoking greater 12/10/24 12:23 within the last 15 years than 15 years ago Hx Smoking Cessation Date Hx Smoking Cessation Counseling Any additional information?: Yes Smoking Status: Current every day smoker (Patient smoked today.) Hematologic Medial History Hematologic Hx - manager van: 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 Specify any problems Hx of Preganancy in last 3 No 12/10/24 12:23 Months Nurse Filling Out [facility] 12/10/24 12:23 & Questions: Date: 12/10/24 12/10/24 12:23 Time: 12:27 12/10/24 12:23 Patient unable to answer at this time (ie. confused, unrespo /Reproduction History /Reproductive History - manager van: /Reproductive Hx- manager van Hx Now No 12/10/24 12:23 Gestational Age (in weeks): EDC: Hx Hx Para Hx Section SAB Active Medications Active Medications: Current Medications Generic Name Dose Route Start Last Admin Trade Name Freq PRN Reason Stop Dose Admin Lactated Ringer's 1,000 mls @ 15 mls/hr 12/10/24 12:00 12/10/24 12:00 IV 15 mls/hr .Q48H SOTO Administration PFSH Medical History (Updated 12/10/24 @ 12:33 by Bruno Bustillos) Wears glasses Alcohol use Redness of skin History of steroid therapy Walker as ambulation aid Arthritis Fatty liver Shortness of breath on exertion Hoarseness Chronic cough Mid back pain on left side Urinary frequency Abdominal pain Home Medications ?Medication ?Instructions ?Recorded ?Last Taken ?Type acetaminophen 650 mg 650 mg PO Q8H PRN pain 12/1012/10/24 History tablet,extended release (Tylenol Arthritis Pain) celecoxib 200 mg capsule 200 mg PO BID 12/10/2412/09 History Allergy/AdvReac Type Severity Reaction Status Date / Time Penicillins Allergy Rash Verified 12/10/24 12:20 Family History (Updated 12/10/24 @ 12:35 by Bruno Bustillos) Mother Hypertension Father Atrial fibrillation Surgical History (Updated 12/10/24 @ 12:33 by Bruno Bustillos) H/O foot surgery Social History (Updated 12/10/24 @ 12:36 by Bruno Bustillos) household members: children housing: apartment financial difficulty paying for basics: not very hard service: No current occupational status: retired Smoking Status: Current every day smoker tobacco type: cigarettes alcohol intake: current alcohol intake frequency: holidays/special occasions only Review of Systems (Anesthesia) ROS Narrative System reviewed and no additional complaints, except as documented. 12/10/24 1333 <Electronically signed by Gregory juarez MD> Date _ Gregory Sparks MD Cosigner Signature: Date CC: ~ Signed [facility] Work Phone: [phone] 839-643106-20-2025 Procedure note [facility] Medical Records Department [address] [place] [address] Operative Report 12/10/24 1503 MR#: [id number] Acct: [id number] Name: SHARLENE DEVLIN Rep #:[id number] : 1960 64 From: Sundeep khoury DO PCP: Care Physician,No Primary Status :[facility] [place] Location: [place] [address]-1 Operative Report (Standard) Operative Information Date of Procedure: 12/10/24 Pre-Operative Diagnosis: Right knee septic arthritis Post-Operative Diagnosis: Right knee septic arthritis Surgery/Procedure Performed: Right knee arthroscopic irrigation and debridement dry janitor: No Type of Anesthesia: General RN Documented Start/Stop Times: Operation Date: 12/10/24 14:00 Case Time Into Pre-Op 12/10/24 11:56 Out of Pre-Op 12/10/24 13:58 Anesthesia Start 12/10/24 14:03 Into Room 12/10/24 14:03 Procedure Start 12/10/24 14:20 Procedure End 12/10/24 14:53 Anesthesia End 12/10/24 14:59 Out of Room 12/10/24 14:59 Procedure Start Time: 14:20 Procedure Stop Time: 14:53 Select all DRAINS/GRAFTS/IMPLANTS that apply: None Estimated Blood Loss: 25 cc Specimen collected: No Description of surgery: Patient was greeted in the same-day surgery holding area and identified by name,medical record number, and date of . The operative extremity is marked. All questions were answered to the patientsatisfaction. At time for procedure,patient will show and was brought to the operative suite positioned in supine omar standard operating table. General anesthesia was induced and LMA placed. Allbony prominences were well-padded. Right lower extremity was placed in a circumferential arthroscopic legholder. The foot of bed was dropped 90 degreesafter a well leg shah was placed on the patient's left thigh. We prepped and draped the right lower extremity in a normal, sterile orthopedic fashion. We then performed a timeout confirming the side, site, and operation be performed. No concerns were voiced and we elected to proceed with surgery. 2 g Ancef was administered prior to incision by anesthesia staff. I then established a standard anterolateral portal. Blunt tipped trocar was used to enter the knee joint. Effusion was noted with purulent material. Arthroscope was introduced. The knee was filled with normal saline with epinephrine. A total of 10 L normalsaline was lavaged through the knee throughout the entirety of the case. Synovitis was noted diffusely. I then established a standard anterior medial portal under direct visualization. Shaver was introduced to debride the synovitisand irrigated through the knee. I was able to then visualize the patellofemoral joint which was completely denuded of cartilage. I entered the medial compartment with a valgus stress. Minimal degenerative changes were noted. The meniscus was intact. Intercondylar notch was examined. Synovitis was noted and debrided. ACL and PCL appeared normal otherwise. Lateral compartment was entered with a figure for varus stress. Lateral compartment wasalso minimally degenerative. Meniscus was intact. I then used the shaver to complete our synovectomy diffusely about the knee. Fluid was allowed to wash through the knee. I used the arthroscopic cautery to control any bleeders. After the completion of 10 L, arthroscope was withdrawn. The knee was anesthetized with 20 cc total quarter percent bupivacainewith epinephrine. Portal sites were closed in interrupted [id number]-[id number] fashion with 4-0 nylon suture. Bulky sterile compression dressing was applied. Patient was awakened from anesthesia and safely explained the operative suite. She tolerated the procedure well without apparent complication. Shewas transferred to her hospital bed and subsequent to PACU in stable condition. Postoperative plan: Patient will be admitted to observation overnight. Anticipate a stay through the weekend to allow for close monitoring, IV antibiotics and pending cultures. Will follow cultures closely. Currently growing Staphylococcus aureus. We will continue Ancef postoperatively. ID consult was placed and is unlikely to be completed until Friday given the limitations of coverage. Determinefinal antibiotic recommendations once ID consult is complete PICC line versus p.o.. Xarelto orderedfor DVT prophylaxis starting postoperative day #1. Ice to the knee. Multimodal pain management with Tylenol, oxycodone and Toradol prior to Xarelto starting. Mobilize with PTand OT. Surgical Findings: Purulent effusion consistent with septic arthritis, diffuse synovitis. Grade IVchondromalacia patellofemoral. Complications Complications: No Admit VTE Documentation VTE Present on Admission: No VTE Mechan Device Prophylaxis: SCD's VTE Pharm Prophylaxis ordered?: Yes 12/10/24 1508 Cosigner Signature (if applicable): CC: Dr. Sundeep Mccormick, ; No Primary Care Physician~ Signed [facility]06-20-2025 Consult note [facility] Medical Records Department [address] [place] [address] Anesthesia Postop Eval I 12/10/24 1505 MR#: [id number] Acct: [id number] Name: SHARLENE DEVLIN Rep #:[id number] : 1960 64 From: Sarita Key CRNA PCP: Care Physician,No Primary Status :REG [facility] Y Race: C Location: PA3 [id number] -[id number] Anesthesia: Postop Eval I Current Vital Signs Temperature: 97.3 F Pulse Rate: 112 Blood Pressure: 161/111 Respiratory Rate: 24 Pulse Ox: 94 Assessment Airway patent: Yes Spontaneous unlabored respirations: Yes nausea: No Vomiting: No Anesthesia Complication: No Fluid Hydration Crystalloid volume administer (ml): 1,000 Total IV fluid infused: 1,000 Progress Note Anesthesia document: Postop Eval 1 completed: Yes 12/10/24 1506 a DIE ATTACHER> Date _ Sarita Key DIE ATTACHER Cosigner Signature: Date CC: ~ Signed [facility]06-20-2025 Consult note [facility] Medical Records Department [address] [place] [address] Pre-Anesthesia Evaluation 12/10/24 1313 MR#: [id number] Acct: [id number] Name: SHARLENE DEVLIN Rep #:[id number] : 1960 64 From: Gregory Sparks MD PCP: Care Physician,No Primary Status :[facility] Y Race: C Location: [place] [address] ASA Classification* ASA Classification ASA Classification: 2 Assessment & Plan Anesthesia* Anesthesia Assessment Anesthesia Assessment: Discussed sedation and/or anesthesia options, risks, benefits, and alternatives with patient/parents/legal guardian/POA. Questions invited. The patient/parents/legal guardian/POA seems to understand and agrees to proceedwith anesthesia plan. Reviewed the physical assessment, medical history, allergy history and patient home medications list prior to surgery/procedure/anesthetic and documented any changes. Performed airway and anesthesia risk assessments. Anesthesia Type Anesthesia Type: General History Source History Obtained from:: Patient and Chart Anesthesia Focused Assessment* Temperature: 98.0 F Pulse Rate: 96 Blood Pressure: 124/77 Respiratory Rate: 16 Pulse Ox: 99 Oxygen Delivery Method: Room Air Airway Assessment Mouth opens: >3 cm Mallampati Score: IV Teeth Condition: Intact Neck Range of motion (ROM): Full ROM Labs Anesthesia Preop lab: CBC WBC 9.2 K/mm3 (4.4-11.0) 12/10/24 12:17 12/10/24 RBC 4.08 M/mm3 (4.2-5.4) L 12/10/24 12:17 12/10/24 Hgb 13.4 g/dL (12.0-15.0) 12/10/24 12:17 12/10/24 Hct 38.4 % (37-47) 12/10/24 12:17 12/10/24 Plt Count 400 K/mm3 (150-450) 12/10/24 12:17 12/10/24 CHEMISTRY Potassium 3.9 mmol/L (3.3-5.1) 12/10/24 12:17 12/10/24 Sodium 136 mmol/L (133-145) 12/10/24 12:17 12/10/24 BUN 7 mg/dL (4-19) 12/10/24 12:17 12/10/24 Creatinine 0.51 mg/dL (0.70-1.20) L 12/10/24 12:17 Glucose 103 mg/dL (70-99) H 12/10/24 12:17 12/10/24 COAG Pre-Assessment Diagnosis/Proposed Procedure Planned Operative Procedure(s): RIGHT KNEE ARTHROSCOPIC IRRIGATION AND DEBRIDEMENT Anesthesia History Anesthesia History - manager van: Anesthesia History - manager van Hx Hospitalization No 12/10/24 12:23 Any Problems With Anesthesia Yes 12/10/24 12:23 Cholinesterase deficiency No 12/10/24 12:23 You/Your Family Experience No 12/10/24 12:23 fever (hyperthermia) with Relationship Recent Exposure to Contagious No 12/10/24 12:36 Disease Does patient have nerve No 12/10/24 12:23 stimulator Patient instructed to have device shut off --Does patient have Pacemaker No 12/10/24 12:36 or ICD? When Was Last Pacemaker Check QUESTION #4 FULL TEXT: You/Your Family Experience fever (hyperthermia) with Anesthesia Last Oral Intake Last Oral intake: Last Oral Intake NPO since 00:00 12/10/24 12:36 Meds taken in AM with sips of No 12/10/24 12:36 water? Meds patient instructed to take am of surgery Any additional information?: Yes NPO since: 05:00 Meds taken in AM with sips of water?: Yes Meds patient instructed to take am of surgery: Tylenol PONV PONV - manager van: PONV - manager van Female Yes 12/10/24 12:23 HX of Motion Sickness No 12/10/24 12:23 HX of N/V After Surgery No 12/10/24 12:23 Non-Smoker No 12/10/24 12:23 Duration of Surgery greater Yes 12/10/24 12:23 than 60 minutes Number of Risk Factors 2 12/10/24 12:23 PONV Score Moderate Risk 12/10/24 12:23 Height & Weight Height & Weight: Anesthesia: Height & Weight Height 5 ft 3 in 12/10/24 12:36 Weight: 72.575 kg 12/10/24 12:36 Body Mass Index (BMI) 28.3 12/10/24 12:36 Respiratory Assessment Respiratory Assessment - manager van: Respiratory Tract Infection Hx - manager van Hx Respiratory Tract Infection No 12/10/24 12:23 STOP Sleep Apnea STOP Sleep Apnea - manager van: STOP Sleep Apnea - manager van Hx Hypertension No 12/10/24 12:23 Hx Sleep Apnea No 12/10/24 12:23 CPAP BIPAP Do you snore loudly (louder Yes 12/10/24 12:23 than talking or can be heard Do you often feel tired/ No 12/10/24 12:23 fatigued/ sleepy during daytime? Has anyone observed you stop No 12/10/24 12:23 breathing during sleep? STOP Results Negative 12/10/24 12:23 QUESTION #5 FULL TEXT : Do you snore loudly (louder than talking or can be heard through closeddoors)? 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 - manager van: Tobacco Use History - manager van Tobacco Use Cigarettes 09/27/24 10:39 Smoking Status Current every day smoker 12/10/24 12:23 Hx Tobacco Use Yes 12/10/24 12:23 Years Smoking 35 12/10/24 12:23 Packs Smoked per Day 1 12/10/24 12:23 Smoking Cessation Date was No - quit smoking greater 12/10/24 12:23 within the last 15 years than 15 years ago Hx Smoking Cessation Date Hx Smoking Cessation Counseling Any additional information?: Yes Smoking Status: Current every day smoker (Patient smoked today.) Hematologic Medial History Hematologic Hx - manager van: 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 Specify any problems Hx of Preganancy in last 3 No 12/10/24 12:23 Months Nurse Filling Out Transfusion BARBY 12/10/24 12:23 & Questions: Date: 12/10/24 12/10/24 12:23 Time: 12:12/10/24 12:23 Patient unable to answer at this time (ie. confused, unrespo /Reproduction History /Reproductive History - manager van: /Reproductive Hx- manager van Hx Now No 12/10/24 12:23 Gestational Age (in weeks): EDC: Hx Hx Para Hx Section SAB Active Medications Active Medications: Current Medications Generic Name Dose Route Start Last Admin Trade Name Freq PRN Reason Stop Dose Admin Lactated Ringer's 1,000 mls @ 15 mls/hr 12/10/24 12:00 12/10/24 12:00 IV 15 mls/hr .Q48H SOTO Administration PFSH Medical History (Updated 12/10/24 @ 12:33 by Bruno Bustillos) Wears glasses Alcohol use Redness of skin History of steroid therapy Walker as ambulation aid Arthritis Fatty liver Shortness of breath on exertion Hoarseness Chronic cough Mid back pain on left side Urinary frequency Abdominal pain Home Medications ?Medication ?Instructions ?Recorded ?Last Taken ?Type acetaminophen 650 mg 650 mg PO Q8H PRN pain 12/1012/10/24 History tablet,extended release (Tylenol Arthritis Pain) celecoxib 200 mg capsule 200 mg PO BID 12/10/2412/09 History Allergy/AdvReac Type Severity Reaction Status Date / Time Penicillins Allergy Rash Verified 12/10/24 12:20 Family History (Updated 12/10/24 @ 12:35 by Bruno Bustillos) Mother Hypertension Father Atrial fibrillation Surgical History (Updated 12/10/24 @ 12:33 by Bruno Bustillos) H/O foot surgery Social History (Updated 12/10/24 @ 12:36 by Bruno Bustillos) household members: children housing: apartment financial difficulty paying for basics: not very hard service: No current occupational status: retired Smoking Status: Current every day smoker tobacco type: cigarettes alcohol intake: current alcohol intake frequency: holidays/special occasions only Review of Systems (Anesthesia) ROS Narrative System reviewed and no additional complaints, except as documented. 12/10/24 1333 ann ALARCON> Date _ Gregory Sparks MD Cosigner Signature: Date CC: ~ Signed [facility]06-02-2025 Radiology Diagnostic study note [facility] Imaging Services [address] [place] [address] Knee 4 or More Views MR#: [id number] Acct: [id number] Name: SHARLENE DEVLIN I Rep #: [id number] : 1960 F 63 From: Shirley Sanchez MD PCP: Care Physician,No Primary Status: REG ER Study:Knee 4 or More Views Date of Exam: 11/22/24 Exam# [id number] Ordering Dr: Ed Bell MD PROCEDURE: KNEE [...] change involving the patellofemoral joint. Reading Location: [place] [address] CC: Dr. Orion Bell MD; No Primary Care Physician ~ Supervisor Malted Milk: Signed [facility]02-02-2022 NotePatient Outreach (INTMMN) SHARLENE DEVLIN I ([id number]) 1960 F Date Time Provider Department 07/25/21 ANDRE CLARK During your visit today, we recorded the following information about you: Allergies As of Date: 07/25/2021 Noted Allergy Reaction PENICILLINS 02/25/2019 4 - Hives Date Reviewed: 02/25/2019 Reviewed by: Andre Clark - Fully Assessed Visit Diagnosis:Encounter for screening mammogram for breast cancer [Z12.31] Order(s):APARNA SCREENING [[id number]] Order #: [id number] FUTURE Problem List As Of Date 07/25/2021 Noted Resolved Ganglion cyst of left foot [M67.472] 02/25/2019 Tobacco use disorder [F17.200] 02/25/2019 Encounter Status:Closed by Kochzauber on 07/30/21[facility] 02-22-2021 NoteHNO ID: [id number] Author: Vivien Faith LPN Service: ? Author Type: ? Type: Progress Notes Filed: 02/22/2021 9:26 AM Note Text: LEFT MESSAGE FOR PATIENT TO CALL OFFICE.[facility]07-29-2021 NoteHNO ID: [id number] Author: Sarah Oviedo RN Service: ? Author Type: Registered Nurse Type: Progress Notes Filed: 02/19/2021 3:00 AM Note Text: Pt overdue for screening colonoscopy. Pt needs office visit prior due to patient has not been seen in office since 2019. Please call pt and schedule with Imani Martinez or Charles Kendrick. Sarah Oviedo RN[facility]21 NotePatient Outreach (INTMWS) CLAUSSHARLENE Inga ([id number]) 1960 F Date Time Provider Department 01/18/21 [...] use disorder [F17.200] 02/25/2019 Encounter Status:Closed by SHIRA DALTON on 02/19/21[facility] 08-27-2020 NoteHNO ID: [id number] Author: Jewell Bell Pss Service: ? Author Type: ? Type: Progress Notes Filed: 09/05/2020 4:22 PM Note Text: 3 rd attempt left message for patient to return call.please arrange appt with pcp and mammogram. Unable to reach letter also mailed.[facility]03-04-2021 NoteHNO ID: [id number] Author: Gloria Mehta Pss Service: ? Author Type: ? Type: Progress Notes Filed: 08/24/2020 1:31 PM Note Text: 1st attempt lm for patient to call the office to schedule her mammogram and Annual exam. Gloria Mehta [facility]ss[facility]-2021 NoteHNO ID: [id number] Author: Lilly Brown LPN Service: ? Author Type: ? Type: Progress Notes Filed: 09/05/2020 4:22 PM Note Text: please call pt to arrange for appt with pcp and mammogram.[facility]02-24-2021 NoteHNO ID: [id number] Author: Andre Clark Service: ? Author Type: Physician Type: Progress Notes Filed: 09/05/2020 4:22 PM Note Text: Ordered.[facility]02-23-2021 NotePatient Outreach (INTMWS) SHARLENE DEVLIN I ([id number]) 1960 F Date Time Provider Department 08/15/20 ANDRE CLARK INTYaryWS During your visit today, we recorded the following information about you: Nellie Valles LPN 09/05/2020 4:22 PM Signed Message left for pt to contact the office to schedule her yearly exam and mammogram. Please see pended order below. Nellie Clark MD 09/05/2020 4:22 PM Signed Ordered. Lilly Brown MEDICAL OFFICE TECHNICIAN 09/05/2020 4:22 PM Signed please call pt [...] Visit Diagnosis:Screening breast examination [Z12.39] Order(s):APARNA SCREENING [[id number]] Order #: [id number] FUTURE Problem List As Of Date 08/15/2020 Noted Resolved Ganglion cyst of left foot [M67.472] 02/25/2019 More... Tobacco use disorder [F17.200] 02/25/2019 Encounter Status:Closed by NELLIE VALLES LPN on 09/05/20[facility]02-23-2021 NoteHNO ID: [id number] Author: Nellie Valles LPN Service: ? Author Type: ? Type: Progress Notes Filed: 09/05/2020 4:22 PM Note Text: Message left for pt to contact the office to schedule her yearly exam and mammogram. Please see pended order below. Nellie [facility]OGerman HospitalEvaluation note* Diagnosis Onset Date Resolution Status Abdominal pain acute Mid back pain on left side a cute Urinary frequency acute [facility] Work Phone: Evaluation noteNo assessment information available [facility] Work Phone: Hospital Discharge instructions Additional Instructions Please return if your symptoms change or worsen. Please continue to drink plenty of fluids. Please take vrxm-rsc-[id number] Tylenol and/or ibuprofen as needed for further pain control.[facility] Work Phone: Hospital Discharge instructions Additional [...] for pain and swelling and Tylenol for pain.[facility] Work Phone: Hospital Discharge instructions Additional Instructions Follow-up with orthopedics, ice your knee, elevate the area, take NSAIDs as well for pain and swelling.[facility] Work Phone: Reason for referral (narrative)No reason for referral information availableW[facility] Work Phone: Summary Purpose Family History No Family History Records Found Relationship Condition Age at Onset Recorded Date/T raymond mother Hypertension Unknown father Atrial fibrillation Unknown Advance Directives No Advanced Directives Records Found Advance Directive Response Recorded Date/ Time Living Will No February 20 10:43pm Power of Graduate Recruiter No February 20 10:43pm Advance Directive Response Recorded Date/ Time Do you have a Healthcare Power of Graduate Recruiter? No November 22, 2024 9:07am Advance Directive Response Recorded Date/ Time Do you have a Healthcare Power of Graduate Recruiter? No November 22, 2024 9:07am Do you have a Healthcare Power of Graduate Recruiter? No December 03, 2024 1:29pm Advance Directive Response Recorded Date/ Time Do you have a Healthcare Power of Graduate Recruiter? No December 10, 2024 4:49pm Do you have a Healthcare Power of Graduate Recruiter? No November 22, 2024 9:07am Do you have a Healthcare Power of Graduate Recruiter? No December 03, 2024 1:29pm Chief Complaint [...] Knee pain December 03, 2024 12:4 9pm Chief Complaint Admit Date SINUS COMPLAINTS September 27, 2024 10:4 2am right knee pain November 22, 2024 9:00a m Knee pain December 03, 2024 12:4 9pm Localized swelling, mass and lump, right lower rice December 09, 2024 2:54pm Reason for Visit Admit Date Septic arthritis of knee, right November 2:56pm Additional Source Comments INFORMATION SOURCE (unrecogn ized section and content) DATE CREATED AUTHOR 08/02/2021 [facility] DATE CREATED AUTHOR AUTHOR'S ORGANIZ ATION 12/09/2024 [facility] DATE CREATED AUTHOR AUTHOR'S ORGANIZ ATION 12/12/2024 [facility] DATE CREATED AUTHOR AUTHOR'S ORGANIZ ATION 12/19/2024 [facility] Goals (unrecognized section and content) Goals may [...] 27, 2024 End: September 27, 2024 Vivek Suarez PA, PA Attending Provider Active Start: September 27, [...] 2024 End: December 03, 2024 Dr. Davin Manrique DO Emergency Provider Active Start : December 03, 2024 End: December 03, 2024 Team Status: Inactive Member Role Status Dates No Primary Care Physician Primary Care Provider Active Start: December 03, 2024 End: December 03, 2024 Dr. Davin Manrique DO Attending Provider Active Start : December 03, 2024 End: December 03, 2024 Dr. Davin Manrique DO Emergency Provider Active Start : December 03, 2024 End: December 03, 2024 Team Status: Inactive Member Role Status Dates No Primary Care Physician Primary Care Provider Active Start: December 09, 2024 End: December 09, 2024 Dr. Sundeep Mccormick DO Attending Provider Active Start: December 09, 2024 End: December 09, 2024 Dr. Sundeep Mccormick DO Referring Provider Active Start: December 09, 2024 End: December 09, 2024 Team Status: Active Member Role Status Dates No Primary Care Physician Primary Care Provider Active Start: December 10, 2024 Dr. Sundeep Mccormick DO Admit Provider Active Start: December 10, 2024 Dr. Sundeep Mccormick DO Attending Provider Active Start: December 10, 2024 Dr. Sundeep Mccormick DO Referring Provider Active Start: December 10, 2024 Dr. Raghav Gabriel MD Other Provider Active Start: December 10, 2024 Team Status: Inactive Member Role Status Dates No Primary Care Physician Primary Care Provider Active Start: December 10, 2024 End: December 14, 2024 Dr. Sundeep Mccormick DO Admit Provider Active Start: December 10, 2024 End: December 14, 2024 Dr. Sundeep Mccormick DO Attending Provider Active Start: December 10, 2024 End: December 14, 2024 Dr. Sundeep Mccormick DO Referring Provider Active Start: December 10, 2024 End: December 14, 2024 Dr. Raghav Gabriel MD Other Provider Active Start: December 10, 2024 End: December 14, 2024 FOR RECORDS PERTAINING TO PATIENTS WHO [...] BE BASED ON THE PRIMARY CLINICAL RECORDS. [employer] provides no warranty or guarantee of the accuracy or completeness of information in this document.
== END 2024-12-20 23:59 | disposition home or self-care (01) ==
LOC: MEDOUTP 11:28
PROVIDERS: Referring Provider Internal Medicine Infectious Disease; Visit Provider Internal Medicine Infectious Disease
DX: M00.80 Arthritis due to other bacteria, unspecified joint (principal)
CPT/HCPCS: 36592; 80048; 85025; 85652; A4216

== ENCOUNTER 2024-12-27 12:33 | Outpatient (CLI) | payer MEDICAID, SELFPAY ==
[2024-12-27 13:06] LABS: Hematocrit 31.7 % (37-47); Hemoglobin 10.7 g/dL (12.0-15.0); Immature Granulocytes Count 0.030 X10^3/uL (0.0-0.0); Mean Corp Hgb Conc 33.8 g/dL (32-36); Mean Corpuscular Volume 95.8 fL (81-99); Mean Platelet Vol. 9.3 fl (6.2-12.0); NRBC Flagged by Analyzer 0 % (0-5); Platelet Count 538 K/mm3 (150-450); RBC Distribution Width CV 13.0 % (11.6-14.6); RBC Distribution Width SD 45.8 fl (35.1-43.9); Red Blood Count 3.31 M/mm3 (4.2-5.4); White Blood Count 7.5 K/mm3 (4.4-11.0)
[2024-12-27 13:31] LABS: Anion Gap 12 (5-15); BUN 5 mg/dL (4-19); BUN/Creat Ratio 8.8 RATIO (10-20); Calcium,Total 8.9 mg/dL (7.6-11.0); Carbon Dioxide 25.4 mmol/L (21.0-32.0); Chloride 100 mmol/L (98-108); Glucose 124 mg/dL (70-99); Potassium 3.8 mmol/L (3.3-5.1)
[2024-12-27 21:00] LABS: Xtra Tube EP Lab EXTRA TUBE
== END 2024-12-27 23:59 | disposition home or self-care (01) ==
LOC: MEDOUTP 12:33
PROVIDERS: Referring Provider Internal Medicine Infectious Disease; Visit Provider Internal Medicine Infectious Disease
DX: M00.80 Arthritis due to other bacteria, unspecified joint (principal)
CPT/HCPCS: 36592; 80048; 85025; 85652; A4216

== ENCOUNTER 2025-01-03 09:57 | Outpatient (CLI) | payer MEDICAID, SELFPAY ==
[2025-01-03 12:40] LABS: Hematocrit 31.3 % (37-47); Hemoglobin 10.4 g/dL (12.0-15.0); Immature Granulocytes Count 0.030 X10^3/uL (0.0-0.0); Mean Corp Hgb Conc 33.2 g/dL (32-36); Mean Corpuscular Volume 93.7 fL (81-99); Mean Platelet Vol. 9.6 fl (6.2-12.0); NRBC Flagged by Analyzer 0 % (0-5); POSITIVE MORPHOLOGY YES; Platelet Count 429 K/mm3 (150-450); RBC Distribution Width CV 13.1 % (11.6-14.6); RBC Distribution Width SD 44.7 fl (35.1-43.9); Red Blood Count 3.34 M/mm3 (4.2-5.4); White Blood Count 7.7 K/mm3 (4.4-11.0)
[2025-01-03 12:45] LABS: Differential Indicated SCAN CRITERIA MET
[2025-01-03 13:14] LABS: Anion Gap 12 (5-15); BUN 6 mg/dL (4-19); BUN/Creat Ratio 11.4 RATIO (10-20); Calcium,Total 9.2 mg/dL (7.6-11.0); Carbon Dioxide 25.4 mmol/L (21.0-32.0); Chloride 97 mmol/L (98-108); Glucose 110 mg/dL (70-99); Potassium 3.7 mmol/L (3.3-5.1)
[2025-01-03 13:28] LABS: Polychromasia 1+
== END 2025-01-03 23:59 | disposition home or self-care (01) ==
LOC: MEDOUTP 09:57
PROVIDERS: Referring Provider Internal Medicine Infectious Disease; Visit Provider Internal Medicine Infectious Disease
DX: M00.00 Staphylococcal arthritis, unspecified joint (principal); B95.8 Unspecified staphylococcus as the cause of diseases classified elsewhere
CPT/HCPCS: 36592; 80048; 85025; 85652; A4216

== ENCOUNTER 2025-01-10 11:51 | Outpatient (CLI) | payer MEDICAID, SELFPAY ==
[2025-01-10 12:37] LABS: Hematocrit 32.4 % (37-47); Hemoglobin 10.9 g/dL (12.0-15.0); Mean Corp Hgb Conc 33.6 g/dL (32-36); Mean Corpuscular Volume 92.8 fL (81-99); Mean Platelet Vol. 9.7 fl (6.2-12.0); Platelet Count 410 K/mm3 (150-450); RBC Distribution Width CV 13.2 % (11.6-14.6); RBC Distribution Width SD 44.7 fl (35.1-43.9); Red Blood Count 3.49 M/mm3 (4.2-5.4); White Blood Count 8.9 K/mm3 (4.4-11.0)
[2025-01-10 12:50] LABS: Anion Gap 14 (5-15); BUN 8 mg/dL (4-19); BUN/Creat Ratio 15.4 RATIO (10-20); Calcium,Total 9.3 mg/dL (7.6-11.0); Carbon Dioxide 24.0 mmol/L (21.0-32.0); Chloride 96 mmol/L (98-108); Glucose 89 mg/dL (70-99); Potassium 4.2 mmol/L (3.3-5.1)
== END 2025-01-10 23:59 | disposition home or self-care (01) ==
LOC: MEDOUTP 11:51
PROVIDERS: Referring Provider Internal Medicine Infectious Disease; Visit Provider Internal Medicine Infectious Disease
DX: M00.00 Staphylococcal arthritis, unspecified joint (principal); B95.8 Unspecified staphylococcus as the cause of diseases classified elsewhere
CPT/HCPCS: 36592; 80048; 85027; 85652; A4216

== ENCOUNTER → 2025-03-07 | Outpatient (CLI) | payer MEDICAID, SELFPAY ==
[2025-03-07 13:12] LABS: Hematocrit 29.0 % (37-47); Hemoglobin 9.4 g/dL (12.0-15.0); Immature Granulocytes Count 0.020 X10^3/uL (0.0-0.0); Mean Corp Hgb Conc 32.4 g/dL (32-36); Mean Corpuscular Volume 84.8 fL (81-99); Mean Platelet Vol. 9.2 fl (6.2-12.0); NRBC Flagged by Analyzer 0 % (0-5); Platelet Count 384 K/mm3 (150-450); RBC Distribution Width CV 14.2 % (11.6-14.6); RBC Distribution Width SD 44.5 fl (35.1-43.9); Red Blood Count 3.42 M/mm3 (4.2-5.4); White Blood Count 7.1 K/mm3 (4.4-11.0)
[2025-03-07 13:59] LABS: CRP 47.50 mg/L (0.0-3.0)
== END | disposition home or self-care (01) ==
PROVIDERS: Referring Provider Student in an Organized Health Care Education/Training Program; Visit Provider Student in an Organized Health Care Education/Training Program
DX: M17.11 Unilateral primary osteoarthritis, right knee (principal); M00.9 Pyogenic arthritis, unspecified
CPT/HCPCS: 36415; 85025; 85652; 86140; 87015; 87070; 87075; 87077; 87116; 87186; 87205; 87206; 89050; 89051

== ENCOUNTER 2025-03-09 10:35 | Inpatient (IN) | payer MEDICAID, SELFPAY ==
[2025-03-09 10:32] VITALS: BMI 25.2
[2025-03-09 10:53] VITALS: BP 103/76; PULSE 97; RESP 18; TEMP 36.6; O2SAT 98
--- NOTE | 2025-03-09 11:32 | MRI_ITS ---
PROCEDURE: LOWER EXT JOINT ONLY (ROUTINE) 03/09/2025 REASON FOR EXAM: RECURRENT KNEE SEPTIC ARTHRITIS, CONCERN FOR OSTEO TECHNIQUE: LOWER EXT JOINT ONLY (ROUTINE) Multiplanar and multisequence images were obtained without IV contrast administration. COMPARISON: Radiographs of the knee dated 11/22/2024 FINDINGS: Bone Marrow: Heterogeneous bone marrow with patchy increased T2 signal throughout the femur tibia and patella. Focal area of drop in T1 signal in the posterior right tibial plateau with associated corresponding increased T2 signal and loss of cortex. This may reflect a focal area of osteomyelitis. Degenerative changes are present in the femoral condyles with subchondral cystic change. Subchondral cysts are also present at the insertion of the posterior cruciate ligament. Fibula demonstrates normal marrow signal. Collateral Ligaments: No tear Cruciate Ligaments: Split of the ACL at its insertion site with fluid tracking along the posterior fibers but no full-thickness tear. Tendinosis of the posterior cruciate ligament especially at its attachment of the posterior tibia.. Extensor Mechanism: The quadriceps and patellar tendon appear intact. There is some fluid in the distal quadriceps tendon. Edema of Hoffa's fat pad. Menisci: Abnormal signal and truncation involving the root attachment of the medial meniscus. Complex tear involving the posterior horn of the lateral meniscus. Effusion: Large effusion with severe synovitis. Thickened plica and synovium. No loose body. Cartilage: Severe loss of cartilage involving the medial and lateral patellar facets, medial femoral condyle and along the cartilage involving the medial and lateral tibial plateau Iliotibial band: Significant amount of fluid. No tear. Biceps tendon: Tendinosis without tear Popliteal tendon: Extensive tendinosis and partial tear with fluid tracking through the muscle Soft tissues: Extensive edema throughout the knee including the muscular compartments. Enlarged lymph nodes behind the knee. MRI/Lower Ext Joint Only (Routine) IMPRESSION: Severe joint effusion with severe synovitis and significant edema of the subcut aneous tissues and musculature of the posterior compartment of the calf. No distinct drainable fluid collection. The findings are suspicious for septic arthritis in the correct clinical setting. Focal area of decreased T1 signal in the posterior cortex of the right tibial p lateau with disruption of the cortex and associated edema concerning for osteomyelitis. Degenerative cystic changes at the insertion of the posterior cruciate ligament with tenosynovitis. No tear of the cruciate ligaments or collateral ligaments. Tear of the posterior horn of the medial meniscus at the root attachment. Tear of the free edge of the lateral meniscus. Significant edema of the musculature posterior calf. Consider dedicated evalua tion with contrast-enhanced examination of the calf to exclude myositis. Reading Location: [id number]
--- NOTE | 2025-03-09 11:37 | PCM.HP.BLA ---
History and Physical Date of Admission: 03/09/25 This is a 64-year-old female
--- NOTE | 2025-03-09 11:41 | PCM.HP.STD ---
HPI - General General Date of Admission: 03/09/25 HPI Narrative This is a 64-year-old female who was previous to diagnosed with a right knee septic arthritis and underwent arthroscopic I&D on 12/10/24 with myself. She received a PICC line antibiotic therapy and and was rehabbing physical therapy. She has had some persistent swelling but this worsened over the last week. She was seen in my office on 03/07/25. X-rays revealed an effusion and I performed an arthrocentesis at bedside. Some thick seropurulent fluid was aspirated and sent for laboratory analysis. Limited volume was yielded but a preliminary culture result yielded a gram-positive cocci. Decision was made to direct admit the patient with planned repeat I&D of the right knee. She denies any fevers, chills, nausea or vomiting, chest pain or shortness of breath. 12 point review of systems obtained, negative unless otherwise noted in HPI. [facility] Medical History (Updated 03/09/25 @ 11:[address] Sundeep Perez DO) Septic arthritis of knee, right Smoker Wears glasses Alcohol use Redness of skin History of steroid therapy Walker as ambulation aid Arthritis Fatty liver Shortness of breath on exertion Hoarseness Chronic cough Mid back pain on left side Urinary frequency Abdominal pain Home Medications ?Medication ?Instructions ?Recorded ?Last Taken ?Type gabapentin 300 mg capsule 300 mg PO BID 03/09/25 03/09/25 History nortriptyline 10 mg capsule 20 mg PO QHS 03/09/25 Unknown History Allergy/AdvReac Type Severity Reaction Status Date / Time Penicillins Allergy Rash Verified 12/10/24 12:20 Family History Mother Hypertension Father Atrial fibrillation Surgical History H/O foot surgery Social History household members: children housing: apartment current occupational status: retired Smoking Status: Current every day smoker tobacco type: cigarettes alcohol intake: current alcohol intake frequency: holidays/special occasions only ROS ROS Narrative NEG, see above Vital Signs Vital Signs Vital Signs: 03/09/25 10:53 03/09/25 10:57 Temperature 98 F Temperature Source Oral Pulse Rate 97 Respiratory Rate 18 Respiratory Effort Normal Blood Pressure 103/76 Blood Pressure Mean 85 Blood Pressure Source Monitor Blood Pressure Position Semi-Fowlers Blood Pressure Location Left Arm Pulse Ox 98 Oxygen Delivery Method Room Air Room Air Weight Weight: 142 lb 12.8 oz Body Mass Index (BMI) 25.2 Physical Exam Narrative General - alert and oriented ?3, NAD HEENT - NC/AT CV - regular rhythm, no murmurs gallops or rubs Resp - Lungs CTA B/L, normal work of breathing Abdomen-soft, nontender, nondistended Neuro - cranial nerves II through XII grossly intact, no focal deficits Right lower extremity: 2+ right knee effusion. Range of motion 10-50. Stable to varus valgus stressing. Slightly warm to touch. Well-healed incisions without erythema. Calf is soft and nontender. DF, PF, EHL 5/5. DP 2+. Assessment & Plan Assessment/Plan (1) Septic arthritis of knee, right: QUALIFIERS: Septic arthritis organism: staphylococcal Qualified Code(s): M00.061 - Staphylococcal arthritis, right knee PLAN: Presumed recurrent septic arthritis of the right knee -Plan for I&D tomorrow. Nothing by mouth after midnight. -Urgent MRI today to evaluate for possible osteomyelitis or other sources of recurrent infection and for surgical planning -Infectious disease consultation. We will provisionally start patient on vancomycin and ceftriaxone.
[2025-03-09] MEDS: 0.9% Saline Lock 10 ML Syringe IV ×2 (12:17→12:33)
[2025-03-09] MEDS: Lactated Ringers 1,000 ML 125 ML IV ×2 (12:17→21:55)
[2025-03-09 12:31] LABS: Hematocrit 28.9 % (37-47); Hemoglobin 9.3 g/dL (12.0-15.0); Immature Granulocytes Count 0.020 X10^3/uL (0.0-0.0); Mean Corp Hgb Conc 32.2 g/dL (32-36); Mean Corpuscular Volume 85.3 fL (81-99); Mean Platelet Vol. 9.3 fl (6.2-12.0); NRBC Flagged by Analyzer 0 % (0-5); Platelet Count 371 K/mm3 (150-450); RBC Distribution Width CV 14.3 % (11.6-14.6); RBC Distribution Width SD 44.7 fl (35.1-43.9); Red Blood Count 3.39 M/mm3 (4.2-5.4); White Blood Count 6.2 K/mm3 (4.4-11.0)
[2025-03-09] MEDS: Vancomycin HCl 1,000 MG in 0.9% Normal Saline (250mL Bag) 250 ML 250 MG IV (13:06)
[2025-03-09 13:15] LABS: AST(SGOT) 16 U/L (<=31); Alanine Aminotransfer ALT/SGPT 8 U/L (<=34); Albumin, Serum 3.6 g/dL (3.4-4.8); Alkaline Phosphatase 103 U/L (35-104); Anion Gap 14 (5-15); BUN 7 mg/dL (4-19); BUN/Creat Ratio 11.5 RATIO (10-20); Calcium,Total 9.1 mg/dL (7.6-11.0); Carbon Dioxide 22.9 mmol/L (21.0-32.0); Chloride 95 mmol/L (98-108); Estimated Creatinine Clearance 90.27 ml/min (50-250); Globulin 3.6 g/dL (2.2-4.2); Glucose 85 mg/dL (70-99); Potassium 4.2 mmol/L (3.3-5.1)
--- NOTE | 2025-03-09 13:35 | CON.PCM.ID_ITS ---
Assessment & Plan Assessment/Plan (1) Septic arthritis of knee, right: QUALIFIERS: Septic arthritis organism: staphylococcal Qualified Code(s): M00.061 - Staphylococcal arthritis, right knee PLAN: Treated with iv cefazolin 11/2024 for MSSA R knee septic arthritis. Now with recurrence of symptoms. Aspiration 03/07/25 again with mssa. Will narrow abx to cefazolin and check bcx x2. OR planned for tomorrow, MRI is pending. 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 Treated with iv cefazolin at that time. Had done well off of abx for about 2 months, then over past 2-3 weeks progressive pain while working with PT and associated swelling and warmth in R knee. No fever or chills. Had aspiration done and admitted here on vanc/ceftriaxone. OR planned for tomorrow. Full ROS performed and neg except as noted above. [facility] Medical History Septic arthritis of knee, right Smoker Wears glasses Alcohol use Redness of skin History of steroid therapy Walker as ambulation aid Arthritis Fatty liver Shortness of breath on exertion Hoarseness Chronic cough Mid back pain on left side Urinary frequency Abdominal pain Home Medications ?Medication ?Instructions ?Recorded ?Last Taken ?Type gabapentin 300 mg capsule 300 mg PO BID 03/09/2503/09 History nortriptyline 10 mg capsule 20 mg PO QHS 03/09/25 Unkn own History Allergy/AdvReac Type Severity Reaction Status Date / Time Penicillins Allergy Rash Verified 12/10/24 12:20 Family History Mother Hypertension Father Atrial fibrillation Surgical History H/O foot surgery Social History household members: children housing: apartment current occupational status: retired Smoking Status: Current every day smoker tobacco type: cigarettes alcohol intake: current alcohol intake frequency: holidays/special occasions only Physical Exam Const alert, oriented x3 and no apparent distress General Appearance: cooperative HEENT normocephalic and head/scalp atraumatic Eyes PERRL and EOMs intact bilaterally Neck supple and No nodes Resp normal air movement and clear to auscultation bilaterally Cardio regular rate and regular rhythm GI soft to palpation, non-tender and non-distended Extremity General Extremity: Negative for edema Skin Skin Narrative: R knee swelling, warmth. No redness or drainage. Neuro CN's II-XII intact bilaterally Lab / Micro Data Attestation: I reviewed the patient's lab results. 03/09/25 12:11 03/09/25 12:11 Labs: Laboratory Results - last 24 hr 03/09/25 12:11: WBC 6.2, RBC 3.39 L, Hgb 9.3 L, Hct 28.9 L, MCV 85.3, MCH 27.4, MCHC 32.2, RDW Std Deviation 44.7 H, RDW Coeff of Pema 14.3, Plt Count 371, MPV 9.3, Immature Gran % (Auto) 0.300, Neut % (Auto) 62.5, Lymph % (Auto) 26.5, [place] % (Auto) 8.9, Eos % (Auto) 1.0, Baso % (Auto) 0.8, Absolute Neuts (auto) 3.9, Absolute Lymphs (auto) 1.64, Nucleated RBC % 0, Sodium 132 L, Potassium 4.2, C hloride 95 L, Carbon Dioxide 22.9, Anion Gap 14, BUN 7, Creatinine 0.57 L, Estim Creat Clear Calc 90.27, Est GFR (MDRD) Non-Af 102, BUN/Creatinine Ratio 11.5, Glucose 85, Calcium 9.1, Total Bilirubin 0.25, AST 16, ALT 8, Alkaline Phosphatase 103, Total Protein 7.2, Albumin 3.6, Globulin 3.6, Albumin/Globulin Ratio 1.0
[2025-03-09] MEDS: Cefazolin 2 GM in 0.9% Normal Saline (100mL Bag) 100 ML IV ×2 (14:27→21:18)
[2025-03-09 14:30] VITALS: BP 120/78; PULSE 88; RESP 18; TEMP 36.6; O2SAT 100
[2025-03-09 21:20] VITALS: BP 115/70; PULSE 92; RESP 16; TEMP 36.7; O2SAT 100
[2025-03-09] MEDS: MELATONIN 3 MG TABLET PO (21:59)
[2025-03-10] VITALS (13 sets, daily range): BP systolic 110–165; BP diastolic 58–99; PULSE 80–116; RESP 16–18; TEMP 36.1–36.8; O2SAT 85–97; BMI 25.2; BMI 25.3
[2025-03-10 05:06] LABS: Hematocrit 26.5 % (37-47); Hemoglobin 8.6 g/dL (12.0-15.0); Immature Granulocytes Count 0.010 X10^3/uL (0.0-0.0); Mean Corp Hgb Conc 32.5 g/dL (32-36); Mean Corpuscular Volume 85.5 fL (81-99); Mean Platelet Vol. 9.0 fl (6.2-12.0); NRBC Flagged by Analyzer 0 % (0-5); POSITIVE MORPHOLOGY YES; Platelet Count 280 K/mm3 (150-450); RBC Distribution Width CV 14.2 % (11.6-14.6); RBC Distribution Width SD 43.8 fl (35.1-43.9); Red Blood Count 3.10 M/mm3 (4.2-5.4); White Blood Count 3.4 K/mm3 (4.4-11.0)
[2025-03-10 05:08] LABS: Differential Indicated SCAN CRITERIA MET
[2025-03-10 05:24] LABS: Anion Gap 10 (5-15); BUN 9 mg/dL (4-19); BUN/Creat Ratio 16.4 RATIO (10-20); Calcium,Total 9.0 mg/dL (7.6-11.0); Carbon Dioxide 27.5 mmol/L (21.0-32.0); Chloride 105 mmol/L (98-108); Estimated Creatinine Clearance 91.88 ml/min (50-250); Glucose 85 mg/dL (70-99); Potassium 4.1 mmol/L (3.3-5.1)
[2025-03-10 06:03] LABS: Differential Comment SCANNED
[2025-03-10 06:04] LABS: Red Cell Morphology NORM C+C NORMAL (NORM C&C)
[2025-03-10] MEDS: Lactated Ringers 1,000 ML 125 ML IV ×2 (06:28→18:18)
[2025-03-10] MEDS: Cefazolin 2 GM in 0.9% Normal Saline (100mL Bag) 100 ML IV ×3 (06:32→21:09)
--- NOTE | 2025-03-10 10:41 | PN.ID_ITS ---
Physical Exam Narrative Knee still sore. OR today. No fever, no n/v/d. Const alert and no apparent distress General Appearance: cooperative Resp normal air movement and clear to auscultation bilaterally Cardio regular rate and regular rhythm GI soft to palpation, non-tender and non-distended Skin no rashes or lesions noted Skin Narrative: R knee swelling, tenderness ID ID: Route of nutrition/ use of supplements: [] Nutritional Intake: [] IV Site: [] Gannon Catheter: [] Assessment & Plan Assessment/Plan (1) Septic arthritis of knee, right: QUALIFIERS: Septic arthritis organism: staphylococcal Qualified Code(s): M00.061 - Staphylococcal arthritis, right knee PLAN: Treated with iv cefazolin 11/2024 for MSSA R knee septic arthritis. Now with recurrence of symptoms. Aspiration 03/07/25 again with mssa. Will cont ce fazolin. OR planned for today, MRI showed osteo. Plan will be 6 weeks iv abx at discharge. Will follow
--- OUTSIDE RECORDS SUMMARY | 2025-03-10 11:09 | XMS RPT_ITS | CCD ---
Author Organization [facility] Care Team Providers Care Mammal Keeper Name Role Phone Care Physician, No Primary Primary Care Provider Unavailable Care Physician, No Primary Referring Provider Un available EVELYN Berger Attending Provider Care Physician, No Primary Primary Care Provider Unavailable Care Physician, No Primary Referring Provider Un available Vivek Berger Attending Provider Ray ALARCON, Dr. Sears Emergency Provider [phone] Dr. Orion Bell MD Attending Provider [phone] Dr. Davin Cole DO Emergency Provider BAL[employer] TE[employer] CASHIER, FLYNN Primary Care Unavailabl e SUNDEEP MCCORMICK DO Attending Unavailable SPITTHILARIA DOSUNDEEP Admitting Unavailable SUNDEEP MCCORMICK DO Attending Unavailable BALTES TE[employer] EQUIP[employer] CASHIER, FLYNN Primary Care Unavailabl e Dr. Davin Cole DO Attending Provider [phone] Sundeep Mccormick DO Attending Provider [phone] Dr. Sundeep Mccormick DO Referring Provider Dr. Sundeep Mccormick DO Admit Provider Dr. Raghav Gabriel MD Other Provider Dr. Ernesto Galvez MD Attending Provider Dr. Raghav Gabriel MD Attending Provider Dr. Raghav Gabriel MD Referring Provider Dr. Kamran Pate MD Attending Provider Raghav Gabriel Consulting Unavailable Sundeep Mccormick Attending Unavailable Sundeep Mccormick Referring Unavailable Sundeep Mccormick Admitting Unavailable Care Physician, No Primary Primary Care Unava ilable Sundeep Mccormick Attending Unavailable Raghav Gabriel Consulting Unavailable Sundeep Mccormick Referring Unavailable Sundeep Mccormick Admitting Unavailable Care Physician, No Primary Primary Care Unava ilable Davin Cole Attending Unavailable Care Physician, No Primary Primary Care Unava ilable Raghav Gabriel Referring Unavailable Care Physician, No Primary Primary Care Unava ilable Raghav Gabriel Attending Unavailable Raghav Gabriel Referring Unavailable Care Physician, No Primary Primary Care Unava ilable Raghav Gabriel Attending Unavailable Sundeep Mccormick Attending Unavailable Chris, Sundeep Referring Unavailable Care Physician, No Primary Primary Care Unava ilable Vivek Berger Attending Unavailable Care Physician, No Primary Referring Unava ilable Care Physician, No Primary Primary Care Unava ilable Ernesto Galvez Attending Unavailable Spialfredo, Sundeep Referring Unavailable Care Physician, No Primary Primary Care Unava ilable Raghav Gabriel Referring Unavailable Care Physician, No Primary Primary Care Unava ilable Raghav Gabriel Attending Unavailable Sundeep Mccormick Referring Unavailable Sundeep Mccormick Attending Unavailable Care Physician, No Primary Primary Care Unava ilable Raghav Gabriel Attending Unavailable Care Physician, No Primary Primary Care Unava ilable Raghav Gabriel Referring Unavailable Orion Bell Attending Unavailable Care Physician, No Primary Primary Care Unava ilable Allergies Allergy Classification Reported Allergen(s) Allergy Type Date of Onset Reaction(s) Facility (10 sources) Penicillins Allergy to substance 02-20-2022 Rash [facility] (1 source) Penicillins Drug allergy (disorder) 12-10-2024 [facility] Repository Medications Current Medications Medication Drug Class(es) Dates Sig (Normalized) Sig (Original) acetaminophen 500 mg oral tablet (11 sources) Start: 12-14-2024 take 2 tablets by mouth every eight hours Acetaminophen 500 mg Tablet Active 1000 mg PO EVERY 8 HOURS 180 0 December 14, 2024 12:00am Start: 12-10-2024 End: 12-14-2024 take 1 tablet by mouth every eight hours as needed for pain Acetaminophen (Tylenol Arthritis Pain) 650 mg tablet extended release Discontinued 650 mg PO Q8H as needed for pain December 10, 2024 12:00am December 14, 2024 12:02pm Cefazolin 2 gram recon soln (6 sources) Start: 12-13-2024 Cefazolin 2 gr am recon soln Active 2 g IV Q8H 21 December 13, 2024 12:00am stop date 01/03/25. Dx: mSSA septic arthritis. Weekly bmp, cbc, and esr. Fax to [phone]. Routine picc care per protocol. Start: 12-13-2024 Cefazolin 2 gr am recon soln Active 2 g IV Q8H December 13, 2024 12:00am stop date 01/03/25. Dx: mSSA septic arthritis. Weekly bmp, cbc, and esr. Fax to [phone]. Routine picc care per protocol. celecoxib 200 mg oral capsule (6 sources) Nonsteroidal Anti-inflammatory Drug Start: 12-10-2024 take 1 capsule by mouth twice daily Celecoxib 200 mg capsule Active 200 mg PO TWICE A DAY December 10, 2024 12:00am docusate sodium 50 mg / sennosides, half-way 8.6 mg oral tablet (5 sources) Start: 12-14-2024 Sennosides-Docusat e Sodium (Stimulant Laxative Plus) 8.6-50 mg Tablet Active 1 {tbl} PO TWICE A DAY 30 0 December 14, 2024 12:00am gabapentin 300 mg oral capsule (5 sources) Anti-epileptic Agent Start: 12-14-2024 take 1 capsule by mouth three times daily at mealtime Gabapentin 300 mg Capsule Active 300 mg PO 3 TIMES DAILY WITH MEALS 90 0 December 14, 2024 12:00am oxyCODONE hydrochloride 5 mg oral tablet (5 sources) Opioid Agonist Start: 12-14-2024 take 2 tablets by mouth every four to six hours as needed for pain Oxycodone 5 mg Tablet Active 10 mg PO .q4-6hrs prn as needed for Pain Score 6-10 30 7 0 December 14, 2024 Pyogenic arthritis of right knee joint Staphylococcal arthritis, right knee rivaroxaban 10 mg oral tablet (5 sources) Factor Xa Inhibitor Start: 12-14-2024 take 1 tablet by mouth once daily Rivaroxaban (Xarelto) 10 mg Tablet Active 10 mg PO DAILY@0600 14 0 December 14, 2024 12:00am tiZANidine 2 mg oral tablet (5 sources) Central alpha-2 Adrenergic Agonist Start: 12-14-2024 take 2 tablets by mouth every eight hours as needed for muscle spasms Tizanidine 2 mg Tablet Active 4 mg PO EVERY 8 HOURS NEEDED as needed for spasm 20 December 14, 2024 12:00am Completed/Discontinued Medications Medication Drug Class(es) Dates Sig (Normalized) Sig (Original) acetaminophen 325 mg / HYDROcodone bitartrate 5 mg oral tablet (7 sources) Opioid Agonist Start: 12-03-2024 End: 12-10-2024 Hydrocodone-Acetami nophen 5-325 mg tablet Discontinued 1 {tbl} PO EVERY 6 HOURS NEEDED as needed for Pain 10 3 December 03, 2024 December 10, 2024 12:21pm Pain Pain, unspecified [id number] actuat albuterol 0.09 mg/actuat metered dose inhaler (10 sources) beta2-Adrenergic Agonist Start: 03-10-2017 End: 09-27-2024 Albuterol Sulfate 1 INHALER inhaler Discontinued 1 - 2 NMA INHALATION EVERY 4 HOURS NEEDED as needed for Wheezing 1 March 10, 2017 12:00am September 27, 2024 11:38am Start: 03-10-2017 take 1 puff(s) by in halation every four hours as needed Albuterol Sulfate Active 1 - 2 PUFF INHALATION EVERY 4 HOURS NEEDED March 10, 2017 12:00am azithromycin 250 mg oral tablet (18 sources) Macrolide Antimicrobial Start: 09-27-2024 End: 12-10-2024 Azithromycin 250 mg tablet Discontinued 250 mg PO .COMPLEX 12 0 September 27, 2024 12:00am December 10, 2024 [...] 4 DAYS. ibuprofen 600 mg oral tablet (10 sources) Nonsteroidal Anti-inflammatory Drug Start: 02-20-2022 End: 09-27-2024 take 1 tablet by mouth three times daily as needed for pain Ibuprofen 600 mg tablet Discontinued 600 mg PO THREE TIMES A DAY as needed for pain 30 0 February 20, 2022 12:00am September 27, 2024 11:38am predniSONE 20 mg oral tablet (17 sources) Start: 12-03-2024 End: 12-10-2024 take 2 tablets by mouth once daily Prednisone 20 mg tablet Discontinued 40 mg PO DAILY 14 7 0 December 03, 2024 12:00am December 10, 2024 12:21pm Start: 03-10-2017 End: 07-03-2018 take 2 tablets by mouth once daily Prednisone 20 MG tablet Discontinued 40 mg PO DAILY@0800 7 0 March 10, 2017 12:00am July 03, 2018 9:35am Start: 03-10-2017 End: 07-03-2018 take 40 mg by mouth once daily Prednisone Discontinued 40 MG PO DAILY@0800 7 March 10, 2017 12:00am July 03, 2018 9:35am sulfamethoxazole 800 mg / trimethoprim 160 mg oral tablet (20 sources) Dihydrofolate Reductase Inhibitor Antibacterial, Sulfonamide Antimicrobial Start: 10-06-2018 End: 10-13-2018 Sulfamethoxazole-Trimethopri m (Bactrim Ds) 800-160 mg tablet Discontinued 1 {tbl} PO Q12H 14 7 0 October 06, 2018 12:00am October 12, 2018 12:00am October 13, 2018 12:11am Start: 07-03-2018 End: 07-10-2018 Sulfamethoxazole-Trimethopri m (Bactrim Ds) 800-160 mg tablet Discontinued 1 {tbl} PO Q12H 14 7 0 July 03, 2018 1:00am July 09, 2018 1:00am July 10, 2018 1:08am Acute sinusitis, unspecified Problems Active Problems Problem Classification Problem Date Documented Da te Episodic/Chronic Abdominal pain (20 sources) Flank pain; Translations: [Unspecified abdominal pain] Episodic Genitourinary symptoms and ill-defined conditions (12 sources) Increased frequency of urination; Translations: [Frequency of micturition] Episodic Infective arthritis and osteomyelitis (except that caused by tuberculosis or sexually transmitted disease) (16 sources) Knee pyogenic arthritis; Translations: [Pyogenic arthritis, unspecified] Onset: 12-20-2024 12-11-2024 Episodic Osteoarthritis (9 sources) Osteoarthritis; Translations: [Unspecified osteoarthritis, unspecified site] Onset: 03-07-2025 11-22-2024 Chronic Other non-traumatic joint disorders (15 sources) Effusion of right knee joint; Translations: [Effusion, right knee] 11-22-2024 Episodic Other non-traumatic joint disorders (1 source) Effusion, right knee; Translations: [Effusion, right knee] Onset: 12-09-2024 Episodic Other skin disorders (1 source) Localized swelling, mass and lump, right lower limb; Translations: [Localized swelling, mass and lump, right lower limb] Onset: 12-13-2024 Episodic Other upper respiratory infections (10 sources) Acute sinusitis; Translations: [Acute sinusitis, unspecified] 07-03-2018 Episodic Spondylosis; intervertebral disc disorders; other back problems (12 sources) Thoracic back pain; Translations: [Dorsalgia, unspecified] Episodic Substance-related disorders (10 sources) Tobacco dependence syndrome; Translations: [Nicotine dependence, unspecified, uncomplicated] 07-12-2013 Chronic Past or Other Problems Problem Classification Problem Date Documented Da te Episodic/Chronic Other non-traumatic joint disorders (1 source) Pain in right knee; Translations: [Pain in right knee] Onset: 11-25-2024 Episodic Results Test Name Value Interpretation Reference Range Facility Body Fluid Culton 03-09-2025 [facility] Results called on 03/08/25 by TREVONS to (CAMPBELL) [phone]. UNK UNK Copy of report sent to Infection Control Printer [id number] 03/09/25 9486 CHELO. Results called on 03/08/25 by BLKIRTS to (CAMPBELL) [phone]. Staphylococcus aureus Amount Growth Rare Staphylococcus aureus: REACTION cefOXitin Susc Islt Doxycycline Islt PRASHANT <=0.5 S Clindamycin Islt PRASHANT R Clindamycin.induced Susc Islt POS Erythromycin Islt PRASHANT R Gentamicin Islt PRASHANT <=0.5 S Linezolid Islt PRASHANT 2 S Moxifloxacin Islt PRASHANT <=0.25 S Oxacillin Susc Islt 0.5 S Tetracycline Islt PRASHANT <=1 S TMP SMX Islt PRASHANT <=10 S Vancomycin Islt PRASHANT <=0.5 S Normal [facility] Comment on above: Performed By: #### L 200.4175, L200.0400, M100.2900, M100.2000, M100.4001 #### [facility] [address] [place], [address] CBC W/Diff, Automatedon -06 29-2024 Absolute Lymph 1.64 X10 3/uL Normal 0.83-4.51 [facility] Comment on above: Performed By: #### L 100.0100, L500.2500, L101.9900 #### [facility] [address] [place], [address] Absolute Neut 3.9 X10 3/uL Normal 2.0-7.7 [facility] Comment on above: Performed By: #### L 100.0100, L500.2500, L101.9900 #### [facility] [address] [place], [address] Basophils/100 WBC (Bld) 0.8 % Normal 0-1 [facility] Comment on above: Performed By: #### L 100.0100, L500.2500, L101.9900 #### [facility] [address] [place], [address] Eosinophils/100 WBC (Bld) 1.0 % Normal 0-5 [facility] Comment on above: Performed By: #### L 100.0100, L500.2500, L101.9900 #### [facility] [address] [place], [address] Erythrocyte distribution width (RBC) [Ratio] 14.3 % Normal 11.6-14.6 [facility] Comment on above: Performed By: #### L 100.0100, L500.2500, L101.9900 #### [facility] [address] [place], [address] Hematocrit (Bld) [Volume fraction] 28.9 % Low 37-47 [facility] Comment on above: Performed By: #### L 100.0100, L500.2500, L101.9900 #### [facility] [address] [place], [address] Hemoglobin (Bld) [Mass/Vol] 9.3 g/dL Low 12.0-15.0 [facility] Comment on above: Performed By: #### L 100.0100, L500.2500, L101.9900 #### [facility] [address] [place], [address] IG% 0.300 Normal 0.0-0.9 [facility] Comment on above: Result Comment: IG% - Immature Granulocytes (promyelocytes, myelocytes and metamyelocytes) > 1% indicates that a LEFT SHIFT is Present. Performed By: #### L 100.0100, L500.2500, L101.9900 #### [facility] [address] [place], [address] Lymphocytes/100 WBC (Bld) 26.5 % Normal 19-41 [facility] Comment on above: Performed By: #### L 100.0100, L500.2500, L101.9900 #### [facility] [address] [place], [address] MCH (RBC) [Entitic mass] 27.4 pg Normal 27.0-32.0 [facility] Comment on above: Performed By: #### L 100.0100, L500.2500, L101.9900 #### [facility] [address] [place], [address] MCHC (RBC) [Mass/Vol] 32.2 g/dL Normal 32-36 [facility] Comment on above: Performed By: #### L 100.0100, L500.2500, L101.9900 #### [facility] [address] [place], [address] MCV (RBC) [Entitic vol] 85.3 fL Normal 81-99 [facility] Comment on above: Performed By: #### L 100.0100, L500.2500, L101.9900 #### [facility] [address] [place], [address] Monocytes/100 WBC (Bld) 8.9 % Normal 0-10 [facility] Comment on above: Performed By: #### L 100.0100, L500.2500, L101.9900 #### [facility] [address] [place], [address] Neutrophils/100 WBC (Bld) 62.5 % Normal 47-70 [facility] Comment on above: Performed By: #### L 100.0100, L500.2500, L101.9900 #### [facility] [address] [place], [address] Nucleated RBC (Bld) [#/Vol] 0 10*3/uL Normal 0-5 [facility] Comment on above: Performed By: #### L 100.0100, L500.2500, L101.9900 #### [facility] [address] [place], [address] Platelet mean volume (Bld) [Entitic vol] 9.3 fL Normal 6.2-12.0 [facility] Comment on above: Performed By: #### L 100.0100, L500.2500, L101.9900 #### [facility] [address] [place], [address] Platelets (Bld) [#/Vol] 371 10*3/uL Normal 150-450 [facility] Comment on above: Performed By: #### L 100.0100, L500.2500, L101.9900 #### [facility] [address] [place], [address] RBC (Bld) [#/Vol] 3.39 10*6/uL Low 4.2-5.4 [facility] Comment on above: Performed By: #### L 100.0100, L500.2500, L101.9900 #### [facility] [address] [place], [address] RDW SD 44.7 fl High 35.1-43.9 [facility] Comment on above: Performed By: #### L 100.0100, L500.2500, L101.9900 #### [facility] [address] [place], [address] WBC (Bld) [#/Vol] 6.2 10*3/uL Normal 4.4-11.0 [facility] Comment on above: Performed By: #### L 100.0100, L500.2500, L101.9900 #### [facility] [address] [place], [address] Comprehensive Metabolic Prof [facility] 03-09-2025 Albumin [Mass/Vol] 3.6 g/dL Normal 3.4-4.8 [facility] Comment on above: Performed By: #### L 100.0100, L500.2500, L101.9900 #### [facility] [address] [place], [address] Albumin/Globulin [Mass ratio] 1.0 {ratio} Normal 0.9-2.4 [facility] Comment on above: Performed By: #### L 100.0100, L500.2500, L101.9900 #### [facility] [address] [place], [address] ALK PHOS 103 U/L Normal 35-104 [facility] Comment on above: Performed By: #### L 100.0100, L500.2500, L101.9900 #### [facility] [address] [place], [address] ALT [Catalytic activity/Vol] 8 U/L Normal <=34 [facility] Comment on above: Performed By: #### L 100.0100, L500.2500, L101.9900 #### [facility] [address] [place], [address] AST [Catalytic activity/Vol] 16 U/L Normal <=31 [facility] Comment on above: Performed By: #### L 100.0100, L500.2500, L101.9900 #### [facility] [address] [place], [address] Bilirubin [Mass/Vol] 0.25 mg/dL Normal 0.00-1.30 [facility] Comment on above: Performed By: #### L 100.0100, L500.2500, L101.9900 #### [facility] [address] [place], [address] BUN/CRE 11.5 RATIO Normal 10-20 [facility] Comment on above: Performed By: #### L 100.0100, L500.2500, L101.9900 #### [facility] [address] [place], [address] Calcium [Mass/Vol] 9.1 mg/dL Normal 7.6-11.0 [facility] Comment on above: Performed By: #### L 100.0100, L500.2500, L101.9900 #### [facility] [address] [place], [address] Chloride [Moles/Vol] 95 mmol/L Low 98-108 [facility] Comment on above: Performed By: #### L 100.0100, L500.2500, L101.9900 #### [facility] [address] [place], [address] CO2 [Moles/Vol] 22.9 mmol/L Normal 21.0-32.0 [facility] Comment on above: Performed By: #### L 100.0100, L500.2500, L101.9900 #### [facility] [address] [place], [address] Creatinine [Mass/Vol] 0.57 mg/dL Low 0.70-1.20 [facility] Comment on above: Performed By: #### L 100.0100, L500.2500, L101.9900 #### [facility] [address] [place], [address] ECRCL 90.27 ml/min Normal 50-250 [facility] Comment on above: Performed By: #### L 100.0100, L500.2500, L101.9900 #### [facility] [address] [place], [address] GAP 14 Normal 5-15 [facility] Comment on above: Performed By: #### L 100.0100, L500.2500, L101.9900 #### [facility] [address] [place], [address] GFR/1.73 sq M.predicted among non-blacks MDRD (S/P/Bld) [Vol rate/Area] 102 mL/min/{1.73_m2} Normal >60 [facility] Comment on above: Result Comment: mL/m in/1.73m2 CKD-EPI Creatinine Equation (2020) Performed By: #### L 100.0100, L500.2500, L101.9900 #### [facility] [address] [place], [address] Globulin (S) [Mass/Vol] 3.6 g/dL Normal 2.2-4.2 [facility] Comment on above: Performed By: #### L 100.0100, L500.2500, L101.9900 #### [facility] [address] [place], [address] Glucose [Mass/Vol] 85 mg/dL Normal 70-99 [facility] Comment on above: Performed By: #### L 100.0100, L500.2500, L101.9900 #### [facility] [address] [place], [address] Potassium [Moles/Vol] 4.2 mmol/L Normal 3.3-5.1 [facility] Comment on above: Performed By: #### L 100.0100, L500.2500, L101.9900 #### [facility] [address] [place], [address] Sodium [Moles/Vol] 132 mmol/L Low 133-145 [facility] Comment on above: Performed By: #### L 100.0100, L500.2500, L101.9900 #### [facility] [address] [place], [address] T PROT 7.2 g/dL Normal 5.9-8.4 [facility] Comment on above: Performed By: #### L 100.0100, L500.2500, L101.9900 #### [facility] [address] [place], [address] Urea nitrogen [Mass/Vol] 7 mg/dL Normal 4-19 [facility] Comment on above: Performed By: #### L 100.0100, L500.2500, L101.9900 #### [facility] [address] [place], [address] Consultation - Infectious Dx on 03-09-2025 Consultation - Infectious Dx [facility] Medical Records Department [address] [place] [address] Consultation - Infectious Dx 03/09/25 1335 MR#: [id number] Acct: [id number] Name: SHIRLEY DEVLIN Rep #: [id number] : 1960 64 From: Raghav Gabriel MD PCP: Care Physician,No Primary Status:ADM JEANCARLOS Location: [place] [id number] Assessment Plan Assessment/Plan (1) Septic arthritis of knee, right: QUALIFIERS: Septic arthritis organism: staphylococcal Qualified Code(s): M00.061 - Staphylococcal arthritis, right knee PLAN: Treated with iv cefazolin 11/2024 for MSSA R knee septic arthritis. Now with recurrence of symptoms. Aspiration 03/07/25 again with mssa. Will narrow abx to cefazolin and check bcx x2. OR planned for tomorrow, MRI is pending. 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 Treated with iv cefazolin at that time. Had done well off of abx for about 2 months, then over past 2-3 weeks progressive pain while working with PT and associated swelling and warmth in R knee. No fever or chills. Had aspiration done and admitted here on vanc/ceftriaxone. OR planned for tomorrow. Full ROS performed and neg except as noted above. [facility] Medical History Septic arthritis of knee, right Smoker Wears glasses Alcohol use Redness of skin History of steroid therapy Walker as ambulation aid Arthritis Fatty liver Shortness of breath on exertion Hoarseness Chronic cough Mid back pain on left side Urinary frequency Abdominal pain Home Medications ???Medication ???Instructions ???Recorded ???Last Taken ???Type gabapentin 300 mg capsule 300 mg PO BID 03/09/25 03/09/25 Hi story nortriptyline 10 mg capsule 20 mg PO QHS 03/09/25 Unknown Hist ory Allergy/AdvReac Type Severity Reaction Status Date / Time Penicillins Allergy Rash Verified 12/10/24 12:20 Family History Mother Hypertension Father Atrial fibrillation Surgical History H/O foot surgery Social History household members: children housing: apartment current occupational status: retired Smoking Status: Current [...] Extremity General Extremity: Negative for edema Skin Skin Narrative: R knee swelling, warmth. No redness or drainage. Neuro CN's II-XII intact bilaterally Lab / Micro Data Attestation: I reviewed the patient's lab results. 03/09/25 12:11 03/09/25 12:11 Labs: Laboratory Results - last 24 hr 03/09/25 12:11: WBC 6.2, RBC 3.39 L, Hgb 9.3 L, Hct 28.9 L, MCV 85.3, MCH 27.4, MCHC 32.2, RDW Std Deviation 44.7 H, RDW Coeff of Pema 14.3, Plt Count 371, MPV 9.3, Immature Gran % (Auto) 0.300, Neut % (Auto) 62.5, Lymph % (Auto) 26.5, [place] % (Auto) 8.9, Eos % (Auto) 1.0, Baso % (Auto) 0.8, Absolute Neuts (auto) 3.9, Absolute Lymphs (auto) 1.64, Nucleated RBC % 0, Sodium 132 L, Potassium 4.2, C hloride 95 L, Carbon Dioxide 22.9, Anion Gap 14, BUN 7, Creatinine 0.57 L, Estim Creat Clear Calc 90.27, Est GFR (MDRD) Non-Af 102, BUN/Creatinine Ratio 11.5, Glucose 85, Calcium 9.1, Total Bilirubin 0.25, AST 16, ALT 8, Alkaline Phosphatase 103, Total Protein 7.2, Albumin 3.6, Globulin 3.6, Albumin/Globulin Ratio 1.0 03/09/25 1338 Cosigner Signature (if applicable): CC: Dr. Sundeep Mccormick, DO; No Primary Care Physician Signed Normal [facility] CBC W/Diff, Automatedon 02-21 Absolute Lymph 2.00 X10 3/uL Normal 0.83-4.51 [facility] Comment on above: Performed By: #### L 100.0100, L500.2500, L101.9900 #### [facility] [address] [place], [address] Absolute Neut 4.3 X10 3/uL Normal 2.0-7.7 [facility] Comment on above: Performed By: #### L 100.0100, L500.2500, L101.9900 #### [facility] [address] [place], [address] Basophils/100 WBC (Bld) 0.4 % Normal 0-1 [facility] Comment on above: Performed By: #### L 100.0100, L500.2500, L101.9900 #### [facility] [address] [place], [address] Eosinophils/100 WBC (Bld) 0.8 % Normal 0-5 [facility] Comment on above: Performed By: #### L 100.0100, L500.2500, L101.9900 #### [facility] [address] [place], [address] Erythrocyte distribution width (RBC) [Ratio] 14.2 % Normal 11.6-14.6 [facility] Comment on above: Performed By: #### L 100.0100, L500.2500, L101.9900 #### [facility] [address] [place], [address] Hematocrit (Bld) [Volume fraction] 29.0 % Low 37-47 [facility] Comment on above: Performed By: #### L 100.0100, L500.2500, L101.9900 #### [facility] [address] [place], [address] Hemoglobin (Bld) [Mass/Vol] 9.4 g/dL Low 12.0-15.0 [facility] Comment on above: Performed By: #### L 100.0100, L500.2500, L101.9900 #### [facility] [address] [place], [address] IG% 0.300 Normal 0.0-0.9 [facility] Comment on above: Result Comment: IG% - Immature Granulocytes (promyelocytes, myelocytes and metamyelocytes) > 1% indicates that a LEFT SHIFT is Present. Performed By: #### L 100.0100, L500.2500, L101.9900 #### [facility] [address] [place], [address] Lymphocytes/100 WBC (Bld) 28.2 % Normal 19-41 [facility] Comment on above: Performed By: #### L 100.0100, L500.2500, L101.9900 #### [facility] [address] [place], [address] MCH (RBC) [Entitic mass] 27.5 pg Normal 27.0-32.0 [facility] Comment on above: Performed By: #### L 100.0100, L500.2500, L101.9900 #### [facility] [address] [place], [address] MCHC (RBC) [Mass/Vol] 32.4 g/dL Normal 32-36 [facility] Comment on above: Performed By: #### L 100.0100, L500.2500, L101.9900 #### [facility] [address] [place], [address] MCV (RBC) [Entitic vol] 84.8 fL Normal 81-99 [facility] Comment on above: Performed By: #### L 100.0100, L500.2500, L101.9900 #### [facility] [address] [place], [address] Monocytes/100 WBC (Bld) 9.2 % Normal 0-10 [facility] Comment on above: Performed By: #### L 100.0100, L500.2500, L101.9900 #### [facility] [address] [place], [address] Neutrophils/100 WBC (Bld) 61.1 % Normal 47-70 [facility] Comment on above: Performed By: #### L 100.0100, L500.2500, L101.9900 #### [facility] [address] [place], [address] Nucleated RBC (Bld) [#/Vol] 0 10*3/uL Normal 0-5 [facility] Comment on above: Performed By: #### L 100.0100, L500.2500, L101.9900 #### [facility] [address] [place], [address] Platelet mean volume (Bld) [Entitic vol] 9.2 fL Normal 6.2-12.0 [facility] Comment on above: Performed By: #### L 100.0100, L500.2500, L101.9900 #### [facility] [address] [place], [address] Platelets (Bld) [#/Vol] 384 10*3/uL Normal 150-450 [facility] Comment on above: Performed By: #### L 100.0100, L500.2500, L101.9900 #### [facility] [address] [place], [address] RBC (Bld) [#/Vol] 3.42 10*6/uL Low 4.2-5.4 [facility] Comment on above: Performed By: #### L 100.0100, L500.2500, L101.9900 #### [facility] [address] [place], [address] RDW SD 44.5 fl High 35.1-43.9 [facility] Comment on above: Performed By: #### L 100.0100, L500.2500, L101.9900 #### [facility] [address] [place] [place], [address] WBC (Bld) [#/Vol] 7.1 10*3/uL Normal 4.4-11.0 [facility] Comment on above: Performed By: #### L 100.0100, L500.2500, L101.9900 #### [facility] [address] [place], [address] CRPon 03-07-2025 C-REACTIVE PROT 47.50 mg/L High 0.0-3.0 [facility] Comment on above: Performed By: #### L 100.0100, L500.2500, L101.9900 #### [facility] [address] [place], [address] Erythrocyte Sed Rateon 03-07 SED RATE 53 mm/hr High 0-30 [facility] Comment on above: Performed By: #### L 100.0100, L500.2500, L101.9900 #### [facility] [address] [place], [address] Gram Stainon 03-07-2025 GS UNK UNK Centrifuged Specimen? Unable to centrifuge specimen due to insufficient volume. Gram Stain No organisms seen 4+ Red Blood Cells 4+ White Blood Cells Normal [facility] Comment on above: Performed By: #### L 200.4175, L200.0400, M100.2900, M100.2000, M100.4001 #### [facility] [address] [place], [address] Synovial Fluid RBC, WBC AND Diffon 03-07-2025 PATH COM/SYFL May follow Normal [facility] Comment on above: Result Comment: This specimen has been REJECTED due to Laboratory criteria: Clotted/QNS. Performed By: #### L 200.4175, L200.0400, M100.2900, M100.2000, M100.4001 #### [facility] [address] [place], [address] BODY FLUID QC Normal [facility] Comment on above: Result Comment: This specimen has been REJECTED due to Laboratory criteria: Clotted/QNS. Performed By: #### L 200.4175, L200.0400, M100.2900, M100.2000, M100.4001 #### [facility] [address] [place], [address] qBKG DILUENTok? Normal W<.1,R<.01 [facility] Comment on above: Result Comment: This specimen has been REJECTED due to Laboratory criteria: Clotted/QNS. Performed By: #### L 200.4175, L200.0400, M100.2900, M100.2000, M100.4001 #### [facility] [address] [place], [address] Normal 0.000-0.000 [facility] Comment on above: Result Comment: This specimen has been REJECTED due to Laboratory criteria: Clotted/QNS. Performed By: #### L 200.4175, L200.0400, M100.2900, M100.2000, M100.4001 #### [facility] [address] [place], [address] SYNOVIAL ADRIANA. Normal CLEAR [facility] Comment on above: Result Comment: This specimen has been REJECTED due to Laboratory criteria: Clotted/QNS. Performed By: #### L 200.4175, L200.0400, M100.2900, M100.2000, M100.4001 #### [facility] [address] [place], [address] SYNOVIAL COLOR Normal Pale Yellow [facility] Comment on above: Result Comment: This specimen has been REJECTED due to Laboratory criteria: Clotted/QNS. Performed By: #### L 200.4175, L200.0400, M100.2900, M100.2000, M100.4001 #### [facility] [address] [place], [address] SYNOVIAL RBC Normal 0 [facility] Comment on above: Result Comment: This specimen has been REJECTED due to Laboratory criteria: Clotted/QNS. Performed By: #### L 200.4175, L200.0400, M100.2900, M100.2000, M100.4001 #### [facility] [address] [place], [address] SYNOVIAL SOURCE Normal [facility] Comment on above: Result Comment: This specimen has been REJECTED due to Laboratory criteria: Clotted/QNS. Performed By: #### L 200.4175, L200.0400, M100.2900, M100.2000, M100.4001 #### [facility] [address] [place], [address] SYNOVIAL WBC Normal 0.000-0.002 [facility] Comment on above: Result Comment: This specimen has been REJECTED due to Laboratory criteria: Clotted/QNS. Performed By: #### L 200.4175, L200.0400, M100.2900, M100.2000, M100.4001 #### [facility] [address] [place], [address] Anion gap in Serum or Plasma Ordered By: Raghav Gabriel on 01-10-2025 Anion gap [Moles/Vol] 14 mmol/L 5-15 [facility] Automated blood erythrocyte countOrdered By: Raghav Gabriel on 01-10-2025 RBC (Bld) [#/Vol] 3.49 10*6/uL Low 4.2-5.4 [facility] Comment on above: Performed By: #### L 500.2500, L100.0500, L101.9900 #### [facility] [address] [place], [address] Automated blood hematocrit ( percentage)Ordered By: Raghav Gabriel on 01-10-2025 Hematocrit (Bld) [Volume fraction] 32.4 % Low 37-47 [facility] Comment on above: Performed By: #### L 500.2500, L100.0500, L101.9900 #### [facility] [address] [place], [address] BUN/creatinine ratioOrdered By: Raghav Gabriel on 01-10-2025 Urea nitrogen/Creatinine [Mass ratio] 15.4 mg/mg 10- [facility] Basic Metabolic Profile (BMP )on 01-10-2025 BUN/CRE 15.4 RATIO Normal - [facility] Comment on above: Performed By: #### L 100.0100, L500.2500, L101.9900 #### [facility] [address] [place], [address] GAP 14 Normal 5-15 [facility] Comment on above: Performed By: #### L 100.0100, L500.2500, L101.9900 #### [facility] [address] [place], [address] Potassium [Moles/Vol] 4.2 mmol/L Normal 3.3-5.1 [facility] Comment on above: Performed By: #### L 100.0100, L500.2500, L101.9900 #### [facility] [address] [place], [address] CBC-Complete Blood Cnt No Di ffon 01-10-2025 RDW SD 44.7 fl High 35.1-43.9 [facility] Comment on above: Performed By: #### L 500.2500, L100.0500, L101.9900 #### [facility] [address] [place], [address] Carbon dioxide, total [Moles /volume] in Central venous bloodOrdered By: Raghav Gabriel on 01-10-2025 CO2 [Moles/Vol] 24.0 mmol/L Normal 21.0-32.0 [facility] Comment on above: Performed By: #### L 100.0100, L500.2500, L101.9900 #### [facility] [address] [place], [address] Chloride assayOrdered By: Ivonne Gabriel on 01-10-2025 Chloride [Moles/Vol] 96 mmol/L Low 98-108 [facility] Comment on above: Performed By: #### L 100.0100, L500.2500, L101.9900 #### [facility] [address] [place], [address] Erythrocyte Sed Rateon 01-10 SED RATE 70 mm/hr High 0-30 [facility] Comment on above: Performed By: #### L 500.2500, L100.0500, L101.9900 #### [facility] [address] [place], [address] Erythrocyte distribution wid th ratioOrdered By: Raghav Gabriel on 01-10-2025 Erythrocyte distribution width (RBC) [Ratio] 13.2 % Normal 11.6-14.6 [facility] Comment on above: Performed By: #### L 500.2500, L100.0500, L101.9900 #### [facility] [address] [place], [address] Erythrocyte distribution wid th standard deviationOrdered By: Raghav Gabriel on 01-10-2025 Erythrocyte distribution width (RBC) [Ratio] 44.7 fl High 35.1-43.9 [facility] Erythrocyte sedimentation ra teOrdered By: Raghav Gabriel on 01-10-2025 ESR (Bld) [Velocity] 70 mm/h High 0-30 [facility] Glomerular filtration rate ( GFR) estimation/1.73 sq m using serum, plasma, or whole bOrdered By: Raghav Gabriel on 01-10-2025 GFR/1.73 sq M.predicted among non-blacks MDRD (S/P/Bld) [Vol rate/Area] 104 mL/min/{1.73_m2} Normal >60 [facility] Comment on above: mL/min/1.73m2 CKD-EP I Creatinine Equation (2020) Result Comment: mL/m in/1.73m2 CKD-EPI Creatinine Equation (2020) Performed By: #### L 100.0100, L500.2500, L101.9900 #### [facility] [address] [place], [address] Hemoglobin measurementOrdere d By: Raghav Gabriel on 01-10-2025 Hemoglobin (Bld) [Mass/Vol] 10.9 g/dL Low 12.0-15.0 [facility] Comment on above: Performed By: #### L 500.2500, L100.0500, L101.9900 #### [facility] [address] [place], [address] MCV (mean corpuscular volume ) determinationOrdered By: Raghav Gabriel on 01-10-2025 MCV (RBC) [Entitic vol] 92.8 fL Normal 81-99 [facility] Comment on above: Performed By: #### L 500.2500, L100.0500, L101.9900 #### [facility] [address] [place], [address] Mean corpuscular hemoglobin (MCH) determinationOrdered By: Raghav Gabriel on 01-10-2025 MCH (RBC) [Entitic mass] 31.2 pg Normal 27.0-32.0 [facility] Comment on above: Performed By: #### L 500.2500, L100.0500, L101.9900 #### [facility] [address] [place], [address] Mean corpuscular hemoglobin concentration (MCHC) determinationOrdered By: Raghav Gabriel on 01-10-2025 MCHC (RBC) [Mass/Vol] 33.6 g/dL Normal 32-36 [facility] Comment on above: Performed By: #### L 500.2500, L100.0500, L101.9900 #### [facility] [address] [place], [address] Mean platelet volume determi nationOrdered By: Raghav Gabriel on 01-10-2025 Platelet mean volume (Bld) [Entitic vol] 9.7 fL Normal 6.2-12.0 [facility] Comment on above: Performed By: #### L 500.2500, L100.0500, L101.9900 #### [facility] [address] [place], [address] Platelet countOrdered By: Ivonne Gabriel on 01-10-2025 Platelets (Bld) [#/Vol] 410 10*3/uL Normal 150-450 [facility] Comment on above: Performed By: #### L 500.2500, L100.0500, L101.9900 #### [facility] [address] [place], [address] Potassium measurement (mass/ volume)Ordered By: Raghav Gabriel on 01-10-2025 Potassium (Unsp spec) [Mass/Vol] 4.2 mmol/L 3.3-5.1 [facility] Serum creatinine measurement (mass/volume)Ordered By: Raghav Gabriel on 01-10-2025 Creatinine [Mass/Vol] 0.51 mg/dL Low 0.70-1.20 [facility] Comment on above: Performed By: #### L 100.0100, L500.2500, L101.9900 #### [facility] [address] [place], [address] Serum glucose measurement (m ass/volume)Ordered By: Raghav Gabriel on 01-10-2025 Glucose [Mass/Vol] 89 mg/dL Normal 70-99 [facility] Comment on above: Performed By: #### L 100.0100, L500.2500, L101.9900 #### [facility] [address] [place], [address] Serum or plasma calcium anayeli urement (mass/volume)Ordered By: Raghav Gabriel on 01-10-2025 Calcium [Mass/Vol] 9.3 mg/dL Normal 7.6-11.0 [facility] Comment on above: Performed By: #### L 100.0100, L500.2500, L101.9900 #### [facility] [address] [place], [address] Serum or plasma urea nitroge n measurement (mass/volume)Ordered By: Raghav Gabriel on 01-10-2025 Urea nitrogen [Mass/Vol] 8 mg/dL Normal 4-19 [facility] Comment on above: Performed By: #### L 100.0100, L500.2500, L101.9900 #### [facility] [address] [place], [address] Sodium levelOrdered By: Bekc Gabriel on 01-10-2025 Sodium [Moles/Vol] 134 mmol/L Normal 133-145 [facility] Comment on above: Performed By: #### L 100.0100, L500.2500, L101.9900 #### [facility] [address] [place], [address] White blood cell (WBC) count Ordered By: Raghav Gabriel on 01-10-2025 WBC (Bld) [#/Vol] 8.9 10*3/uL Normal 4.4-11.0 [facility] Comment on above: Performed By: #### L 500.2500, L100.0500, L101.9900 #### [facility] [address] [place], [address] Absolute lymphocyte countOrd ered By: Raghav Gabriel on 01-03-2025 Lymphocytes Auto (Unsp spec) [#/Vol] 1.93 10*3/uL 0.83-4.51 [facility] Absolute neutrophil countOrd ered By: Raghav Gabriel on 01-03-2025 Neutrophils (Bld) [#/Vol] 4.8 10*3/uL 2.0-7.7 [facility] Anion gap in Serum or Plasma Ordered By: Raghav Gabriel on 01-03-2025 Anion gap [Moles/Vol] 12 mmol/L 11-04 [facility] Automated lymphocyte count a s percentage of total leukocytesOrdered By: Raghav Gabriel on 01-03-2025 Lymphocytes/100 WBC Auto (Unsp spec) 25.2 % [facility] BUN/creatinine ratioOrdered By: Raghav Gabriel on 01-03-2025 Urea nitrogen/Creatinine [Mass ratio] 11.4 mg/mg 04-11 [facility] Basic Metabolic Profile (BMP )on 01-03-2025 BUN/CRE 11.4 RATIO Normal 04-11 [facility] Comment on above: Performed By: #### L 100.0100, L500.2500, L101.9900 #### [facility] [address] [place], [address] Calcium [Mass/Vol] 9.2 mg/dL Normal 7.6-11.0 [facility] Comment on above: Performed By: #### L 100.0100, L500.2500, L101.9900 #### [facility] [address] [place], [address] Chloride [Moles/Vol] 97 mmol/L Low 98-108 [facility] Comment on above: Performed By: #### L 100.0100, L500.2500, L101.9900 #### [facility] [address] [place], [address] CO2 [Moles/Vol] 25.4 mmol/L Normal 21.0-32.0 [facility] Comment on above: Performed By: #### L 100.0100, L500.2500, L101.9900 #### [facility] [address] [place], [address] Creatinine [Mass/Vol] 0.50 mg/dL Low 0.70-1.20 [facility] Comment on above: Performed By: #### L 100.0100, L500.2500, L101.9900 #### [facility] [address] [place], [address] GAP 12 Normal 5-15 [facility] Comment on above: Performed By: #### L 100.0100, L500.2500, L101.9900 #### [facility] [address] [place], [address] GFR/1.73 sq M.predicted among non-blacks MDRD (S/P/Bld) [Vol rate/Area] 105 mL/min/{1.73_m2} Normal >60 [facility] Comment on above: Result Comment: mL/m in/1.73m2 CKD-EPI Creatinine Equation (2020) Performed By: #### L 100.0100, L500.2500, L101.9900 #### [facility] [address] [place], [address] Glucose [Mass/Vol] 110 mg/dL High 70-99 [facility] Comment on above: Performed By: #### L 100.0100, L500.2500, L101.9900 #### [facility] [address] [place], [address] Potassium [Moles/Vol] 3.7 mmol/L Normal 3.3-5.1 [facility] Comment on above: Performed By: #### L 100.0100, L500.2500, L101.9900 #### [facility] [address] [place], [address] Sodium [Moles/Vol] 135 mmol/L Normal 133-145 [facility] Comment on above: Performed By: #### L 100.0100, L500.2500, L101.9900 #### [facility] [address] [place], [address] Urea nitrogen [Mass/Vol] 6 mg/dL Normal - [facility] Comment on above: Performed By: #### L 100.0100, L500.2500, L101.9900 #### [facility] [address] [place], [address] Basophil percentageOrdered B y: Raghav Gabriel on 01-03-2025 Basophils/100 WBC (Bld) 0.7 % 0-1 [facility] Blood polychromasia detectio n by light microscopyOrdered By: Raghav Gabriel on 01-03-2025 Polychromasia LM Ql (Bld) 1+ [facility] CBC W/Diff, Automatedon 12-21 PLT EST A Normal ADEQ [facility] Comment on above: Performed By: #### L 100.0100, L500.2500, L101.9900 #### [facility] [address] [place], [address] POLYCHROMASIA 1+ Normal [facility] Comment on above: Performed By: #### L 100.0100, L500.2500, L101.9900 #### [facility] [address] [place], [address] ATYPICAL LYMPH 2+ Normal [facility] Comment on above: Performed By: #### L 100.0100, L500.2500, L101.9900 #### [facility] [address] [place], [address] Carbon dioxide, total [Moles /volume] in Central venous bloodOrdered By: Raghav Gabriel on 01-03-2025 CO2 [Moles/Vol] 25.4 mmol/L 21.0-32.0 [facility] Chloride assayOrdered By: Ivonne Gabriel on 01-03-2025 Chloride [Moles/Vol] 97 mmol/L Low 98-108 [facility] Eosinophil percentageOrdered By: Raghav Gabriel on 01-03-2025 Eosinophils/100 WBC (Bld) 1.3 % 0-5 [facility] Erythrocyte Sed Rateon 01-03 SED RATE 61 mm/hr High 0-30 [facility] Comment on above: Performed By: #### L 100.0100, L500.2500, L101.9900 #### [facility] [address] [place], [address] Erythrocyte distribution wid th ratioOrdered By: Raghav Gabriel on 01-03-2025 Erythrocyte distribution width (RBC) [Ratio] 13.1 % 11.6-14.6 [facility] Erythrocyte distribution wid th standard deviationOrdered By: Raghav Gabriel on 01-03-2025 Erythrocyte distribution width (RBC) [Ratio] 44.7 fl High 35.1-43.9 [facility] Erythrocyte sedimentation ra teOrdered By: Raghav Gabriel on 01-03-2025 ESR (Bld) [Velocity] 61 mm/h High 0-30 [facility] Glomerular filtration rate ( GFR) estimation/1.73 sq m using serum, plasma, or whole bOrdered By: Raghav Gabriel on 01-03-2025 GFR/1.73 sq M.predicted among non-blacks MDRD (S/P/Bld) [Vol rate/Area] 105 mL/min/{1.73_m2} >60 [facility] Comment on above: mL/min/1.73m2 CKD-EP I Creatinine Equation (2020) Hematocrit Auto (Bld) [Volum e fraction]Ordered By: Raghav Gabriel on 01-03-2025 Hematocrit (Bld) [Volume fraction] 31.3 % Low 37-47 [facility] Hemoglobin measurementOrdere d By: Raghav Gabriel on 01-03-2025 Hemoglobin (Bld) [Mass/Vol] 10.4 g/dL Low 12.0-15.0 [facility] Immature granulocytes/100 WB C Auto (Bld)Ordered By: Raghav Gabriel on 01-03-2025 Immature granulocytes/100 WBC (Bld) 0.400 % 0.0-0.9 [facility] Comment on above: IG% - Immature Granu locytes (promyelocytes, myelocytes and metamyelocytes) > 1% indicates that a LEFT SHIFT is Present. MCV (mean corpuscular volume ) determinationOrdered By: Raghav Gabriel on 01-03-2025 MCV (RBC) [Entitic vol] 93.7 fL 81-99 [facility] Mean corpuscular hemoglobin (MCH) determinationOrdered By: Raghav Gabriel on 01-03-2025 MCH (RBC) [Entitic mass] 31.1 pg 27.0-32.0 [facility] Mean corpuscular hemoglobin concentration (MCHC) determinationOrdered By: Raghav Gabriel on 01-03-2025 MCHC (RBC) [Mass/Vol] 33.2 g/dL 32-36 [facility] Mean platelet volume determi nationOrdered By: Raghav Gabriel on 01-03-2025 Platelet mean volume (Bld) [Entitic vol] 9.6 fL 6.2-12.0 [facility] Monocyte percentageOrdered B y: Raghav Gabriel on 01-03-2025 Monocytes/100 WBC (Bld) 9.9 % 0-10 [facility] Neutrophil percentageOrdered By: Raghav Gabriel on 01-03-2025 Neutrophils/100 WBC (Bld) 62.5 % 47-70 [facility] Nucleated red blood cell per centageOrdered By: Raghav Gabriel on 01-03-2025 Nucleated RBC/100 WBC (Bld) [Ratio] 0 % 0-5 [facility] Platelet countOrdered By: Ivonne Gabriel on 01-03-2025 Platelets (Bld) [#/Vol] 429 10*3/uL 150-450 [facility] Platelet estimateOrdered By: Raghav Gabriel on 01-03-2025 Platelets LM Ql (Bld) A ADEQ [facility] Potassium measurement (mass/ volume)Ordered By: Raghav Gabriel on 01-03-2025 Potassium (Unsp spec) [Mass/Vol] 3.7 mmol/L 3.3-5.1 [facility] RBC Auto (Bld) [#/Vol]Ordere d By: Raghav Gabriel on 01-03-2025 RBC (Bld) [#/Vol] 3.34 10*6/uL Low 4.2-5.4 [facility] Serum creatinine measurement (mass/volume)Ordered By: Raghav Gabriel on 01-03-2025 Creatinine [Mass/Vol] 0.50 mg/dL Low 0.70-1.20 [facility] Serum glucose measurement (m ass/volume)Ordered By: Raghav Gabriel on 01-03-2025 Glucose [Mass/Vol] 110 mg/dL High 70-99 [facility] Serum or plasma calcium anayeli urement (mass/volume)Ordered By: Raghav Gabriel on 01-03-2025 Calcium [Mass/Vol] 9.2 mg/dL 7.6-11.0 [facility] Serum or plasma urea nitroge n measurement (mass/volume)Ordered By: Raghav Gabriel on 01-03-2025 Urea nitrogen [Mass/Vol] 6 mg/dL 4-19 [facility] Sodium levelOrdered By: Beck Gabriel on 01-03-2025 Sodium [Moles/Vol] 135 mmol/L 133-145 [facility] White blood cell (WBC) count Ordered By: Raghav Gabriel on 01-03-2025 WBC (Bld) [#/Vol] 7.7 10*3/uL 4.4-11.0 [facility] Absolute lymphocyte countOrd ered By: Raghav Gabriel on 12-27-2024 Lymphocytes Auto (Unsp spec) [#/Vol] 1.76 10*3/uL 0.83-4.51 [facility] Absolute neutrophil countOrd ered By: Raghav Gabriel on 12-27-2024 Neutrophils (Bld) [#/Vol] 4.8 10*3/uL 2.0-7.7 [facility] Anion gap in Serum or Plasma Ordered By: Raghav Gabriel on 12-27-2024 Anion gap [Moles/Vol] 12 mmol/L 5-15 [facility] Automated lymphocyte count a s percentage of total leukocytesOrdered By: Raghav Gabriel on 12-27-2024 Lymphocytes/100 WBC Auto (Unsp spec) 23.6 % 19-41 [facility] BUN/creatinine ratioOrdered By: Raghav Gabriel on 12-27-2024 Urea nitrogen/Creatinine [Mass ratio] 8.8 mg/mg Low 10-20 [facility] Basic Metabolic Profile (BMP )on 12-27-2024 BUN/CRE 8.8 RATIO Low 10-20 [facility] Comment on above: Performed By: #### L 100.0100, L500.2500, L101.9900 #### [facility] [address] [place], [address] Calcium [Mass/Vol] 8.9 mg/dL Normal 7.6-11.0 [facility] Comment on above: Performed By: #### L 100.0100, L500.2500, L101.9900 #### [facility] [address] [place], [address] Chloride [Moles/Vol] 100 mmol/L Normal 98-108 [facility] Comment on above: Performed By: #### L 100.0100, L500.2500, L101.9900 #### [facility] [address] [place], [address] CO2 [Moles/Vol] 25.4 mmol/L Normal 21.0-32.0 [facility] Comment on above: Performed By: #### L 100.0100, L500.2500, L101.9900 #### [facility] [address] [place], [address] Creatinine [Mass/Vol] 0.56 mg/dL Low 0.70-1.20 [facility] Comment on above: Performed By: #### L 100.0100, L500.2500, L101.9900 #### [facility] [address] [place], [address] GAP 12 Normal 5-15 [facility] Comment on above: Performed By: #### L 100.0100, L500.2500, L101.9900 #### [facility] [address] [place], [address] GFR/1.73 sq M.predicted among non-blacks MDRD (S/P/Bld) [Vol rate/Area] 102 mL/min/{1.73_m2} Normal >60 [facility] Comment on above: Result Comment: mL/m in/1.73m2 CKD-EPI Creatinine Equation (2020) Performed By: #### L 100.0100, L500.2500, L101.9900 #### [facility] [address] [place], [address] Glucose [Mass/Vol] 124 mg/dL High 70-99 [facility] Comment on above: Performed By: #### L 100.0100, L500.2500, L101.9900 #### [facility] [address] [place], [address] Potassium [Moles/Vol] 3.8 mmol/L Normal 3.3-5.1 [facility] Comment on above: Performed By: #### L 100.0100, L500.2500, L101.9900 #### [facility] [address] [place], [address] Sodium [Moles/Vol] 137 mmol/L Normal 133-145 [facility] Comment on above: Performed By: #### L 100.0100, L500.2500, L101.9900 #### [facility] [address] [place], [address] Urea nitrogen [Mass/Vol] 5 mg/dL Normal 4-19 [facility] Comment on above: Performed By: #### L 100.0100, L500.2500, L101.9900 #### [facility] [address] [place], [address] Basophil percentageOrdered B y: Raghav Gabriel on 12-27-2024 Basophils/100 WBC (Bld) 0.5 % 0-1 [facility] CBC W/Diff, Automatedon 07 Absolute Lymph 1.76 X10 3/uL Normal 0.83-4.51 [facility] Comment on above: Performed By: #### L 100.0100, L500.2500, L101.9900 #### [facility] [address] [place], [address] Absolute Neut 4.8 X10 3/uL Normal 2.0-7.7 [facility] Comment on above: Performed By: #### L 100.0100, L500.2500, L101.9900 #### [facility] [address] [place], [address] Basophils/100 WBC (Bld) 0.5 % Normal 0-1 [facility] Comment on above: Performed By: #### L 100.0100, L500.2500, L101.9900 #### [facility] [address] [place], [address] Eosinophils/100 WBC (Bld) 0.9 % Normal 0-5 [facility] Comment on above: Performed By: #### L 100.0100, L500.2500, L101.9900 #### [facility] [address] [place], [address] Erythrocyte distribution width (RBC) [Ratio] 13.0 % Normal 11.6-14.6 [facility] Comment on above: Performed By: #### L 100.0100, L500.2500, L101.9900 #### [facility] [address] [place], [address] Hematocrit (Bld) [Volume fraction] 31.7 % Low 37-47 [facility] Comment on above: Performed By: #### L 100.0100, L500.2500, L101.9900 #### [facility] [address] [place], [address] Hemoglobin (Bld) [Mass/Vol] 10.7 g/dL Low 12.0-15.0 [facility] Comment on above: Performed By: #### L 100.0100, L500.2500, L101.9900 #### [facility] [address] [place], [address] IG% 0.400 Normal 0.0-0.9 [facility] Comment on above: Result Comment: IG% - Immature Granulocytes (promyelocytes, myelocytes and metamyelocytes) > 1% indicates that a LEFT SHIFT is Present. Performed By: #### L 100.0100, L500.2500, L101.9900 #### [facility] [address] [place], [address] Lymphocytes/100 WBC (Bld) 23.6 % Normal 19-41 [facility] Comment on above: Performed By: #### L 100.0100, L500.2500, L101.9900 #### [facility] [address] [place], [address] MCH (RBC) [Entitic mass] 32.3 pg High 27.0-32.0 [facility] Comment on above: Performed By: #### L 100.0100, L500.2500, L101.9900 #### [facility] [address] [place], [address] MCHC (RBC) [Mass/Vol] 33.8 g/dL Normal 32-36 [facility] Comment on above: Performed By: #### L 100.0100, L500.2500, L101.9900 #### [facility] [address] [place], [address] MCV (RBC) [Entitic vol] 95.8 fL Normal 81-99 [facility] Comment on above: Performed By: #### L 100.0100, L500.2500, L101.9900 #### [facility] [address] [place], [address] Monocytes/100 WBC (Bld) 10.4 % High 0-10 [facility] Comment on above: Performed By: #### L 100.0100, L500.2500, L101.9900 #### [facility] [address] [place], [address] Neutrophils/100 WBC (Bld) 64.2 % Normal 47-70 [facility] Comment on above: Performed By: #### L 100.0100, L500.2500, L101.9900 #### [facility] [address] [place], [address] Nucleated RBC (Bld) [#/Vol] 0 10*3/uL Normal 0-5 [facility] Comment on above: Performed By: #### L 100.0100, L500.2500, L101.9900 #### [facility] [address] [place], [address] Platelet mean volume (Bld) [Entitic vol] 9.3 fL Normal 6.2-12.0 [facility] Comment on above: Performed By: #### L 100.0100, L500.2500, L101.9900 #### [facility] [address] [place], [address] Platelets (Bld) [#/Vol] 538 10*3/uL High 150-450 [facility] Comment on above: Performed By: #### L 100.0100, L500.2500, L101.9900 #### [facility] [address] [place], [address] RBC (Bld) [#/Vol] 3.31 10*6/uL Low 4.2-5.4 [facility] Comment on above: Performed By: #### L 100.0100, L500.2500, L101.9900 #### [facility] [address] [place], [address] RDW SD 45.8 fl High 35.1-43.9 [facility] Comment on above: Performed By: #### L 100.0100, L500.2500, L101.9900 #### [facility] [address] [place], [address] WBC (Bld) [#/Vol] 7.5 10*3/uL Normal 4.4-11.0 [facility] Comment on above: Performed By: #### L 100.0100, L500.2500, L101.9900 #### [facility] [address] [place], [address] Carbon dioxide, total [Moles /volume] in Central venous bloodOrdered By: Raghav Gabriel on 12-27-2024 CO2 [Moles/Vol] 25.4 mmol/L 21.0-32.0 [facility] Chloride assayOrdered By: Ivonne Gabriel on 12-27-2024 Chloride [Moles/Vol] 100 mmol/L 98-108 [facility] Eosinophil percentageOrdered By: Raghav Gabriel on 12-27-2024 Eosinophils/100 WBC (Bld) 0.9 % 0-5 [facility] Erythrocyte Sed Rateon 12-27 SED RATE 26 mm/hr Normal 0-30 [facility] Comment on above: Performed By: #### L 100.0100, L500.2500, L101.9900 #### [facility] [address] [place], [address] Erythrocyte distribution wid th ratioOrdered By: Raghav Gabriel on 12-27-2024 Erythrocyte distribution width (RBC) [Ratio] 13.0 % 11.6-14.6 [facility] Erythrocyte distribution wid th standard deviationOrdered By: Raghav Gabriel on 12-27-2024 Erythrocyte distribution width (RBC) [Ratio] 45.8 fl High 35.1-43.9 [facility] Erythrocyte sedimentation ra teOrdered By: Raghav Gabriel on 12-27-2024 ESR (Bld) [Velocity] 26 mm/h 0-30 [facility] Glomerular filtration rate ( GFR) estimation/1.73 sq m using serum, plasma, or whole bOrdered By: Raghav Gabriel on 12-27-2024 GFR/1.73 sq M.predicted among non-blacks MDRD (S/P/Bld) [Vol rate/Area] 102 mL/min/{1.73_m2} >60 [facility] Comment on above: mL/min/1.73m2 CKD-EP I Creatinine Equation (2020) Hematocrit Auto (Bld) [Volum e fraction]Ordered By: Raghav Gabriel on 12-27-2024 Hematocrit (Bld) [Volume fraction] 31.7 % Low 37-47 [facility] Hemoglobin measurementOrdere d By: Raghav Gabriel on 12-27-2024 Hemoglobin (Bld) [Mass/Vol] 10.7 g/dL Low 12.0-15.0 [facility] Immature granulocytes/100 WB C Auto (Bld)Ordered By: Raghav Gabriel on 12-27-2024 Immature granulocytes/100 WBC (Bld) 0.400 % 0.0-0.9 [facility] Comment on above: IG% - Immature Granu locytes (promyelocytes, myelocytes and metamyelocytes) > 1% indicates that a LEFT SHIFT is Present. MCV (mean corpuscular volume ) determinationOrdered By: Raghav Gabriel on 12-27-2024 MCV (RBC) [Entitic vol] 95.8 fL 81-99 [facility] Mean corpuscular hemoglobin (MCH) determinationOrdered By: Raghav Gabriel on 12-27-2024 MCH (RBC) [Entitic mass] 32.3 pg High 27.0-32.0 [facility] Mean corpuscular hemoglobin concentration (MCHC) determinationOrdered By: Raghav Gabriel on 12-27-2024 MCHC (RBC) [Mass/Vol] 33.8 g/dL 32-36 [facility] Mean platelet volume determi nationOrdered By: Raghav Gabriel on 12-27-2024 Platelet mean volume (Bld) [Entitic vol] 9.3 fL 6.2-12.0 [facility] Monocyte percentageOrdered B y: Raghav Gabriel on 12-27-2024 Monocytes/100 WBC (Bld) 10.4 % High 0-10 [facility] Neutrophil percentageOrdered By: Raghav Gabriel on 12-27-2024 Neutrophils/100 WBC (Bld) 64.2 % 47-70 [facility] Nucleated red blood cell per centageOrdered By: Raghav Gabriel on 12-27-2024 Nucleated RBC/100 WBC (Bld) [Ratio] 0 % 0-5 [facility] Platelet countOrdered By: Ivonne Gabriel on 12-27-2024 Platelets (Bld) [#/Vol] 538 10*3/uL High 150-450 [facility] Potassium measurement (mass/ volume)Ordered By: Raghav Gabriel on 12-27-2024 Potassium (Unsp spec) [Mass/Vol] 3.8 mmol/L 3.3-5.1 [facility] RBC Auto (Bld) [#/Vol]Ordere d By: Raghav Gabriel on 12-27-2024 RBC (Bld) [#/Vol] 3.31 10*6/uL Low 4.2-5.4 [facility] Serum creatinine measurement (mass/volume)Ordered By: Raghav Gabriel on 12-27-2024 Creatinine [Mass/Vol] 0.56 mg/dL Low 0.70-1.20 [facility] Serum glucose measurement (m ass/volume)Ordered By: Raghav Gabriel on 12-27-2024 Glucose [Mass/Vol] 124 mg/dL High 70-99 [facility] Serum or plasma calcium anayeli urement (mass/volume)Ordered By: Raghav Gabriel on 12-27-2024 Calcium [Mass/Vol] 8.9 mg/dL 7.6-11.0 [facility] Serum or plasma urea nitroge n measurement (mass/volume)Ordered By: Raghav Gabriel on 12-27-2024 Urea nitrogen [Mass/Vol] 5 mg/dL 4-19 [facility] Sodium levelOrdered By: Beck Gbariel on 12-27-2024 Sodium [Moles/Vol] 137 mmol/L 133-145 [facility] White blood cell (WBC) count Ordered By: Raghav Gabriel on 12-27-2024 WBC (Bld) [#/Vol] 7.5 10*3/uL 4.4-11.0 [facility] Absolute lymphocyte countOrd ered By: Raghav Gabriel on 12-20-2024 Lymphocytes Auto (Unsp spec) [#/Vol] 1.57 10*3/uL 0.83-4.51 [facility] Absolute neutrophil countOrd ered By: Raghav Gabriel on 12-20-2024 Neutrophils (Bld) [#/Vol] 6.0 10*3/uL 2.0-7.7 [facility] Anion gap in Serum or Plasma Ordered By: aRghav Gabriel on 12-20-2024 Anion gap [Moles/Vol] 11 mmol/L - [facility] Automated lymphocyte count a s percentage of total leukocytesOrdered By: Raghav Gabriel on 12-20-2024 Lymphocytes/100 WBC Auto (Unsp spec) 18.2 % Low 19-41 [facility] BUN/creatinine ratioOrdered By: Raghav Gabriel on 12-20-2024 Urea nitrogen/Creatinine [Mass ratio] 12.0 mg/mg 04-11 [facility] Basic Metabolic Profile (BMP )on 12-20-2024 BUN/CRE 12.0 RATIO Normal 04-11 [facility] Comment on above: Performed By: #### L 100.0100, L500.2500, L101.9900 #### [facility] [address] [place], [address] Calcium [Mass/Vol] 8.7 mg/dL Normal 7.6-11.0 [facility] Comment on above: Performed By: #### L 100.0100, L500.2500, L101.9900 #### [facility] [address] [place], [address] Chloride [Moles/Vol] 98 mmol/L Normal 98-108 [facility] Comment on above: Performed By: #### L 100.0100, L500.2500, L101.9900 #### [facility] [address] [place], [address] CO2 [Moles/Vol] 24.8 mmol/L Normal 21.0-32.0 [facility] Comment on above: Performed By: #### L 100.0100, L500.2500, L101.9900 #### [facility] [address] [place], [address] Creatinine [Mass/Vol] 0.46 mg/dL Low 0.70-1.20 [facility] Comment on above: Performed By: #### L 100.0100, L500.2500, L101.9900 #### [facility] [address] [place], [address] GAP 11 Normal 5-15 [facility] Comment on above: Performed By: #### L 100.0100, L500.2500, L101.9900 #### [facility] [address] [place], [address] GFR/1.73 sq M.predicted among non-blacks MDRD (S/P/Bld) [Vol rate/Area] 107 mL/min/{1.73_m2} Normal >60 [facility] Comment on above: Result Comment: mL/m in/1.73m2 CKD-EPI Creatinine Equation (2020) Performed By: #### L 100.0100, L500.2500, L101.9900 #### [facility] [address] [place], [address] Glucose [Mass/Vol] 104 mg/dL High 70-99 [facility] Comment on above: Performed By: #### L 100.0100, L500.2500, L101.9900 #### [facility] [address] [place], [address] Potassium [Moles/Vol] 3.6 mmol/L Normal 3.3-5.1 [facility] Comment on above: Performed By: #### L 100.0100, L500.2500, L101.9900 #### [facility] [address] [place], [address] Sodium [Moles/Vol] 134 mmol/L Normal 133-145 [facility] Comment on above: Performed By: #### L 100.0100, L500.2500, L101.9900 #### [facility] [address] [place], [address] Urea nitrogen [Mass/Vol] 5 mg/dL Normal 4-19 [facility] Comment on above: Performed By: #### L 100.0100, L500.2500, L101.9900 #### [facility] [address] [place], [address] Basophil percentageOrdered B y: Raghav Gabriel on 12-20-2024 Basophils/100 WBC (Bld) 0.3 % 0-1 [facility] CBC W/Diff, Automatedon 11-23-2024 Absolute Lymph 1.57 X10 3/uL Normal 0.83-4.51 [facility] Comment on above: Performed By: #### L 100.0100, L500.2500, L101.9900 #### [facility] [address] [place], [address] Absolute Neut 6.0 X10 3/uL Normal 2.0-7.7 [facility] Comment on above: Performed By: #### L 100.0100, L500.2500, L101.9900 #### [facility] [address] [place], [address] Basophils/100 WBC (Bld) 0.3 % Normal 0-1 [facility] Comment on above: Performed By: #### L 100.0100, L500.2500, L101.9900 #### [facility] [address] [place], [address] Eosinophils/100 WBC (Bld) 1.2 % Normal 0-5 [facility] Comment on above: Performed By: #### L 100.0100, L500.2500, L101.9900 #### [facility] [address] [place], [address] Erythrocyte distribution width (RBC) [Ratio] 12.5 % Normal 11.6-14.6 [facility] Comment on above: Performed By: #### L 100.0100, L500.2500, L101.9900 #### [facility] [address] [place], [address] Hematocrit (Bld) [Volume fraction] 31.8 % Low 37-47 [facility] Comment on above: Performed By: #### L 100.0100, L500.2500, L101.9900 #### [facility] [address] [place], [address] Hemoglobin (Bld) [Mass/Vol] 10.7 g/dL Low 12.0-15.0 [facility] Comment on above: Performed By: #### L 100.0100, L500.2500, L101.9900 #### [facility] [address] [place], [address] IG% 0.900 Normal 0.0-0.9 [facility] Comment on above: Result Comment: IG% - Immature Granulocytes (promyelocytes, myelocytes and metamyelocytes) > 1% indicates that a LEFT SHIFT is Present. Performed By: #### L 100.0100, L500.2500, L101.9900 #### [facility] [address] [place], [address] Lymphocytes/100 WBC (Bld) 18.2 % Low 19-41 [facility] Comment on above: Performed By: #### L 100.0100, L500.2500, L101.9900 #### [facility] [address] [place], [address] MCH (RBC) [Entitic mass] 32.4 pg High 27.0-32.0 [facility] Comment on above: Performed By: #### L 100.0100, L500.2500, L101.9900 #### [facility] [address] [place], [address] MCHC (RBC) [Mass/Vol] 33.6 g/dL Normal 32-36 [facility] Comment on above: Performed By: #### L 100.0100, L500.2500, L101.9900 #### [facility] [address] [place], [address] MCV (RBC) [Entitic vol] 96.4 fL Normal 81-99 [facility] Comment on above: Performed By: #### L 100.0100, L500.2500, L101.9900 #### [facility] [address] [place], [address] Monocytes/100 WBC (Bld) 9.6 % Normal 0-10 [facility] Comment on above: Performed By: #### L 100.0100, L500.2500, L101.9900 #### [facility] [address] [place], [address] Neutrophils/100 WBC (Bld) 69.8 % Normal 47-70 [facility] Comment on above: Performed By: #### L 100.0100, L500.2500, L101.9900 #### [facility] [address] [place], [address] Nucleated RBC (Bld) [#/Vol] 0 10*3/uL Normal 0-5 [facility] Comment on above: Performed By: #### L 100.0100, L500.2500, L101.9900 #### [facility] [address] [place], [address] Platelet mean volume (Bld) [Entitic vol] 9.9 fL Normal 6.2-12.0 [facility] Comment on above: Performed By: #### L 100.0100, L500.2500, L101.9900 #### [facility] [address] [place], [address] Platelets (Bld) [#/Vol] 371 10*3/uL Normal 150-450 [facility] Comment on above: Performed By: #### L 100.0100, L500.2500, L101.9900 #### [facility] [address] [place], [address] RBC (Bld) [#/Vol] 3.30 10*6/uL Low 4.2-5.4 [facility] Comment on above: Performed By: #### L 100.0100, L500.2500, L101.9900 #### [facility] [address] [place], [address] RDW SD 44.5 fl High 35.1-43.9 [facility] Comment on above: Performed By: #### L 100.0100, L500.2500, L101.9900 #### [facility] [address] [place], [address] WBC (Bld) [#/Vol] 8.6 10*3/uL Normal 4.4-11.0 [facility] Comment on above: Performed By: #### L 100.0100, L500.2500, L101.9900 #### [facility] [address] [place], [address] Carbon dioxide, total [Moles /volume] in Central venous bloodOrdered By: Raghav Gabriel on 12-20-2024 CO2 [Moles/Vol] 24.8 mmol/L 21.0-32.0 [facility] Chloride assayOrdered By: Ivonne Gabriel on 12-20-2024 Chloride [Moles/Vol] 98 mmol/L 98-108 [facility] Eosinophil percentageOrdered By: Raghav Gabriel on 12-20-2024 Eosinophils/100 WBC (Bld) 1.2 % 0-5 [facility] Erythrocyte Sed Rateon 12-20 SED RATE 60 mm/hr High 0-30 [facility] Comment on above: Performed By: #### L 100.0100, L500.2500, L101.9900 #### [facility] [address] [place], [address] Erythrocyte distribution wid th ratioOrdered By: Raghav Gabriel on 12-20-2024 Erythrocyte distribution width (RBC) [Ratio] 12.5 % 11.6-14.6 [facility] Erythrocyte distribution wid th standard deviationOrdered By: Raghav Gabriel on 12-20-2024 Erythrocyte distribution width (RBC) [Ratio] 44.5 fl High 35.1-43.9 [facility] Erythrocyte sedimentation ra teOrdered By: Raghav Gabriel on 12-20-2024 ESR (Bld) [Velocity] 60 mm/h High 0-30 [facility] Glomerular filtration rate ( GFR) estimation/1.73 sq m using serum, plasma, or whole bOrdered By: Raghav Gabriel on 12-20-2024 GFR/1.73 sq M.predicted among non-blacks MDRD (S/P/Bld) [Vol rate/Area] 107 mL/min/{1.73_m2} >60 [facility] Comment on above: mL/min/1.73m2 CKD-EP I Creatinine Equation (2020) Hematocrit Auto (Bld) [Volum e fraction]Ordered By: Raghav Gabriel on 12-20-2024 Hematocrit (Bld) [Volume fraction] 31.8 % Low 37-47 [facility] Hemoglobin measurementOrdere d By: Raghav Gabriel on 12-20-2024 Hemoglobin (Bld) [Mass/Vol] 10.7 g/dL Low 12.0-15.0 [facility] Immature granulocytes/100 WB C Auto (Bld)Ordered By: Raghav Gabriel on 12-20-2024 Immature granulocytes/100 WBC (Bld) 0.900 % 0.0-0.9 [facility] Comment on above: IG% - Immature Granu locytes (promyelocytes, myelocytes and metamyelocytes) > 1% indicates that a LEFT SHIFT is Present. MCV (mean corpuscular volume ) determinationOrdered By: Raghav Gabriel on 12-20-2024 MCV (RBC) [Entitic vol] 96.4 fL 81-99 [facility] Mean corpuscular hemoglobin (MCH) determinationOrdered By: Raghav Gabriel on 12-20-2024 MCH (RBC) [Entitic mass] 32.4 pg High 27.0-32.0 [facility] Mean corpuscular hemoglobin concentration (MCHC) determinationOrdered By: Raghav Gabriel on 12-20-2024 MCHC (RBC) [Mass/Vol] 33.6 g/dL 32-36 [facility] Mean platelet volume determi nationOrdered By: Raghav Gabriel on 12-20-2024 Platelet mean volume (Bld) [Entitic vol] 9.9 fL 6.2-12.0 [facility] Monocyte percentageOrdered B y: Raghav Gabriel on 12-20-2024 Monocytes/100 WBC (Bld) 9.6 % 0-10 [facility] Neutrophil percentageOrdered By: Raghav Gabriel on 12-20-2024 Neutrophils/100 WBC (Bld) 69.8 % 47-70 [facility] Nucleated red blood cell per centageOrdered By: Raghav Gabriel on 12-20-2024 Nucleated RBC/100 WBC (Bld) [Ratio] 0 % 0-5 [facility] Platelet countOrdered By: Ivonne Gabriel on 12-20-2024 Platelets (Bld) [#/Vol] 371 10*3/uL 150-450 [facility] Potassium measurement (mass/ volume)Ordered By: Raghav Gabriel on 12-20-2024 Potassium (Unsp spec) [Mass/Vol] 3.6 mmol/L 3.3-5.1 [facility] RBC Auto (Bld) [#/Vol]Ordere d By: Raghav Gabriel on 12-20-2024 RBC (Bld) [#/Vol] 3.30 10*6/uL Low 4.2-5.4 [facility] Serum creatinine measurement (mass/volume)Ordered By: Raghav Gabriel on 12-20-2024 Creatinine [Mass/Vol] 0.46 mg/dL Low 0.70-1.20 [facility] Serum glucose measurement (m ass/volume)Ordered By: Raghav Gabriel on 12-20-2024 Glucose [Mass/Vol] 104 mg/dL High 70-99 [facility] Serum or plasma calcium anayeli urement (mass/volume)Ordered By: Raghav Gabriel on 12-20-2024 Calcium [Mass/Vol] 8.7 mg/dL 7.6-11.0 [facility] Serum or plasma urea nitroge n measurement (mass/volume)Ordered By: Raghav Gabriel on 12-20-2024 Urea nitrogen [Mass/Vol] 5 mg/dL 4-19 [facility] Sodium levelOrdered By: Beck Gabriel on 12-20-2024 Sodium [Moles/Vol] 134 mmol/L 133-145 [facility] White blood cell (WBC) count Ordered By: Raghav Gabriel on 12-20-2024 WBC (Bld) [#/Vol] 8.6 10*3/uL 4.4-11.0 [facility] Culture, Blood (WB)on 2024 CUB No growth in 5 days. Normal [facility] Comment on above: Performed By: #### L 200.4175, L200.0400, M100.2900, M100.2000, M100.4001 #### [facility] [address] [place], [address] Synovial Fluid RBC, WBC AND Diffon 12-17-2024 PATH COM/SYFL Reviewed Normal [facility] Comment on above: Result Comment: AMENDED REPORT 12/17/24 1049 PATH COM/SYFL previously reported as: May follow Performed By: #### L 200.4175, L200.0400, M100.2900, M100.2000, M100.4001 #### [facility] [address] [place], [place], [address] Electrocardiogram reportOrde red By: Edward Quezada on 12-14-2024 EKG study [facility] [address] [place] [address] 12 Lead EKG 12/10/24 1206 MR#: [id number] Acct: [id number] Name: SHARLENE DEVLIN Rep #:[id number] : 1960 64 From: Edward Quezada MD Attending Dr: Dr. Sundeep Mccormick DO Status: ADM IN Ordering Dr: Gregory Sparks MD Date: 12/10/24 Location: [facility] Sex: F C Admitted: 12/10/24 Test Reason [...] was found Confirmed by LESLI ALARCON, EDWARD ([id number]), business editor KANDICE SALAS ([id number]) on 1:52:40 AM Referred By: Sundeep Mccormick Confirmed By: EDWARD QUEZADA MD 12/14/24 1152 Date _ Edward Quezada MD CC: Dr. Gregory Sparks MD; Dr. Sundeep Mccormick DO; No Primary Care Physician ~ Signed [facility] Other Anion gap in Serum or Plasma Ordered By: Sundeep Mccormick on 12-13-2024 Anion gap [Moles/Vol] 9 mmol/L 5-15 [facility] BUN/creatinine ratioOrdered By: Sundeep Mccormick on 12-13-2024 Urea nitrogen/Creatinine [Mass ratio] 8.8 mg/mg Low 10- [facility] Basic Metabolic Profile (BMP )on 12-13-2024 BUN/CRE 8.8 RATIO Low 04-11 [facility] Comment on above: Performed By: #### L 100.0100, L500.1895, L101.6470 #### [facility] [address] [place], [address] Calcium [Mass/Vol] 9.1 mg/dL Normal 7.6-11.0 [facility] Comment on above: Performed By: #### L 100.0100, L500.2500, L101.9900 #### [facility] [address] [place], [address] Chloride [Moles/Vol] 99 mmol/L Normal 98-108 [facility] Comment on above: Performed By: #### L 100.0100, L500.2500, L101.9900 #### [facility] [address] [place], [address] CO2 [Moles/Vol] 29.9 mmol/L Normal 21.0-32.0 [facility] Comment on above: Performed By: #### L 100.0100, L500.2500, L101.9900 #### [facility] [address] [place], [address] Creatinine [Mass/Vol] 0.49 mg/dL Low 0.70-1.20 [facility] Comment on above: Performed By: #### L 100.0100, L500.2500, L101.9900 #### [facility] [address] [place], [address] ECRCL 110.72 ml/min Normal 50-250 [facility] Comment on above: Performed By: #### L 100.0100, L500.2500, L101.9900 #### [facility] [address] [place], [address] GAP 9 Normal 5-15 [facility] Comment on above: Performed By: #### L 100.0100, L500.2500, L101.9900 #### [facility] [address] [place], [address] GFR/1.73 sq M.predicted among non-blacks MDRD (S/P/Bld) [Vol rate/Area] 105 mL/min/{1.73_m2} Normal >60 [facility] Comment on above: Result Comment: mL/m in/1.73m2 CKD-EPI Creatinine Equation (2020) Performed By: #### L 100.0100, L500.2500, L101.9900 #### [facility] [address] [place], [address] Glucose [Mass/Vol] 112 mg/dL High 70-99 [facility] Comment on above: Performed By: #### L 100.0100, L500.2500, L101.9900 #### [facility] [address] [place], [address] Potassium [Moles/Vol] 3.5 mmol/L Normal 3.3-5.1 [facility] Comment on above: Performed By: #### L 100.0100, L500.2500, L101.9900 #### [facility] [address] [place], [address] Sodium [Moles/Vol] 138 mmol/L Normal 133-145 [facility] Comment on above: Performed By: #### L 100.0100, L500.2500, L101.9900 #### [facility] [address] [place], [address] Urea nitrogen [Mass/Vol] 4 mg/dL Normal 4-19 [facility] Comment on above: Performed By: #### L 100.0100, L500.2500, L101.9900 #### [facility] [address] [place], [address] Blood cultureOrdered By: Riley Gabriel on 12-13-2024 Bacteria identified Cx Nom (Bld) No growth in 5 days. [facility] Bacteria identified Cx Nom (Bld) No growth in 5 days. [facility] CBC-Complete Blood Cnt No Di ffon 12-13-2024 Erythrocyte distribution width (RBC) [Ratio] 12.7 % Normal 11.6-14.6 [facility] Comment on above: Performed By: #### L 100.0100, L500.2500, L101.9900 #### [facility] [address] [place], [address] Hematocrit (Bld) [Volume fraction] 32.5 % Low 37-47 [facility] Comment on above: Performed By: #### L 100.0100, L500.2500, L101.9900 #### [facility] [address] [place], [address] Hemoglobin (Bld) [Mass/Vol] 11.0 g/dL Low 12.0-15.0 [facility] Comment on above: Performed By: #### L 100.0100, L500.2500, L101.9900 #### [facility] [address] [place], [address] MCH (RBC) [Entitic mass] 33.0 pg High 27.0-32.0 [facility] Comment on above: Performed By: #### L 100.0100, L500.2500, L101.9900 #### [facility] [address] [place], [address] MCHC (RBC) [Mass/Vol] 33.8 g/dL Normal 32-36 [facility] Comment on above: Performed By: #### L 100.0100, L500.2500, L101.9900 #### [facility] [address] [place], [address] MCV (RBC) [Entitic vol] 97.6 fL Normal 81-99 [facility] Comment on above: Performed By: #### L 100.0100, L500.2500, L101.9900 #### [facility] [address] [place], [address] Platelet mean volume (Bld) [Entitic vol] 9.4 fL Normal 6.2-12.0 [facility] Comment on above: Performed By: #### L 100.0100, L500.2500, L101.9900 #### [facility] [address] [place] [place], [address] Platelets (Bld) [#/Vol] 306 10*3/uL Normal 150-450 [facility] Comment on above: Performed By: #### L 100.0100, L500.2500, L101.9900 #### [facility] [address] [place], [address] RBC (Bld) [#/Vol] 3.33 10*6/uL Low 4.2-5.4 [facility] Comment on above: Performed By: #### L 100.0100, L500.2500, L101.9900 #### [facility] [address] [place], [address] RDW SD 45.4 fl High 35.1-43.9 [facility] Comment on above: Performed By: #### L 100.0100, L500.2500, L101.9900 #### [facility] [address] [place], [address] WBC (Bld) [#/Vol] 5.5 10*3/uL Normal 4.4-11.0 [facility] Comment on above: Performed By: #### L 100.0100, L500.2500, L101.9900 #### [facility] [address] [place], [address] Carbon dioxide, total [Moles /volume] in Central venous bloodOrdered By: Sundeep Mccormick on 12-13-2024 CO2 [Moles/Vol] 29.9 mmol/L 21.0-32.0 [facility] Chloride assayOrdered By: Ashtyn Mccormick on 12-13-2024 Chloride [Moles/Vol] 99 mmol/L 98-108 [facility] Consultation - Infectious Dx on 12-13-2024 Consultation - Infectious Dx [facility] Medical Records Department [address] [place] [address] Consultation - Infectious Dx 12/13/24 1253 MR#: [id number] Acct: [id number] Name: SHARLENE DEVLIN Rep #: [id number] : 1960 64 From: Raghav Gabriel MD PCP: Care Physician,No Primary Status:ADM IN Location: [facility] EE494-4 Assessment Plan Assessment/Plan (1) Septic arthritis of [...] performed and neg except as noted above. [facility] Medical History Wears glasses Alcohol use Redness [...] Mccormick, DO; No Primary Care Physician Signed [facility] Crystals, Body Fluidon 12-13 PATH REV Reviewed Normal [facility] Comment on above: Result Comment: ACUT E INFLAMMATION, BLOODY FLUID. RARE NON-URATE CRYSTALS. Clarissa Ace MD 12/13/2024 AMENDED REPORT 12/13/24 8169 PATH REV previously reported as: Will follow Performed By: #### L 200.4175, L200.0400, M100.2900, M100.2000, M100.4001 #### [facility] [address] [place], [address] Culture, Anaerobic Any Sourc rolo 12-13-2024 CUAN UNK UNK RIGHT KNEE NEED GRAM STAIN No anaerobic bacteria isolated. Normal [facility] Comment on above: Performed By: #### L 200.4175, L200.0400, M100.2900, M100.2000, M100.4001 #### [facility] [address] [place], [place], [address] Erythrocyte distribution wid th ratioOrdered By: Sundeep Mccormick on 12-13-2024 Erythrocyte distribution width (RBC) [Ratio] 12.7 % 11.6-14.6 [facility] Erythrocyte distribution wid th standard deviationOrdered By: Sundeep Mccormick on 12-13-2024 Erythrocyte distribution width (RBC) [Ratio] 45.4 fl High 35.1-43.9 [facility] Glomerular filtration rate ( GFR) estimation/1.73 sq m using serum, plasma, or whole bOrdered By: Sundeep Mccormick on 12-13-2024 GFR/1.73 sq M.predicted among non-blacks MDRD (S/P/Bld) [Vol rate/Area] 105 mL/min/{1.73_m2} >60 [facility] Comment on above: mL/min/1.73m2 CKD-EP I Creatinine Equation (2020) Hematocrit Auto (Bld) [Volum e fraction]Ordered By: Sundeep Mccormick on 12-13-2024 Hematocrit (Bld) [Volume fraction] 32.5 % Low 37-47 [facility] Hemoglobin measurementOrdere d By: Sundeep Mccormick on 12-13-2024 Hemoglobin (Bld) [Mass/Vol] 11.0 g/dL Low 12.0-15.0 [facility] MCV (mean corpuscular volume ) determinationOrdered By: Sundeep Mccormick on 12-13-2024 MCV (RBC) [Entitic vol] 97.6 fL 81-99 [facility] Mean corpuscular hemoglobin (MCH) determinationOrdered By: Sundeep Mccormick on 12-13-2024 MCH (RBC) [Entitic mass] 33.0 pg High 27.0-32.0 [facility] Mean corpuscular hemoglobin concentration (MCHC) determinationOrdered By: Sundeep Mccormick on 12-13-2024 MCHC (RBC) [Mass/Vol] 33.8 g/dL 32-36 [facility] Mean platelet volume determi nationOrdered By: Sundeep Mccormick on 12-13-2024 Platelet mean volume (Bld) [Entitic vol] 9.4 fL 6.2-12.0 [facility] Platelet countOrdered By: Ashtyn Mccormick on 12-13-2024 Platelets (Bld) [#/Vol] 306 10*3/uL 150-450 [facility] Potassium measurement (mass/ volume)Ordered By: Sundeep Mccormick on 12-13-2024 Potassium (Unsp spec) [Mass/Vol] 3.5 mmol/L 3.3-5.1 [facility] RBC Auto (Bld) [#/Vol]Ordere d By: Sundeep Mccormick on 12-13-2024 RBC (Bld) [#/Vol] 3.33 10*6/uL Low 4.2-5.4 [facility] Serum creatinine measurement (mass/volume)Ordered By: Sundeep Mccormick on 12-13-2024 Creatinine [Mass/Vol] 0.49 mg/dL Low 0.70-1.20 [facility] Serum glucose measurement (m ass/volume)Ordered By: Sundeep Mccormick on 12-13-2024 Glucose [Mass/Vol] 112 mg/dL High 70-99 [facility] Serum or plasma calcium anayeli urement (mass/volume)Ordered By: Sundeep Mccormick on 12-13-2024 Calcium [Mass/Vol] 9.1 mg/dL 7.6-11.0 [facility] Serum or plasma urea nitroge n measurement (mass/volume)Ordered By: Sundeep Mccormick on 12-13-2024 Urea nitrogen [Mass/Vol] 4 mg/dL 4-19 [facility] Sodium levelOrdered By: Nilesh Mccormick on 12-13-2024 Sodium [Moles/Vol] 138 mmol/L 133-145 [facility] White blood cell (WBC) count Ordered By: Sundeep Mccormick on 12-13-2024 WBC (Bld) [#/Vol] 5.5 10*3/uL 4.4-11.0 [facility] Basic Metabolic Profile (BMP )on 12-12-2024 BUN/CRE 10.9 RATIO Normal 10-20 [facility] Comment on above: Performed By: #### L 100.0100, L500.2500, L101.9900 #### [facility] [address] [place], [address] Calcium [Mass/Vol] 8.7 mg/dL Normal 7.6-11.0 [facility] Comment on above: Performed By: #### L 100.0100, L500.2500, L101.9900 #### [facility] [address] [place], [address] Chloride [Moles/Vol] 99 mmol/L Normal 98-108 [facility] Comment on above: Performed By: #### L 100.0100, L500.2500, L101.9900 #### [facility] [address] [place], [address] CO2 [Moles/Vol] 27.0 mmol/L Normal 21.0-32.0 [facility] Comment on above: Performed By: #### L 100.0100, L500.2500, L101.9900 #### [facility] [address] [place], [address] Creatinine [Mass/Vol] 0.56 mg/dL Low 0.70-1.20 [facility] Comment on above: Performed By: #### L 100.0100, L500.2500, L101.9900 #### [facility] [address] [place], [address] ECRCL 96.88 ml/min Normal 50-250 [facility] Comment on above: Performed By: #### L 100.0100, L500.2500, L101.9900 #### [facility] [address] [place], [address] GAP 11 Normal 5-15 [facility] Comment on above: Performed By: #### L 100.0100, L500.2500, L101.9900 #### [facility] [address] [place], [address] GFR/1.73 sq M.predicted among non-blacks MDRD (S/P/Bld) [Vol rate/Area] 102 mL/min/{1.73_m2} Normal >60 [facility] Comment on above: Result Comment: mL/m in/1.73m2 CKD-EPI Creatinine Equation (2020) Performed By: #### L 100.0100, L500.2500, L101.9900 #### [facility] [address] [place], [address] Glucose [Mass/Vol] 98 mg/dL Normal 70-99 [facility] Comment on above: Performed By: #### L 100.0100, L500.2500, L101.9900 #### [facility] [address] [place], [address] Potassium [Moles/Vol] 3.6 mmol/L Normal 3.3-5.1 [facility] Comment on above: Performed By: #### L 100.0100, L500.2500, L101.9900 #### [facility] [address] [place], [address] Sodium [Moles/Vol] 137 mmol/L Normal 133-145 [facility] Comment on above: Performed By: #### L 100.0100, L500.2500, L101.9900 #### [facility] [address] [place], [address] Urea nitrogen [Mass/Vol] 6 mg/dL Normal 4-19 [facility] Comment on above: Performed By: #### L 100.0100, L500.2500, L101.9900 #### [facility] [address] [place], [address] CBC-Complete Blood Cnt No Di ffon 12-12-2024 Erythrocyte distribution width (RBC) [Ratio] 12.5 % Normal 11.6-14.6 [facility] Comment on above: Performed By: #### L 100.0100, L500.2500, L101.9900 #### [facility] [address] [place], [address] Hematocrit (Bld) [Volume fraction] 34.6 % Low 37-47 [facility] Comment on above: Performed By: #### L 100.0100, L500.2500, L101.9900 #### [facility] [address] [place], [address] Hemoglobin (Bld) [Mass/Vol] 11.6 g/dL Low 12.0-15.0 [facility] Comment on above: Performed By: #### L 100.0100, L500.2500, L101.9900 #### [facility] [address] [place], [address] MCH (RBC) [Entitic mass] 32.7 pg High 27.0-32.0 [facility] Comment on above: Performed By: #### L 100.0100, L500.2500, L101.9900 #### [facility] [address] [place], [address] MCHC (RBC) [Mass/Vol] 33.5 g/dL Normal 32-36 [facility] Comment on above: Performed By: #### L 100.0100, L500.2500, L101.9900 #### [facility] [address] [place], [address] MCV (RBC) [Entitic vol] 97.5 fL Normal 81-99 [facility] Comment on above: Performed By: #### L 100.0100, L500.2500, L101.9900 #### [facility] [address] [place], [address] Platelet mean volume (Bld) [Entitic vol] 9.4 fL Normal 6.2-12.0 [facility] Comment on above: Performed By: #### L 100.0100, L500.2500, L101.9900 #### [facility] [address] [place], [address] Platelets (Bld) [#/Vol] 347 10*3/uL Normal 150-450 [facility] Comment on above: Performed By: #### L 100.0100, L500.2500, L101.9900 #### [facility] [address] [place], [address] RBC (Bld) [#/Vol] 3.55 10*6/uL Low 4.2-5.4 [facility] Comment on above: Performed By: #### L 100.0100, L500.2500, L101.9900 #### [facility] [address] [place], [address] RDW SD 45.1 fl High 35.1-43.9 [facility] Comment on above: Performed By: #### L 100.0100, L500.2500, L101.9900 #### [facility] Laboratory [address] [place], [address] WBC (Bld) [#/Vol] 7.2 10*3/uL Normal 4.4-11.0 [facility] Comment on above: Performed By: #### L 100.0100, L500.2500, L101.9900 #### [facility] Laboratory [address] [place], [address] Basic Metabolic Profile (BMP )on 12-11-2024 BUN/CRE 12.9 RATIO Normal 10-20 [facility] Comment on above: Performed By: #### L 200.4175, L200.0400, M100.2900, M100.2000, M100.4001 #### [facility] Laboratory [address] [place], [address] Calcium [Mass/Vol] 8.7 mg/dL Normal 7.6-11.0 [facility] Comment on above: Performed By: #### L 200.4175, L200.0400, M100.2900, M100.2000, M100.4001 #### [facility] Laboratory [address] [place], [address] Chloride [Moles/Vol] 96 mmol/L Low 98-108 [facility] Comment on above: Performed By: #### L 200.4175, L200.0400, M100.2900, M100.2000, M100.4001 #### [facility] Laboratory [address] [place], [address] CO2 [Moles/Vol] 27.9 mmol/L Normal 21.0-32.0 [facility] Comment on above: Performed By: #### L 200.4175, L200.0400, M100.2900, M100.2000, M100.4001 #### [facility] Laboratory [address] [place], [address] Creatinine [Mass/Vol] 0.54 mg/dL Low 0.70-1.20 [facility] Comment on above: Performed By: #### L 200.4175, L200.0400, M100.2900, M100.2000, M100.4001 #### [facility] Laboratory [address] [place], [address] ECRCL 100.47 ml/min Normal 50-250 [facility] Comment on above: Performed By: #### L 200.4175, L200.0400, M100.2900, M100.1999, M100.4001 #### [facility] Laboratory [address] [place], [address] GAP 9 Normal 5-15 [facility] Comment on above: Performed By: #### L 200.4175, L200.0400, M100.2900, M100.2000, M100.4001 #### [facility] Laboratory [address] [place], [address] GFR/1.73 sq M.predicted among non-blacks MDRD (S/P/Bld) [Vol rate/Area] 103 mL/min/{1.73_m2} Normal >60 [facility] Comment on above: Result Comment: mL/m in/1.73m2 CKD-EPI Creatinine Equation (2020) Performed By: #### L 200.4175, L200.0400, M100.2900, M100.2000, M100.4001 #### [facility] Laboratory [address] [place], [address] Glucose [Mass/Vol] 146 mg/dL High 70-99 [facility] Comment on above: Performed By: #### L 200.4175, L200.0400, M100.2900, M100.2000, M100.4001 #### [facility] Laboratory [address] [place], [address] Potassium [Moles/Vol] 3.9 mmol/L Normal 3.3-5.1 [facility] Comment on above: Performed By: #### L 200.4175, L200.0400, M100.2900, M100.1999, M100.4001 #### [facility] Laboratory [address] [place], [address] Sodium [Moles/Vol] 133 mmol/L Normal 133-145 [facility] Comment on above: Performed By: #### L 200.4175, L200.0400, M100.2900, M100.1999, M100.4001 #### [facility] Laboratory [address] [place] [place], [address] Urea nitrogen [Mass/Vol] 7 mg/dL Normal 4-19 [facility] Comment on above: Performed By: #### L 200.4175, L200.0400, M100.2900, M100.1999, M100.4001 #### [facility] Laboratory [address] [place] [place], [address] Body Fluid Culton 12-11-2024 BFC UNK UNK RIGHT KNEE NEED GRAM STAIN Body Fluid Cult Body Fluid Cult RESULTS CALLED LEFT MESSAGE TO RETURN CALL 12/10/24 Flynn Bishop. Staphylococcus aureus Amount Growth 3+ Staphylococcus [...] S Vancomycin Islt PRASHANT <=0.5 S Normal [facility] Comment on above: Performed By: #### L 200.4175, L200.0400, M100.2900, M100.1999, M100.4001 #### [facility] Laboratory [address] [place] [place], [address] CBC-Complete Blood Cnt No Di ffon 12-11-2024 Erythrocyte distribution width (RBC) [Ratio] 12.5 % Normal 11.6-14.6 [facility] Comment on above: Performed By: #### L 200.4175, L200.0400, M100.2900, M100.2000, M100.4001 #### [facility] Laboratory [address] [place], [address] Hematocrit (Bld) [Volume fraction] 33.2 % Low 37-47 [facility] Comment on above: Performed By: #### L 200.4175, L200.0400, M100.2900, M100.2000, M100.4001 #### [facility] Laboratory [address] [place], [address] Hemoglobin (Bld) [Mass/Vol] 11.2 g/dL Low 12.0-15.0 [facility] Comment on above: Performed By: #### L 200.4175, L200.0400, M100.2900, M100.1999, M100.4001 #### [facility] Laboratory [address] [place], [address] MCH (RBC) [Entitic mass] 33.1 pg High 27.0-32.0 [facility] Comment on above: Performed By: #### L 200.4175, L200.0400, M100.2900, M100.2000, M100.4001 #### [facility] Laboratory [address] [place], [address] MCHC (RBC) [Mass/Vol] 33.7 g/dL Normal 32-36 [facility] Comment on above: Performed By: #### L 200.4175, L200.0400, M100.2900, M100.2000, M100.4001 #### [facility] Laboratory [address] [place], [address] MCV (RBC) [Entitic vol] 98.2 fL Normal 81-99 [facility] Comment on above: Performed By: #### L 200.4175, L200.0400, M100.2900, M100.2000, M100.4001 #### [facility] Laboratory [address] [place], [address] Platelet mean volume (Bld) [Entitic vol] 9.6 fL Normal 6.2-12.0 [facility] Comment on above: Performed By: #### L 200.4175, L200.0400, M100.2900, M100.2000, M100.4001 #### [facility] Laboratory [address] [place], [address] Platelets (Bld) [#/Vol] 332 10*3/uL Normal 150-450 [facility] Comment on above: Performed By: #### L 200.4175, L200.0400, M100.2900, M100.2000, M100.4001 #### [facility] Laboratory [address] [place], [address] RBC (Bld) [#/Vol] 3.38 10*6/uL Low 4.2-5.4 [facility] Comment on above: Performed By: #### L 200.4175, L200.0400, M100.2900, M100.2000, M100.4001 #### [facility] Laboratory [address] [place], [address] RDW SD 45.2 fl High 35.1-43.9 [facility] Comment on above: Performed By: #### L 200.4175, L200.0400, M100.2900, M100.2000, M100.4001 #### [facility] Laboratory [address] [place], [address] WBC (Bld) [#/Vol] 7.8 10*3/uL Normal 4.4-11.0 [facility] Comment on above: Performed By: #### L 200.4175, L200.0400, M100.2900, M100.2000, M100.4001 #### [facility] Laboratory [address] [place], [address] 12 Lead EKGon 12-10-2024 12 Lead EKG [facility] Cardiovascular Services [address] [place] [address] 12 Lead EKG 12/10/24 1206 MR#: [id number] Acct: [id number] Name: SHARLENE DEVLIN Rep #: [id number] : 1960 64 From: Edward Quezada MD Attending Dr: Dr. Sundeep Mccormick, DO Status: ADM IN Ordering Dr: Gregory Sparks MD Date: 12/10/24 Location: [facility] Sex: F C Admitted: 12/10/24 Test Reason [...] was found Confirmed by EDWARD QUEZADA MD ([id number]), business editor KANDICE SALAS ([id number]) on 12/14/2024 11:52:40 AM Referred By: Sundeep Mccormick Confirmed By: EDWARD QUEZADA MD 12/14/24 1152 Date Edward Quezada MD CC: Dr. Gregory Sparks MD; Dr. Sundeep Mccormick, DO; No Primary Care Physician Signed Normal [facility] Basic Metabolic Profile (BMP )on 12-10-2024 BUN/CRE 14.7 RATIO Normal 04-11 [facility] Comment on above: Performed By: #### L 100.0100, L500.2500, L101.9900 #### [facility] Laboratory [address] [place], [address] Calcium [Mass/Vol] 9.0 mg/dL Normal 7.6-11.0 [facility] Comment on above: Performed By: #### L 100.0100, L500.2500, L101.9900 #### [facility] Laboratory [address] [place], [address] Chloride [Moles/Vol] 98 mmol/L Normal 98-108 [facility] Comment on above: Performed By: #### L 100.0100, L500.2500, L101.9900 #### [facility] Laboratory [address] [place], [address] CO2 [Moles/Vol] 24.1 mmol/L Normal 21.0-32.0 [facility] Comment on above: Performed By: #### L 100.0100, L500.2500, L101.9900 #### [facility] Laboratory [address] [place], [address] Creatinine [Mass/Vol] 0.51 mg/dL Low 0.70-1.20 [facility] Comment on above: Performed By: #### L 100.0100, L500.2500, L101.9900 #### [facility] Laboratory [address] [place], [address] ECRCL 106.38 ml/min Normal 50-250 [facility] Comment on above: Performed By: #### L 100.0100, L500.2500, L101.9900 #### [facility] Laboratory [address] [place], [address] GAP 14 Normal 5-15 [facility] Comment on above: Performed By: #### L 100.0100, L500.2500, L101.9900 #### [facility] Laboratory [address] [place], [address] GFR/1.73 sq M.predicted among non-blacks MDRD (S/P/Bld) [Vol rate/Area] 104 mL/min/{1.73_m2} Normal >60 [facility] Comment on above: Result Comment: mL/m in/1.73m2 CKD-EPI Creatinine Equation (2020) Performed By: #### L 100.0100, L500.2500, L101.9900 #### [facility] Laboratory [address] [place], [address] Glucose [Mass/Vol] 103 mg/dL High 70-99 [facility] Comment on above: Performed By: #### L 100.0100, L500.2500, L101.9900 #### [facility] Laboratory [address] [place], [address] Potassium [Moles/Vol] 3.9 mmol/L Normal 3.3-5.1 [facility] Comment on above: Performed By: #### L 100.0100, L500.2500, L101.9900 #### [facility] Laboratory [address] [place], [address] Sodium [Moles/Vol] 136 mmol/L Normal 133-145 [facility] Comment on above: Performed By: #### L 100.0100, L500.2500, L101.9900 #### [facility] Laboratory [address] [place], [address] Urea nitrogen [Mass/Vol] 7 mg/dL Normal 4-19 [facility] Comment on above: Performed By: #### L 100.0100, L500.2500, L101.9900 #### [facility] Laboratory [address] [place], [address] CBC-Complete Blood Cnt No Di ffon 12-10-2024 Erythrocyte distribution width (RBC) [Ratio] 12.5 % Normal 11.6-14.6 [facility] Comment on above: Performed By: #### L 100.0100, L500.2500, L101.9900 #### [facility] Laboratory [address] [place], [address] Hematocrit (Bld) [Volume fraction] 38.4 % Normal 37-47 [facility] Comment on above: Performed By: #### L 100.0100, L500.2500, L101.9900 #### [facility] Laboratory [address] [place], [address] Hemoglobin (Bld) [Mass/Vol] 13.4 g/dL Normal 12.0-15.0 [facility] Comment on above: Performed By: #### L 100.0100, L500.2500, L101.9900 #### [facility] Laboratory [address] [place], [address] MCH (RBC) [Entitic mass] 32.8 pg High 27.0-32.0 [facility] Comment on above: Performed By: #### L 100.0100, L500.2500, L101.9900 #### [facility] Laboratory [address] [place], [address] MCHC (RBC) [Mass/Vol] 34.9 g/dL Normal 32-36 [facility] Comment on above: Performed By: #### L 100.0100, L500.2500, L101.9900 #### [facility] Laboratory [address] [place], [address] MCV (RBC) [Entitic vol] 94.1 fL Normal 81-99 [facility] Comment on above: Performed By: #### L 100.0100, L500.2500, L101.9900 #### [facility] Laboratory [address] [place], [address] Platelet mean volume (Bld) [Entitic vol] 9.5 fL Normal 6.2-12.0 [facility] Comment on above: Performed By: #### L 100.0100, L500.2500, L101.9900 #### [facility] Laboratory [address] [place], [address] Platelets (Bld) [#/Vol] 400 10*3/uL Normal 150-450 [facility] Comment on above: Performed By: #### L 100.0100, L500.2500, L101.9900 #### [facility] Laboratory [address] [place], [address] RBC (Bld) [#/Vol] 4.08 10*6/uL Low 4.2-5.4 [facility] Comment on above: Performed By: #### L 100.0100, L500.2500, L101.9900 #### [facility] Laboratory [address] [place], [address] RDW SD 43.2 fl Normal 35.1-43.9 [facility] Comment on above: Performed By: #### L 100.0100, L500.2500, L101.9900 #### [facility] Laboratory [address] [place], [address] WBC (Bld) [#/Vol] 9.2 10*3/uL Normal 4.4-11.0 [facility] Comment on above: Performed By: #### L 100.0100, L500.2500, L101.9900 #### [facility] Laboratory [address] [place], [address] Gram Stainon 12-10-2024 GS UNK UNK RIGHT KNEE NEED GRAM STAIN Centrifuged Specimen? Culture performed on centrifuged specimen Gram Stain No organisms seen Rare White Blood Cells Normal [facility] Comment on above: Performed By: #### L 200.4175, L200.0400, M100.2900, M100.2000, M100.4001 #### [facility] Laboratory [address] [place], [address] MR/POSTOP.ANEon 12-10-2024 MR/POSTOP.[facility] Medical Records Department [address] [place] [address] Anesthesia Postop Eval I 12/10/24 1505 MR#: [id number] Acct: [id number] Name: SHARLENE DEVLIN Rep #: [id number] : 1960 64 From: Sarita Key CRNA PCP: Devan Physician,No Primary Status:REG SDC Y Race: C Location: [place] [address] Anesthesia: Postop Eval I Current Vital Signs Temperature: 97.3 F Pulse Rate: 112 Blood Pressure: 161/111 Respiratory Rate: 24 Pulse Ox: 94 Assessment Airway patent: Yes Spontaneous unlabored respirations: Yes nausea: No Vomiting: No Anesthesia Complication: No Fluid Hydration Crystalloid volume administer (ml): 1,000 Total IV fluid infused: 1,000 Progress Note Anesthesia document: Postop Eval 1 completed: Yes 12/10/24 1506 Date Sarita Key CENTRAL OFFICE INSPECTOR Cosigner Signature: Date CC: Signed Normal [facility] MR/[id number] 12-10-2024 [facility] Medical Records Department [address] [place] [address] Anesthesia Postop Eval II 12/10/24 1541 MR#: [id number] Acct: [id number] Name: SHARLENE DEVLIN Rep #: [id number] : 1960 64 From: Sarita Key CRNA PCP: Care Physician,No Primary Status:ADM JEANCARLOS Y Race: C Location: [address] Anesthesia Postop Eval I Sum Postop Eval Completion status Anesthesia document: Postop Eval 1 completed: Yes Anesthesia Postop Eval I Summary Anesthesia Postop Eval I Summary: Anesthesia Postop Eval I: Assessment Summary Airway patent Yes 12/10/24 15:05 CENTRAL OFFICE INSPECTOR.CSIR Spontaneous unlabored Yes 12/10/24 15:05 CENTRAL OFFICE INSPECTOR.CSIR respirations Mental status nausea No 12/10/24 15:05 CENTRAL OFFICE INSPECTOR.CSIR Vomiting No 12/10/24 15:05 CENTRAL OFFICE INSPECTOR.CSIR Anesthesia Postop Eval I: Fluid Summary Crystalloid volume administer 1,000 12/10/24 15:05 CENTRAL OFFICE INSPECTOR.CSIR (ml) Colloids volume administered ( ml) Blood Product volume administered (ml) Total IV fluid infused 1,000 12/10/24 15:05 CENTRAL OFFICE INSPECTOR.CSIR Anesthesia Postop Eval I: Summary Notes Anesthesia Complication No 12/10/24 15:05 CENTRAL OFFICE INSPECTOR.CSIR Anesthesia Complication Comment: Post-operative progress note Anesthesia: Postop Eval II Evaluation Mental status: Awake Pain Level: 3 nausea: No Vomiting: No 12/10/24 1541 Date Sarita ca CENTRAL OFFICE INSPECTOR Cosigner Signature: Date CC: Signed Normal [facility] Operative Reporton 5 Operative Report [facility] Medical Records Department [address] [place] [address] Operative Report 12/10/24 1503 MR#: [id number] Acct: [id number] Name: SHARLENE DEVLIN Rep #: [id number] : 1960 64 From: Sundeep Mccormick DO PCP: Care Physician,No Primary Status:REG [facility] Location: [facility] [id number] Operative Report (Standard) Operative Information Date of Procedure: 12/10/24 Pre-Operative Diagnosis: Right knee septic arthritis Post-Operative Diagnosis: Right knee septic arthritis Surgery/Procedure Performed: Right knee arthroscopic irrigation and debridement crystal grinder: No Type of Anesthesia: General RN Documented [...] epinephrine. Portal sites were closed in interrupted vpueum-cu-pkkdr fashion with 4-0 nylon suture. Bulky sterile [...] Primary Car (more content not included)... Normal [facility] Anaerobic cultureOrdered By: Sundeep Mccormick on 12-09-2024 Bacteria identified Anaer cx Nom (Unsp spec) No anaerobic bacteria isolated. [facility] Automated synovial fluid gilberto kocytes count (number/volume)Ordered By: Sundeep Mccormick on 12-09-2024 WBC Auto (Syn fld) [#/Vol] 75.6250 10^3/uL High 0.000-0.002 [facility] Automated synovial fluid mon onuclear cell count (number/volume)Ordered By: Sundeep Mccormick on 12-09-2024 Mononuclear cells Auto (Syn fld) [#/Vol] 5.100 10^3/ul [facility] Automated synovial fluid vini ymorphonuclear cell count (number/volume)Ordered By: Sundeep Mccormick on 12-09-2024 Polymorphonuclear cells Auto (Syn fld) [#/Vol] 73.980 10^3/uL [facility] Automated synovial fluid vini ymorphonuclear cells as percentage of leukocytesOrdered By: Sundeep Mccormick on 12-09-2024 Polymorphonuclear cells/100 WBC Auto (Syn fld) 93.6 % [facility] Blood lymphocytes/100 leukoc ytesOrdered By: Sundeep Mccormick on 12-09-2024 Lymphocytes/100 WBC (Bld) 2 % [facility] Body fluid crystal identific ation by light microscopyOrdered By: Sundeep Mccormick on 12-09-2024 Crystals LM Nom (Body fld) See PATH REV [facility] Comment on above: CRYSTAL RESULT IS PRELIMINARY. SEE PATH REVIEW FOR FINAL REPORT. Determination of appearance of synovial fluid (nominal result)Ordered By: Sundeep Mccormick on 12-09-2024 Appearance (Syn fld) Cloudy CLEAR [facility] Gram stainOrdered By: Jackie Mccormick on 12-09-2024 Microscopic observation Gram stain Nom (Unsp spec) [facility] Pathologist review of result s (narrative result)Ordered By: Sundeep Mccormick on 12-09-2024 Pathologist review Sam (Unsp spec) [Interp] May follow [facility] Review by pathologistOrdered By: Sundeep Mccormick on 12-09-2024 Pathologist review Sam (Unsp spec) [Interp] Will follow [facility] Pathologist review Sam (Unsp spec) [Interp] Reviewed [facility] Comment on above: Previous reported re sult: Will follow Edited by: MAIK on 12/13/24:1629ACUTE INFLAMMATION, BLOODY FLUID.RARE NON-URATE CRYSTALS.Clarissa Ace MD 12/13/2024 AMENDED REPORT 12/13/24 1629 PATH REV previously reported as: Will follow Previous reported re sult: May follow Edited by: JOY on 12/17/24:1049 AMENDED REPORT 12/17/24 1049 PATH COM/SYFL previously reported as: May follow Specimen source identificati on of body fluidOrdered By: Sundeep Mccormick on 12-09-2024 Specimen source Nom (Body fld) SYNOVIAL [facility] Specimen source Nom (Body fld) RIGHT KNEE [facility] Synovial fluid color determi nation (nominal result)Ordered By: Sundeep Mccormick on 12-09-2024 Color (Syn fld) Red Pale Yellow [facility] Synovial fluid erythrocytes count (number/volume)Ordered By: Sundeep Mccormick on 12-09-2024 RBC (Syn fld) [#/Vol] 0.072 10^6/uL High 0-0 [facility] Synovial fluid monocyte perc entageOrdered By: Sundeep Mccormick on 12-09-2024 Monocytes/100 WBC (Syn fld) 4 % [facility] Synovial fluid mononuclear c ells/100 leukocytesOrdered By: Sundeep Mccormick on 12-09-2024 Mononuclear cells/100 WBC (Syn fld) 6.4 % [facility] Synovial fluid neutrophil pe rcentageOrdered By: Sundeep Mccormick on 12-09-2024 Neutrophils/100 WBC (Syn fld) 94 % High 0-25 [facility] Synovial fluid total cell co untOrdered By: Sundeep Mccormick on 12-09-2024 Cells Counted Total (Syn fld) [#] 76.0250 10^3/uL High 0.000-0.000 [facility] Comment on above: This is the Total Nu mber of Nucleated Cell Types in the Body Fluid. Venous Duplex US, Unilateral on 12-09-2024 Venous Duplex US, Unilateral [facility] Cardiovascular Services [address] [place] [address] Venous Duplex US, Unilateral 12/09/24 1516 MR#: [id number] Acct: [id number] Name: SHARLENE DEVLIN I Rep #: [id number] : 1960 64 From: Kamran Pate MD Attending Dr: Dr. Sundeep Mccormick, Status: REG CLI Ordering Dr: Sundeep Mccormick [...] Physician: Sundeep Mccormick Performed By: Anahy Cheney, THOMAST 12/09/242056 Date Kamran Pate MD CC: Dr. Sundeep Mccormick DO; No Primary Care Physician Date Dictated: 12/09/24 1516 Date Transcribed: 12/09/242056 [place] Guide: Signed Normal [facility] Venous duplex ultrasound rep ortOrdered By: Kamran Pate on 12-09-2024 US Vein [facility] Cardiovascular Services [address] [place] [address] Venous Duplex US, Unilateral 12/09/24 1516 MR#: [id number] Acct: [id number] Name: SHARLENE DEVLIN I Rep #:[id number] : 1960 64 From: Kamran Pate MD [...] Physician: Sundeep Mccormick Performed By: Anahy Cheney RVT 12/09/242056 Date _ Kamran Pate MD CC: Dr. Sundeep Mccormick, DO; No Primary Care Physician ~ Date Dictated: 12/09/241515 Date Transcribed: 12/09/242056 [place] Guide: Signed [facility] Other Emergency Department Summary on 12-03-2024 Emergency Department Summary [facility] Medical Records Department [address] [place] [address] Emergency Department Summary 12/03/24 MR#: [id number] Acct: [id number] Name: SHARLENE DEVLIN I Rep #: [id number] : 1960 64 From: Opal RIVAS PCP: [...] swelling. She denies any fevers or chills. [facility] Medical History Mid back pain on left [...] Given she (more content not included)... Normal [facility] Culture, Anaerobic Any Sourc rolo 11-28-2024 CUAN Rt Knee No growth in 5 days. [facility] Comment on above: Performed By: #### L 200.4175, L200.0400, M100.2900, M100.2000, M100.4001 #### [facility] Laboratory [address] [place], [place], [address] Body Fluid Culton 11-27-2024 BFC Rt Knee No growth in 5 days. Normal [facility] Comment on above: Performed By: #### L 200.4175, L200.0400, M100.2900, M100.2000, M100.4001 #### [facility] Laboratory [address] [place], [place], [id number] Crystals, Body Fluidon 11-24 PATH REV Reviewed Normal [facility] Comment on above: Order Comment: Comme nts: Rt Knee Result Comment: ACUT E INFLAMMATION. NON-URATE CRYSTALS PRESENT. Clarissa Ace MD 11/23/2024 AMENDED REPORT 11/24/24 0937 PATH REV previously reported as: Will follow Performed By: #### L 200.4175, L200.0400, M100.2900, M100.2000, M100.4001 #### [facility] [address] [place], [address] Anaerobic cultureOrdered By: Orion Bell on 11-22-2024 Bacteria identified Anaer cx Nom (Unsp spec) No growth in 5 days. [facility] Automated synovial fluid gilberto kocytes count (number/volume)Ordered By: Orion Bell on 11-22-2024 WBC Auto (Syn fld) [#/Vol] 28.5600 10^3/uL High 0.000-0.002 [facility] Automated synovial fluid mon onuclear cell count (number/volume)Ordered By: Orion Bell on 11-22-2024 Mononuclear cells Auto (Syn fld) [#/Vol] 1.161 10^3/ul [facility] Automated synovial fluid vini ymorphonuclear cell count (number/volume)Ordered By: Orion Bell on 11-22-2024 Polymorphonuclear cells Auto (Syn fld) [#/Vol] 28.904 10^3/uL [facility] Automated synovial fluid vini ymorphonuclear cells as percentage of leukocytesOrdered By: Orion Bell on 11-22-2024 Polymorphonuclear cells/100 WBC Auto (Syn fld) 96.1 % [facility] Blood lymphocytes/100 leukoc ytesOrdered By: Orion Bell on 11-22-2024 Lymphocytes/100 WBC (Bld) 1 % [facility] Body fluid crystal identific ation by light microscopyOrdered By: rOion Bell on 11-22-2024 Crystals LM Nom (Body fld) MONOSODIUM URATE [facility] Comment on above: CRYSTAL RESULT IS PRELIMINARY. SEE PATH REVIEW FOR FINAL REPORT. Determination of appearance of synovial fluid (nominal result)Ordered By: Orion Bell on 11-22-2024 Appearance (Syn fld) Cloudy CLEAR [facility] Emergency Department Summary on 11-22-2024 Emergency Department Summary [facility] Medical Records Department [address] [place] [address] Emergency Department Summary 11/22/24 MR#: [id number] Acct: [id number] Name: SHARLENE DEVLIN I Rep #: [id number] : 1960 63 From: Orion Bell MD [...] symptoms: No Recent Illness/Hospitaliza tion: No PFSH PFS Medical History Mid back [...] Palpation: soft (more content not included)... Normal [facility] Gram Stainon 11-22-2024 GS Rt Knee Centrifuged Specimen? Culture performed on centrifuged specimen Gram Stain No organisms seen No cells seen Normal [facility] Comment on above: Performed By: #### L 200.4175, L200.0400, M100.2900, M100.2000, M100.4001 #### [facility] [address] [place], [address] Gram stainOrdered By: Orion huynh on 11-22-2024 Microscopic observation Gram stain Nom (Unsp spec) [facility] Knee 4 or More Viewson 11-22 Knee 4 or More Views [facility] Imaging Services [address] [place], [place] [address] Knee 4 or More Views MR#: [id number] Acct: [id number] Name: SHARLENE DEVLIN I Rep #: [id number] : 1960 F 63 From: Amaury Sanchez MD PCP: Care Physician,No Primary Status: REG ER Study: Knee 4 or More Views Date of Exam: 11/22/24 Exam# [id number] Ordering Dr: Orion Bell MD PROCEDURE: KNEE [...] change involving the patellofemoral joint. Reading Location: [place] [address] CC: Dr. Orion Bell MD; No Primary Care Physician [place] Guide: Signed Normal [facility] Pathologist review of result s (narrative result)Ordered By: Orion Bell on 06-02-2025 Pathologist review Sam (Unsp spec) [Interp] May follow [facility] Review by pathologistOrdered By: Orion Bell on 11-22-2024 Pathologist review Sam (Unsp spec) [Interp] Reviewed [facility] Comment on above: Previous reported re sult: Will follow Edited by: MAIK on 11/24/24:0937ACUTE INFLAMMATION.NON-URATE CRYSTALS PRESENT.Clarissa Ace MD 11/23/2024 AMENDED REPORT 11/24/24 0937 PATH REV previously reported as: Will follow Specimen source identificati on of body fluidOrdered By: Orion Bell on 11-22-2024 Specimen source Nom (Body fld) SYNOVIAL [facility] Specimen source Nom (Body fld) RIGHT KNEE [facility] Synovial Fluid RBC, WBC AND Diffon 11-22-2024 Lymphocytes (Bld) [#/Vol] 1 10*3/uL Normal [facility] Comment on above: Order Comment: Comme nts: Rt Knee Performed By: #### L 200.4175, L200.0400, M100.2900, M100.2000, M100.4001 #### [facility] [address] [place], [address] Monocytes (Bld) [#/Vol] 18 10*3/uL Normal [facility] Comment on above: Order Comment: Comme nts: Rt Knee Performed By: #### L 200.4175, L200.0400, M100.2900, M100.2000, M100.4001 #### [facility] [address] [place], [address] NEUTROPHIL 81 High 0-25 [facility] Comment on above: Order Comment: Comme nts: Rt Knee Performed By: #### L 200.4175, L200.0400, M100.2900, M100.2000, M100.4001 #### [facility] [address] [place], [address] Synovial fluid color determi nation (nominal result)Ordered By: Orion Bell on 11-22-2024 Color (Syn fld) Yellow Pale Yellow [facility] Synovial fluid erythrocytes count (number/volume)Ordered By: Orion Bell on 11-22-2024 RBC (Syn fld) [#/Vol] 160 /mm3 High 0-0 [facility] Synovial fluid monocyte perc entageOrdered By: Orion Bell on 11-22-2024 Monocytes/100 WBC (Syn fld) 18 % [facility] Synovial fluid mononuclear c ells/100 leukocytesOrdered By: Orion Bell on 11-22-2024 Mononuclear cells/100 WBC (Syn fld) 3.9 % [facility] Synovial fluid neutrophil pe rcentageOrdered By: Orion Bell on 11-22-2024 Neutrophils/100 WBC (Syn fld) 81 % High 0-25 [facility] Synovial fluid total cell co untOrdered By: Orion Bell on 11-22-2024 Cells Counted Total (Syn fld) [#] 28.6100 10^3/uL High 0.000-0.000 [facility] Comment on above: This is the Total Nu mber of Nucleated Cell Types in the Body Fluid. Urgent Care Visit Reporton 0 09-27-2024 Urgent Care Visit Report [facility] [address], [address] [place] [address] OFFICE VISIT Date of Service: 09/27/24 MR#: [id number] Acct: [id number] Name: SHARLENE DEVLIN I Rep #: [id number] : 1960 Provider: EVELYN Parker Age/Sex: 63/F Location: [facility] Status: Signed Intake Vital Signs 02/20/22 22:28 [...] has been going on for 8 days. [facility] Medical History (Updated 03/01/22 @ 00:01 by [...] 12 tabs 0RF 09/27/24 1217 Date Vivek Alcnataraignperez Signature: Date (more content not included)... Normal [facility] Absolute lymphocyte counton 02-20-2022 Lymphocytes Auto (Unsp spec) [#/Vol] 2.83 10*3/uL 0.83-4.51 [facility] Work Phone: Basophil percentageon 2021 Basophil percentage 0 SEEN /hpf 0-5 [facility] Work Phone: Basophils/100 WBC (Bld) 0.7 % 0-1 [facility] Work Phone: Chloride [Moles/Vol] 101 mmol/L 98-107 [facility] Work Phone: Eosinophils/100 WBC (Bld) 3.5 % 0-5 [facility] Work Phone: Glucose [Mass/Vol] 119 mg/dL 74-106 [facility] Work Phone: Comment on above: Fasting Glucose resu lt from 100 to 125 mg/dL suggests IMPAIRED HOMEOSTASIS per A.D.A. criteria. Neutrophils (Bld) [#/Vol] 3.1 10*3/uL 2.0-7.7 [facility] Work Phone: Neutrophils/100 WBC (Bld) 44.9 % 47-70 [facility] Work Phone: Potassium [Moles/Vol] 3.4 mmol/L 3.5-5.1 [facility] Work Phone: Sodium [Moles/Vol] 135 mmol/L 136-145 [facility] Work Phone: WBC (Bld) [#/Vol] 7.0 10*3/uL 4.4-11.0 [facility] Work Phone: [phone] Basophil percentage 0 SEEN /hpf 0-5 [facility] Work Phone: Bilirubin Test strip Ql (U)o n 02-20-2022 Bilirubin Ql (U) Negative Negative [facility] Work Phone: Bilirubin Ql (U) Negative Negative [facility] Work Phone: Blood erythrocytes count (nu mber/volume)on 02-20-2022 RBC (Bld) [#/Vol] 4.19 10*6/uL 4.2-5.4 [facility] Work Phone: Blood hemoglobin measurement (mass/volume)on 02-20-2022 Hemoglobin (Bld) [Mass/Vol] 14.5 g/dL 12.0-15.0 [facility] Work Phone: Blood lymphocytes/100 leukoc yteson 02-20-2022 Lymphocytes/100 WBC (Bld) 40.7 % 19-41 [facility] Work Phone: Blood monocytes/100 leukocyt eson 02-20-2022 Monocytes/100 WBC (Bld) 9.5 % 0-10 [facility] Work Phone: Blood platelet mean volumeon 02-20-2022 Platelet mean volume (Bld) [Entitic vol] 9.9 fL 6.2-12.0 [facility] Work Phone: Determination of erythrocyte mean corpuscular volume (MCV)on 02-20-2022 MCV (RBC) [Entitic vol] 99.3 fL 81-99 [facility] Work Phone: Hematocrit Auto (Bld) [Volum e fraction]on 02-20-2022 Hematocrit (Bld) [Volume fraction] 41.6 % 37-47 [facility] Work Phone: Ketones Test strip Ql (U)on 02-20-2022 Ketones Ql (U) Negative Negative [facility] Work Phone: Ketones Ql (U) 5 mg/dl Negative [facility] Work Phone: Laboratory - Chemistry and C hemistry - challengeon 02-20-2022 CO2 [Moles/Vol] 28.0 mmol/L 21.0-32.0 [facility] Work Phone: Urea nitrogen/Creatinine [Mass ratio] 13.3 mg/mg 10-20 [facility] Work Phone: Bilirubin Ql (U) Negative [facility] Work Phone: Glucose Ql (U) Negative [facility] Work Phone: Ketones Ql (U) Small (15+) [facility] Work Phone: pH (U) 6.0 [pH] [facility] Work Phone: Specific gravity (U) [Rel density] 1.005 [facility] Work Phone: Urobilinogen (U) [Mass/Vol] Negative [facility] Work Phone: Laboratory - Hematology and Cell countson 02-20-2022 Erythrocyte distribution width (RBC) [Entitic vol] 46.4 fL 35.1-43.9 [facility] Work Phone: Erythrocyte distribution width (RBC) [Ratio] 12.7 % 11.6-14.6 [facility] Work Phone: Immature granulocytes/100 WBC (Bld) 0.700 % 0.0-0.9 [facility] Work Phone: Comment on above: IG% - Immature Granu locytes (promyelocytes, myelocytes and metamyelocytes) > 1% indicates that a LEFT SHIFT is Present. MCH (RBC) [Entitic mass] 34.6 pg 27.0-32.0 [facility] Work Phone: Nucleated RBC/100 WBC (Bld) [Ratio] 0 % 0-5 [facility] Work Phone: Hemoglobin Ql (U) Negative [facility] Work Phone: Laboratory - Specimen inform ationon 02-20-2022 Clarity (U) Clear [facility] Work Phone: Color (U) STRAW [facility] Work Phone: Laboratory - Urinalysison Nitrite Ql (U) Negative [facility] Work Phone: Protein Ql (U) Negative [facility] Work Phone: MCHC Auto (RBC) [Mass/Vol]on 02-20-2022 MCHC (RBC) [Mass/Vol] 34.9 g/dL 32-36 [facility] Work Phone: Mucus LM Ql (Urine sed)on Mucus Ql (Urine sed) 0 SEEN /hpf [facility] Work Phone: Mucus Ql (Urine sed) 0 SEEN /hpf [facility] Work Phone: Nitrite Test strip Ql (U)on 02-20-2022 Nitrite Ql (U) Negative Negative [facility] Work Phone: Nitrite Ql (U) Negative Negative [facility] Work Phone: No Panel Informationon 02-20 Estimated Creatinine Clearance Calc 71.87 ml/min [facility] Work Phone: Estimated GFR (MDRD) Amer 114 mL/min >60 [facility] Work Phone: Comment on above: GFR Calc Estimated GFR (MDRD) Non-Af Amer 94 mL/min >60 [facility] Work Phone: Comment on above: Non- GFR Calc Urine Leukocytes Negatve [facility] Work Phone: Urine Non-Hemolyzed Blood Negative [facility] Work Phone: Platelets bldon 02-20-2022 Platelets (Bld) [#/Vol] 230 10*3/uL 150-450 [facility] Work Phone: Protein Test strip Ql (U)on 02-20-2022 Protein Ql (U) Negative Negative [facility] Work Phone: Protein Ql (U) Negative Negative [facility] Work Phone: Serum or plasma calcium anayeli urement (mass/volume)on 02-20-2022 Calcium [Mass/Vol] 9.5 mg/dL 8.5-10.1 [facility] Work Phone: Serum or plasma creatinine m easurement (mass/volume)on 02-20-2022 Creatinine [Mass/Vol] 0.68 mg/dL 0.55-1.02 [facility] Work Phone: Comment on above: The validity of the calculated GFR & GFRAA in patients over 70 years has not been determined. Clinical correlation is essential. Serum or plasma urea nitroge n measurement (mass/volume)on 02-20-2022 Urea nitrogen [Mass/Vol] 9 mg/dL 7-18 [facility] Work Phone: Squamous epithelial cells de tection in urine sediment by light microscopyon 02-20-2022 Epithelial cells.squamous LM Ql (Urine sed) 0-5 SEEN /hpf 5-10 [facility] Work Phone: Epithelial cells.squamous LM Ql (Urine sed) 0 SEEN /hpf 5-10 [facility] Work Phone: Thin prep Papanicolaou smear with manual screeningon 02-20-2022 Thin prep Papanicolaou smear with manual screening 6 5-15 [facility] Work Phone: Urine blood detectionon 08- RBC Ql (U) 10 /ul Negative [facility] Work Phone: RBC Ql (U) 0-5 SEEN /hpf 0-5 [facility] Work Phone: RBC Ql (U) Negative Negative [facility] Work Phone: RBC Ql (U) 0 SEEN /hpf 0-5 [facility] Work Phone: Urine clarityon 02-20-2022 Clarity (U) Clear Clear [facility] Work Phone: Clarity (U) Clear Clear [facility] Work Phone: Urine color determinationon 02-20-2022 Color (U) Straw Yellow [facility] Work Phone: Color (U) Yellow Yellow [facility] Work Phone: Urine glucose detectionon Glucose Ql (U) Normal mg/dl Normal [facility] Work Phone: Glucose Ql (U) Normal mg/dl Normal [facility] Work Phone: Urine leukocyte esterase det ection by dipstickon 02-20-2022 Leukocyte esterase Test strip Ql (U) Negative Negative [facility] Work Phone: Leukocyte esterase Test strip Ql (U) Negative Negative [facility] Work Phone: Urine pHon 02-20-2022 pH (U) 6.0 [pH] 5.0 - 8.0 [facility] Work Phone: pH (U) 6.5 [pH] 5.0 - 8.0 [facility] Work Phone: Urine sediment bacteria coun t by microscopy (number/high power field)on 02-20-2022 Bacteria LM.HPF (Urine sed) [#/Area] 0 /[HPF] None Seen [facility] Work Phone: Bacteria LM.HPF (Urine sed) [#/Area] 0 /[HPF] None Seen [facility] Work Phone: Urine specific gravity measu rementon 02-20-2022 Specific gravity (U) [Rel density] 1.010 1.002-1.030 [facility] Work Phone: Specific gravity (U) [Rel density] 1.005 1.002-1.030 [facility] Work Phone: Urobilinogen Auto test strip Ql (U)on 02-20-2022 Urobilinogen Ql (U) Normal mg/dl Normal [facility] Work Phone: Urobilinogen Ql (U) Normal mg/dl Normal [facility] Work Phone: CNCOon 09-01-2020 CNCO Letter Text Normal [facility] Culture, urine Bacteria identified Cx Nom (U) Positive [facility] Work Phone: Vital Signs Date Time Vital Sign Value Performing Clinician Nik ann 12-14-2024 12:22-0400 Body temperature 98.1 [degF] No Primary Care Physician [facility] 12-14-2024 12:22-0400 Diastolic blood pressure 78 mm[Hg] No Primary Care Physician [facility] 12-14-2024 12:22-0400 Heart rate 83 /min No Primary Care Physician [facility] 12-14-2024 12:22-0400 Respiratory rate 18 /min No Primary Care Physician [facility] 12-14-2024 12:22-0400 SaO2% (BldA) [Mass fraction] 96 % No Primary Care Physician [facility] 12-14-2024 12:22-0400 Systolic blood pressure 129 mm[Hg] No Primary Care Physician [facility] 12-13-2024 07:27-0400 Body temperature 97.5 [degF] No Primary Care Physician [facility] 12-13-2024 07:27-0400 Diastolic blood pressure 79 mm[Hg] No Primary Care Physician [facility] 12-13-2024 07:27-0400 Heart rate 85 /min No Primary Care Physician [facility] 12-13-2024 07:27-0400 Respiratory rate 16 /min No Primary Care Physician [facility] 12-13-2024 07:27-0400 SaO2% (BldA) [Mass fraction] 94 % No Primary Care Physician [facility] 12-13-2024 07:27-0400 Systolic blood pressure 117 mm[Hg] No Primary Care Physician [facility] 12-11-2024 04:57-0400 Inhaled oxygen flow rate 2 L/min No Primary Care Physician [facility] 12-10-2024 16:49-0400 Body height 160.02 cm No Primary Care Physician [facility] 12-10-2024 16:49-0400 Body mass index (BMI) [Ratio] 28.3 kg/m2 No Primary Care Physician [facility] 12-10-2024 16:49-0400 Body weight 72.57 kg No Primary Care Physician [facility] 12-03-2024 16:03-0400 Body temperature 98 [degF] No Primary Care Physician [facility] 12-03-2024 16:03-0400 Diastolic blood pressure 73 mm[Hg] No Primary Care Physician [facility] 12-03-2024 16:03-0400 Heart rate 75 /min No Primary Care Physician [facility] 12-03-2024 16:03-0400 Respiratory rate 18 /min No Primary Care Physician [facility] 12-03-2024 16:03-0400 SaO2% (BldA) [Mass fraction] 100 % No Primary Care Physician [facility] 12-03-2024 16:03-0400 Systolic blood pressure 119 mm[Hg] No Primary Care Physician [facility] 12-03-2024 12:49-0400 Body height 160.02 cm No Primary Care Physician [facility] 12-03-2024 12:49-0400 Body mass index (BMI) [Ratio] 28.3 kg/m2 No Primary Care Physician [facility] 12-03-2024 12:49-0400 Body weight 72.57 kg No Primary Care Physician [facility] 11-22-2024 10:22-0400 Body temperature 98 [degF] No Primary Care Physician [facility] 11-22-2024 10:22-0400 Diastolic blood pressure 77 mm[Hg] No Primary Care Physician [facility] 11-22-2024 10:22-0400 Heart rate 79 /min No Primary Care Physician [facility] 11-22-2024 10:22-0400 Respiratory rate 19 /min No Primary Care Physician [facility] 11-22-2024 10:22-0400 SaO2% (BldA) [Mass fraction] 97 % No Primary Care Physician [facility] 11-22-2024 10:22-0400 Systolic blood pressure 140 mm[Hg] No Primary Care Physician [facility] 11-22-2024 09:04-0400 Body mass index (BMI) [Ratio] 29.6 kg/m2 No Primary Care Physician [facility] 11-22-2024 09:04-0400 Body weight 75.8 kg No Primary Care Physician [facility] 11-22-2024 09:01-0400 Body height 160.02 cm No Primary Care Physician [facility] 09-27-2024 11:38-0400 Body temperature 98.4 [degF] No Primary Care Physician [facility] 09-27-2024 11:38-0400 Diastolic blood pressure 80 mm[Hg] No Primary Care Physician [facility] 09-27-2024 11:38-0400 Heart rate 104 /min No Primary Care Physician [facility] 09-27-2024 11:38-0400 SaO2% (BldA) [Mass fraction] 96 % No Primary Care Physician [facility] 09-27-2024 11:38-0400 Systolic blood pressure 122 mm[Hg] No Primary Care Physician [facility] 02-21-2022 01:01-0400 Heart rate 78 /min No Primary Care Physician [facility] Work Phone: 02-21-2022 01:01-0400 Respiratory rate 18 /min No Primary Care Physician [facility] Work Phone: 02-21-2022 01:01-0400 SaO2% (BldA) [Mass fraction] 97 % No Primary Care Physician [facility] Work Phone: 02-20-2022 22:28-0400 Body height 160.02 cm No Primary Care Physician [facility] Work Phone: 02-20-2022 22:28-0400 Body mass index (BMI) [Ratio] 29.2 kg/m2 No Primary Care Physician [facility] Work Phone: 02-20-2022 22:28-0400 Body temperature 96.6 [degF] No Primary Care Physician [facility] Work Phone: 02-20-2022 22:28-0400 Body weight 74.9 kg No Primary Care Physician [facility] Work Phone: 02-20-2022 22:28-0400 Diastolic blood pressure 89 mm[Hg] No Primary Care Physician [facility] Work Phone: 02-20-2022 22:28-0400 Systolic blood pressure 167 mm[Hg] No Primary Care Physician [facility] Work Phone: 02-20-2022 08:48-0400 Body temperature 98.4 [degF] No Primary Care Physician [facility] Work Phone: 02-20-2022 08:48-0400 Diastolic blood pressure 74 mm[Hg] No Primary Care Physician [facility] Work Phone: 02-20-2022 08:48-0400 Heart rate 98 /min No Primary Care Physician [facility] Work Phone: 02-20-2022 08:48-0400 Respiratory rate 14 /min No Primary Care Physician [facility] Work Phone: 02-20-2022 08:48-0400 SaO2% (BldA) [Mass fraction] 98 % No Primary Care Physician [facility] Work Phone: 02-20-2022 08:48-0400 Systolic blood pressure 122 mm[Hg] No Primary Care Physician [facility] Work Phone: Encounters Encounter Date Encounter Type Care Provider Facility Start: 03-09-2025 Evaluation and management of inpatient Raghav Gabriel Facility:[facility] Start: 03-07-2025 ambulatory Sundeep Cavazos ty:[facility] Start: 01-10-2025 End: 01-10-[address] Raghav Gabriel MD -[facility] Work Phone: Start: 01-10-2025 End: 01-10-2025 ambulatory No Primary Care Physician -[facility] Start: 01-03-2025 End: 01-03-[address] Raghav Gabriel MD -[facility] Work Phone: Start: 01-03-2025 End: 01-03-2025 ambulatory No Primary Care Physician -[facility] Start: 12-27-2024 End: 12-27-[address] Raghav Gabriel MD -[facility] Work Phone: Start: 12-27-2024 End: 12-27-2024 ambulatory No Primary Care Physician -[facility] Start: 12-20-2024 End: 12-20-[address] Raghav Gabriel MD -[facility] Work Phone: Start: 12-20-2024 End: 12-20-2024 ambulatory No Primary Care Physician -[facility] Start: 12-10-2024 End: 12-14-2024 Evaluation and management of inpatient Dr. Sundeep Mccormick DO -Medical Surgical 3 Work Phone: Start: 12-10-2024 End: 12-10-2024 ambulatory Ernesto Galvez [place] Start: 12-10-2024 End: 12-10-2024 Non-patient / Non-visit Dr. Ernesto Galvez MD -[facility] Work Phone: Start: 12-10-2024 ambulatory SUNDEEP MCCORMICK DO Fac ility:A Start: 12-09-2024 End: 12-09-2024 ambulatory No Primary Care Physician [facility] Work Phone: Start: 12-09-2024 End: 12-09-[address] Sundeep Mccormick DO -Cardiovascular Services Work Phone: Start: 12-09-2024 End: 12-09-2024 ambulatory Sundeep Mccormick Facility:[facility] Start: 12-07-2024 ambulatory FLYNN NOGUERA TESTER [employer] C[employer]IER Fa cility:[facility] Start: 12-03-2024 End: 12-03-2024 Emergency department patient visit No Primary Care Physician -Emergency Department Work Phone: Start: 11-22-2024 End: 11-22-2024 Emergency department patient visit No Primary Care Physician -Emergency Department Work Phone: Start: 09-27-2024 End: 09-27-2024 Patient encounter procedure Vivek RIVAS [facility] Work Phone: Start: 09-27-2024 End: 09-27-2024 ambulatory Vivek RIVAS [place] Start: 02-20-2022 End: 02-21-2022 Emergency department patient visit No Primary Care Physician [facility]-Emergency Department Start: 02-20-2022 End: 02-20-2022 ambulatory No Primary Care Physician [facility] Work Phone: Start: 02-20-2022 End: 02-20-2022 Patient encounter procedure No Primary Care Physician [facility]-Laboratory, Specimen Start: 02-20-2022 End: 02-20-2022 Patient encounter procedure No Primary Care Physician [facility] Procedures Date Procedure Procedure Detail Performing Clinician Start: 01-03-2025 Lymphocyte percent differential count No Primary Care Physician Start: 12-13-2024 Blood culture No Primar y Care Physician Start: 12-13-2024 Estimated creatinine clearance No Primary [...] Activity Detail Author Start: 12-14-2024 Patient discharge [facility] Start: 12-13-2024 Bacteria identified in Blood by Culture Blood Culture [facility] Start: 12-13-2024 Referral to service [facility] Start: 12-13-2024 End: 12-13-2024 [facility] Start: 12-12-2024 Referral to service [facility] Start: 12-10-2024 Oxygen therapy [facility] Start: 12-10-2024 Application of intermittent pneumatic compression device [facility] Start: 12-10-2024 Following clinical pathway protocol [facility] Start: 12-10-2024 Consultation [facility] Start: 12-10-2024 Referral to occupational therapist [facility] Start: 12-10-2024 Referral to service [facility] Start: 12-10-2024 Admission procedure [facility] Start: 12-10-2024 Application of ice collar, cap or bag [facility] Start: 12-10-2024 Assessment of risk of venous thromboembolism [facility] Start: 12-10-2024 Catheterization of vein [facility] Start: 12-10-2024 Elevation of affected extremity [facility] Start: 12-10-2024 Following clinical pathway protocol [facility] Start: 12-10-2024 Introduction of urinary catheter [facility] Start: 12-10-2024 Provision of activity privileges [facility] Start: 12-10-2024 Vital signs measurements [facility] Start: 12-10-2024 [facility] Start: 12-10-2024 Verification routine [facility] Start: 12-09-2024 Cell count misc body fluids w/differential count BODY FLUID CELL COUNT [facility] Start: 12-09-2024 Cell count miscellaneous body fluids BODY FLUID CELL COUNT [facility] Start: 12-09-2024 Crystal id light microscopy michelle tiss/any fluid EXAM SYNOVIAL FLUID CRYSTALS [facility] Start: 12-09-2024 Cul bact aerobic addl meths definitive ea isol CULTURE AEROBIC IDENTIFY [facility] Start: 12-09-2024 Cul bact xcpt urine blood/stool aerobic isol CULTURE OTHR SPECIMN AEROBIC [facility] Start: 12-09-2024 Culture bacterial any source anaerobic iso&id CULTR BACTERIA EXCEPT BLOOD [facility] Start: 12-09-2024 Dup-scan xtr veins unilateral/limited study EXTREMITY STUDY [facility] Start: 12-09-2024 Smr prim src gram/giemsa stain bct fungi/cell SMEAR GRAM STAIN [facility] Start: 12-09-2024 Susceptiblty stdy antimicrbial micro/agar dilutj MICROBE SUSCEPTIBLE PRASHANT [facility] Start: 12-03-2024 [facility] Start: 11-22-2024 Anaerobic Culture Anaerobic Culture [facility] Start: 11-22-2024 Body Fluid Culture Body Fluid Culture [facility] Start: 11-22-2024 Microscopic observation [Identifier] in Unspecified specimen by Gram stain Gram Stain [facility] Start: 11-22-2024 [facility] Start: 11-22-2024 Microbial culture, body fluid [facility] Start: 02-20-2022 Culture bacterial quanttative colony count urine URINE CULTURE/COLONY COUNT [facility] Work Phone: Start: 02-20-2022 Urnls dip stick/tablet reagent auto microscopy URINALYSIS AUTO W/SCOPE [facility] Work Phone: Start: 02-20-2022 [facility] Work Phone: Bacteria identified in Body fluid by Culture [facility] Bacteria identified in Unspecified specimen by Anaerobe culture [facility] Bacteria identified in Urine by Culture Urine Culture [facility] Work Phone: Cell count of synovi al fluid [facility] Crystals [type] in B miguelito fluid by Light microscopy [facility] Microscopic observat ion [Identifier] in Unspecified specimen by Gram stain [facility] Pathologist review o f results [facility] Patient Education [facility] Work Phone: Patient referral [facility] Work Phone: Red blood cell count [facility] Specimen processing [facility] Synovial fluid examination [facility] White blood cell count [facility] Payers Date Payer Category Payer Self-pay [id number] 2007 Unknown [id number] 1960 Unknown [id number] 2.16. [id number] 1960 Unknown [id number] 2.16. [id number] Self-pay [id number] Unknown [id number] Unknown [id number] 2.16.8 [id number] Unknown [id number] 2.16.8 [id number] Unknown [id number] 2.16.8 40.1.532308.3.579.2.462 Unknown [id number] 2.16.8 40.1.669035.3.579.2.462 Unknown [id number] 2.16.8 40.1.849215.3.579.2.462 Unknown [id number] 2.16.8 40.1.890410.3.579.2.462 Unknown [id number] 2.16.8 40.1.762242.3.579.2.462 Unknown [id number] 2.16.8 40.1.654749.3.579.2.462 Unknown [id number] 2.16.8 40.1.695653.3.579.2.462 Unknown [id number] 2.16.8 40.1.457832.3.579.2.462 Unknown [id number] 2.16.8 [id number] Unknown [id number] 2.16.8 [id number] Social History Date Type Detail Facility Start: 02-20-2022 Tobacco smoking status NHIS Unknown if ever smoked [facility] Work Phone: Start: 02-20-2022 Occasional [facility] Start: 02-20-2022 None [facility] Start: 02-20-2022 Cigarettes [facility] Start: 1960 Sex Assigned At Female [facility] Start: 11-22-2024 End: 12-10-2024 Tobacco smoking status NHIS Smokes tobacco daily (finding) [facility] NEGATED: Highlighted row Not [facility] Goals Date Patient Goal Desired Activity /State Functional Status Date Assessment Result Facility 12-14-2024 Functional status Ambulates;Stephen r;Bathroom Privilege [facility] Work Phone: 12-13-2024 Functional status Ambulates [facility] Work Phone: Mental Status Date Assessment Result Facility 12-14-2024 Cognitive function Voice/Name [facility] Work Phone: 12-13-2024 Cognitive function Voice/Name [facility] Work Phone: 12-12-2024 Cognitive function Appropriate;Osiris khoury [facility] Work Phone: Clinical Notes 08-15-2020 to 03-09-2025 Note Date & Type Note Facility 03-09-2025 Note [facility] Medical Records Department [address] [place] [address] History Physical Exam 03/09/25 1141 MR#: [id number] Acct: [id number] Name: SHIRLEY DEVLIN Rep #: [id number] : 1960 64 From: Sundeep Mccormick DO PCP: Care Physician,No Primary Status:ADM JEANCARLOS Location: [place] PG357-1 [facility] - General General Date of Admission: 03/09/25 HPI Narrative This is a 64-year-old female who was previous to diagnosed with a right knee septic arthritis and underwent arthroscopic I D on 12/10/24 with myself. She received a PICC line antibiotic therapy and and was rehabbing physical therapy. She has had some persistent swelling but this worsened over the last week. She was seen in my office on 03/07/25. X-rays revealed an effusion and I performed an arthrocentesis at bedside. Some thick seropurulent fluid was aspirated and sent for laboratory analysis. Limited volume was yielded but a preliminary culture result yielded a gram-positive cocci. Decision was made to direct admit the patient with planned repeat I D of the right knee. She denies any fevers, chills, nausea or vomiting, chest pain or shortness of breath. 12 point review of systems obtained, negative unless otherwise noted in HPI. [facility] Medical History (Updated 03/09/25 @ 11:[address] Sundeep Mccormick DO) Septic arthritis of knee, right Smoker Wears glasses Alcohol use Redness of skin History of steroid therapy Walker as ambulation aid Arthritis Fatty liver Shortness of breath on exertion Hoarseness Chronic cough Mid back pain on left side Urinary frequency Abdominal pain Home Medications ???Medication ???Instructions ???Recorded ???Last Taken ???Type gabapentin 300 mg capsule 300 mg PO BID 03/09/25 03/09/25 Hi story nortriptyline 10 mg capsule 20 mg PO QHS 03/09/25 Unknown Hist ory Allergy/AdvReac Type Severity Reaction Status Date / Time Penicillins Allergy Rash Verified 12/10/24 12:20 Family History Mother Hypertension Father Atrial fibrillation Surgical History H/O foot surgery Social History household members: children housing: apartment current occupational status: retired Smoking Status: Current every day smoker tobacco type: cigarettes alcohol intake: current alcohol intake frequency: holidays/special occasions only ROS ROS Narrative NEG, see above Vital Signs Vital Signs Vital Signs: 03/09/25 10:53 03/09/25 10:57 Temperature 98 F Temperature Source Oral Pulse Rate 97 Respiratory Rate 18 Respiratory Effort Normal Blood Pressure 103/76 Blood Pressure Mean 85 Blood Pressure Source Monitor Blood Pressure Position Semi-Fowlers Blood Pressure Location Left Arm Pulse Ox 98 Oxygen Delivery Method Room Air Room Air Weight Weight: 142 lb 12.8 oz Body Mass Index (BMI) 25.2 Physical Exam Narrative General - alert and oriented ???3, NAD HEENT - NC/AT CV - regular rhythm, no murmurs gallops or rubs Resp - Lungs CTA B/L, normal work of breathing Abdomen-soft, nontender, nondistended Neuro - cranial nerves II through XII grossly intact, no focal deficits Right lower extremity: 2+ right knee effusion. Range of motion 10-50. Stable to varus valgus stressing. Slightly warm to touch. Well-healed incisions without erythema. Calf is soft and non tender. DF, PF, EHL 5/5. DP 2+. Assessment Plan Assessment/Plan (1) Septic arthritis of knee, right: QUALIFIERS: Septic arthritis organism: staphylococcal Qualified Code(s): M00.061 - Staphylococcal arthritis, right knee PLAN: Presumed recurrent septic arthritis of the right knee -Plan for I D tomorrow. Nothing by mouth after midnight. -Urgent MRI today to evaluate for possible osteomyelitis or other sources of recurrent infection and for surgical planning -Infectious disease consultation. We will provisionally start patient on vancomycin and ceftriaxone. 03/09/25 1145 Cosigner Signature (if applicable): CC: Dr. Sundeep Mccormick DO; No Primary Care Physician Signed [facility] 12-14-2024 Hospital Discharg e instructions Additional Instructions Date of Discharge: 12/14/24 [facility] Work Phone: 12-14-2024 Discharge summary Note Date/Time December 14, 2024 12:23pm [facility] Medical Records Department [address] [place] [address] Discharge Summary 12/14/24 1154 MR#: [id number] Acct: [id number] Name: SHARLENE DEVLIN Rep #:[id number] : 1960 64 From: Sandhya RIVAS PCP: Care Physician,No Primary Status :ADM IN Location: [place] [address] Providers Date of Admission: 12/10/24 Date of [...] Weekly bmp, cbc, and esr. Fax to [phone]. Routine picc care per protocol. acetaminophen 500 [...] EVELYN Jefferson; No Primary Care Physician~ Signed [facility] Work Phone: 1(244) 329-214106-24-2025 Discharge summary [facility] Medical Records Department [address] [place] [address] Discharge Summary 12/14/24 1154 MR#: [id number] Acct: [id number] Name: SHARLENE DEVLIN Rep #:[id number] : 1960 64 From: Sandhya RIVAS PCP: Care Physician,No Primary Status :ADM IN Location: [place] [address] Providers Date of Admission: 12/10/24 Date of Discharge: 12/14/24 Primary Care Physician: No Primary Care Phys Consultations 06/20/25 15:01 Consult: Infectious Disease Routine Consulting Provider: [...] Provider: Sundeep Mccormick Primary Care Provider: Care Physician,Prachi Primary Consulting Providers: Raghav Gabriel Discharge Orders/Prescriptions Prescriptions: New cefazolin 2 gram recon soln 2 g IV Q8H 21 Days Rx Instructions: stop date 01/03/25. Dx: mSSA septic arthritis. Weekly bmp, cbc, and esr. Fax to [phone]. Routine picc care per protocol. acetaminophen 500 [...] EVELYN Jefferson; No Primary Care Physician~ Signed [facility]06-24-2025 [facility] Medical Records Department [address] [place] [address] Discharge Summary 12/14/24 1154 MR#: [id number] Acct: [id number] Name: SHARLENE DEVLIN Rep #: [id number] : 1960 64 From: Sandhya RIVAS PCP: Care Physician,No Primary Status:ADM IN Location: [place] [id number] Providers Date of Admission: 12/10/24 Date of [...] 2 days) Weight B (more content not included)...[facility]06-23-2025 Consult note Author Raghav Gabriel [facility] Note Date/Time December 13, 2024 12:5 7pm [facility] Medical Records Department [address] [place] [address] Consultation - Infectious Dx 12/13/24 1253 MR#: [id number] Acct: [id number] Name: SHARLENE DEVLIN Rep #:[id number] : 1960 64 From: Raghav medina MD PCP: Care Physician,No Primary Status :ADM IN Location: [place] TG042-1 Assessment & Plan Assessment/Plan (1) Septic arthritis [...] performed and neg except as noted above. [facility] Medical History Wears glasses Alcohol use Redness [...] Mccormick, DO; No Primary Care Physician~ Signed [facility] Work Phone: 1(906) 660-228706-23-2025 Progress note Author Terese Levy [facility] Note Date/Time December 13, 2024 12:1 0pm [facility] Medical Records Department [address] [place] [address] Progress Note - Orthopedic 12/13/24 1154 MR#: [id number] Acct: [id number] Name: SHARLENE DEVLIN Rep #:[id number] : 1960 64 From: Terese RIVAS PCP: Care Physician,No Primary Status :ADM IN Location: [place] FF129-3 Subjective Subjective Patient appears to be comfortable [...] Cosigner Signature (if applicable): CC: ~ Signed [facility] Work Phone: 1(645) 163-458806-23-2025 Consult note [facility] Medical Records Department [address] [place] [address] Consultation - Infectious Dx 12/13/24 1253 MR#: [id number] Acct: [id number] Name: SHARLENE DEVLIN Rep #:[id number] : 1960 64 From: Raghva medina MD PCP: Care Physician,No Primary Status :ADM IN Location: [facility] BT641-5 Assessment & Plan Assessment/Plan (1) Septic arthritis [...] performed and neg except as noted above. [facility] Medical History Wears glasses Alcohol use Redness [...] Mccormick, DO; No Primary Care Physician~ Signed [facility]06-23-2025 Progress note [facility] Medical Records Department [address] [place] [address] Progress Note - Orthopedic 12/13/24 1154 MR#: [id number] Acct: [id number] Name: SHARLENE DEVLIN Rep #:[id number] : 1960 64 From: Terese RIVAS PCP: Care Physician,No Primary Status :ADM IN Location: [place] LN921-5 Subjective Subjective Patient appears to be comfortable [...] Cosigner Signature (if applicable): CC: ~ Signed [facility]06-22-2025 Progress note Author Sundeep Mccormick [facility] Note Date/Time December 12, 2024 12:1 1pm [facility] Medical Records Department [address] [place] [address] Progress Note - Orthopedic 12/12/24 1209 MR#: [id number] Acct: [id number] Name: SHARLENE DEVLIN Rep #:[id number] : 1960 64 From: Sundeep khoury DO PCP: Care Physician,No Primary Status :ADM IN Location: [place] [address]-1 Subjective Subjective Patient seen and examined. Pain [...] Cosigner Signature (if applicable): cc: ~* Signed [facility] Work Phone: 1(702) 510-917406-22-2025 Progress note [facility] Medical Records Department [address] [place] [address] Progress Note - Orthopedic 12/12/24 1209 MR#: [id number] Acct: [id number] Name: SHARLENE DEVLIN Rep #:[id number] : 1960 64 From: Sundeep khoury DO PCP: Care Physician,No Primary Status :ADM IN Location: [place]3 YA887-0 Subjective Subjective Patient seen and examined. Pain [...] with PICC line if ordered by ID. 12/12/241210 Cosigner Signature (if applicable): CC: ~ Signed ADDENDUM by Dr. Sundeep Mccormick, DO on 12/12/24 at 1211 Addendum Addendum: Correction from above patient is postoperative day #2 status post right knee arthroscopicI&D. 12/12/241210 Cosigner Signature (if applicable): cc: ~* Signed [facility]06-21-2025 Progress note Author Sundeep Mccormick [facility] Note Date/Time December 11, 2024 11:1 8am [facility] Medical Records Department [address] [place] [address] Progress Note - Orthopedic 12/11/24 1113 MR#: [id number] Acct: [id number] Name: SHARLENE DEVLIN Rep #:[id number] : 1960 64 From: Sundeep khoury DO PCP: Care Physician,No Primary Status :ADM JEANCARLOS Location: [place]3 TX735-4 Subjective Subjective Patient seen and examined. Reports [...] PICC line if ordered by ID. 12/11/24 111 <Electronically signed by Sundeep Mccormick DO> Cosigner Signature (if applicable): CC: ~ Signed [facility] Work Phone: 1(236) 781-609906-21-2025 Progress note [facility] Medical Records Department [address] [place] [address] Progress Note - Orthopedic 12/11/24 1113 MR#: [id number] Acct: [id number] Name: SHARLENE DEVLIN Rep #:[id number] : 1960 64 From: Sundeep khoury DO PCP: Care Physician,No Primary Status :ADM JEANCARLOS Location: [place]3 WP413-3 Subjective Subjective Patient seen and examined. Reports [...] Cosigner Signature (if applicable): CC: ~ Signed [facility]06-20-2025 Consult note Author Sarita Key [facility] Note Date/Time December 10, 2024 3:41 pm [facility] Medical Records Department [address] [place] [address] Anesthesia Postop Eval II 12/10/24 1541 MR#: [id number] Acct: [id number] Name: SHARLENE DEVLIN Rep #:[id number] : 1960 64 From: Sarita Key CRNA PCP: Care Physician,No Primary Status :ADM JEANCARLOS Y Race: C Location: [place] [address] Anesthesia Postop Eval I Sum Postop Eval Completion status Anesthesia document: Postop Eval 1 completed: Yes Anesthesia Postop Eval I Summary Anesthesia Postop Eval I Summary: Anesthesia Postop Eval I: Assessment Summary Airway patent Yes 12/10/24 15:05 CENTRAL OFFICE INSPECTOR.CSIR Spontaneous unlabored Yes 12/10/24 15:05 CENTRAL OFFICE INSPECTOR.CSIR respirations Mental status nausea No 12/10/24 15:05 CENTRAL OFFICE INSPECTOR.CSIR Vomiting No 12/10/24 15:05 CENTRAL OFFICE INSPECTOR.CSIR Anesthesia Postop Eval I: Fluid Summary Crystalloid volume administer 1,000 12/10/24 15:05 CENTRAL OFFICE INSPECTOR.CSIR (ml) Colloids volume administered ( ml) Blood Product volume administered (ml) Total IV fluid infused 1,000 12/10/24 15:05 CENTRAL OFFICE INSPECTOR.CSIR Anesthesia Postop Eval I: Summary Notes Anesthesia Complication No 12/10/24 15:05 CENTRAL OFFICE INSPECTOR.CSIR Anesthesia Complication Comment: Post-operative progress note Anesthesia: Postop Eval II Evaluation Mental status: Awake Pain Level: 3 nausea: No Vomiting: No 12/10/24 1541 <Electronically signed by Sarita richards CRNA> Date _ Sarita Key CRNA Cosigner Signature: Date CC: ~ Signed [facility] Work Phone: 1(137) 125-765506-20-2025 Consult note Author Sarita Key [facility] Note Date/Time December 10, 2024 3:06 pm [facility] Medical Records Department [address] [place] [address] Anesthesia Postop Eval I 12/10/24 1505 MR#: [id number] Acct: [id number] Name: SHARLENE DEVLIN Rep #:[id number] : 1960 64 From: Sarita Key CRNA PCP: Care Physician,No Primary Status :REG SDC Y Race: C Location: [place] [address] Anesthesia: Postop Eval I Current Vital Signs Temperature: 97.3 F Pulse Rate: 112 Blood Pressure: 161/111 Respiratory Rate: 24 Pulse Ox: 94 Assessment Airway patent: Yes Spontaneous unlabored respirations: Yes nausea: No Vomiting: No Anesthesia Complication: No Fluid Hydration Crystalloid volume administer (ml): 1,000 Total IV fluid infused: 1,000 Progress Note Anesthesia document: Postop Eval 1 completed: Yes 12/10/24 150 <Electronically signed by Sarita richards CRNA> Date _ Sarita Key CRNA Cosigner Signature: Date CC: ~ Signed [facility] Work Phone: 1(427) 958-145206-20-2025 Evaluation note* Diagnosis Onset Date Resolution Status Admit Date Septic arthritis of knee, right acut e December 10, 2024 2:56pm [facility] Work Phone: 1(822) 278-910706-20-2025 Evaluation note* Diagnosis Onset Date Resolution Status Admit Date Septic arthritis of knee, right inac tive December 10, 2024 2:56pm [facility] Work Phone: 1(550) 864-618106-20-2025 Consult note [facility] Medical Records Department [address] [place] [address] Anesthesia Postop Eval II 12/10/24 1541 MR#: [id number] Acct: [id number] Name: SHARLENE DEVLIN Rep #:[id number] : 1960 64 From: Sarita Key CENTRAL OFFICE INSPECTOR PCP: Care Physician,No Primary Status :ADM JEANCARLOS Y Race: C Location: [place] [address] Anesthesia Postop Eval I Sum Postop Eval Completion status Anesthesia document: Postop Eval 1 completed: Yes Anesthesia Postop Eval I Summary Anesthesia Postop Eval I Summary: Anesthesia Postop Eval I: Assessment Summary Airway patent Yes 12/10/24 15:05 CENTRAL OFFICE INSPECTOR.CSIR Spontaneous unlabored Yes 12/10/24 15:05 CENTRAL OFFICE INSPECTOR.CSIR respirations Mental status nausea No 12/10/24 15:05 CENTRAL OFFICE INSPECTOR.CSIR Vomiting No 12/10/24 15:05 CENTRAL OFFICE INSPECTOR.CSIR Anesthesia Postop Eval I: Fluid Summary Crystalloid volume administer 1,000 12/10/24 15:05 CENTRAL OFFICE INSPECTOR.CSIR (ml) Colloids volume administered ( ml) Blood Product volume administered (ml) Total IV fluid infused 1,000 12/10/24 15:05 CENTRAL OFFICE INSPECTOR.CSIR Anesthesia Postop Eval I: Summary Notes Anesthesia Complication No 12/10/24 15:05 CENTRAL OFFICE INSPECTOR.CSIR Anesthesia Complication Comment: Post-operative progress note Anesthesia: Postop Eval II Evaluation Mental status: Awake Pain Level: 3 nausea: No Vomiting: No 12/10/24 1541 a CENTRAL OFFICE INSPECTOR> Date _ Sarita Key CENTRAL OFFICE INSPECTOR Cosigner Signature: Date CC: ~ Signed [facility]06-20-2025 Consult note Author Gregory Sparks [facility] Note Date/Time December 10, 2024 1:33 pm [facility] Medical Records Department [address] [place] [address] Pre-Anesthesia Evaluation 12/10/24 1313 MR#: [id number] Acct: [id number] Name: SHARLENE DEVLIN Rep #:[id number] : 1960 64 From: Gregory Sparks MD PCP: Care Physician,No Primary Status :REG SDC Y Race: C Location: [place] [address] ASA Classification* ASA Classification ASA Classification: 2 [...] AND DEBRIDEMENT Anesthesia History Anesthesia History - tunnel heading inspector: Anesthesia History - tunnel heading inspector Hx Hospitalization No 12/10/24 12:23 Any Problems [...] am of surgery: Tylenol PONV PONV - tunnel heading inspector: PONV - tunnel heading inspector Female Yes 12/10/24 12:23 HX of Motion [...] 12/10/24 12:36 Respiratory Assessment Respiratory Assessment - tunnel heading inspector: Respiratory Tract Infection Hx - tunnel heading inspector Hx Respiratory Tract Infection No 12/10/24 12:23 STOP Sleep Apnea STOP Sleep Apnea - tunnel heading inspector: STOP Sleep Apnea - tunnel heading inspector Hx Hypertension No 12/10/24 12:23 Hx Sleep [...] 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 - tunnel heading inspector: Tobacco Use History - tunnel heading inspector Tobacco Use Cigarettes 09/27/24 10:39 Smoking Status [...] today.) Hematologic Medial History Hematologic Hx - tunnel heading inspector: Hematologic 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 Specify any problems Hx of Preganancy in last 3 No 12/10/24 12:23 Months Nurse Filling Out Transfusion JSSEB 12/10/24 12:23 & Questions: Date: 12/10/24 12/10/24 12:23 Time: 12:27 12/10/24 12:23 Patient unable to answer at this time (ie. confused, unrespo /Reproduction History /Reproductive History - tunnel heading inspector: /Reproductive Hx- tunnel heading inspector Hx Now No 12/10/24 12:23 Gestational Age [...] MD Cosigner Signature: Date CC: ~ Signed [facility] Work Phone: 1(687) 511-983806-20-2025 Procedure note [facility] Medical Records Department [address] [place] [address] Operative Report 12/10/24 1503 MR#: [id number] Acct: [id number] Name: SHARLENE DEVLIN Rep #:[id number] : 1960 64 From: Sundeep khoury DO PCP: Care Physician,No Primary Status :REG [facility] Location: [address] Operative Report (Standard) Operative Information Date of Procedure: 12/10/24 Pre-Operative Diagnosis: Right knee septic arthritis Post-Operative Diagnosis: Right knee septic arthritis Surgery/Procedure Performed: Right knee arthroscopic irrigation and debridement crystal grinder: No Type of Anesthesia: General RN Documented [...] epinephrine. Portal sites were closed in interrupted pebwfd-[id number]-kqlkz fashion with 4-0 nylon suture. Bulky sterile [...] Mccormick, DO; No Primary Care Physician~ Signed [facility]06-20-2025 Consult note [facility] Medical Records Department [address] [place] [address] Anesthesia Postop Eval I 12/10/24 1505 MR#: [id number] Acct: [id number] Name: SHARLENE DEVLIN Rep #:[id number] : 1960 64 From: Sarita Key CRNA PCP: Devan Barrera,No Primary Status :REG [facility] Y Race: C Location: [place] [address] Anesthesia: Postop Eval I Current Vital Signs Temperature: 97.3 F Pulse Rate: 112 Blood Pressure: 161/111 Respiratory Rate: 24 Pulse Ox: 94 Assessment Airway patent: Yes Spontaneous unlabored respirations: Yes nausea: No Vomiting: No Anesthesia Complication: No Fluid Hydration Crystalloid volume administer (ml): 1,000 Total IV fluid infused: 1,000 Progress Note Anesthesia document: Postop Eval 1 completed: Yes 12/10/24 150 a CENTRAL OFFICE INSPECTOR> Date _ Sarita Key CENTRAL OFFICE INSPECTOR Cosigner Signature: Date CC: ~ Signed [facility]06-20-2025 Consult note [facility] Medical Records Department [address] [place] [address] Pre-Anesthesia Evaluation 12/10/24 1313 MR#: [id number] Acct: [id number] Name: SHARLENE DEVLIN Rep #:[id number] : 1960 64 From: Gregory Sparks MD PCP: Care Physician,No Primary Status :REG SDC Y Race: C Location: [place]3 MS311 -1 ASA Classification* ASA Classification ASA Classification: 2 [...] 12:17 12/10/24 Hct 38.4 % (37-47) 12/10/24 12:12/10/24 Plt Count 400 K/mm3 (150-450) 12/10/24 12:17 12/10/24 CHEMISTRY Potassium 3.9 mmol/L (3.3-5.1) 12/10/24 12:17 12/10/24 Sodium 136 mmol/L (133-145) 12/10/24 12:12/10/24 BUN 7 mg/dL (4-19) 12/10/24 12:12/10/24 Creatinine 0.51 mg/dL (0.70-1.20) L 12/10/24 12:17 Glucose 103 mg/dL (70-99) H 12/10/24 12:17 12/10/24 COAG Pre-Assessment Diagnosis/Proposed Procedure Planned Operative Procedure(s): RIGHT KNEE ARTHROSCOPIC IRRIGATION AND DEBRIDEMENT Anesthesia History Anesthesia History - tunnel heading inspector: Anesthesia History - tunnel heading inspector Hx Hospitalization No 12/10/24 12:23 Any Problems [...] am of surgery: Tylenol PONV PONV - tunnel heading inspector: PONV - tunnel heading inspector Female Yes 12/10/24 12:23 HX of Motion [...] 12/10/24 12:36 Respiratory Assessment Respiratory Assessment - tunnel heading inspector: Respiratory Tract Infection Hx - tunnel heading inspector Hx Respiratory Tract Infection No 12/10/24 12:23 STOP Sleep Apnea STOP Sleep Apnea - tunnel heading inspector: STOP Sleep Apnea - tunnel heading inspector Hx Hypertension No 12/10/24 12:23 Hx Sleep [...] 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 - tunnel heading inspector: Tobacco Use History - tunnel heading inspector Tobacco Use Cigarettes 09/27/24 10:39 Smoking Status [...] today.) Hematologic Medial History Hematologic Hx - tunnel heading inspector: Hematologic 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 Specify any problems Hx of Preganancy in last 3 No 12/10/24 12:23 Months Nurse Filling Out Transfusion JSSEB 12/10/24 12:23 & Questions: Date: 12/10/24 12/10/24 12:23 Time: 12:27 12/10/24 12:23 Patient unable to answer at this time (ie. confused, unrespo /Reproduction History /Reproductive History - tunnel heading inspector: /Reproductive Hx- tunnel heading inspector Hx Now No 12/10/24 12:23 Gestational Age [...] MD Cosigner Signature: Date CC: ~ Signed [facility]06-02-2025 Radiology Diagnostic study note [facility] Imaging Services [address] [place], [place] [id number] Knee 4 or More Views MR#: [id number] Acct: [id number] Name: SHARLENE DEVLIN I Rep #: [id number] : 1960 F 63 From: Shirley Sanchez MD PCP: Care Physician,No Primary Status: REG ER Study:Knee 4 or More Views Date of Exam: 11/22/24 Exam# [id number] Ordering Dr: Ed Bell MD PROCEDURE: KNEE [...] change involving the patellofemoral joint. Reading Location: [place] [address] CC: Dr. Orion Bell MD; No Primary Care Physician ~ [place] Guide: Signed [facility]02-02-2022 NotePatient Outreach (INTMMN) SHARLENE DEVLIN I ([id number]) 1960 F Date Time Provider Department 07/25/21 ANDRE CLARK INTRAQUEL During your visit today, we recorded the following information about you: Allergies As of Date: 07/25/2021 Noted Allergy Reaction PENICILLINS 02/25/2019 4 - Hives Date Reviewed: 02/25/2019 Reviewed by: Andre Clark - Fully Assessed Visit Diagnosis:Encounter for screening mammogram for breast cancer [Z12.31] Order(s):[facility] SCREENING [2978578] Order #: [id number] FUTURE Problem List As Of Date 07/25/2021 Noted Resolved Ganglion cyst of left foot [M67.472] 02/25/2019 Tobacco use disorder [F17.200] 02/25/2019 Encounter Status:Closed by SHIRA DALTON on 07/30/21[facility] 02-22-2021 NoteHNO ID: [id number] Author: Vivien Faith LPN Service: ? Author Type: ? Type: Progress Notes Filed: 02/22/2021 9:26 AM Note Text: LEFT MESSAGE FOR PATIENT TO CALL OFFICE.[facility]07-29-2021 NoteHNO ID: [id number] Author: Sarah Oviedo RN Service: ? Author Type: Registered Nurse Type: Progress Notes Filed: 02/19/2021 3:00 AM Note Text: Pt overdue for screening colonoscopy. Pt needs office visit prior due to patient has not been seen in office since 2019. Please call pt and schedule with Imani Martinez or Charles Kendrick. Sarah Oviedo [facility]21 NotePatient Outreach (INTMWS) SHARLENE DEVLIN I ([id number]) 1960 F Date Time Provider Department 01/18/21 SARAH OVIEDO INTYaryWS During your visit today, we recorded [...] 02/25/2019 Encounter Status:Closed by SHIRA DALTON on 02/19/21[facility] 08-27-2020 NoteHNO ID: [id number] Author: Jewell Bell Pss Service: ? Author Type: ? Type: Progress Notes Filed: 09/05/2020 4:22 PM Note Text: 3 rd attempt left message for patient to return call.please arrange appt with pcp and mammogram. Unable to reach letter also mailed.[facility]03-04-2021 NoteHNO ID: [id number] Author: Gloria Mehta Pss Service: ? Author Type: ? Type: Progress Notes Filed: 08/24/2020 1:31 PM Note Text: 1st attempt lm for patient to call the office to schedule her mammogram and Annual exam. Gloria Mehta [facility]2021 NoteHNO ID: [id number] Author: Lilly Brown LPN Service: ? Author Type: ? Type: Progress Notes Filed: 09/05/2020 4:22 PM Note Text: please call pt to arrange for appt with pcp and mammogram.[facility]02-24-2021 NoteHNO ID: [id number] Author: Andre Clark Service: ? Author Type: Physician Type: Progress Notes Filed: 09/05/2020 4:22 PM Note Text: Ordered.[facility]02-23-2021 NotePatient Outreach (INTMWS) SHARLENE DEVLIN I ([id number]) 1960 F Date Time Provider Department 08/15/20 ANDRE CLARK INTYaryWS During your visit today, we recorded the following information about you: Nellie Valles LPN 09/05/2020 4:22 PM Signed Message left for pt to contact the office to schedule her yearly exam and mammogram. Please see pended order below. Nellie Clark MD 09/05/2020 4:22 PM Signed Ordered. Lilly Kevin JACOB 09/05/2020 4:22 PM Signed please call pt [...] [188] Primary Visit Diagnosis:Screening breast examination [Z12.39] Order(s):[facility] SCREENING [[id number]] Order #: [id number] FUTURE Problem List As Of Date 08/15/2020 Noted Resolved Ganglion cyst of left foot [M67.472] 02/25/2019 More... Tobacco use disorder [F17.200] 02/25/2019 Encounter Status:Closed by NELLIE VALLES LPN on 09/05/20[facility]02-23-2021 NoteHNO ID: [id number] Author: Nellie Valles LPN Service: ? Author Type: ? Type: Progress Notes Filed: 09/05/2020 4:22 PM Note Text: Message left for pt to contact the office to schedule her yearly exam and mammogram. Please see pended order below. Nellie [facility]OKing[facility]Evaluation note* Diagnosis Onset Date Resolution Status Abdominal pain acute Mid back pain on left side a cute Urinary frequency acute [facility] Work Phone: Evaluation noteNo assessment information available [facility] Work Phone: Hospital Discharge instructions Additional Instructions Please return if your symptoms change or worsen. Please continue to drink plenty of fluids. Please take [id number] Tylenol and/or ibuprofen as needed for further pain control.[facility] Work Phone: Hospital Discharge instructions [...] for pain and swelling and Tylenol for pain.[facility] Work Phone: Hospital Discharge instructions Additional Instructions Follow-up with orthopedics, ice your knee, elevate the area, take NSAIDs as well for pain and swelling.[facility] Work Phone: Reason for referral (narrative)No reason for referral information availableWThe [facility] Work Phone: Summary Purpose Family History No Family History Records Found Relationship Condition Age at Onset Recorded Date/T raymond mother Hypertension Unknown father Atrial fibrillation Unknown Advance Directives No Advanced Directives Records Found Advance Directive Response Recorded Date/ Time Living Will No February 20 10:43pm Power of Gis Analyst Developer No February 20 022 10:43pm Advance Directive Response Recorded Date/ Time Do you have a Healthcare Power of Gis Analyst Developer? No November 22, 2024 9:07am Advance Directive Response Recorded Date/ Time Do you have a Healthcare Power of Gis Analyst Developer? No November 22, 2024 9:07am Do you have a Healthcare Power of Gis Analyst Developer? No December 03, 2024 1:29pm Advance Directive Response Recorded Date/ Time Do you have a Healthcare Power of Gis Analyst Developer? No December 10, 2024 4:49pm Do you have a Healthcare Power of Gis Analyst Developer? No November 22, 2024 9:07am Do you have a Healthcare Power of Gis Analyst Developer? No December 03, 2024 1:29pm Chief Complaint [...] Septic arthritis of knee, right November 2:56pm Chief Complaint Admit Date SINUS COMPLAINTS September 27, 2024 10:4 2am right knee pain November 22, 2024 9:00a m Knee pain December 03, 2024 12:4 9pm Localized swelling, mass and lump, right lower rice December 09, 2024 2:54pm PREOP December 10, 2024 12:0 6pm LABS/DRESSING CHANGE December 20, 2024 11: 27am Chief Complaint Admit Date SINUS COMPLAINTS September 27, 2024 10:4 2am right knee pain November 22, 2024 9:00a m Knee pain December 03, 2024 12:4 9pm Localized swelling, mass and lump, right lower rice December 09, 2024 2:54pm SWELLING December 09, 2024 3:16 pm PREOP December 10, 2024 12:0 6pm LABS/DRESSING CHANGE December 20, 2024 11: 27am LABS/DRESSING CHANGE December 27, 2024 12:3 3pm Chief Complaint Admit Date SINUS COMPLAINTS September 27, 2024 10:4 2am right knee pain November 22, 2024 9:00a m Knee pain December 03, 2024 12:4 9pm Localized swelling, mass and lump, right lower rice December 09, 2024 2:54pm SWELLING December 09, 2024 3:16 pm PREOP December 10, 2024 12:0 6pm LABS/DRESSING CHANGE December 20, 2024 11: 27am LABS/DRESSING CHANGE December 27, 2024 12:3 3pm LABS/DRESSING CHANGE January 03, 2025 9:5 7am Chief Complaint Admit Date SINUS COMPLAINTS September 27, 2024 10:4 2am right knee pain November 22, 2024 9:00a m Knee pain December 03, 2024 12:4 9pm Localized swelling, mass and lump, right lower rice December 09, 2024 2:54pm SWELLING December 09, 2024 3:16 pm PREOP December 10, 2024 12:0 6pm LABS/DRESSING CHANGE December 20, 2024 11: 27am LABS/DRESSING CHANGE December 27, 2024 12:3 3pm LABS/DRESSING CHANGE January 03, 2025 9:5 7am D/C PICC January 10, 2025 11:5 1am Additional Source Comments INFORMATION SOURCE (unrecogn ized section and content) DATE CREATED AUTHOR 08/02/2021 [facility] DATE CREATED AUTHOR AUTHOR'S ORGANIZ ATION 12/09/2024 [facility] DATE CREATED AUTHOR AUTHOR'S ORGANIZ ATION 12/12/2024 [facility] DATE CREATED AUTHOR AUTHOR'S ORGANIZ ATION 03/09/2025 [facility] Goals (unrecognized section and content) Goals may [...] December 03, 2024 Dr. Davin Cole DO Attending Provider Active Start : December [...] December 10, 2024 End: December 14, 2024 Team Status: Active Member Role/Relationship Status Dates No Primary Care Physician Primary Care Provider Active Team Status: Inactive Member Role/Relationship Status Dates No Primary Care Physician Primary Care Provider Active Start: September 27, 2024 End: September 27, 2024 No Primary Care Physician Referring Provider Active Start: September 27, 2024 End: September 27, 2024 Vivek Suarez PA, PA Attending Provider Active Start: September 27, 2024 End: September 27, 2024 Team Status: Inactive Member Role/Relationship Status Dates No Primary Care Physician Primary Care Provider Active Start: November 22, 2024 End: November 22, 2024 Dr. Orion Bell MD Attending Provider Active S tart: November 22, 2024 End: November 22, 2024 Dr. Orion Bell MD Emergency Provider Active S tart: November 22, 2024 End: November 22, 2024 Team Status: Inactive Member Role/Relationship Status Dates No Primary Care Physician Primary Care Provider Active Start: December 03, 2024 End: December 03, 2024 Dr. Davin Cole DO Attending Provider Active Start : December 03, 2024 End: December 03, 2024 Dr. Davin Cole DO Emergency Provider Active Start : December 03, 2024 End: December 03, 2024 Team Status: Inactive Member Role/Relationship Status Dates No Primary Care Physician Primary Care Provider Active Start: December 09, 2024 End: December 09, 2024 Dr. Sundeep Mccormick DO Attending Provider Active Start: December 09, 2024 End: December 09, 2024 Dr. Sundeep Mccormick DO Referring Provider Active Start: December 09, 2024 End: December 09, 2024 Team Status: Active Member Role/Relationship Status Dates No Primary Care Physician Primary Care Provider Active Start: December 10, 2024 End: December 10, 2024 Dr. Ernesto Galvez MD Attending Provider Active Start: December 10, 2024 End: December 10, 2024 Dr. Sundeep Mccormick DO Referring Provider Active Start: December 10, 2024 End: December 10, 2024 Team Status: Inactive Member Role/Relationship Status Dates No Primary Care Physician Primary [...] December 10, 2024 End: December 14, 2024 Team Status: Inactive Member Role/Relationship Status Dates No Primary Care Physician Primary Care Provider Active Start: December 20, 2024 End: December 20, 2024 Dr. Raghav Gabriel MD Attending Provider Active Start: December 20, 2024 End: December 20, 2024 Dr. Raghav Gabriel MD Referring Provider Active Start: December 20, 2024 End: December 20, 2024 Team Status: Active Member Role/Relationship Status Dates Dr. Kamran Pate MD Attending Provider Active Start: December 09, 2024 Dr. Sundeep Mccormick DO Referring Provider Active Start: December 09, 2024 Team Status: Active Member Role/Relationship Status Dates No Primary Care Physician Primary Care Provider Active Start: December 10, 2024 End: December 10, 2024 Dr. Ernesto Galvez MD Attending Provider Active Start: December 10, 2024 End: December 10, 2024 Dr. Sundeep Mccormick DO Referring Provider Active Start: December 10, 2024 End: December 10, 2024 Team Status: Inactive Member Role/Relationship Status Dates No Primary Care Physician Primary [...] December 10, 2024 End: December 14, 2024 Team Status: Inactive Member Role/Relationship Status Dates No Primary Care Physician Primary Care Provider Active Start: December 20, 2024 End: December 20, 2024 Dr. Raghav Gabriel MD Attending Provider Active Start: December 20, 2024 End: December 20, 2024 Dr. Raghav Gabriel MD Referring Provider Active Start: December 20, 2024 End: December 20, 2024 Team Status: Inactive Member Role/Relationship Status Dates No Primary Care Physician Primary Care Provider Active Start: December 27, 2024 End: December 27, 2024 Dr. Raghav Gabriel MD Attending Provider Active Start: December 27, 2024 End: December 27, 2024 Dr. Raghav Gabriel MD Referring Provider Active Start: December 27, 2024 End: December 27, 2024 Team Status: Inactive Member Role/Relationship Status Dates No Primary Care Physician Primary Care Provider Active Start: January 03, 2025 End: January 03, 2025 Dr. Raghav Gabriel MD Attending Provider Active Start: January 03, 2025 End: January 03, 2025 Dr. Raghav Gabriel MD Referring Provider Active Start: January 03, 2025 End: January 03, 2025 Team Status: Inactive Member Role/Relationship Status Dates No Primary Care Physician Primary Care Provider Active Start: January 10, 2025 End: January 10, 2025 Dr. Raghav Gabriel MD Attending Provider Active Start: January 10, 2025 End: January 10, 2025 Dr. Raghav Gabriel MD Referring Provider Active Start: January 10, 2025 End: January 10, 2025 FOR RECORDS PERTAINING TO PATIENTS WHO ARE [...] BE BASED ON THE PRIMARY CLINICAL RECORDS. [employer] provides no warranty or guarantee of the accuracy or completeness of information in this document.
--- NOTE | 2025-03-10 11:30 | CASEMGMT ---
LOUIS CM into pt room for assessment, pt is off of the floor at this time.
--- NOTE | 2025-03-10 12:28 | PCM.PRE.AN2 ---
ASA Classification* ASA Classification ASA Classification: 2 Assessment & Plan Anesthesia* Anesthesia Assessment Anesthesia Assessment: Discussed sedation and/or anesthesia options, risks, benefits, and alternatives with patient/parents/legal guardian/POA. Questions invited. The patient/parents/legal guardian/POA seems to understand and agrees to proceed with anesthesia plan. Reviewed the physical assessment, medical history, allergy history and patient home medications list prior to surgery/procedure/anesthetic and documented any changes. Performed airway and anesthesia risk assessments. Anesthesia Type Anesthesia Type: General History Source History Obtained from:: Patient and Chart Anesthesia Focused Assessment* Temperature: 97.9 F Pulse Rate: 87 Blood Pressure: 113/68 Respiratory Rate: 16 Pulse Ox: 94 Oxygen Delivery Method: Room Air Airway Assessment Mouth opens: >3 cm Mallampati Score: IV Teeth Condition: Missing (Patient is missing molars from chronic grinding of her teeth.) Neck Range of motion (ROM): Full ROM Labs Anesthesia Preop lab: CBC WBC, (4.4-11.0) 3.4 K/mm3 L Today, 04:48 RBC, (4.2-5.4) 3.10 M/mm3 L Today, 04:48 Hgb, (12.0-15.0) 8.6 g/dL L Today, 04:48 Hct, (37-47) 26.5 % L Today, 04:48 Plt Count, (150-450) 280 K/mm3 Today, 04:48 CHEMISTRY Potassium, (3.3-5.1) 4.1 mmol/L Today, 04:48 Sodium, (133-145) 142 mmol/L Today, 04:48 BUN, (4-19) 9 mg/dL Today, 04:48 Creatinine, (0.70-1.20) 0.56 mg/dL L Today, 04:48 Glucose, (70-99) 85 mg/dL Today, 04:48 COAG Pre-Assessment Diagnosis/Proposed Procedure Planned Operative Procedure(s): Incision and drainage abscess of right knee. 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 When Was Last Pacemaker Check QUESTION #4 FULL TEXT: You/Your Family Experience fever (hyperthermia) with Anesthesia Last Oral Intake Last Oral intake: Last Oral Intake NPO since 00:00 03/10/25 11:00 Meds taken in AM with sips of Yes 03/10/25 11:00 water? 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 Female HX of Motion Sickness HX of N/V After Surgery Non-Smoker Duration of Surgery greater than 60 minutes Number of Risk Factors PONV Score Height & Weight Height & Weight: Anesthesia: Height & Weight Height 5 ft 3 in 03/10/25 11:00 Weight: 64.773 kg 03/10/25 11:00 Body Mass Index (BMI) 25.2 03/10/25 11:00 Respiratory Assessment Respiratory Assessment - preschool assistant principal: Respiratory Tract Infection Hx - preschool assistant principal Hx Respiratory Tract Infection No 03/09/25 23:09 STOP Sleep Apnea STOP Sleep Apnea - preschool assistant principal: STOP Sleep Apnea - preschool assistant principal Hx Hypertension No 03/09/25 10:32 Hx Sleep Apnea No 03/09/25 10:32 CPAP BIPAP Do you snore loudly (louder No 03/09/25 10:32 than talking or can be heard Do you often feel tired/ No 03/09/25 10:32 fatigued/ sleepy during daytime? Has anyone observed you stop No 03/09/25 10:32 breathing during sleep? STOP Results Negative 03/09/25 10:32 QUESTION #5 FULL TEXT : Do you snore loudly (louder than talking or can be heard through closed doors)? 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 Specify any problems Hx of Preganancy in last 3 No 03/09/25 10:32 Months Nurse Filling Out Transfusion KMESSENGE 03/09/25 10:32 & Questions: Date: 03/09/25 03/09/25 10:32 Time: 10:46 03/09/25 10:32 Patient unable to answer at this time (ie. confused, unrespo /Reproduction History /Reproductive History - preschool assistant principal: /Reproductive Hx- preschool assistant principal Hx Now No 03/09/25 23:09 Gestational Age (in weeks): EDC: Hx Hx Para Hx Section SAB No 03/09/25 23:09 Active Medications Active Medications: Current Medications Generic Name Dose Route Start Last Admin Trade Name Freq PRN Reason Stop Dose Admin Acetaminophen 1,000 mg 03/09/25 14:00 03/10/25 06:33 Acetaminophen 500 Mg Tablet PO Not Given Q8 SOTO Gabapentin 600 mg 03/09/25 22:00 03/10/25 08:28 Gabapentin 300 Mg Capsule PO 600 mg BID SOTO Administration Sodium Chloride 250 mls @ 15 mls/hr 03/09/25 10:35 IV .[id number] PRN Saline Flush Sodium Chloride 250 mls @ 15 mls/hr 03/09/25 10:35 IV .[id number] PRN Additional IVPB Infusion Lactated Ringer's 1,000 mls @ 125 mls/hr 03/09/25 11:45 03/10/25 06:28 IV 125 mls/hr .Q8H SOTO Administration Cefazolin Sodium 2 gm/ Sodium 110 mls @ 200 mls/hr 03/09/25 14:00 03/10/25 07:05 Chloride IV Infused Q8 SOTO Infusion Melatonin 3 mg 03/09/25 22:00 03/09/25 21:59 Melatonin 3 Mg Tablet PO 3 mg QHS SOTO Administration Nortriptyline HCl 20 mg 03/09/25 22:00 03/09/25 22:43 Nortriptyline 10 Mg Capsule PO 20 mg QHS SOTO Administration Ondansetron HCl 4 mg 03/09/25 11:32 Ondansetron 4 Mg/2 Ml Vial IV Q8H PRN PRN NAUSEA/VOMITING Oxycodone HCl 5 mg 03/09/25 11:32 03/09/25 21:18 Oxycodone 5 Mg Tablet PO 5 mg Q4H PRN PRN Administration Pain Score 4-10 Senna/Docusate Sodium 2 tablet 03/09/25 11:32 Senna/Docusate Sodium 1 Tablet PO BID PRN PRN Constipation Sodium Chloride 10 - 40 ml 03/09/25 10:35 03/09/25 12:33 0.9% Saline Lock 10 Ml Syringe IV 10 ml UD PRN Administration SALINE FLUSH PFS Medical History Septic arthritis of knee, right Smoker Wears glasses Alcohol use Redness of skin History of steroid therapy Walker as ambulation aid Arthritis Fatty liver Shortness of breath on exertion Hoarseness Chronic cough Mid back pain on left side Urinary frequency Abdominal pain Home Medications ?Medication ?Instructions ?Recorded ?Last Taken ?Type gabapentin 300 mg capsule 600 mg PO BID nerve pain 03/09/25 03/10/25 06:00 History melatonin 3 mg tablet 3 mg PO QHS sleep 03/09/25 Unknown History nortriptyline 10 mg capsule 20 mg PO QHS nerve pain 03/09/25 03/08/25 21:00 History Allergy/AdvReac Type Severity Reaction Status Date / Time Penicillins Allergy Rash Verified 12/10/24 12:20 Family History Mother Hypertension Father Atrial fibrillation Surgical History (Updated 03/10/25 @ 12:[address] Gregory Sparks MD) S/P right knee arthroscopy H/O foot surgery Social History household members: children housing: apartment current occupational status: retired Smoking Status: Current every day smoker tobacco type: cigarettes alcohol intake: current alcohol intake frequency: holidays/special occasions only Review of Systems (Anesthesia) ROS Narrative System reviewed and no additional complaints, except as documented.
[2025-03-10] MEDS: Midazolam 2 MG/2 ML Syringe IV (13:32)
[2025-03-10] MEDS: Lidocaine 1% (5 ml sdv) 5 ML Vial 8 ML IV (13:42)
[2025-03-10] MEDS: fentaNYL 100 MCG/2 ML Ampul IV (13:57)
[2025-03-10] MEDS: Bupiv/Epi 0.25% 30 ML Vial (14:40)
[2025-03-10] MEDS: Vancomycin IV 1,000 MG/20 ML Vial 1000 MG OPERA.SITE (14:49)
[2025-03-10] MEDS: Cefazolin 1 GM/5 ML Vial 2 GM IV (14:52)
[2025-03-10] MEDS: Lactated Ringers 1,000 ML 15 ML IV (15:15)
--- NOTE | 2025-03-10 15:20 | PCM.POST.ANE ---
Anesthesia: Postop Eval I Current Vital Signs Temperature: 97.9 F Pulse Rate: 101 Blood Pressure: 149/90 Respiratory Rate: 18 Pulse Ox: 94 Assessment Airway patent: Yes Spontaneous unlabored respirations: Yes nausea: No Vomiting: No Anesthesia Complication: No Fluid Hydration Crystalloid volume administer (ml): 1,300 Total IV fluid infused: 1,300 Progress Note Anesthesia document: Postop Eval 1 completed: Yes
--- NOTE | 2025-03-10 15:58 | OP.PCM_ITS ---
Operative Report (Standard) Operative Information Date of Procedure: 03/10/25 Pre-Operative Diagnosis: 1. Recurrent right knee septic arthritis 2. Right proximal tibia osteomyelitis Post-Operative Diagnosis: 1. Recurrent right knee septic arthritis 2. Right proximal tibial osteomyelitis 3. 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 Irrigation and debridement right knee with bone grafting diesel engine specialist: Yes Soa Architect: Sandhya Gustafson Tasks completed by first dyer: Opening & closing, Hemostasis: Electrocautery and Retracting Additional outpatient physical therapist assistant?: No Type of Anesthesia: General RN Documented Start/Stop Times: Operation Date: 03/10/25 12:20 Case Time Into Pre-Op 03/10/25 11:33 Out of Pre-Op 03/10/25 13:28 Anesthesia Start 03/10/25 13:32 Into Room 03/10/25 13:32 Procedure Start 03/10/25 13:56 Procedure End 03/10/25 15:05 Anesthesia End 03/10/25 15:13 Out of Room 03/10/25 15:13 Into Recovery 03/10/25 15:15 Procedure Start Time: 13:56 Procedure Stop Time: 15:05 Select all DRAINS/GRAFTS/IMPLANTS that apply: Graft Graft details: [email or web address] OsteoSet calcium sulfate Estimated Blood Loss: 20 cc Specimen collected: Yes Description of specimen(s) removed: Right knee synovial fluid cultures x 2 Description of surgery: Patient was identified in the preoperative holding area by name, medical record number, and date of . Informed consent was confirmed with patient. The operative extremity was marked. All questions were answered to the patient's s atisfaction. At the time of her procedure, patient was brought to the operative suite positioned supine on a standard operative table. General anesthesia was induced and endotracheal tube placed and secured. All bony prominences were well-padded. Well-padded pneumatic tourniquet was applied to right upper thigh. Right lower extremity was prepped and draped in normal, sterile orthopedic fashion. Timeout was called confirming side, site, and operation to be performed. No concerns were voiced elected to proceed with surgery. Patient was due for Ancef intraoperatively and was given this at 1500. I then elevated the right lower extremity for 3 minutes and tourniquet was inflated to 250 mmHg. Longitudinal incision was made in the midline from the proximal pole of the patella to approximately the tibial tubercle. Skin flaps were developed on the level of the fascia. Medial parapatellar arthrotomy was performed in standard fashion. Turbid fluid was encountered and sent for culture. Thick fibrotic tissue was noted in the region of the retropatellar fat pad. Fat pad was excised. Thickened synovium was noted diffusely. No obvious acute synovitis was appreciated. Synovectomy was performed in the medial, lateral and suprapatellar compartments. The cartilage was examined. The trochlea was essentially denuded of cartilage minus the medial aspect. The medial aspect demonstrated a delamination of the cartilage from the underlying bone. An unstable edge was noted and was debrided. The cartilage continue to be unstable which resulted in a total debridement of cartilage the medial aspect of the trochanteric approximately 2 x 2 cm region. There was loss of normal bone deep to the cartilage in this region. No evidence of gross purulence or obvious osteomyelitis was noted. Based on the MRI there appeared to be a focal area of concern for osteomyelitis at the proximal tibia near the proximal tib-fib joint. I used a K wire to drill from the anterior cortex to the posterior cortex of the lateral femur triangulating based on MRI findings to encourage bleeding in this region. The cartilage surface overlying this area was unremarkable. I then irrigated the knee with 7 L normal saline with combination of bulb syringe and pulse lavage. Given the void in the osteochondral structure of the trochlea I elected to place use OsteoSet calcium sulfate to mold the region to allow for bony ingrowth. OsteoSet was allowed to cure in standard fashion per hand sign writer recommendations. 1 g vancomycin powder was then sprinkled into the wound. Hemovac drain was placed superior laterally and secured with suture. Arthrotomy was closed watertight with #1 STRATAFIX after tourniquet was deflated. Hemostasis was achieved with cautery. Dermis was reapproximated buried 2-0 PDS suture. Skin reapproximated finally with interrupted horizontal mattress 2-0 nylon suture. Bulky sterile compression dressing was applied. Patient was awakened from anesthesia and safely extubated in the operative suite. She tolerated the procedure well without apparent complication. Need for skilled outpatient physical therapist assistant: Sandhya Gustafson PA-C was critical to the outcome of the case. During the course of the procedure the physician outpatient physical therapist assistant played a vital role. Her intimate knowledge of my steps in the procedure aided in safe and expedient completion of the procedure. The PA played a vital role in positioning particularly in obtaining the appropriate positioning. The PA was also vital in the retraction of soft tissues during the exposure and protecting vital structures. The PA was also vital in assisting with graft placement. She also played a vital role in closure and dressing application with my direct supervision. Postoperative plan: Patient be transferred back to [facility] after meeting PACU criteria. Continue IV antibiotics. Plan for PICC line per infectious disease. Weightbearing as tolerated right lower extremity. Suture removal in 2 weeks. Multimodal pain management NSAIDs, Tylenol, gabapentin and opioids. Surgical Findings: Findings consistent with chronic synovitis of the knee, turbid fluid. A large osteochondral lesion and delamination of cartilage at the trochlea. Complications Complications: No Admit VTE Documentation VTE Present on Admission: No VTE Mechan Device Prophylaxis: SCD's VTE Pharm Prophylaxis ordered?: Yes
--- NOTE | 2025-03-10 18:35 | POSTOPAN2_ITS ---
Anesthesia Postop Eval I Sum Postop Eval Completion status Anesthesia document: Postop Eval 1 completed: Yes Anesthesia Postop Eval I Summary Anesthesia Postop Eval I Summary: Anesthesia Postop Eval I: Assessment Summary Airway patent Yes 03/10/25 15:20 SNOWBOARDING INSTRUCTOR.TNES Spontaneous unlabored Yes 03/10/25 15:20 SNOWBOARDING INSTRUCTOR.TNES respirations Mental status nausea No 03/10/25 15:20 SNOWBOARDING INSTRUCTOR.TNES Vomiting No 03/10/25 15:20 SNOWBOARDING INSTRUCTOR.TNES Anesthesia Postop Eval I: Fluid Summary Crystalloid volume administer 1,300 03/10/25 15:20 SNOWBOARDING INSTRUCTOR.TNES (ml) Colloids volume administered ( ml) Blood Product volume administered (ml) Total IV fluid infused 1,300 03/10/25 15:20 SNOWBOARDING INSTRUCTOR.TNES Anesthesia Postop Eval I: Summary Notes Anesthesia Complication No 03/10/25 15:20 SNOWBOARDING INSTRUCTOR.TNES Anesthesia Complication Comment: Post-operative progress note Anesthesia: Postop Eval II Evaluation Mental status: Awake and Calm Pain Level: 3 nausea: No Vomiting: No Progress Note Post-operative progress note: Patient having pain up to 5-6/[address] Perez asked if patient could have a femoral block. She would not be ambulating for the next day or so. Discussed with the patient she wishes to proceed. Since the patient has had anesthesia I also discussed it with her daughter including risk, benefits and alternatives. Femoral block done in PACU. Complications Anesthesia Complication: No
[2025-03-10] MEDS: MELATONIN 3 MG TABLET PO (21:09)
[2025-03-11 00:28] VITALS: BMI 25.3
[2025-03-11 00:29] VITALS: BP 112/70; PULSE 77; RESP 16; TEMP 36.6; O2SAT 96
[2025-03-11 04:30] VITALS: BP 104/67; PULSE 80; RESP 16; TEMP 36.6; O2SAT 97; BMI 25.3
[2025-03-11] MEDS: Cefazolin 2 GM in 0.9% Normal Saline (100mL Bag) 100 ML IV ×2 (05:19→14:16)
[2025-03-11 08:33] VITALS: BP 103/59; PULSE 89; RESP 16; TEMP 36.6; O2SAT 94
--- NOTE | 2025-03-11 08:33 | NURSING ---
request for picc line placed via computer.
[2025-03-11 09:11] LABS: Hematocrit 26.1 % (37-47); Hemoglobin 8.3 g/dL (12.0-15.0); Immature Granulocytes Count 0.020 X10^3/uL (0.0-0.0); Mean Corp Hgb Conc 31.8 g/dL (32-36); Mean Corpuscular Volume 85.0 fL (81-99); Mean Platelet Vol. 9.4 fl (6.2-12.0); NRBC Flagged by Analyzer 0 % (0-5); Platelet Count 367 K/mm3 (150-450); RBC Distribution Width CV 14.2 % (11.6-14.6); RBC Distribution Width SD 44.0 fl (35.1-43.9); Red Blood Count 3.07 M/mm3 (4.2-5.4); White Blood Count 7.6 K/mm3 (4.4-11.0)
[2025-03-11 09:49] LABS: Anion Gap 12 (5-15); BUN 9 mg/dL (4-19); BUN/Creat Ratio 14.8 RATIO (10-20); Calcium,Total 8.9 mg/dL (7.6-11.0); Carbon Dioxide 25.5 mmol/L (21.0-32.0); Chloride 95 mmol/L (98-108); Estimated Creatinine Clearance 87.21 ml/min (50-250); Glucose 111 mg/dL (70-99); Potassium 3.7 mmol/L (3.3-5.1)
[2025-03-11] MEDS: Aspirin E.C. 81 MG Tablet PO (10:08)
--- NOTE | 2025-03-11 10:27 | PCM.PN.ID ---
Physical Exam Narrative Feeling better since OR, pain improved, no fever, no n/v/d. Const alert and no apparent distress General Appearance: cooperative Resp normal air movement and clear to auscultation bilaterally Cardio regular rate and regular rhythm GI soft to palpation, non-tender and non-distended Skin no rashes or lesions noted ID ID: Route of nutrition/ use of supplements: [] Nutritional Intake: [] IV Site: [] Gannon Catheter: [] Assessment & Plan Assessment/Plan (1) Septic arthritis of knee, right: QUALIFIERS: Septic arthritis organism: staphylococcal Qualified Code(s): M00.061 - Staphylococcal arthritis, right knee PLAN: Treated with iv cefazolin 11/2024 for MSSA R knee septic arthritis. Now with recurrence of symptoms. Aspiration 03/07/25 again with mssa. Will cont cefazolin. OR 03/10/[address] Perez for I&D, MRI showed osteo. Plan will be 6 weeks iv cefazolin at discharge with stop date 04/21/25 and weekly labs. Ordered picc. ID followup in 2 weeks. D/w case specialist. Will follow
--- NOTE | 2025-03-11 10:45 | CASEMGMT ---
Addendum entered by Elvira Toledo 03/11/25 15:11: Pt is aware of therapy orders and to schedule an appt. She states she was told to schedule the appt at her 2wk visit per . Addendum entered by Elvira Toledo 03/11/25 15:07: [facility] TC to [facility] sales account specialist, he states they have accepted and delivery will be this evening. He is aware pt is dc'ing. Updated pt on all plans. Addendum entered by Elvira Toledo 03/11/25 13:43: DC Summary sent to [facility] via [employer]. Addendum entered by Elvira Toledo 03/11/25 12:57: Sent picc report to [facility] at this time via [employer]. Original Note: LOUIS CONNOLLY Assessment: Face to Face with pt for initial transition planning/care coordination assessment. LOUIS CONNOLLY introduced self and role at [facility], pt voices understanding and consents to assessment. Pt is A&O x4 and answers all questions appropriately at this time. Pt lying in bed in no distress. Care providers, pharmacy, and demographics verified/updated. Admitting Dx: R knee septic arthritis Strata Score: 1 PCP:Denies having one. Pt states that she still has the information given to obtain PCP. Specialists:vivi Perez Pharmacy: [facility] Insurance: Rosa M POSADA Prescription Benefit: yes LNOK: Billie Yousif, adelina Living Arrangements: Pt lives with autistic dtr in a single story home with 1 step to enter. Pt reports she is I in ADLs and dtr assists with IADLs. Pt states her dtr has really stepped up since she had this same dx in November. Dtr assists with laundry, meals. Pt gets groceries delivered. Pt denies concerns at home. Transportation: Pt hasn't driven since October. She states she does have family to transport her but she is interested in further information for resources for this. Updated SW. DME:grab bars in bathroom, FWW, shower chair HHC/SNF: Denies hx of Pt states no concerns with going home at time of dc. ID provided a rx for IV atb. Pt has had this same drug in the past. Pt states it went well last time. She states it was very easy and the hardest part about having the picc line was wrapping it to shower. Pt states she would want the same infusion company as in the past, [facility]. She denies need for a list of other options. Pt does not want HHC as in the past no agencies had accepted her. Pt is aware that this can be tried again but she denies need. Pt states she does not feel that she needs the nurse educator to come again for teaching. She feels comfortable with the IV. Pt states she can get transportation for next Friday to the infusion center at [facility] where she gone before for picc dressing and labs. Referral sent to [facility] via [employer] at this time. Pt to have picc placed at approx 1230 per nurse. Pt aware she will receive her 2pm dose prior to leaving if the physicians feel she is medically ready for dc. Pt states no further concerns/needs. CM to follow. Advised pt to ask CM if any further questions/concerns/needs arise, voices understanding. Pt Goal:Home with performing own IV infusion and [facility] outpt infusion for picc and labs. Plan: Home with performing own IV infusion and [facility] outpt infusion for picc and labs. Spoke with Davin from [facility]. They will not need to come to the hospital for bedside teach since pt had received same med recently in November. TC to [facility] OP infusion, spoke with bhavya De Los Santos set up for next Friday at 1230pm for picc dressing and labs. Faxed order at this time. Kyung MYERS CM
--- NOTE | 2025-03-11 11:20 | CASEMGMT ---
Social Work- SW met with pt to provide transport resources, as indicated to RNCM in conversation. SW provided [employer], [employer], [employer] transport list, and [facility] [employer] transport information. Pt reports she has family and friends who assist, but she would like to not have to ask as much due to the volume of her appointments. PT appreciative of resources; denies any additional needs. MARCELLO Espinosa
--- NOTE | 2025-03-11 11:59 | DS.PCM_ITS ---
Documented by User: EVELYN Jefferson 03/11/25 12:37 Providers Date of Admission: 03/09/25 Date of Discharge: 03/11/25 Primary Care Physician: Prachi Primary Care Phys Consultations 03/09/25 11:32 Consult: Infectious Disease Routine Consulting Provider: Raghav Gabriel Reason for Consult: Recurrent septic arthritis right knee EMERGENT Consult: No MD Notified: Yes Date Notified: 03/09/25 Time Notified: 11:35 Method of Notification: Text Reason For Visit: RIGHT KNEE SEPTIC ARTHRITIS Diagnosis Discharge Diagnosis (1) Septic arthritis of knee, right: Status: Acute Code(s): M00.9 - Pyogenic arthritis, unspecified Qualifiers: Septic arthritis organism: staphylococcal Qualified Code(s): M00.061 - Staphylococcal arthritis, right knee Plan: 1. Will continue PT today. ok For range of motion. Okay for weightbearing as tolerated. 2. plan for discharge this afternoon following PT, and PICC placement. - Drain d/c'd today 3. Patient will follow up for post op appointment in 2 weeks in the office with post orthopedics. Patient will need postop follow-up with infectious disease scheduled 4. Patient will need to schedule outpatient PT 5. WBC 7.6 no acute reactive leukocytosis 6. H/H 8.3/21.6: This is stable from preoperative labs 7. DVT prophylaxis : Aspirin 1 mg twice daily x 2 weeks 8. Pain control: patient instructed to take tylenol 500mg 2 tablets TID. and oxycodone 1-2 tablets every 4-6 hours only as needed for pain control. 9. Patient also given a prescription of senna, celebrex 10. ok to remove post op dressing. post op day 5 11. Infectious disease was consulted for recommendations: PICC line to be placed today and 6 weeks of would like to see her in 2 weeks for follow-up. 12. OR cultures 03/10/2025: Staph aureus Medications at Discharge Home Medications gabapentin 300 mg capsule 600 mg PO BID nerve pain 03/09/25 melatonin 3 mg tablet 3 mg PO QHS sleep 03/09/25 nortriptyline 10 mg capsule 20 mg PO QHS nerve pain 03/09/25 acetaminophen 500 mg tablet 1,000 mg (2 x 500 mg) PO Q8 #180 tabs 03/11/25 aspirin 81 mg tablet,delayed release 81 mg PO BID 4 weeks #56 tabs 03/11/25 cefazolin 2 gram intravenous solution 2 g IV Q8H 40 days 03/11/25 oxycodone 5 mg tablet 5 mg PO Q4H PRN PRN Pain Score 4-10 7 days #30 tabs 03/11/25 sennosides 8.6 mg-docusate sodium 50 mg tablet (Stimulant Laxative Plus) 2 tab PO BID PRN PRN Constipation #14 tabs 03/11/25 tizanidine 4 mg capsule 4 mg PO Q8H PRN muscle spasticity 5 days #15 caps 03/11/25 Hospital Course Summary of Care Provided Hospital Course: Patient is s/p right knee open irrigation and debridement with Dr. Perez 03/10/2025 for septic arthritis. Patient did have a diagnosis of gout and underwent PICC line with IV antibiotics for 6 weeks. She was improving and infection was clearing. She presented this past week to the clinic with worsening. Aspiration was performed in clinic and found to be positive for staph. Patient resting comfortably in bed. Rates pain 4/10. States taking Tylenol and oxycodone and ice help to relieve pain. Patient has been up with therapy. Walking with the assit of a walker. She is weightbearing as tolerated. Afebrile, no chest pain, shortness of breath, negative calf pain/ erythema, and no other signs of DVT. drain was left in the wound, 90ccs drained . Physical Exam Narrative Patient resting comfortably in bed side chair No signs of acute distress Satting well on room air Limb is warm to touch, Sensation intact throughout entire lower extremity, including saphenous, sural, superficial and deep peroneal, and tibial distribution. DP/PT pulses bounding. Dorsiflexion plantarflexion strength 5/5 Dressing clear dry intact Calf nontender to palpation, no erythema, no edema. Negative Homans Weight / BMI Weight Weight: 142 lb 12.8 oz Body Mass Index (BMI) 25.2 ABG / Lab / Microbiology Data 03/11/25 08:25 03/11/25 08:25 Laboratory: Laboratory Results - last 24 hr 03/11/25 08:25: WBC 7.6, RBC 3.07 L, Hgb 8.3 L, Hct 26.1 L, MCV 85.0, MCH 27.0, MCHC 31.8 L, RDW Std Deviation 44.0 H, RDW Coeff of Pema 14.2, Plt Count 367, MPV 9.4, Immature Gran % (Auto) 0.300, Neut % (Auto) 73.3 H, Lymph % (Auto) 15.9 L, [place] % (Auto) 10.2 H, Eos % (Auto) 0.0, Baso % (Auto) 0.3, Absolute Neuts (auto) 5.6, Absolute Lymphs (auto) 1.20, Nucleated RBC % 0, Sodium 132 L, Potassium 3.7, Chloride 95 L, Carbon Dioxide 25.5, Anion Gap 12, BUN 9, Creatinine 0.59 L, Estim Creat Clear Calc 87.21, Est GFR (MDRD) Non-Af 101, BUN/Creatinine Ratio 14.8, Glucose 111 H, Calcium 8.9 Microbiology: Microbiology 03/10/25 14:09 Aspirate - Knee Wound Culture - Preliminary Staphylococcus aureus D/C Instructions Discharge Activity: May Not Drive and Use Walker (As needed. Weightbearing as tolerated.) Weight Bearing Status: Weight bearing as tolerated Keep extremity elevated above heart level: Operative Extremity Call your doctor if your incision/area has: Continuous Slow Oozing, Sudden Increased Bleeding, Increased Pain/ Swelling, Increased Redness, Foul Smelling Discharge and Swelling at the incision site Call your doctor if you observe: Fever of 101 or Higher, Inability to urinate, Inability to have a bowel movement, Shortness of breath, Chest pain, Calf discomfort and Uncontrolled pain Remove Dressing in: 1 week Cleanse incision/area with: Soap & Water and Keep Dressing Clean & Dry DC O2, CPAP, BIPAP Needs Home O2 Discharge instructions: No DC home with Oxygen: No When: In 2 weeks with [facility] Meaningful Use Info Meaningful Use Meaningful Use Diagnoses (Choose all that apply): None applicable Discharge Plan Admission Admit Date/Time: 03/09/25 10:35 Attending Provider: Sundeep Perez Primary Care Provider: Care Physician,No Primary Consulting Providers: Raghav Gabriel Discharge Orders/Prescriptions Prescriptions: New cefazolin 2 gram recon soln 2 g IV Q8H 40 Days Rx Instructions: stop date 04/21/25. Dx: mssa osteomyelitis. Weekly bmp, cbc, and esr. Fax to [phone]. Routine picc care per protocol. acetaminophen 500 mg Tablet 1,000 mg PO Q8 Qty: 180 0RF aspirin 81 mg Tablet,Delayed Release (Dr/Ec) 81 mg PO BID 28 Days Qty: 56 0RF oxycodone 5 mg Tablet 5 mg PO Q4H PRN PRN (Reason: Pain Score 4-10) 7 Days Qty: 30 0RF sennosides-docusate sodium [Stimulant Laxative Plus] 8.6-50 mg Tablet 2 tab PO BID PRN PRN (Reason: Constipation) Qty: 14 0RF tizanidine 4 mg capsule 4 mg PO Q8H PRN (Reason: muscle spasticity) 5 Days Qty: 15 0RF Continued nortriptyline 10 mg capsule 20 mg PO QHS gabapentin 300 mg Capsule 600 mg PO BID melatonin 3 mg tablet 3 mg PO QHS Referrals / Follow Up: Care Physician,No Primary [Primary Care Provider, Medical] Disposition Disposition (needs filled in before D/C Order can be placed): Home Health Service Documented by User: Dr. Sundeep Perez DO 03/11/25 12:59 Providers Date of Admission: 03/09/25 Consultations 03/09/25 11:32 Consult: Infectious Disease Routine Consulting Provider: Raghav Gabriel Reason for Consult: Recurrent septic arthritis right knee EMERGENT Consult: No MD Notified: Yes Date Notified: 03/09/25 Time Notified: 11:35 Method of Notification: Text Reason For Visit: RIGHT KNEE SEPTIC ARTHRITIS Diagnosis Discharge Diagnosis (1) Septic arthritis of knee, right: Status: Acute Code(s): M00.9 - Pyogenic arthritis, unspecified Qualifiers: Septic arthritis organism: staphylococcal Qualified Code(s): M00.061 - Staphylococcal arthritis, right knee Plan: 1. Will continue PT today. ok For range of motion. Okay for weightbearing as tolerated. 2. plan for discharge this afternoon following PT, and PICC placement. - Drain d/c'd today 3. Patient will follow up for post op appointment in 2 weeks in the office with post orthopedics. Patient will need postop follow-up with infectious disease scheduled 4. Patient will need to schedule outpatient PT 5. WBC 7.6 no acute reactive leukocytosis 6. H/H 8.3/21.6: This is stable from preoperative labs 7. DVT prophylaxis : Aspirin 1 mg twice daily x 2 weeks 8. Pain control: patient instructed to take tylenol 500mg 2 tablets TID. and oxycodone 1-2 tablets every 4-6 hours only as needed for pain control. Zanaflex rx for spasm 9. Patient also given a prescription of senna, celebrex 10. ok to remove post op dressing. post op day 5 11. Infectious disease was consulted for recommendations: PICC line to be placed today and 6 weeks of would like to see her in 2 weeks for follow-up. 12. OR cultures 03/10/2025: Staph aureus Medications at Discharge Home Medications gabapentin 300 mg capsule 600 mg PO BID nerve pain 03/09/25 melatonin 3 mg tablet 3 mg PO QHS sleep 03/09/25 nortriptyline 10 mg capsule 20 mg PO QHS nerve pain 03/09/25 acetaminophen 500 mg tablet 1,000 mg (2 x 500 mg) PO Q8 #180 tabs 03/11/25 aspirin 81 mg tablet,delayed release 81 mg PO BID 4 weeks #56 tabs 03/11/25 cefazolin 2 gram intravenous solution 2 g IV Q8H 40 days 03/11/25 oxycodone 5 mg tablet 5 mg PO Q4H PRN PRN Pain Score 4-10 7 days #30 tabs 03/11/25 sennosides 8.6 mg-docusate sodium 50 mg tablet (Stimulant Laxative Plus) 2 tab PO BID PRN PRN Constipation #14 tabs 03/11/25 tizanidine 4 mg capsule 4 mg PO Q8H PRN muscle spasticity 5 days #15 caps 03/11/25 Weight / BMI Weight Weight: 142 lb 12.8 oz Body Mass Index (BMI) 25.2 ABG / Lab / Microbiology Data 03/11/25 08:25 03/11/25 08:25 Laboratory: Laboratory Results - last 24 hr 03/11/25 08:25: WBC 7.6, RBC 3.07 L, Hgb 8.3 L, Hct 26.1 L, MCV 85.0, MCH 27.0, MCHC 31.8 L, RDW Std Deviation 44.0 H, RDW Coeff of Pema 14.2, Plt Count 367, MPV 9.4, Immature Gran % (Auto) 0.300, Neut % (Auto) 73.3 H, Lymph % (Auto) 15.9 L, [place] % (Auto) 10.2 H, Eos % (Auto) 0.0, Baso % (Auto) 0.3, Absolute Neuts (auto) 5.6, Absolute Lymphs (auto) 1.20, Nucleated RBC % 0, Sodium 132 L, Potassium 3.7, Chloride 95 L, Carbon Dioxide 25.5, Anion Gap 12, BUN 9, Creatinine 0.59 L, Estim Creat Clear Calc 87.21, Est GFR (MDRD) Non-Af 101, BUN/Creatinine Ratio 14.8, Glucose 111 H, Calcium 8.9 Microbiology: Microbiology 03/10/25 14:09 Aspirate - Knee Wound Culture - Preliminary Staphylococcus aureus Discharge Plan Admission Admit Date/Time: 03/09/25 10:35 Attending Provider: Sundeep Perez Primary Care Provider: Care Physician,No Primary Consulting Providers: Rgahav Gabriel Discharge Orders/Prescriptions Prescriptions: New cefazolin 2 gram recon soln 2 g IV Q8H 40 Days Rx Instructions: stop date 04/21/25. Dx: mssa osteomyelitis. Weekly bmp, cbc, and esr. Fax to [phone]. Routine picc care per protocol. acetaminophen 500 mg Tablet 1,000 mg PO Q8 Qty: 180 0RF aspirin 81 mg Tablet,Delayed Release (Dr/Ec) 81 mg PO BID 28 Days Qty: 56 0RF oxycodone 5 mg Tablet 5 mg PO Q4H PRN PRN (Reason: Pain Score 4-10) 7 Days Qty: 30 0RF sennosides-docusate sodium [Stimulant Laxative Plus] 8.6-50 mg Tablet 2 tab PO BID PRN PRN (Reason: Constipation) Qty: 14 0RF tizanidine 4 mg capsule 4 mg PO Q8H PRN (Reason: muscle spasticity) 5 Days Qty: 15 0RF Continued nortriptyline 10 mg capsule 20 mg PO QHS gabapentin 300 mg Capsule 600 mg PO BID melatonin 3 mg tablet 3 mg PO QHS Referrals / Follow Up: Care Physician,No Primary [Primary Care Provider, Medical] Disposition Disposition (needs filled in before D/C Order can be placed): Home Health Service
[2025-03-11] MEDS: 0.9% Saline Lock 10 ML Syringe IV (14:16)
--- NOTE | 2025-03-11 14:32 | PHA.DC.MC.R ---
Pharmacy [facility] has performed discharge medication reconciliation and counseling for this patient. The patient's discharge medication list was reviewed for discrepancies and discrepancies were resolved. The patient was counseled on the following discharge medications and changes in medications for homegoing were reviewed. The Reason for Use, instructions for use, and potential side effects were reviewed for all new medications. The patient's questions regarding all of their medications were answered. 1. Aspirin 81 mg PO BID 2. Acetaminophen 1000 mg PO Q8 3. Cefazolin 2 grams Q8H 4. Oxycodone 5 mg PO Q4H PRN pain 4-10 5. Senna/docusate 2 tablets PO BID 6. Tizanidine 4 mg PO Q8H PRN muscle spasticity The patient was able to verbally demonstrate an understanding of their discharge medications. Medications at Discharge Home Medications gabapentin 300 mg capsule 600 mg PO BID nerve pain 03/09/25 melatonin 3 mg tablet 3 mg PO QHS sleep 03/09/25 nortriptyline 10 mg capsule 20 mg PO QHS nerve pain 03/09/25 acetaminophen 500 mg tablet 1,000 mg (2 x 500 mg) PO Q8 #180 tabs 03/11/25 aspirin 81 mg tablet,delayed release 81 mg PO BID 4 weeks #56 tabs 03/11/25 cefazolin 2 gram intravenous solution 2 g IV Q8H 40 days 03/11/25 oxycodone 5 mg tablet 5 mg PO Q4H PRN PRN Pain Score 4-10 7 days #30 tabs 03/11/25 sennosides 8.6 mg-docusate sodium 50 mg tablet (Stimulant Laxative Plus) 2 tab PO BID PRN PRN Constipation #14 tabs 03/11/25 tizanidine 4 mg capsule 4 mg PO Q8H PRN muscle spasticity 5 days #15 caps 03/11/25
--- NOTE | 2025-03-11 15:35 | CHAPLAIN ---
Type of Pastoral Visit ___ Initial Visit ___ Follow-up Visit ___ On-call Visit ___ General Patient Visit ___ Spiritual Assessment ___ Family Conference ___ Bereavement ___ Rapid Response ___ Code Blue ___ Other (describe below) Pastoral Care Referral From ___ Patient ___ Family ___ Nurse ___ Physician ___ Copy Director ___ Assistant Operations Manager ___ Other (describe below) Sacrament/Intervention ___ Active listening ___ Anointing ___ Orthodoxy ___ Bereavement ___ Communion ___ Anahy exploration ___ ___ Life review ___ Prayer ___ Reconciliation ___ Sacrament of Sick ___ Supportive presence ___ Wedding ___ Other (describe below) Pastoral Comments two attempts to see patient and she reports that she will be discharged yet today; pt is optimistic although expects to have more surgery in the future; pt says she deals with life as it comes; pt recognizes a positive outcome of her illness and incapacity is that her adult daughter with Autism has stepped and helped more at home showing signs of initiative and independence
== END 2025-03-11 15:47 | disposition home or self-care (01) | DRG 313 ==
PROVIDERS: Admitting Provider Student in an Organized Health Care Education/Training Program; Referring Provider Student in an Organized Health Care Education/Training Program; Visit Provider Student in an Organized Health Care Education/Training Program
PROC: 0Q9 Lower Bones, Drainage (ICD-10-PCS; principal; 2025-03-10 12:10)
DX: M00.061 Staphylococcal arthritis, right knee (principal); M86.8X6 Other osteomyelitis, lower leg; F17.210 Nicotine dependence, cigarettes, uncomplicated; M65.861 Other synovitis and tenosynovitis, right lower leg; B95.61 Methicillin susceptible Staphylococcus aureus infection as the cause of diseases classified elsewhere; Z79.899 Other long term (current) drug therapy
CPT/HCPCS: 36415; 36569; 73721; 80048; 80053; 85025; 85652; 86140; 86850; 86900; 86901; 87015; 87040; 87070; 87075; 87077; 87102; 87116; 87186; 87205; 87206; 97802; C1713; A4216; J2405

== ENCOUNTER 2025-03-18 12:20 | Outpatient (CLI) | payer MEDICAID, SELFPAY ==
[2025-03-18 13:00] LABS: Hematocrit 28.1 % (37-47); Hemoglobin 9.0 g/dL (12.0-15.0); Mean Corp Hgb Conc 32.0 g/dL (32-36); Mean Corpuscular Volume 85.9 fL (81-99); Mean Platelet Vol. 9.1 fl (6.2-12.0); Platelet Count 410 K/mm3 (150-450); RBC Distribution Width CV 15.2 % (11.6-14.6); RBC Distribution Width SD 47.6 fl (35.1-43.9); Red Blood Count 3.27 M/mm3 (4.2-5.4); White Blood Count 6.3 K/mm3 (4.4-11.0)
[2025-03-18 13:28] LABS: Anion Gap 12 (5-15); BUN 5 mg/dL (4-19); BUN/Creat Ratio 11.0 RATIO (10-20); Calcium,Total 9.0 mg/dL (7.6-11.0); Carbon Dioxide 23.7 mmol/L (21.0-32.0); Chloride 101 mmol/L (98-108); Glucose 98 mg/dL (70-99); Potassium 3.9 mmol/L (3.3-5.1)
== END 2025-03-18 23:59 | disposition home or self-care (01) ==
LOC: MEDOUTP 12:20
PROVIDERS: Referring Provider Internal Medicine Infectious Disease; Visit Provider Internal Medicine Infectious Disease
DX: M86.9 Osteomyelitis, unspecified (principal)
CPT/HCPCS: 36592; 80048; 85027; 85652; A4216

== ENCOUNTER 2025-03-25 10:11 | Outpatient (CLI) | payer MEDICAID, SELFPAY ==
[2025-03-25 11:32] LABS: Hematocrit 33.5 % (37-47); Hemoglobin 10.6 g/dL (12.0-15.0); Mean Corp Hgb Conc 31.6 g/dL (32-36); Mean Corpuscular Volume 86.3 fL (81-99); Mean Platelet Vol. 9.3 fl (6.2-12.0); Platelet Count 434 K/mm3 (150-450); RBC Distribution Width CV 16.0 % (11.6-14.6); RBC Distribution Width SD 50.2 fl (35.1-43.9); Red Blood Count 3.88 M/mm3 (4.2-5.4); White Blood Count 5.8 K/mm3 (4.4-11.0)
[2025-03-25 11:51] LABS: Anion Gap 12 (5-15); BUN 6 mg/dL (4-19); BUN/Creat Ratio 13.1 RATIO (10-20); Calcium,Total 9.1 mg/dL (7.6-11.0); Carbon Dioxide 24.2 mmol/L (21.0-32.0); Chloride 100 mmol/L (98-108); Glucose 107 mg/dL (70-99); Potassium 4.1 mmol/L (3.3-5.1)
== END 2025-03-25 23:59 | disposition home or self-care (01) ==
PROVIDERS: Referring Provider Internal Medicine Infectious Disease; Visit Provider Internal Medicine Infectious Disease
DX: M86.9 Osteomyelitis, unspecified (principal); B95.61 Methicillin susceptible Staphylococcus aureus infection as the cause of diseases classified elsewhere
CPT/HCPCS: 36592; 80048; 85027; 85652; A4216

== ENCOUNTER 2025-04-01 09:38 | Outpatient (CLI) | payer MEDICAID, SELFPAY ==
[2025-04-01 10:32] LABS: Hematocrit 33.6 % (37-47); Hemoglobin 10.6 g/dL (12.0-15.0); Mean Corp Hgb Conc 31.5 g/dL (32-36); Mean Corpuscular Volume 85.7 fL (81-99); Mean Platelet Vol. 9.6 fl (6.2-12.0); Platelet Count 295 K/mm3 (150-450); RBC Distribution Width CV 15.9 % (11.6-14.6); RBC Distribution Width SD 49.8 fl (35.1-43.9); Red Blood Count 3.92 M/mm3 (4.2-5.4); White Blood Count 5.1 K/mm3 (4.4-11.0)
[2025-04-01 10:43] LABS: Anion Gap 10 (5-15); BUN 5 mg/dL (4-19); BUN/Creat Ratio 11.8 RATIO (10-20); Calcium,Total 9.2 mg/dL (7.6-11.0); Carbon Dioxide 26.4 mmol/L (21.0-32.0); Chloride 101 mmol/L (98-108); Glucose 109 mg/dL (70-99); Potassium 3.8 mmol/L (3.3-5.1)
== END 2025-04-01 23:59 | disposition home or self-care (01) ==
LOC: MEDOUTP 09:38
PROVIDERS: Referring Provider Internal Medicine Infectious Disease; Visit Provider Internal Medicine Infectious Disease
DX: M86.9 Osteomyelitis, unspecified (principal); B95.61 Methicillin susceptible Staphylococcus aureus infection as the cause of diseases classified elsewhere
CPT/HCPCS: 36592; 80048; 85027; 85652; A4216

== ENCOUNTER 2025-04-08 10:56 | Outpatient (CLI) | payer MEDICAID, SELFPAY ==
[2025-04-08 12:08] LABS: Hematocrit 35.6 % (37-47); Hemoglobin 11.4 g/dL (12.0-15.0); Mean Corp Hgb Conc 32.0 g/dL (32-36); Mean Corpuscular Volume 85.8 fL (81-99); Mean Platelet Vol. 9.6 fl (6.2-12.0); Platelet Count 272 K/mm3 (150-450); RBC Distribution Width CV 15.9 % (11.6-14.6); RBC Distribution Width SD 50.6 fl (35.1-43.9); Red Blood Count 4.15 M/mm3 (4.2-5.4); White Blood Count 5.0 K/mm3 (4.4-11.0)
[2025-04-08 12:39] LABS: Anion Gap 10 (5-15); BUN 7 mg/dL (4-19); BUN/Creat Ratio 12.8 RATIO (10-20); Calcium,Total 9.4 mg/dL (7.6-11.0); Carbon Dioxide 25.7 mmol/L (21.0-32.0); Chloride 100 mmol/L (98-108); Glucose 110 mg/dL (70-99); Potassium 4.1 mmol/L (3.3-5.1)
== END 2025-04-08 23:59 | disposition home or self-care (01) ==
LOC: MEDOUTP 10:56
PROVIDERS: Referring Provider Internal Medicine Infectious Disease; Visit Provider Internal Medicine Infectious Disease
DX: M86.9 Osteomyelitis, unspecified (principal); B95.61 Methicillin susceptible Staphylococcus aureus infection as the cause of diseases classified elsewhere
CPT/HCPCS: 36592; 80048; 85027; 85652; A4216

== ENCOUNTER 2025-04-15 10:16 | Outpatient (CLI) | payer MEDICAID, SELFPAY ==
[2025-04-15 10:47] LABS: Hematocrit 34.3 % (37-47); Hemoglobin 11.1 g/dL (12.0-15.0); Mean Corp Hgb Conc 32.4 g/dL (32-36); Mean Corpuscular Volume 86.0 fL (81-99); Mean Platelet Vol. 9.5 fl (6.2-12.0); Platelet Count 254 K/mm3 (150-450); RBC Distribution Width CV 16.2 % (11.6-14.6); RBC Distribution Width SD 50.8 fl (35.1-43.9); Red Blood Count 3.99 M/mm3 (4.2-5.4); White Blood Count 5.3 K/mm3 (4.4-11.0)
[2025-04-15 11:01] LABS: Anion Gap 9 (5-15); BUN 6 mg/dL (4-19); BUN/Creat Ratio 10.9 RATIO (10-20); Calcium,Total 9.4 mg/dL (7.6-11.0); Carbon Dioxide 27.5 mmol/L (21.0-32.0); Chloride 100 mmol/L (98-108); Glucose 95 mg/dL (70-99); Potassium 4.2 mmol/L (3.3-5.1)
== END 2025-04-15 23:59 | disposition home or self-care (01) ==
LOC: MEDOUTP 10:16
PROVIDERS: Referring Provider Internal Medicine Infectious Disease; Visit Provider Internal Medicine Infectious Disease
DX: M86.9 Osteomyelitis, unspecified (principal); B95.61 Methicillin susceptible Staphylococcus aureus infection as the cause of diseases classified elsewhere
CPT/HCPCS: 36592; 80048; 85027; 85652; A4216

== ENCOUNTER 2025-04-22 09:40 | Outpatient (CLI) | payer MEDICAID, SELFPAY ==
[2025-04-22 10:10] LABS: Hematocrit 34.8 % (37-47); Hemoglobin 11.4 g/dL (12.0-15.0); Mean Corp Hgb Conc 32.8 g/dL (32-36); Mean Corpuscular Volume 84.9 fL (81-99); Mean Platelet Vol. 9.4 fl (6.2-12.0); Platelet Count 244 K/mm3 (150-450); RBC Distribution Width CV 16.4 % (11.6-14.6); RBC Distribution Width SD 50.8 fl (35.1-43.9); Red Blood Count 4.10 M/mm3 (4.2-5.4); White Blood Count 4.5 K/mm3 (4.4-11.0)
[2025-04-22 10:46] LABS: Anion Gap 9 (5-15); BUN 6 mg/dL (4-19); BUN/Creat Ratio 10.9 RATIO (10-20); Calcium,Total 9.2 mg/dL (7.6-11.0); Carbon Dioxide 26.4 mmol/L (21.0-32.0); Chloride 100 mmol/L (98-108); Glucose 116 mg/dL (70-99); Potassium 4.5 mmol/L (3.3-5.1)
== END 2025-04-22 23:59 | disposition home or self-care (01) ==
LOC: MEDOUTP 09:40
PROVIDERS: Referring Provider Internal Medicine Infectious Disease; Visit Provider Internal Medicine Infectious Disease
DX: M86.9 Osteomyelitis, unspecified (principal); B95.61 Methicillin susceptible Staphylococcus aureus infection as the cause of diseases classified elsewhere
CPT/HCPCS: 36592; 80048; 85027; 85652; A4216